=== PATIENT | female | born 1945 | race Caucasian/White ===

== ENCOUNTER 2019-10-03 00:57 | Outpatient (CLI) | payer MEDICARE, OTHER, SELFPAY ==
[2019-10-03 17:34] LABS: SARS-CoV-2 RNA PCR Negative
== END 2019-10-03 00:58 | disposition home or self-care (01) ==
LOC: ANHCOVIDDT 00:59
PROVIDERS: PCP Family Medicine Adolescent Medicine; Visit Provider Internal Medicine Gastroenterology
DX: Z01.812 Encounter for preprocedural laboratory examination (principal); Z11.59 Encounter for screening for other viral diseases
CPT/HCPCS: 87635; C9803; U0003

== ENCOUNTER 2019-10-05 01:48 | Day surgery (SDC) | payer MEDICARE, OTHER, SELFPAY ==
[2019-09-28 13:58] VITALS: BMI 49.1
[2019-10-05 09:00] VITALS: BP 126/58; PULSE 88; RESP 20; TEMP 37.1; O2SAT 98
--- NOTE | 2019-10-05 09:40 | WPDANESEPPF ---
Anes - Initial Pre Proc Eval Procedure: Operation Date: 10/05/19 10:00 Proposed Procedures p Colonoscopy - Ever Lagos MD Date/Time: 10/05/19 09:40 Surgeon: Ever Lagos MD Pre Op Diagnosis: Rectal Bleeding/ Hx Colon Polyps Patient Data Age: 73 Gender: F Height: 1.55 m Weight: 118.6 kg Last Vital Signs Temp 37.1 C 10/05/19 09:00 Pulse 88 10/05/19 09:00 Resp 20 10/05/19 09:00 BP 126/58 L 10/05/19 09:00 Pulse Ox 98 10/05/19 09:00 Allergies Allergy/AdvReac Type Severity Reaction Status Date / Time cefadroxil Allergy Unknown Unknown Verified 10/05/19 09:15 metformin AdvReac Unknown SEVERE Verified 10/05/19 09:15 DIARRHEA Home Medications Medication Instructions Recorded Confirmed Type acetaminophen 650 mg PO Q8H PRN 06/13/19 06/13/19 History diltiazem HCl [Cartia XT] 180 mg PO DAILY 06/13/19 09/28/19 History furosemide [Lasix] 20 mg PO DAILY 06/13/19 09/28/19 History gabapentin [Neurontin] 300 mg PO BID 06/13/19 09/28/19 History hydrochlorothiazide 25 mg PO DAILY 06/13/19 09/28/19 History lorazepam [Ativan] 1 mg PO BID PRN 06/13/19 09/28/19 History losartan [Cozaar] 50 mg PO DAILY 06/13/19 09/28/19 History methylcellulose (laxative) 2 g PO DAILY 06/13/19 09/28/19 History [Citrucel Sugar Free] pantoprazole [Protonix] 40 mg PO BID 06/13/19 09/28/19 History sotalol [Betapace] 120 mg PO BID 06/13/19 09/28/19 History tramadol [Ultram] 50 mg PO Q6H PRN 06/13/19 09/28/19 History warfarin 6 mg PO DAILY 06/13/19 09/28/19 History Patient hx anesthesia problems: none Family hx anesthesia problems: none PMFSH Past Medical History Medical History (Updated 10/04/19 @ 10:57 by Sedrick Koch DO) Atrial fibrillation Diabetes type 2, controlled diet controlled DVT (deep venous thrombosis) Fibromyalgia Hypertension Osteoarthritis Pulmonary embolism Surgical History Surgical History (Updated 10/04/19 @ 10:57 by Sedrick Koch DO) History of hysterectomy Family History Family History (Updated 01/27/17 @ 13:36 by DOCTOR UNKNOWN) Other Cerebrovascular accident Family history of malignant neoplasm Hypertension Social History Social History Smoking status: Current every day smoker Alcohol intake: never Gender identity (if verbalized by the patient): Female Sexual Orientation (if Verbalized by the Patient): Straight or Heterosexual Anes - Eval Final PreProcedure Day of Procedure 10/05/19 09:40 Patient weight: morbidly obese Heart: regular rate and rhythm Lungs: clear to auscultation and normal air movement Airway: Mallampati scale class II Neurological: alert and oriented Last oral intake: >/= 8 hours ASA classification: III Emergent: no Anesthetic plan: proceed Anesthesia type and monitoring: general GIVS and standard monitoring Informed Consent: The patient's anesthetic plan and its attendant risks and benefits were discussed with the patient/family/POA. Questions were solicited and answers provided to the satisfaction of the patient/family/POA.
[2019-10-05] MEDS: LACTATED RINGERS 1,000 ML 150 ML IV CONT (09:42)
[2019-10-05 09:45] LABS: Glucose Point of Care 128 (65-105)
--- NOTE | 2019-10-05 09:48 | WPDGICN ---
Assessment and Plan Assessment and plan (1) LGI bleed: Code(s): K92.2 - Gastrointestinal hemorrhage, unspecified Status: Acute Assessment and Plan: Lower GI bleeding is described as a large amount. Plan is to evaluate more thoroughly with colonoscopy. It is likely that warfarin anticoagulation contributes to her lower GI bleeding. Will need to follow bleeding closely while she is anticoagulated. Anticoagulation will be held briefly while colonoscopy is performed. (2) History of colon polyps: Code(s): Z86.010 - Personal history of colonic polyps Status: Acute Assessment and Plan: Patient's last colonoscopy showed colon polyps in 2016. Follow-up colonoscopy at intervals in the future is advised. Typically 5 year intervals. (3) Obesity (BMI 30.0-34.9): Code(s): E66.9 - Obesity, unspecified Status: Acute (4) Atrial fibrillation: Code(s): I48.91 - Unspecified atrial fibrillation Status: Acute Assessment and Plan: Patient has a history of atrial fibrillation and pulmonary embolism in for the risks reason she requires anticoagulation. This will be held for endoscopy and safety of anticoagulation reassessed after endoscopy. GI Consult Note Consult date/time: 10/05/19 09:48 HPI: Fang Hemphill is a 73 year old female seen in evaluation at the request of Dr. Ludwig. Patient reports bloody stools. Described as a large amount 1 month ago. She has noticed a small amount intermittently subsequently. Patient reports she had 10 see towards constipation and large bleeding occurred after a hard stool. She does have a history of atrial fibrillation for which she is on warfarin anticoagulation chronically. She has a past medical history of pulmonary hypertension and a history of a PE as well. Her family history is noncontributory. In 2016 she had a colonoscopy that showed multiple colon polyps. Family history is noncontributory. Review of Systems Review of Systems: All systems reviewed & are unremarkable except as noted in HPI and below PMFSH Past Medical History Medical History Atrial fibrillation Diabetes type 2, controlled diet controlled DVT (deep venous thrombosis) Fibromyalgia Hypertension Osteoarthritis Pulmonary embolism Surgical History Surgical History History of hysterectomy Family History Family History Other Cerebrovascular accident Family history of malignant neoplasm Hypertension Social History Social History Smoking status: Current every day smoker Alcohol intake: never Gender identity (if verbalized by the patient): Female Sexual Orientation (if Verbalized by the Patient): Straight or Heterosexual Meds Home Medications and Allergies Home Medications Medication Instructions Recorded Confirmed Type acetaminophen 650 mg PO Q8H PRN 06/13/19 10/05/19 History diltiazem HCl [Cartia XT] 180 mg PO DAILY 06/13/19 10/05/19 History furosemide [Lasix] 20 mg PO DAILY 06/13/19 10/05/19 History gabapentin [Neurontin] 300 mg PO BID 06/13/19 10/05/19 History hydrochlorothiazide 25 mg PO DAILY 06/13/19 10/05/19 History lorazepam [Ativan] 1 mg PO BID PRN 06/13/19 10/05/19 History losartan [Cozaar] 50 mg PO DAILY 06/13/19 10/05/19 History methylcellulose (laxative) 2 g PO DAILY 06/13/19 10/05/19 History [Citrucel Sugar Free] pantoprazole [Protonix] 40 mg PO BID 06/13/19 10/05/19 History sotalol [Betapace] 120 mg PO BID 06/13/19 10/05/19 History tramadol [Ultram] 50 mg PO Q6H PRN 06/13/19 10/05/19 History warfarin 6 mg PO DAILY 06/13/19 10/05/19 History Allergies Allergy/AdvReac Type Severity Reaction Status Date / Time cefadroxil Allergy Unknown Unknown Verified 10/05/19 09:15 metformin AdvReac Unknown SEVERE Verified 10/05/19 09:15 DIARRHEA Vital Signs
[2019-10-05 10:00] LABS: INR 1.2
[2019-10-05 11:03] VITALS: BP 110/52; PULSE 76; RESP 18; O2SAT 96
[2019-10-05 11:13] VITALS: BP 114/58; PULSE 82; RESP 18; O2SAT 96
[2019-10-05 11:23] VITALS: BP 112/60; PULSE 80; RESP 18; O2SAT 96
--- NOTE | 2019-10-05 11:32 | SUR.PHASEII ---
REFERRAL APPT MADE TO SEE DR. KIM 10/09/2019 AT 10:30. [address]
== END 2019-10-05 12:03 | disposition home or self-care (01) ==
PROVIDERS: PCP Family Medicine Adolescent Medicine; Visit Provider Internal Medicine Gastroenterology
PROC: 0DJD8ZZ Inspection of Lower Intestinal Tract, Via Natural or Artificial Opening Endoscopic (ICD-10-PCS; CPT 45378; principal; 2019-10-05 10:00)
DX: C18.2 Malignant neoplasm of ascending colon (principal); K92.2 Gastrointestinal hemorrhage, unspecified; E66.9 Obesity, unspecified; I48.91 Unspecified atrial fibrillation; E11.9 Type 2 diabetes mellitus without complications; I10 Essential (primary) hypertension; Z79.01 Long term (current) use of anticoagulants; D12.2 Benign neoplasm of ascending colon; Z86.718 Personal history of other venous thrombosis and embolism
CPT/HCPCS: 45380; 45385; 36415; 85610; 88304; 88305; J2704; J7120

== ENCOUNTER → 2019-10-17 11:21 | Outpatient (CLI) | payer MEDICARE, OTHER, SELFPAY ==
--- NOTE | ~2019-10-17 | CT_ITS ---
EXAMINATION: CT chest abdomen pelvis w con DATE: 10/17/2019 11:56 INDICATION: Malignant neoplasm of ascending colon. TECHNIQUE: Computed tomography (CT) of the chest, abdomen, and pelvis was performed with 100 mL Omnip aque 350 intravenous contrast. Automated exposure control and iterative reconstruction technique were employed. The dose-length product was 1301.85 mGy-cm. COMPARISON: Chest CT 12/30/2012, CT abdomen and pelvis 11/23/2012 FINDINGS: CHEST CT: The lungs demonstrate mild burden of chronic diffuse peripheral reticular opacities. There is mild br onchiectasis in the lower lobes. No honeycombing. No pleural effusion. There is left atrial enlargeme nt of the heart. There are coronary artery calcifications. No pericardial effusion. There is a small sliding hiatal hernia. ABDOMEN/PELVIS CT: Left hepatic lobe is small. There are changes of cholecystectomy. The spleen, pancreas, and adrenal g lands are normal. There is cortical thinning of the kidneys. There is diverticulosis of the colon wit hout evidence of diverticulitis. There are no dilated loops of bowel. There is focal wall thickening of the ascending colon, consistent with primary malignancy. There are no pathologically enlarged lymp h nodes. There are changes of ventral hernia repair. There is no free intraperitoneal fluid. There is moderate lumbar spondylosis. IMPRESSION: 1. Focal wall thickening of ascending colon, consistent with primary malignancy. No evidence of metas tatic disease. Reviewed, dictated and finalized at location A. IMPRESSION: 1. Focal wall thickening of ascending colon, consistent with primary malignancy . No evidence of metastatic disease.
[2019-10-17 11:41] LABS: Estimated Glomerular Filt Rate > 60
== END ==
PROVIDERS: Visit Provider Surgery
DX: C18.2 Malignant neoplasm of ascending colon (principal)
CPT/HCPCS: 36415; 71260; 74177; Q9967

== ENCOUNTER 2019-11-05 11:52 | Outpatient (CLI) | payer MEDICARE, OTHER, SELFPAY ==
[2019-11-05 13:10] LABS: Basophils Absolute Auto 0.1 K/mm3 (0.0-0.1); Basophils Percent Auto 1.1 % (0.2-1.2); Eosinophils Absolute Auto 0.2 K/mm3 (0-0.3); Eosinophils Percent Auto 3.1 % (0-4.4); Hematocrit 26.8 % (37.0-47.0); Hemoglobin 7.2 g/dL (12.0-15.0); Immature Granulocyte Absolute 0.01 K/mm3 (0.00-0.031); Immature Granulocyte Percent A 0.2 % (0-0.5); Lymphocytes Absolute Auto 1.11 K/mm3 (0.9-3.2); Lymphocytes Percent Auto 20.1 % (18.3-44.2); Mean Corpuscular HGB Conc 26.9 g/dl (32-36); Mean Corpuscular Volume 66.8 fl (80-100); Mean Platelet Volume 9.5 fl (7.4-10.4); Monocytes Absolute Auto 0.6 K/mm3 (0.1-0.6); Monocytes Percent Auto 10.7 % (2.6-8.5); Neutrophils Absolute Auto 3.6 K/mm3 (1.3-6.7); Neutrophils Percent Auto 64.8 % (45.5-73.1); Platelet Count Result 304 k/mm3 (150-375); Red Blood Count 4.01 M/mm3 (4.2-5.4); Red Cell Distribution Width 19.8 % (11.5-14.5); White Blood Count 5.5 K/mm3 (4.5-10.0)
[2019-11-05 13:21] LABS: Alanine Aminotransferase 12 U/L (4-35); Albumin Level 3.7 g/dL (3.5-5.1); Alkaline Phosphatase 123 U/L (38-126); Anion Gap 9.5 mmol/L (7-16); Aspartate Amino Transferase 17 U/L (14-36); Bilirubin,Total 0.2 mg/dL (0.2-1.3); Blood Urea Nitrogen 16 mg/dL (7-17); Calcium 8.6 mg/dL (8.4-10.2); Carbon Dioxide 28 mmol/L (22-30); Chloride 102 mmol/L (98-107); Estimated Glomerular Filt Rate > 60; Glucose 111 mg/dL (65-105); Partial Thromboplastin Time 47.3 SECONDS (22.3-36.8); Potassium 3.5 mmol/L (3.4-5.0); Sodium 136 mmol/L (137-145)
[2019-11-05 13:34] LABS: Anisocytosis 1+ (NORMAL); Hypochromasia 2+ (NORMAL); Platelet Estimate Adequate (Adequate); Poikilocytosis 1+ (NORMAL); Stomatocytes 1+ (NORMAL)
[2019-11-05 13:35] LABS: Ovalocytes 1+ (NORMAL)
[2019-11-05 13:53] LABS: Carcinoembryonic Antigen 3.4 ng/mL (0.0-3.0)
== END 2019-11-05 11:53 | disposition home or self-care (01) ==
LOC: ANHSURGERY 11:55
PROVIDERS: Anesthesiology; PCP Family Medicine Adolescent Medicine; Visit Provider Surgery
DX: C18.2 Malignant neoplasm of ascending colon (principal); Z79.02 Long term (current) use of antithrombotics/antiplatelets
CPT/HCPCS: 36415; 80053; 82378; 85025; 85730; 86850; 86900; 86901

== ENCOUNTER 2019-11-10 00:24 | Outpatient (CLI) | payer MEDICARE, OTHER, SELFPAY ==
[2019-11-10 18:30] LABS: SARS-CoV-2 RNA PCR Negative
== END 2019-11-10 00:25 | disposition home or self-care (01) ==
LOC: ANHCOVIDDT 00:24
PROVIDERS: PCP Family Medicine Adolescent Medicine; Visit Provider Surgery
DX: Z01.812 Encounter for preprocedural laboratory examination (principal); Z11.59 Encounter for screening for other viral diseases
CPT/HCPCS: 87635; C9803; U0003

== ENCOUNTER 2019-11-13 14:41 | Inpatient (IN) | payer MEDICARE, OTHER, SELFPAY ==
[2019-11-05 12:49] VITALS: BP 131/51; PULSE 64; RESP 18; TEMP 37; O2SAT 99; BMI 49.1
--- NOTE | 2019-11-12 10:03 | WPDANESEPP ---
Anes - Eval Pre Procedure Procedure: Operation Date: 11/13/19 08:30 Proposed Procedures p Hand Assisted Laparoscopic Right Hemicolectomy, Possible Open - Steven Fraire DO Date/Time: 11/12/19 10:03 Pre Op Diagnosis: ascending colon CA Patient Data Age: 73 Gender: F Height: 1.55 m Weight: 118 kg Last Vital Signs Temp 37.0 C 11/05/19 12:49 Pulse 64 11/05/19 12:49 Resp 18 11/05/19 12:49 BP 131/51 L 11/05/19 12:49 Pulse Ox 99 11/05/19 12:49 Allergies Allergy/AdvReac Type Severity Reaction Status Date / Time cefadroxil Allergy Unknown RASH AND Verified 11/05/19 12:05 ITCHING metformin AdvReac Unknown SEVERE Verified 11/05/19 12:05 DIARRHEA Home Medications Medication Instructions Recorded Confirmed Type acetaminophen 650 mg PO Q8H PRN 06/13/19 11/05/19 History diltiazem HCl [Cartia XT] 180 mg PO DAILY 06/13/19 11/05/19 History furosemide [Lasix] 20 mg PO DAILY 06/13/19 11/05/19 History gabapentin [Neurontin] 300 mg PO BID 06/13/19 11/05/19 History hydrochlorothiazide 25 mg PO DAILY 06/13/19 11/05/19 History lorazepam [Ativan] 1 mg PO BID PRN 06/13/19 11/05/19 History losartan [Cozaar] 50 mg PO DAILY 06/13/19 11/05/19 History methylcellulose (laxative) 2 g PO DAILY 06/13/19 11/05/19 History [Citrucel Sugar Free] pantoprazole [Protonix] 40 mg PO BID 06/13/19 11/05/19 History sotalol [Betapace] 120 mg PO BID 06/13/19 11/05/19 History tramadol [Ultram] 50 mg PO Q6H PRN 06/13/19 11/05/19 History warfarin 6 mg PO DAILY 06/13/19 11/05/19 History enoxaparin 120 mg/0.8 mL 120 mg SUB-Q Q12H #6 ml 10/09/19 11/05/19 Rx subcutaneous syringe neomycin 500 mg tablet See Rx Instructions .ROUTE 10/10/19 11/05/19 Rx .COMPLEX #6 tablet metronidazole 500 mg tablet See Rx Instructions .ROUTE 10/18/19 11/05/19 Rx .COMPLEX #3 tablet Patient hx anesthesia problems: none Family hx anesthesia problems: none PMFSH Past Medical History Medical History Anxiety Arthritis Atrial fibrillation CHF (congestive heart failure) Diabetes type 2, controlled diet controlled DVT (deep venous thrombosis) Fibromyalgia Former smoker High cholesterol History of kidney stones Hypertension Osteoarthritis Pulmonary embolism Sleep apnea Surgical History Surgical History Colonoscopy planned H/O hernia repair x2 History of eyelid surgery History of hysterectomy Hx laparoscopic cholecystectomy Mass of breast removed about 2 years ago Family History Family History Father Heart disease Mother CHF (congestive heart failure) Sibling Diabetes mellitus Sibling Diabetes mellitus Sibling Diabetes mellitus Breast cancer Afib Other Heart disease Grandparent Cerebrovascular accident Other Cancer Other Family history of malignant neoplasm Hypertension Social History Social History Smoking packs per day: 1 Smoking cigarettes per day: 20.0 Years smoked: 12 Smoking pack-years: 12.00 Smoking status: Former smoker Tobacco type: cigarettes Smoking end date: 04/11/81 Alcohol intake: never Substance use: never Gender identity (if verbalized by the patient): Female Spiritual care concerns: No Exam Day of Procedure 11/12/19 10:03
[2019-11-13] VITALS (40 sets, daily range): BP systolic 56–125; BP diastolic 36–78; PULSE 55–87; RESP 14–26; TEMP 36–37.4; O2SAT 92–100
--- NOTE | ~2019-11-13 | XR_ITS ---
EXAMINATION: XR abdomen obstructive series DATE: 11/16/2019 12:34 INDICATION: Ileus TECHNIQUE: Frontal supine and upright views of the abdomen were obtained. COMPARISON: CT abdomen and pelvis dated 11/13/2019 FINDINGS: Gas is seen in the stomach and nondilated loops of small bowel in the left and right abdomen as well as the remaining transverse colon. No dilated gas-filled loops of bowel. No free intraperitoneal gas . Cholecystectomy clips in the right upper quadrant. There are also surgical clips circling the centr al abdomen at the periphery of a prior ventral hernia mesh repair which as seen on prior CT. Airspace opacities at the bilateral lung bases which could represent atelectasis and/or pneumonia. IMPRESSION: 1. No free intraperitoneal gas or dilated gas-filled loops of bowel to suggest obstruction. 2. Bibasilar airspace opacities which could represent atelectasis and/or pneumonia. Reviewed, dictated and finalized at location A. IMPRESSION: 1. No free intraperitoneal gas or dilated gas-filled loops of bowel to suggest obstruction. 2. Bibasilar airspace opacities which could represent atelectasis and/or pneumo orin.
--- NOTE | ~2019-11-13 | CT_ITS ---
EXAMINATION: CT abdomen pelvis w con EXAM DATE: 11/13/2019 19:36 INDICATION: Postoperative, right hemicolectomy. Colon cancer. TECHNIQUE: Spiral CT of the abdomen and pelvis was performed following intravenous injection of 100 m L Omnipaque 350. Axial, coronal and sagittal images were reviewed. The dose-length product (DLP) fo r this examination was 1648.51 mGy-cm. The exposure was tailored according to patient size (auto mA exposure control), and iterative reconstruction (ASIR) was used as additional dose reduction techniqu e. There is no prior study for comparison. FINDINGS: Surgical changes of right hemicolectomy. There is moderate amount of pelvic fluid, with krysta e heterogeneous density within the dependent aspect of the pelvis likely postoperative blood products , seroma. Multiple foci of gas within the subcutaneous tissues. Small amount of free intraperitoneal gas. There is an anterior abdominal wall mesh. There are multiple foci of subcutaneous gas along the anterior aspect of the abdomen. The liver, spleen, adrenal glands and pancreas are unremarkable. Gallbladder is unremarkable. No bi liary obstruction. Portal and splenic veins are patent. Kidneys enhance symmetrically. There is no hydronephrosis. Chronic round well-circumscribed mesenteric density measuring 1.8 cm, unchanged, conrado ign finding. The uterus is not identified and has likely been surgically resected. The bladder is c ollapsed with Galindo catheter balloon anchor inside. There is no retroperitoneal or pelvic lymphadeno colin. There is mild scattered arteriosclerotic disease. Small to moderate-sized sliding gastroesop hageal hiatal hernia. There are trace bilateral pleural effusions. There is bibasilar subsegmental atelectasis. Cardiomegal y. The main, central pulmonary arteries are dilated which can indicate elevated pulmonary arterial p ressure, pulmonary arterial hypertension. There are no osteoblastic or osteolytic lesions identified . IMPRESSION: 1. Interval right hemicolectomy. Moderate amount of abdominal fluid, more dense fluid in the pelvis likely blood products, clot retraction. 2. Postoperative Intra-abdominal, subcutaneous gas. 3. Small to moderate gastroesophageal hiatal hernia. 4. Trace pleural effusions, bibasilar atelectasis. Reviewed, dictated and finalized at location A. IMPRESSION: 1. Interval right hemicolectomy. Moderate amount of abdominal fluid, more dens e fluid in the pelvis likely blood products, clot retraction. 2. Postoperative Intra-abdominal, subcutaneous gas. 3. Small to moderate gastroesophageal hiatal hernia. 4. Trace pleural effusions, bibasilar atelectasis.
--- NOTE | ~2019-11-13 | XR_ITS ---
EXAMINATION: XR chest 1V portable EXAM DATE: 11/13/2019 18:56 INDICATION: Pain with deep inspiration, history of atrial fibrillation, CHF, hypertension, pulmonary embolism. TECHNIQUE: Portable AP frontal chest x-ray was obtained. Comparison is made to prior examination from 07/14/2012. FINDINGS: The lungs are clear. There are no pleural effusions. Cardiac silhouette is prominent but magnified on this AP technique. There is no pneumothorax suspected. The bones and soft tissues are unremarkable. IMPRESSION: No acute cardiopulmonary findings. Reviewed, dictated and finalized at location A.
--- NOTE | ~2019-11-13 | XR_ITS ---
XR chest 1V portable DATE: 11/16/2019 06:29 INDICATION: Volume overload TECHNIQUE: Portable AP chest on 11/16/2019 at 0557 hours COMPARISON: 11/13/2019 portable AP chest FINDINGS: There is left perihilar and prominent left lower lung infiltrate and/atelectasis. There is mild infiltrate or atelectasis in the right lower lung zone. The infiltrates are increased since 2019. Heart size appears within normal limits considering magnification associated with AP projection. There is prevascular and minor fissure prominence suggesting mild congestive changes. Postoperative change of the upper abdomen. IMPRESSION: Bilateral infiltrates and/or atelectasis, primarily on the left and interval congestive c hanges. Reviewed, dictated and finalized at location A. IMPRESSION: Bilateral infiltrates and/or atelectasis, primarily on the left and interval congestive changes.
[2019-11-13] MEDS: LACTATED RINGERS 1,000 ML 30 ML IV CONT ×3 (07:04→12:41)
[2019-11-13] MEDS: ACETAMINOPHEN 500 MG TABLET 1000 MG PO ×2 (07:05→23:01)
[2019-11-13] MEDS: HEPARIN SODIUM 5,000 UNITS/ML VIAL 5000 UNITS SUB-Q (07:06)
[2019-11-13] MEDS: KETOROLAC 15 MG/ML VIAL (*BKC) IV PUSH (07:06)
--- NOTE | 2019-11-13 07:15 | WPDANESEFPP ---
Anes - Eval Final PreProcedure Day of Procedure 11/13/19 07:15 Patient weight: morbidly obese Heart: regular rate and rhythm Lungs: clear to auscultation Airway: Mallampati scale class II Neurological: alert and oriented Last oral intake: >/= 8 hours ASA classification: III Emergent: no Anesthetic plan: proceed Anesthesia type and monitoring: general ETT and standard monitoring Informed Consent: The patient's anesthetic plan and its attendant risks and benefits were discussed with the patient/family/POA. Questions were solicited and answers provided to the satisfaction of the patient/family/POA.
--- NOTE | 2019-11-13 07:24 | WPDHPUPDATE1 ---
History and Physical Update Update Date/Time: 11/13/19 07:24 History and Physical has been reviewed, including an updated exam of the patient. There are NO changes in the patient's condition. Risks, benefits, and alternatives have been discussed and questions answered. Patient agrees to proceed with procedure.
[2019-11-13 07:27] LABS: Glucose Point of Care 225 (65-105)
[2019-11-13 07:42] LABS: INR 1.2; Prothrombin Time 14.4 Seconds (11.1-14.7)
[2019-11-13 07:43] LABS: Partial Thromboplastin Time 37.4 SECONDS (22.3-36.8)
[2019-11-13] MEDS: CLINDAMYCIN 900 MG/NS 50 ML 900 MG/50 ML PIGGYBACK 50 MG IVPB (08:26)
[2019-11-13] MEDS: GENTAMICIN SULFATE INJ 380 MG in DEXTROSE 5% 100 ML 95.4 MG IVPB (08:36)
--- NOTE | 2019-11-13 11:28 | PM.PROC ---
Procedure Note - Detailed Date of procedure: 11/13/19 Pre-op diagnosis: ascending colon CA Post-op diagnosis: same Procedure performed: Hand assisted laparoscopic right hemicolectomy with ileocolic anastomosis Description of procedure: Procedure as well as risks benefits and alternatives were explained to the patient. Written consent was obtained and placed in chart prior to procedure. Patient was brought back to surgical suite. She was placed supine on operating table. Time-out was done to confirm patient procedure. she was then intubated by the anesthesia department. her abdomen was prepped and draped in sterile fashion using chlorhexidine prep. a 5 mm incision was made in the left upper quadrant and a 5 mm Optiview trocar was advanced under direct visualization through the abdominal layers. Once inside the abdominal cavity, carbon dioxide insufflation was used to create a pneumoperitoneum. The camera was inserted in the abdomen was inspected. There were multiple adhesions that appeared to involve the omentum throughout the entire central abdomen. I was able to place another 5 mm port along the left lateral abdomen under direct visualization, and then these adhesions were carefully taken down using sharp dissection with Metzenbaum scissors and blunt dissection with the LigaSure bipolar cautery. Once all the adhesions were taken down, I was able to adequately visualize the abdominal wall for my hand port and remaining port placements. A 7 centimeter vertical incision was made centered on the umbilicus using a 15 blade scalpel. Electrocautery was used for hemostasis and for dissection down through Zena's fascia. The linea alba was identified, and incised using electrocautery. Two Beti clamps were used to lift the fascia anteriorly, and the peritoneum was then entered using electrocautery. I did have to extend this incision cephalad on to about 3 cm of mesh from her prior hernia repair. The abdomen was inspected and no acute abnormalities were noted. The wound protector was placed at this incision, and the GelPort was applied. The patient was placed in Trendelenburg position and rotated slightly to the left. A 5 millimeter incision was made in the lower midline and a 5 millimeter trocar was inserted under direct visualization. Another 5 millimeter incision was made in the left lower quadrant, and a 5 millimeter trocar was inserted under direct visualization. A transversus abdominis plane block with Exparel was performed under laparoscopic visualization bilaterally. After carefully inspecting the abdominal cavity, I began my dissection from a medial to lateral direction along the ileocolic pedicle. The cecum was tented anteriorly and laterally and this allowed me to visualize the ileocolic pedicle. The medial side and inferior side of the peritoneum was scored using hook electrocautery and the retroperitoneal plane was entered. Careful dissection was performed using hook electrocautery in this relatively avascular plane. The duodenum was identified and swept posteriorly. I then continued to dissect proximally along the ileocolic pedicle. I isolated the ileocolic vein and artery individually and performed a high ligation using bipolar cautery. Hemostasis appeared adequate. I then continued the medial to lateral dissection maintaining this avascular plane. I also dissected along the transverse colon to the right side all the way to the level of the hepatic flexure. The terminal ileum and appendix were then retracted medially and the lateral peritoneal attachments were taken down using hook electrocautery. The root of the mesentery was then carefully taken down proximally to allow adequate mobilization of the small bowel for our anastomosis. The lateral peritoneal attachments of the ascending colon were then taken down using hook electrocautery. The hepatic flexure was taken down using ligasure bipolar cautery. Once this was completed I gained zev
--- NOTE | 2019-11-13 12:12 | SUR.PHASEI ---
1210 DR FINNEGAN AWARE OF BP 79/40 HR 59- H&H ORDERED.
[2019-11-13 12:30] LABS: Hemoglobin 5.4 g/dL (12.0-15.0)
[2019-11-13 12:31] LABS: Hematocrit 20.4 % (37.0-47.0)
[2019-11-13] MEDS: SODIUM CHLORIDE 0.9% IV 250 ML 100 ML IV CONT (12:55)
[2019-11-13 13:36] LABS: Glucose Point of Care 116 (65-105)
[2019-11-13] MEDS: ONDANSETRON INJ 4 MG/2 ML VIAL IV PUSH (13:43)
[2019-11-13] MEDS: diphenhydrAMINE HCl INJ 50 MG/ML VIAL 12.5 MG IV PUSH (14:10)
[2019-11-13] MEDS: LACTATED RINGERS 1,000 ML 100 ML IV CONT (14:53)
--- NOTE | 2019-11-13 14:55 | ADMGEN ---
This patient, Fang Hemphill, was admitted to [facility] Surg Room 307-01. Patient/family oriented to hospital policies and general routines including ID bracelet, bed and alarms, visiting hours, pain management, procedures, bathroom and other care routines, personal items, smoking policy, room service/diet, and visiting hours. Valuables list has been completed. Information on how to activate the Rapid Response Team has been discussed. Patient/Family are encouraged to report perceived risks to care and to ask questions if they do not understand what they are told or what they should do.
--- NOTE | 2019-11-13 15:15 | PC.NURSE ---
Addendum entered by Valentin Smiley RN 11/13/19 15:30: Patient appears pale upon transfer to unit. Co of pain to abdomen. Blood pressure 86/40. Leann at bedside to assess patient. Dr. Ramirez notified. Original Note: Leann at bedside to assess patient.
[2019-11-13] MEDS: LACTATED RINGERS 1,000 ML 999 ML IV CONT (15:27)
--- NOTE | 2019-11-13 15:30 | PM.IMCN ---
Assessment and Plan Assessment and plan (1) S/P right hemicolectomy: Code(s): Z90.49 - Acquired absence of other specified parts of digestive tract Status: Acute Assessment and Plan: I have called and updated him once the patient was in ICU. Were awaiting the CT scan and the patient is to get 2 more units of packed red blood cells. Patient got 1 unit packed red cells. I was able to get and a central line and start Levophed. We need to get the blood transfusion carol and the CT scan. (2) Atrial fibrillation: Qualifiers: Atrial fibrillation type: unspecified Qualified Code(s): I48.91 - Unspecified atrial fibrillation Code(s): I48.91 - Unspecified atrial fibrillation Status: Acute Assessment and Plan: The patient was bolused with heparin earlier today. Her blood thinners on hold at this time. Due to her surgery and anemia. Patient's Cardizem is on hold at this time due to her low blood pressure. (3) Colon cancer, ascending: Code(s): C18.2 - Malignant neoplasm of ascending colon Status: Acute Assessment and Plan: Postop right hemicolectomy. (4) DVT (deep venous thrombosis): Code(s): I82.409 - Acute embolism and thrombosis of unspecified deep veins of unspecified lower extremity Status: Acute Assessment and Plan: We do SCDs today. (5) Pulmonary embolism: Code(s): I26.99 - Other pulmonary embolism without acute cor pulmonale Status: Acute Assessment and Plan: Her anticoagulation is on hold at this time. 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 (8) Atrial aneurysm: Code(s): I25.3 - Aneurysm of heart Status: Acute Assessment and Plan: Continue to monitor. (9) Obesity (BMI 30.0-34.9): Code(s): E66.9 - Obesity, unspecified Status: Acute HPI Data of Consult Consult date: 11/13/19 Requesting Physician: Steven Fraire DO Primary Care Provider: Castro Broderick MD Consult Narrative Narrative: Fang Hemphill is a 73 year old female who has asked to consult on postop hand assisted laparoscopic right hemicolectomy with ileal colic anastomosis. the patient had received 1 unit packed red blood cells postoperatively for hemoglobin of 5.4. Her last known hemoglobin was 7.2 in 11/05/19. patient is awake and appears to be very pale. It appears that her blood pressure has been running low all day today. When I was in the room her blood pressure went down to 70/30. We have obtained a stat H&H and have a L IV fluids infusing at this time. The patient is awake and able to answer questions for me. Patient's head was Down with feet elevated. Another unit packed red blood cells been ordered for the patient. She is complaining of some mild abdominal discomfort. Her belly is soft without any dilatation of bowel sounds at this time. The nursing staff has updated the surgeons about patient's condition.I spoke with the sky cap and he suggested that we move the patient either IMU or ICU. he also recommended that we do a CT of the abdomen with contrast. I did call the surgeon who agreed with the transfusion and the transfer to ICU. He agreed with the blood transfusion. he agreed with the CT scan.After review of the chart I see that the patient had a GI bleed back on 10/05/2019 a lower GI bleed which was described as a large amount. She was referred to Dr. reed. The patient had been on Coumadin due to AFib, PEs and DVT. Prior to this the patient had some colon polyp she had a colonoscopy in 2015. The patient had a endoscopy on
[2019-11-13 15:32] LABS: Hematocrit 20.7 % (37.0-47.0); Hemoglobin 5.8 g/dL (12.0-15.0)
--- NOTE | 2019-11-13 16:20 | PC.NURSE ---
This patient, Fang Hemphill, was transferred to ICU on 11/13/19 at 1620. Personal belongings sent with patient. Report given to Loren. Appropriate documentation sent with patient.
[2019-11-13 16:24] LABS: Anion Gap 6.2 mmol/L (7-16); Blood Urea Nitrogen 11 mg/dL (7-17); Calcium 7.1 mg/dL (8.4-10.2); Carbon Dioxide 26 mmol/L (22-30); Chloride 102 mmol/L (98-107); Estimated CRCL calculation 85 ml/min; Estimated Glomerular Filt Rate > 60; Glucose 130 mg/dL (65-105); Potassium 3.2 mmol/L (3.4-5.0); Sodium 131 mmol/L (137-145)
[2019-11-13] MEDS: NOREPINEPHRINE 8 MG/D5W 250 ML 8 MG/250 ML BAG 18.8 MG IV CONT (17:05)
--- NOTE | 2019-11-13 17:56 | WPDPROCEDUR ---
Procedures Central Line Placement Right Femoral: Central Line Date: 11/13/19 Central Line Time: 17:10 Discussed w/ the patient/family/POA,the placement of a central venous catheter, including its clinical necessity/indication & associated potential risks, benifits and alternatives.: Yes The patient/family/POA understand(s) and acknowledge(s) the need to proceed with central venous catheter insertion as an important element of the patient's clinical management.: Yes Performed Emergently - Given emergent patient condition, temporal constraints may have precluded informed consent.: Yes Time Out Performed: Yes Patient Position: supine Patient placed on monitor/pulse ox: Yes Provider Prep: mask, sterile gown, sterile gloves, Max. sterile barrier precautions, cap and hand hygiene with conventional soap/water or alcohol based hand rub Central line prep: 2% Chlorhexidine scrub and sterile full body sheet applied Local anesthesia used: lidocaine 2% Amount of anesthesia used (ml): 5 Sterile US Technique with sterile gel/sterile probe covers: Yes Central line lumen inserted: triple Togolese: 7 Length (cm): 16 Depth of Insertion (cm): 15 Post procedure: sutured in place, good blood return, all ports aspirated, flushed, capped, tegaderm, hemostatic disc, antimicrobial disc and aseptic technique maintained throughout procedure Post procedure x-ray: other ( no x-ray needed as it is right from or) Patient tolerated procedure: well Complications: none Additional comments: maximum sterile barrier use including in the sterile ultrasound lubrication. Sterile cap gown and gloves were used. Sterile covering noted. Maximum sterility precautions taken.
--- NOTE | 2019-11-13 18:02 | ADMGEN ---
This patient, Fang Hemphill, was admitted to Intensive Care Unit-12 on 11-13-2019 at 1625. Patient was transferred from [address] [place] [address]/[facility] due to low BP and critical Hgb levels. Report received from BUFFY Hanson. Patient/family oriented to hospital policies and general routines including ID bracelet, bed and alarms, visiting hours, pain management, procedures, bathroom and other care routines, personal items, smoking policy, room service/diet, and visiting hours. Valuables list has been completed. Information on how to activate the Rapid Response Team has been discussed. Patient/Family are encouraged to report perceived risks to care and to ask questions if they do not understand what they are told or what they should do.
[2019-11-13] MEDS: SODIUM CHLORIDE 0.9% IV 250 ML 30 ML IV CONT (18:10)
--- NOTE | 2019-11-13 20:00 | PM.PNGS ---
Subjective Subjective Date/Time Seen: 11/13/19 20:00 Patient examined this evening due to hypotension and anemia. She was transferred to the ICU for closer monitoring. Central line was placed to start more fluids, blood products, and levophed. She is more stable now and was taken down for CT abd/pelvis with contrast. She has been awake and conversant the whole time. She has some abdominal pain, but does not feel more bloated or distended. I reviewed the CT and do not see any active bleeding, but she may have had minor blood loss due to surgical losses and receiving heparin preop. She was also anemic preop with a hemoglobin 7.2 on 11/05/19. She has received 1 unit PRBC in PACU and is on her 2nd unit here in the ICU. She is also likely dehydrated due to having the bowel prep yesterday and vomiting a few times during the prep. Will continue the blood products that are ordered so she has a total of 3 units pRBC's. Repeat labs will be drawn 1 hour after last transfusion. Will continue to watch carefully in the ICU overnight. Hold Lovenox for now. Objective Data Vital Signs Vital Signs: Vital Signs - 24 hr 11/13/19 07:58 11/13/19 11:32 11/13/19 11:45 Temperature 37.4 C 36.1 C L Pulse Rate 68 60 58 L Respiratory Rate 18 18 16 Blood Pressure 125/66 91/41 L 86/41 L Pulse Oximetry 100 95 99 11/13/19 12:00 11/13/19 12:15 11/13/19 12:30 Temperature Pulse Rate 59 L 59 L 55 L Respiratory Rate 16 16 16 Blood Pressure 84/41 L 79/40 L 90/39 L Pulse Oximetry 99 100 100 11/13/19 12:45 11/13/19 13:00 11/13/19 13:05 Temperature 36.2 C L Pulse Rate 56 L 56 L 58 L Respiratory Rate 16 14 14 Blood Pressure 92/38 L 87/40 L 84/42 L Pulse Oximetry 100 100 100 11/13/19 13:20 11/13/19 13:35 11/13/19 13:50 Temperature 36.1 C L 36.1 C L 36.1 C L Pulse Rate 62 56 L 59 L Respiratory Rate 16 14 14 Blood Pressure 87/41 L 96/38 L 93/39 L Pulse Oximetry 100 100 100 11/13/19 14:00 11/13/19 14:04 11/13/19 14:15 Temperature 36.0 C L Pulse Rate 63 59 L 63 Respiratory Rate 16 17 14 Blood Pressure 102/48 L 102/48 L Pulse Oximetry 100 100 100 11/13/19 14:30 11/13/19 14:40 11/13/19 15:00 Temperature 36.1 C L Pulse Rate 66 61 69 Respiratory Rate 14 14 16 Blood Pressure 92/44 L 92/44 L 86/40 L Pulse Oximetry 98 100 100 11/13/19 15:15 11/13/19 16:02 11/13/19 16:20 Temperature 36.3 C L Pulse Rate 59 L 66 Respiratory Rate 16 16 Blood Pressure 79/37 L 89/37 L 106/78 Pulse Oximetry 100 99 11/13/19 17:05 11/13/19 17:27 11/13/19 18:15 Temperature 36.4 C L Pulse Rate 69 63 78 Respiratory Rate 20 19 Blood Pressure 77/40 L 111/54 L 83/36 L Pulse Oximetry 100 100 11/13/19 18:20 11/13/19 18:33 11/13/19 19:33 Temperature 36.5 C 36.4 C L Pulse Rate 73 80 77 Respiratory Rate 26 H 20 Blood Pressure 83/36 L 102/51 L 88/50 L Pulse Oximetry 100 100 Intake/Output Intake/Output: Intake & Output 11/10/19 11/11/19 11/12/19 11/13/19 23:59 23:59 23:59 23:59 Intake Total 3809.5 Output Total 80 Balance 3729.5 Meds/Results Medications: Active Medications Generic Name Dose Route Start Last Admin Trade Name Freq PRN Reason Stop Dose Admin Acetaminophen 1,000 mg 11/13/19 18:00 11/13/19 18:11 Tylenol Tablet PO Not Given Q6HR NANI Dextrose 12.5 gm 11/13/19 16:15 Dextrose 50% Syringe IV PUSH PRN PRN Hypoglycemia Protocol Enoxaparin Sodium 30 mg 11/13/19 21:00 Lovenox SUB-Q Q12HR NANI Glucagon 1 mg 11/13/19 16:15 Glucagon For Inj IM PRN PRN Hypoglycemia Protocol Glucose 15 gm 11/13/19 16:15 Glutose 15 PO PRN PRN Hypoglycemia Protocol Sodium Chloride 250 mls @ 30 mls/hr 11/13/19 12:33 11/13/19 14:05 Normal Saline Iv IV CONT 11/13/19 20:52 Infused .Q8H20M STA Infusion Sodium Chloride 250 mls @ 30 mls/hr 11/13/19 15:28 11/13/19 18:10 Normal Saline Iv IV CONT 11/13/19 23:47 30 mls/hr .Q
[2019-11-13] MEDS: POTASSIUM CHLORIDE 20 MEQ PACKET (FOR LIQUID) 40 MEQ PO (20:30)
[2019-11-13] MEDS: PANTOPRAZOLE 40 MG TABLET PO (20:30)
[2019-11-13] MEDS: SODIUM CHLORIDE 0.9% IV 1,000 ML 125 ML IV CONT (22:40)
[2019-11-13] MEDS: MORPHINE SULFATE 2 MG/ML INJ IV PUSH (22:52)
[2019-11-13 23:18] LABS: Glucose Point of Care 203 (65-105)
[2019-11-14] VITALS (22 sets, daily range): BP systolic 88–139; BP diastolic 44–84; PULSE 76–136; RESP 20–26; TEMP 36.7–36.9; O2SAT 92–100
--- NOTE | 2019-11-14 | ECHO_ITS ---
Patient Info Name: Fang Hemphill Age: 73 years : 1945 Gender: Female Ht: 61 in Wt: 255 lbs BSA: 2.31 m2 HR: 94 bpm BP: 126 / 62 mmHg Heart Rhythm: Sinus Rhythm Technical Quality: Good Exam Date: 11/14/2019 10:34 AM Exam Location: [facility] Patient Status: Inpatient Admit Date: 11/13/2019 Staff Ordering Physician: Leann Russo NP Tubing Assembler: Murphy Ayers RDCS, RT Attending Provider: Steven Fraire DO Referring Physician: Rafaela HERRMANN; Exam Type: CA echo dop color flow w con Study Info Indications R60.9 - Edema, unspecified Complete two-dimensional, color flow and Doppler transthoracic echocardiogram is performed with contrast to opacify the left ventricle and to improve the deliniation of the left ventricle endocardial borders. Summary 1. Left ventricular systolic function is hyperdynamic, estimated at >70%. 2. The left ventricular diastolic function is grade I diastolic dysfunction. 3. Right ventricular chamber dimension is moderately enlarged. 4. Left atrial chamber dimension is mildly enlarged. 5. Estimated RV systolic pressure of 40 mmHg. Left Ventricle Left ventricular chamber dimension is normal. Left ventricular systolic function is hyperdynamic, estimated at >70%. The left ventricular diastolic function is grade I diastolic dysfunction. Right Ventricle Right ventricular chamber dimension is moderately enlarged. Left Atria Left atrial chamber dimension is mildly enlarged. Right Atria Right atrial chamber dimension is normal. Aortic Valve The aortic valve is trileaflet. There is mild aortic valve sclerosis. Pulmonic Valve The pulmonic valve is not well visualized. Mitral Valve The mitral valve has normal leaflets. The mitral valve annulus is mildly calcified. Tricuspid Valve The tricuspid valve leaflets are normal. Pericardium/Pleural The pericardium appears normal. Aorta The aortic root size at the sinus of Valsalva is normal. Left Ventricular Outflow Tract Name Value Normal LVOT 2D LVOT Diameter 2.12 cm LVOT Doppler LVOT Peak Gradient 6 mmHg LVOT Mean Gradient 3 mmHg LVOT VTI 17.46 cm LVOT VTI/AV VTI Ratio 0.78 LVOT Stroke Volume 61.33 ml LVOT CO 6.18 l/min LVOT CI 2.68 L/min/m2 Pulmonic Valve Name Value Normal PV Doppler PV Peak Gradient 9 mmHg Mitral Valve Name Value Normal MV Doppler MV Peak Gradient
[2019-11-14 00:25] LABS: Hematocrit 25.7 % (37.0-47.0); Hemoglobin 8.1 g/dL (12.0-15.0)
[2019-11-14 00:33] LABS: INR 1.3; Prothrombin Time 16.2 Seconds (11.1-14.7)
[2019-11-14 00:37] LABS: Blood Urea Nitrogen 13 mg/dL (7-17); Calcium 7.3 mg/dL (8.4-10.2); Carbon Dioxide 23 mmol/L (22-30); Chloride 100 mmol/L (98-107); Estimated CRCL calculation 66 ml/min; Estimated Glomerular Filt Rate > 60; Glucose 184 mg/dL (65-105); Sodium 129 mmol/L (137-145)
[2019-11-14] MEDS: NOREPINEPHRINE 8 MG/D5W 250 ML 8 MG/250 ML BAG 24.4 MG IV CONT (03:51)
[2019-11-14] MEDS: ACETAMINOPHEN 500 MG TABLET 1000 MG PO ×4 (04:26→23:14)
[2019-11-14] MEDS: MORPHINE SULFATE 2 MG/ML INJ IV PUSH ×3 (04:26→19:41)
[2019-11-14] MEDS: SODIUM CHLORIDE 0.9% IV 1,000 ML 125 ML IV CONT ×3 (04:27→19:41)
[2019-11-14 04:46] LABS: Basophils Absolute Auto 0.1 K/mm3 (0.0-0.1); Basophils Percent Auto 0.4 % (0.2-1.2); Eosinophils Percent Auto 0.1 % (0-4.4); Hematocrit 23.8 % (37.0-47.0); Hemoglobin 7.5 g/dL (12.0-15.0); Immature Granulocyte Absolute 0.07 K/mm3 (0.00-0.031); Immature Granulocyte Percent A 0.5 % (0-0.5); Lymphocytes Percent Auto 6.6 % (18.3-44.2); Mean Corpuscular HGB Conc 31.5 g/dl (32-36); Mean Corpuscular Hemoglobin 23.4 pg (26-34); Mean Corpuscular Volume 74.1 fl (80-100); Mean Platelet Volume 10.1 fl (7.4-10.4); Monocytes Absolute Auto 1.1 K/mm3 (0.1-0.6); Monocytes Percent Auto 6.9 % (2.6-8.5); Neutrophils Percent Auto 85.5 % (45.5-73.1); Nucleated Red Blood Cells Absolute Auto 0.1 K/mm3 (0.0-0.012); Nucleated Red Blood Cells Perc 0.5 % (0.0-0.2); Platelet Count Result 261 k/mm3 (150-375); Red Blood Count 3.21 M/mm3 (4.2-5.4); Red Cell Distribution Width 21.8 % (11.5-14.5); White Blood Count 15.2 K/mm3 (4.5-10.0)
[2019-11-14 05:02] LABS: Anion Gap 9.8 mmol/L (7-16); Blood Urea Nitrogen 13 mg/dL (7-17); Calcium 6.9 mg/dL (8.4-10.2); Carbon Dioxide 22 mmol/L (22-30); Chloride 103 mmol/L (98-107); Estimated CRCL calculation 53 ml/min; Estimated Glomerular Filt Rate 55; Glucose 172 mg/dL (65-105); Potassium 3.8 mmol/L (3.4-5.0); Sodium 131 mmol/L (137-145)
--- NOTE | 2019-11-14 07:18 | WPDANESPN ---
Anes - Prog Note Post-Op Date/Time: 11/14/19 07:18 Cardiovascular status: normal Respiratory status: normal Airway patency: baseline Mental status: baseline Post-Op hydration status: normal Vital Signs: Last Vital Signs Temp 98.1 F 11/14/19 04:00 Pulse 89 11/14/19 06:31 Resp 20 11/14/19 06:00 BP 119/62 11/14/19 06:47 Pulse Ox 99 11/14/19 06:00 I/O: Intake & Output 11/13/19 11/13/19 11/14/19 15:59 23:59 07:59 Intake Total 1709.5 2800 1690.4 Output Total 80 600 Balance 1629.5 2800 1090.4 Laboratory Tests 11/14/19 04:29 11/14/19 04:29 11/05/19 11/13/19 11/13/19 12:55 06:44 07:23 WBC RBC Hgb Hct MCV MCH MCHC RDW Plt Count MPV Immature Gran % (Auto) Neut % (Auto) Lymph % (Auto) [place] % (Auto) Eos % (Auto) Baso % (Auto) Lymph # (Auto) [place] # (Auto) Eos # (Auto) Baso # (Auto) Abs Immat Gran (auto) Absolute Neuts (auto) Absolute Nucleated RBC Nucleated RBC % PT 14.4 INR 1.2 APTT 37.4 H Sodium Potassium Chloride Carbon Dioxide Anion Gap BUN Creatinine Estim Creat Clear Calc Estimated GFR Glucose POC Capillary Glucose 225 H Calcium Blood Type AB Negative Antibody Screen TNP Crossmatch See Detail 11/13/19 11/13/19 11/13/19 11:37 12:14 15:22 WBC RBC Hgb 5.4 L* 5.8 L* Hct 20.4 L* 20.7 L* MCV MCH MCHC RDW Plt Count MPV Immature Gran % (Auto) Neut % (Auto) Lymph % (Auto) [place] % (Auto) Eos % (Auto) Baso % (Auto) Lymph # (Auto) [place] # (Auto) Eos # (Auto) Baso # (Auto) Abs Immat Gran (auto) Absolute Neuts (auto) Absolute Nucleated RBC Nucleated RBC % PT INR APTT Sodium Potassium Chloride Carbon Dioxide Anion Gap BUN Creatinine Estim Creat Clear Calc Estimated GFR Glucose POC Capillary Glucose 116 H Calcium Blood Type Antibody Screen Crossmatch 11/13/19 11/13/19 11/13/19 16:06 16:06 23:07 WBC RBC Hgb Hct MCV MCH MCHC RDW Plt Count MPV Immature Gran % (Auto) Neut % (Auto) Lymph % (Auto) [place] % (Auto) Eos % (Auto) Baso % (Auto) Lymph # (Auto) [place] # (Auto) Eos # (Auto) Baso # (Auto) Abs Immat Gran (auto) Absolute Neuts (auto) Absolute Nucleated RBC Nucleated RBC % PT INR APTT Sodium 131 L Potassium 3.2 L Chloride 102 Carbon Dioxide 26 Anion Gap 6.2 L BUN 11 D Creatinine 0.60 L Estim Creat Clear Calc 85 Estimated GFR > 60 Glucose 130 H POC Capillary Glucose 203 H Calcium 7.1 L Blood Type AB Negative Antibody Screen Negative Crossmatch See Detail 11/14/19 11/14/19 11/14/19 00:10 00:10 00:10 WBC RBC Hgb 8.1 L Hct 25.7 L MCV MCH MCHC RDW Plt Count MPV Immature Gran % (Auto) Neut % (Auto) Lymph % (Auto) [place] % (Auto) Eos % (Auto) Baso % (Auto) Lymph # (Auto) [place] # (Auto) Eos # (Auto) Baso # (Auto) Abs Immat Gran (auto) Absolute Neuts (auto) Absolute Nucleated RBC Nucleated RBC % PT 16.2 H INR 1.3 APTT Sodium 129 L Potassium 4.0 Chloride 100 Carbon Dioxide 23 Anion Gap 10.0 BUN 13 Creatinine 0.80 Estim Creat Clear Calc 66 Estimated GFR > 60 Glucose 184 H POC Capillary Glucose Calcium 7.3 L Blood Type Antibody Screen Crossmatch 11/14/19 11/14/19 04:29 04:29 WBC 15.2 H RBC 3.21 L Hgb 7.5 L Hct 23.8 L MCV 74.1 L MCH 23.4 L MCHC 31.5 L RDW 21.8 H Plt Count 261 MPV 10.1 Immature Gran % (Auto) 0.5 Neut % (Auto) 85.5 H Lymph % (Auto) 6.6 L [place] % (Auto) 6.9 Eos % (Auto) 0.1 Baso % (Auto) 0.4 Lymph # (Auto) 1.00 [place] # (Auto) 1.1 H Eos # (Aut
--- NOTE | 2019-11-14 07:40 | PCOTNOTE ---
Hold OT/PT today per Marine Equipment Preservation Inspector/RN due to medical status and central/femoral line placement. Will attempt OT evaluation when medically appropriate.
[2019-11-14 07:42] LABS: Glucose Point of Care 186 (65-105)
[2019-11-14] MEDS: PANTOPRAZOLE 40 MG TABLET PO ×2 (07:49→19:44)
[2019-11-14] MEDS: CALCIUM GLUC 2,000 MG/NS 100ML 2,000 MG/100 ML BAG 100 MG IVPB (09:11)
--- NOTE | 2019-11-14 09:43 | WPDCNINT ---
Assessment and Plan Assessment and plan (1) Shock: Code(s): R57.9 - Shock, unspecified Status: Acute Assessment and Plan: shock could be related to postoperative hemorrhagic versus hypovolemic, - IV fluid boluses along with packed RBCs were given, adequately fluid-resuscitated - started on Levophed after placing a central line, will maintain MAP > 65 mmHg - continue to monitor closely (2) Severe anemia: Code(s): D64.9 - Anemia, unspecified Status: Acute Assessment and Plan: severe anemia postoperatively with hemoglobin of 5.4. Patient received 3 units of packed RBCs on IV fluid bolus - hemoglobin 7.5 this morning - will continue monitor H&H (3) S/P right hemicolectomy: Code(s): Z90.49 - Acquired absence of other specified parts of digestive tract Status: Acute Assessment and Plan: status post hand assisted laparoscopic right hemicolectomy for ascending colon adenocarcinoma - CT scan of the abdomen pelvis did not show any evidence of metastatic disease (4) Pulmonary embolism: Code(s): I26.99 - Other pulmonary embolism without acute cor pulmonale Status: Acute Assessment and Plan: history of pulmonary embolism and DVT, patient was on Coumadin which was initially switched to therapeutic Lovenox prior to surgery. Patient did receive some heparin prior to surgery - discussed with to surgeon, will start Lovenox 30 mg SQ q.12 hours - will monitor H&H and if it remains stable will restart therapeutic Lovenox or Coumadin in the next 24-48 hours (5) DVT (deep venous thrombosis): Code(s): I82.409 - Acute embolism and thrombosis of unspecified deep veins of unspecified lower extremity Status: Acute Assessment and Plan: as above (6) Atrial fibrillation: Qualifiers: Atrial fibrillation type: unspecified Qualified Code(s): I48.91 - Unspecified atrial fibrillation Code(s): I48.91 - Unspecified atrial fibrillation Status: Acute Assessment and Plan: patient with history of proximal AFib, currently in sinus rhythm rate controlled. - Continue to monitor patient is on sotalol and Cardizem at home currently on hold due to being on vasopressors, will reintroduce once she is off Levophed (7) DVT prophylaxis: Code(s): Z29.9 - Encounter for prophylactic measures, unspecified Status: Acute Assessment and Plan: Lovenox 30 mg SQ q.12 hours Additional Plan discussed with patient and updated with her condition and plan of care. I answered all of questions code status: Full code critical care time spent: 43 minutes discussed with surgeon in details regarding diet, hemoglobin, anticoagulation Due to a high probability of clinically significant, life threatening deterioration, the patient required my highest level of preparedness to intervene emergently and I personally spent this critical care time directly and personally managing the patient. This critical care time included obtaining a history; examining the patient; pulse oximetry; ordering and review of studies; arranging urgent treatment with development of a management plan; evaluation of patient's response to treatment; frequent reassessment; and discussions with other providers. It was exclusive of separately billable procedures and treating other patients and teaching time. Please see Assessment and Plan section and the rest of the note for further information on patient assessment and treatment Livestock Farmworker Consult Note Consult date: 11/14/19 Time Seen: 07:02 Reason for consult: Septic shock, status post right hemicolectomy for malignant neoplasm of the ascending colon, severe anemia postop HPI: Fang Hemphill is a 73 year old female with significant past medical history of anxiety, arthritis, atrial fibrillation, congestive heart failure, type 2 diabetes, DVT, fibromyalgia, hypercholesterolemia, history of kidney stones, essential hypertens
[2019-11-14] MEDS: PERFLUTREN LIPID MICROSPHERES 1.5 ML VIAL DILUTED TO 10 ML TOTAL VOLUME IV PUSH (10:50)
--- NOTE | 2019-11-14 10:50 | PM.PNGS ---
Progress Note: A&P Assessment and Plan (1) S/P right hemicolectomy: Code(s): Z90.49 - Acquired absence of other specified parts of digestive tract Status: Acute Assessment and Plan: Yesterday evening patient was transferred to ICU with anemia and hypotension. Received 3 untits PRBCs and started on Levophed. Hgb monitored overnight and remains stable this morning at 7.5. Currently weaning vasopressor support today. CT scan abd/pelvis last night showed no evidence of active bleeding. She remains hemodynamically stable today. Will leave patient on clear liquids today. Encourage IS use. (2) Colon cancer, ascending: Code(s): C18.2 - Malignant neoplasm of ascending colon Status: Acute Assessment and Plan: Pathology pending. (3) Severe anemia: Code(s): D64.9 - Anemia, unspecified Status: Acute Assessment and Plan: Patient was anemic prior to surgery with hgb 7.2. She may have had some minor blood loss due to anticoagulation and surgical losses. Hgb stable at 7.5 this morning. Continue to trend labs and monitor. Will restart prophylactic Lovenox today. (4) Shock: Code(s): R57.9 - Shock, unspecified Status: Acute Assessment and Plan: Wean the vasopressor as tolerated. Hopefully remove right groin central line tomorrow if off vasopressors and remaining hemodynamically stable. (5) Antiplatelet or antithrombotic long-term use: Code(s): Z79.02 - exterminator helper (current) use of antithrombotics/antiplatelets Status: Acute Assessment and Plan: Continue to hold for now. (6) Atrial fibrillation: Qualifiers: Atrial fibrillation type: unspecified Qualified Code(s): I48.91 - Unspecified atrial fibrillation Code(s): I48.91 - Unspecified atrial fibrillation Status: Acute (7) Pulmonary embolism: Code(s): I26.99 - Other pulmonary embolism without acute cor pulmonale Status: Acute (8) DVT (deep venous thrombosis): Code(s): I82.409 - Acute embolism and thrombosis of unspecified deep veins of unspecified lower extremity Status: Acute Additional Plan Discussed the plan of care with Dr. Fraire. Subjective Subjective Date/Time Seen: 11/14/19 10:50 Post Op day: 1 (DEBO right hemicolectomy) Patient reports: feels better, no flatus and no bowel movement Interval history: Patient seen in ICU this morning. Patient with hypotension and anemia with a significant drop in hemoglobin yesterday to 5.4, requiring blood transfusion (3 units PRBCs), IV fluids, and initiation of vasopressor support. She was transferred to the ICU. Electrician Technician and Hospitalist consulted. Hgb monitored and at 7.5 this morning. She reports feeling a little better this morning than she did last night. She states that her throat and upper chest still hurts at times to breath, but denies shortness of breath or cough. Denies flatus or BM. Reports feeling slightly bloated after having her clear liquid tray this morning. Did have slight nausea with taking in clears, but quickly resolved. No vomiting. No other complaints at this time. Review of Systems Review of Systems: All systems reviewed & are unremarkable except as noted in HPI and below Constitutional: Constitutional: Reports no additional constitutional complaints, Denies chills and Denies fever(s) Cardiovascular: Cardiovascular: Reports no additional cardiovascular complaints, Denies pedal edema, Denies leg edema and Reports other (Some upper chest and throat pain with deep breathing) Respiratory: Respiratory: Reports no additional respiratory complaints, Denies cough and Denies dyspnea Gastrointestinal: Gastrointestinal: Reports as per HPI and Reports no additional gastrointestinal complaints Genitourinary: Comments: Galindo in place Exam Const: General: comfortable, no acute distress, alert and awake Orientation/consciousness: patient oriented x3 Resp: Effort & Inspection: normal
--- NOTE | 2019-11-14 11:06 | PCPTNOTE ---
Hold PT/OT today per Environmental Emergencies Planner/RN due to medical status and central/femoral line placement. Will attempt PT evaluation when medically appropriate.
[2019-11-14 11:20] LABS: Glucose Point of Care 215 (65-105)
[2019-11-14] MEDS: INSULIN ASPART (*BKC) 100 UNITS/ML SUB-Q ×2 (12:05→17:09)
[2019-11-14] MEDS: ENOXAPARIN 30 MG/0.3 ML SYRINGE SUB-Q ×2 (12:06→19:44)
[2019-11-14] MEDS: CENTRAL LINE FLUSH 10 ML IV PUSH ×3 (12:07→19:44)
--- NOTE | 2019-11-14 16:56 | ECG_ITS ---
Measurements Intervals Reeder Rate: 127 P: AK: 0 QRS: 0 QRSD: 106 T: 162 QT: 302 QTc: 440 Interpretive Statements ATRIAL FIBRILLATION WITH RAPID VENTRICULAR RESPONSE ST-T WAVE ABNORMALITY IN HIGH LATERAL LEADS- CONSIDER ISCHEMIA BASELINE ARTIFACT- I, II, III, AVR, AVL,A VF ABNORMAL ECG Electronically Signed On 11-14-2019 17:57:04 CDT by Heath Lucsa D.O.
[2019-11-14] MEDS: AMIODARONE 360 MG/D5W 200 ML 360 MG/200 ML BAG 33.3 MG IV CONT (17:12)
[2019-11-14] MEDS: AMIODARONE 150 MG/D5W 100 ML 150 MG/100 ML BAG 600 MG IV CONT (17:13)
[2019-11-14 17:31] LABS: Glucose Point of Care 202 (65-105)
[2019-11-14 23:14] LABS: Glucose Point of Care 171 (65-105)
[2019-11-14] MEDS: AMIODARONE 360 MG/D5W 200 ML 360 MG/200 ML BAG 16.7 MG IV CONT (23:14)
[2019-11-15] VITALS (28 sets, daily range): BP systolic 92–160; BP diastolic 48–79; PULSE 53–121; RESP 16–28; TEMP 36.8–37.1; O2SAT 92–100
[2019-11-15] MEDS: SODIUM CHLORIDE 0.9% IV 1,000 ML 125 ML IV CONT (03:39)
[2019-11-15] MEDS: MORPHINE SULFATE 2 MG/ML INJ IV PUSH (03:39)
[2019-11-15] MEDS: ACETAMINOPHEN 500 MG TABLET 1000 MG PO ×4 (05:00→23:53)
[2019-11-15] MEDS: CENTRAL LINE FLUSH 10 ML IV PUSH ×4 (05:00→21:48)
[2019-11-15 05:11] LABS: Basophils Percent Auto 0.3 % (0.2-1.2); Eosinophils Absolute Auto 0.4 K/mm3 (0-0.3); Eosinophils Percent Auto 3.1 % (0-4.4); Immature Granulocyte Absolute 0.09 K/mm3 (0.00-0.031); Immature Granulocyte Percent A 0.8 % (0-0.5); Lymphocytes Absolute Auto 0.93 K/mm3 (0.9-3.2); Mean Corpuscular Hemoglobin 23.4 pg (26-34); Mean Corpuscular Volume 75.6 fl (80-100); Mean Platelet Volume 10.1 fl (7.4-10.4); Monocytes Absolute Auto 1.1 K/mm3 (0.1-0.6); Monocytes Percent Auto 9.5 % (2.6-8.5); Neutrophils Absolute Auto 9.1 K/mm3 (1.3-6.7); Neutrophils Percent Auto 78.3 % (45.5-73.1); Nucleated Red Blood Cells Perc 0.2 % (0.0-0.2); Platelet Count Result 171 k/mm3 (150-375); Red Blood Count 2.05 M/mm3 (4.2-5.4); Red Cell Distribution Width 23.6 % (11.5-14.5); White Blood Count 11.6 K/mm3 (4.5-10.0)
[2019-11-15 05:20] LABS: Hematocrit 15.5 % (37.0-47.0); Hemoglobin 4.8 g/dL (12.0-15.0)
[2019-11-15 05:24] LABS: Alanine Aminotransferase 12 U/L (4-35); Albumin Level 2.1 g/dL (3.5-5.1); Alkaline Phosphatase 56 U/L (38-126); Anion Gap 8.5 mmol/L (7-16); Aspartate Amino Transferase 17 U/L (14-36); Bilirubin,Total 0.3 mg/dL (0.2-1.3); Blood Urea Nitrogen 22 mg/dL (7-17); Calcium 7.1 mg/dL (8.4-10.2); Carbon Dioxide 23 mmol/L (22-30); Chloride 100 mmol/L (98-107); Estimated CRCL calculation 59 ml/min; Estimated Glomerular Filt Rate > 60; Glucose 145 mg/dL (65-105); Magnesium 1.7 mg/dL (1.6-2.3); Phosphorus 3.2 mg/dL (2.5-4.5); Potassium 3.5 mmol/L (3.4-5.0); Sodium 128 mmol/L (137-145)
[2019-11-15] MEDS: PANTOPRAZOLE 40 MG TABLET PO ×2 (09:01→21:47)
[2019-11-15] MEDS: ENOXAPARIN 30 MG/0.3 ML SYRINGE SUB-Q (09:01)
--- NOTE | 2019-11-15 09:14 | PCOTNOTE ---
Hold OT evaluation per RN due to femoral central line placement and medical status. Will attempt OT evaluation when medically appropriate.
--- NOTE | 2019-11-15 09:18 | PCPTNOTE ---
Hold PT evaluation per RN due to femoral central line placement and medical status. Will attempt PT evaluation when medically appropriate.
[2019-11-15] MEDS: AMIODARONE 360 MG/D5W 200 ML 360 MG/200 ML BAG 16.7 MG IV CONT ×2 (10:36→22:51)
--- NOTE | 2019-11-15 11:45 | WPDINTPN ---
Progress Note: A&P Assessment and Plan (1) Shock: Code(s): R57.9 - Shock, unspecified Status: Acute Assessment and Plan: RESOLVED: patient is off Levophed since 11/14/2019. - Presented with hypotension and shock requiring Levophed which was likely related to postoperative hemorrhage versus hypovolemia, - patient developed hypo tension early this morning worsening IV fluid bolus and 3 units of packed RBCs have been ordered for hemoglobin of 4.8. - continue to monitor closely (2) Severe anemia: Code(s): D64.9 - Anemia, unspecified Status: Acute Assessment and Plan: severe anemia postoperatively with hemoglobin of 5.4. Patient received 3 units of packed RBCs on IV fluid bolus - Hemoglobin improved status post 3 units PRBC postoperatively to a hemoglobin of 7.5 - 11/15/2019: Hemoglobin again dropped to 4.8 which could likely be secondary to bleeding post operatively - 3 more units have been ordered will give Lasix in between - will H&H post blood transfusion along with PT INR and PTT - I did discuss with surgery PA, who in turn will be discussing with the surgeon (3) S/P right hemicolectomy: Code(s): Z90.49 - Acquired absence of other specified parts of digestive tract Status: Acute Assessment and Plan: status post hand assisted laparoscopic right hemicolectomy for ascending colon adenocarcinoma - CT scan of the abdomen pelvis did not show any evidence of metastatic disease (4) Pulmonary embolism: Code(s): I26.99 - Other pulmonary embolism without acute cor pulmonale Status: Acute Assessment and Plan: history of pulmonary embolism and DVT, patient was on Coumadin which was initially switched to therapeutic Lovenox prior to surgery. Patient did receive some heparin prior to surgery - discussed with to surgeon, will hold all anticoagulation due to drop in hemoglobin - will monitor H&H and if it remains stable will restart therapeutic Lovenox or Coumadin in the next 24-48 hours (5) DVT (deep venous thrombosis): Code(s): I82.409 - Acute embolism and thrombosis of unspecified deep veins of unspecified lower extremity Status: Acute Assessment and Plan: as above (6) Atrial fibrillation: Qualifiers: Atrial fibrillation type: unspecified Qualified Code(s): I48.91 - Unspecified atrial fibrillation Code(s): I48.91 - Unspecified atrial fibrillation Status: Acute Assessment and Plan: patient with history of proximal AFib, currently in sinus rhythm rate controlled. - last night went into AFib RVR requiring amiodarone bolus and infusion this patient was hypotensive. This could be likely secondary severe anemia - patient is on sotalol and Cardizem at home which is currently on hold due to hypotension (7) DVT prophylaxis: Code(s): Z29.9 - Encounter for prophylactic measures, unspecified Status: Acute Assessment and Plan: hold Lovenox since patient dropped her hemoglobin significantly Additional Plan discussed with patient and updated with her condition and plan of care. I answered all of questions code status: Full code critical care time spent: 37 minutes discussed with surgical team PA. Due to a high probability of clinically significant, life threatening deterioration, the patient required my highest level of preparedness to intervene emergently and I personally spent this critical care time directly and personally managing the patient. This critical care time included obtaining a history; examining the patient; pulse oximetry; ordering and review of studies; arranging urgent treatment with development of a management plan; evaluation of patient's response to treatment; frequent reassessment; and discussions with other providers. It was exclusive of separately billable procedures and treating other patients and teaching time. Please see Assessment and Plan section and the rest of
[2019-11-15 12:08] LABS: Glucose Point of Care 145 (65-105)
[2019-11-15] MEDS: FUROSEMIDE INJ 40 MG/4 ML VIAL 20 MG IV PUSH (12:10)
--- NOTE | 2019-11-15 12:30 | PM.PNGS ---
Progress Note: A&P Assessment and Plan (1) Colon cancer, ascending: Code(s): C18.2 - Malignant neoplasm of ascending colon Status: Acute Assessment and Plan: Will get follow up labs after transfusion today, may need FFP transfusion if INR elevated. Hopefully blood counts will stabilize, but could consider tagged RBC scan or CTA if hemoglobin keeps dropping. Will advance to full liquids today Discussed with nursing about getting better IV access so that femoral triple lumen can be removed Will increase activity once able to get out of bed. (2) Severe anemia: Code(s): D64.9 - Anemia, unspecified Status: Acute (3) Atrial fibrillation: Qualifiers: Atrial fibrillation type: unspecified Qualified Code(s): I48.91 - Unspecified atrial fibrillation Code(s): I48.91 - Unspecified atrial fibrillation Status: Acute Subjective Subjective Date/Time Seen: 11/15/19 12:30 Bowels moving. Some right sided abdominal pain, but no significant bloating. H/H dropped again overnight and she is getting 3 more units PRBC's today. Also went into Afib with RVR overnight and is on amiodarone drip. Exam GI: Inspection: incision (clean/dry/intact), Pannus present and obesity GI Palp: Yes Soft to palpation, Yes Tenderness to palpation present (GI) (RLQ) and No Guarding due to palpation present (GI) Auscultation: normal bowel sounds Objective Data Vital Signs Vital Signs: Vital Signs - 24 hr 11/14/19 14:00 11/14/19 16:00 11/14/19 16:26 Temperature 36.8 C Pulse Rate 97 95 113 H Respiratory Rate 26 H 22 H Blood Pressure 105/50 L 121/44 L Pulse Oximetry 96 96 11/14/19 18:00 11/14/19 20:00 11/14/19 22:00 Temperature 36.8 C Pulse Rate 136 H 122 H 118 H Respiratory Rate 25 H 25 H 20 Blood Pressure 131/50 L 102/55 L 93/53 L Pulse Oximetry 94 92 93 11/14/19 23:14 11/15/19 00:00 11/15/19 02:00 Temperature 36.8 C Pulse Rate 120 H 118 H 110 H Respiratory Rate 22 H 22 H Blood Pressure 99/50 L 107/55 L 92/48 L Pulse Oximetry 94 94 11/15/19 04:00 11/15/19 06:00 11/15/19 06:21 Temperature 36.8 C 36.9 C 37.0 C Pulse Rate 121 H 110 H 110 H Respiratory Rate 22 H 16 22 H Blood Pressure 117/51 L 99/52 L 99/52 L Pulse Oximetry 94 94 95 11/15/19 06:38 11/15/19 07:38 11/15/19 08:00 Temperature 36.9 C 36.8 C 36.8 C Pulse Rate 105 H 108 H 108 H Respiratory Rate 21 H 18 18 Blood Pressure 116/55 L 122/53 L 122/53 L Pulse Oximetry 96 97 97 11/15/19 08:38 11/15/19 09:00 11/15/19 09:05 Temperature 36.8 C 36.8 C Pulse Rate 97 107 H Respiratory Rate 21 H 20 Blood Pressure 123/61 114/63 Pulse Oximetry 98 98 98 11/15/19 10:00 11/15/19 10:15 11/15/19 10:33 Temperature 36.9 C 36.8 C 36.9 C Pulse Rate 53 L 110 H 102 H Respiratory Rate 19 25 H 22 H Blood Pressure 118/67 124/51 L 115/67 Pulse Oximetry 99 92 99 11/15/19 10:36 11/15/19 11:33 Temperature 36.9 C Pulse Rate 109 H 104 H Respiratory Rate 26 H Blood Pressure 118/67 104/52 L Pulse Oximetry 100 Intake/Output Intake/Output: Intake & Output 11/12/19 11/13/19 11/14/19 11/15/19 23:59 23:59 23:59 23:59 Intake Total 4509.5 5493.4 1923 Output Total 80 850 850 Balance 4429.5 4643.4 1073 Meds/Results Medications: Active Medications Generic Name Dose Route Start Last Admin Trade Name Freq PRN Reason Stop Dose Admin Acetaminophen 1,000 mg 11/13/19 18:00 11/15/19 12:10 Tylenol Tablet PO 1,000 mg Q6HR NANI Administration Dextrose 12.5 gm 11/13/19 16:15 Dextrose 50% Syringe IV PUSH PRN PRN Hypoglycemia Protocol Enoxaparin Sodium 30 mg 11/14/19 10:40 11/15/19 09:01 Lovenox SUB-Q 30 mg Q12HR NANI Administration Glucagon 1 mg 08/04/20 16:15 Glucagon For Inj IM PRN PRN Hypoglycemia Protocol Glucose 15 gm 11/13/19 16:15 Glutose 15 PO PRN PRN Hypoglycemia Protocol Dextrose 1,000 mls @ 100 mls/hr 11/13/19 1
[2019-11-15 17:18] LABS: Glucose Point of Care 227 (65-105)
[2019-11-15] MEDS: INSULIN ASPART (*BKC) 100 UNITS/ML SUB-Q (17:21)
[2019-11-15 17:48] LABS: Hematocrit 25.5 % (37.0-47.0); Hemoglobin 8.5 g/dL (12.0-15.0)
[2019-11-15 17:58] LABS: INR 1.2; Prothrombin Time 14.8 Seconds (11.1-14.7)
--- NOTE | 2019-11-15 18:25 | PM.IMPN ---
Progress Note: A&P Assessment and Plan (1) Shock: Code(s): R57.9 - Shock, unspecified Status: Acute Assessment and Plan: Patient with most likely hemorrhagic shock. Central line in place and she was on Levophed at 1 point but this is currently been weaned off. Blood pressure stable currently. Continue monitor closely. (2) Severe anemia: Code(s): D64.9 - Anemia, unspecified Status: Acute Assessment and Plan: hemoglobin low postoperatively requiring transfusion. Hemoglobin 7.5 yesterday but dropped to 4.8 this morning. Repeat hemoglobin post transfusion 3 units is a 8.[address] scan on the evening of 11/13/2019 showing dense fluid in the pelvis likely blood products. She may be continuing to bleed and should consider repeat CT scan if anemia persists. Continue serial H&H. (3) S/P right hemicolectomy: Code(s): Z90.49 - Acquired absence of other specified parts of digestive tract Status: Acute Assessment and Plan: POD#2 from a hand assisted laparoscopic right hemicolectomy with ileocolic anastomosis. As above. Continue current routine post-op care as she toelrates. (4) Atrial fibrillation: Qualifiers: Atrial fibrillation type: unspecified Qualified Code(s): I48.91 - Unspecified atrial fibrillation Code(s): I48.91 - Unspecified atrial fibrillation Status: Chronic Assessment and Plan: Patient developed atrial fibrillation with RVR requiring amiodarone drip. Rate is better controlled. Lovenox on hold. Blood pressure improved. Consider transitioning over to oral diltiazem and resume sotalol in a day or so. Echo showing EF of 70% with grade 1 diastolic dysfunction. (5) Colon cancer, ascending: Code(s): C18.2 - Malignant neoplasm of ascending colon Status: Chronic Assessment and Plan: Pathology from October 05, 2019 showing moderately differentiated adenocarcinoma colon. Biopsies from the ascending colon mass. Now status post right hemicolectomy. Pathology from this surgery showing moderately differentiated colonic adenocarcinoma invading through the muscularis propria and focally involving pericolonic fat. No lymph nodes involved (0/). (6) Pulmonary embolism: Code(s): I26.99 - Other pulmonary embolism without acute cor pulmonale Status: Acute Assessment and Plan: Patient has a history of PE and DVT. She was on Coumadin prior to admission. Her anticoagulation is on hold at this time. Resume when safe to do so. (7) DVT prophylaxis: Code(s): Z29.9 - Encounter for prophylactic measures, unspecified Status: Acute Assessment and Plan: SCDs. Anticoagulation on hold due to severe anemia. Subjective Date/time seen: 11/15/19 18:25 Interval history: 73yo female admitted for planned hand assisted laparoscopic right hemicolectomy with ileal colic anastomosis on 11/13/19 for colonc cancer complicated by anemia and shock. Patient had AFib yesterday with RVR requiring Amiodarone. She developed HoTN and found to have Hgb 4.8 this morning requiring 3U PRBC and also given Lasix because of wheezing. She is having frequent BMs. No CP but having cough and feels SOB. No n/v. Toelrating full liquid diet. Exam Narrative: Exam Narrative: AF 98.2 140/63 107 28 99% 2L Gen - NARD sitting up finishing dinner Chest - decreased breath sounds in the bases. Mildly tachypneic. CV - Irregularly irregular. Tachycardic. Telemetry showing atrial fibrillation. Abd - Soft. Obese. Bruising on the left flank. Abdominal incision is clean, dry and intact Ext - 1+ pedal edema Psych - Nml mood and affect Skin - as above. Objective Data Vital Signs Vital Signs: Vital Signs - 24 hr 11/14/19 20:00 11/14/19 22:00 11/14/19 23:14 Temperature 98.3 F Pulse Rate 122 H 118 H 120 H Respiratory Rate 25 H 20 Blood Pressure 102/55 L 93/53 L 99/50 L Pulse Ox
[2019-11-15 23:35] LABS: Glucose Point of Care 172 (65-105)
[2019-11-15 23:54] LABS: Hematocrit 26.4 % (37.0-47.0); Hemoglobin 8.6 g/dL (12.0-15.0)
[2019-11-16] VITALS (20 sets, daily range): BP systolic 121–162; BP diastolic 49–91; PULSE 100–134; RESP 17–30; TEMP 36.3–37.2; O2SAT 96–99
[2019-11-16 00:02] LABS: INR 1.1; Prothrombin Time 14.2 Seconds (11.1-14.7)
[2019-11-16 00:03] LABS: Partial Thromboplastin Time 34.1 SECONDS (22.3-36.8)
[2019-11-16] MEDS: FUROSEMIDE INJ 40 MG/4 ML VIAL 20 MG IV PUSH ×2 (04:25→08:00)
[2019-11-16] MEDS: CENTRAL LINE FLUSH 10 ML IV PUSH ×3 (06:19→18:09)
[2019-11-16] MEDS: ACETAMINOPHEN 500 MG TABLET 1000 MG PO (06:20)
[2019-11-16 06:45] LABS: Basophils Percent Auto 0.3 % (0.2-1.2); Eosinophils Absolute Auto 0.4 K/mm3 (0-0.3); Eosinophils Percent Auto 3.4 % (0-4.4); Hematocrit 27.3 % (37.0-47.0); Hemoglobin 8.9 g/dL (12.0-15.0); Immature Granulocyte Absolute 0.17 K/mm3 (0.00-0.031); Immature Granulocyte Percent A 1.3 % (0-0.5); Lymphocytes Percent Auto 5.3 % (18.3-44.2); Mean Corpuscular HGB Conc 32.6 g/dl (32-36); Mean Corpuscular Hemoglobin 25.8 pg (26-34); Mean Corpuscular Volume 79.1 fl (80-100); Mean Platelet Volume 9.9 fl (7.4-10.4); Monocytes Absolute Auto 1.1 K/mm3 (0.1-0.6); Monocytes Percent Auto 8.1 % (2.6-8.5); Neutrophils Absolute Auto 10.7 K/mm3 (1.3-6.7); Neutrophils Percent Auto 81.6 % (45.5-73.1); Nucleated Red Blood Cells Absolute Auto 0.1 K/mm3 (0.0-0.012); Nucleated Red Blood Cells Perc 0.6 % (0.0-0.2); Platelet Count Result 159 k/mm3 (150-375); Red Blood Count 3.45 M/mm3 (4.2-5.4); Red Cell Distribution Width 21.2 % (11.5-14.5); White Blood Count 13.1 K/mm3 (4.5-10.0)
[2019-11-16 07:07] LABS: Alanine Aminotransferase 14 U/L (4-35); Albumin Level 2.6 g/dL (3.5-5.1); Alkaline Phosphatase 76 U/L (38-126); Aspartate Amino Transferase 19 U/L (14-36); Bilirubin,Total 0.5 mg/dL (0.2-1.3); Blood Urea Nitrogen 9 mg/dL (7-17); Calcium 7.7 mg/dL (8.4-10.2); Carbon Dioxide 33 mmol/L (22-30); Chloride 100 mmol/L (98-107); Estimated CRCL calculation 101 ml/min; Estimated Glomerular Filt Rate > 60; Glucose 157 mg/dL (65-105); Magnesium 1.8 mg/dL (1.6-2.3); Phosphorus 1.9 mg/dL (2.5-4.5); Sodium 136 mmol/L (137-145)
--- NOTE | 2019-11-16 07:47 | PM.PNGS ---
Progress Note: A&P Assessment and Plan (1) Colon cancer, ascending: Code(s): C18.2 - Malignant neoplasm of ascending colon Status: Acute Assessment and Plan: Advance to soft diet today PT/OT, gradually increase activity as tolerated (2) Severe anemia: Code(s): D64.9 - Anemia, unspecified Status: Acute Assessment and Plan: Acute blood loss on top of chronic anemia secondary to colon mass H/H stable overnight and no signs of continued bleeding Hold Lovenox today, but may restart tomorrow if H/H stable today (3) Atrial fibrillation: Qualifiers: Atrial fibrillation type: unspecified Qualified Code(s): I48.91 - Unspecified atrial fibrillation Code(s): I48.91 - Unspecified atrial fibrillation Status: Acute Assessment and Plan: 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 Pain controlled. Patient only complains of shortness of breath. Exam GI: Inspection: non-distended, incision (C/D/I), Pannus present and obesity GI Palp: Yes Soft to palpation and Yes Tenderness to palpation present (GI) (incisional) Percussion: Yes normal to percussion Auscultation: normal bowel sounds Objective Data Vital Signs Vital Signs: Vital Signs - 24 hr 11/15/19 08:00 11/15/19 08:38 11/15/19 09:00 Temperature 36.8 C 36.8 C Pulse Rate 108 H 97 Respiratory Rate 18 21 H Blood Pressure 122/53 L 123/61 Pulse Oximetry 97 98 98 11/15/19 09:05 11/15/19 10:00 11/15/19 10:15 Temperature 36.8 C 36.9 C 36.8 C Pulse Rate 107 H 53 L 110 H Respiratory Rate 20 19 25 H Blood Pressure 114/63 118/67 124/51 L Pulse Oximetry 98 99 92 11/15/19 10:33 11/15/19 10:36 11/15/19 11:33 Temperature 36.9 C 36.9 C Pulse Rate 102 H 109 H 104 H Respiratory Rate 22 H 26 H Blood Pressure 115/67 118/67 104/52 L Pulse Oximetry 99 100 11/15/19 12:00 11/15/19 12:33 11/15/19 13:55 Temperature 37.1 C 37.1 C 37.1 C Pulse Rate 108 H 108 H 108 H Respiratory Rate 22 H 23 H 23 H Blood Pressure 123/63 123/63 148/78 H Pulse Oximetry 98 98 98 11/15/19 14:00 11/15/19 14:14 11/15/19 15:14 Temperature 36.9 C 36.8 C Pulse Rate 108 H 103 H 110 H Respiratory Rate 26 H 27 H 28 H Blood Pressure 132/64 148/78 H 120/52 L Pulse Oximetry 99 100 97 11/15/19 16:00 11/15/19 16:14 11/15/19 18:00 Temperature 36.9 C 36.8 C Pulse Rate 101 H 111 H 107 H Respiratory Rate 27 H 26 H 28 H Blood Pressure 129/57 L 148/68 H 140/63 Pulse Oximetry 98 98 99 11/15/19 20:00 11/15/19 22:00 11/15/19 22:51 Temperature 37.1 C Pulse Rate 102 H 105 H 118 H Respiratory Rate 24 H 24 H Blood Pressure 160/79 H 155/72 H Pulse Oximetry 99 98 98 11/16/19 00:00 11/16/19 02:00 Temperature 36.9 C Pulse Rate 108 H 113 H Respiratory Rate 26 H 26 H Blood Pressure 159/85 H 157/69 H Pulse Oximetry 98 97 Intake/Output Intake/Output: Intake & Output 11/13/19 11/14/19 11/15/19 11/16/19 23:59 23:59 23:59 23:59 Intake Total 4509.5 5493.4 4061 300 Output Total 80 850 4450 4100 Balance 4429.5 4643.4 -427 -3357 Meds/Results Medications: Active Medications Generic Name Dose Route Start Last Admin Trade Name Freq PRN Reason Stop Dose Admin Acetaminophen 1,000 mg 11/13/19 18:00 11/16/19 06:20 Tylenol Tablet PO 1,000 mg Q6HR [facility] Administration Dextrose 12.5 gm 11/13/19 16:15 Dextrose 50% Syringe IV PUSH PRN PRN Hypoglycemia Protocol Diltiazem HCl 30 mg 11/16/19 12:00 Cardizem Tab PO Q6HR [facility] Enoxaparin Sodium 30 mg 11/14/19 10:40 11/15/19 09:01 Lovenox SUB-Q 30 mg Q12HR NANI Administration Glucagon 1 mg 11/13/19 16:15 Glucagon For Inj IM PRN PRN Hypoglycemia Protocol Glucose 15 gm 11/13/19 16:15 Glutose 15 PO PRN PRN Hypoglycemia Protocol Hydrochlorothiazide 25 mg 11/16/19 09:00 Hydrochlorothiazide PO QAM NANI Dex
[2019-11-16] MEDS: LOSARTAN POTASSIUM 50 MG TABLET PO (08:00)
[2019-11-16] MEDS: hydroCHLOROthiazide 25 MG TABLET PO (08:00)
[2019-11-16] MEDS: PANTOPRAZOLE 40 MG TABLET PO ×2 (08:01→20:12)
[2019-11-16] MEDS: SOTALOL HCL 40 MG, SOTALOL HCL 80 MG 120 MG PO ×2 (08:01→20:12)
[2019-11-16] MEDS: POTASSIUM CHLORIDE 20 MEQ TABLET 40 MEQ PO (09:51)
[2019-11-16] MEDS: ONDANSETRON INJ 4 MG/2 ML VIAL IV PUSH (09:57)
--- NOTE | 2019-11-16 10:32 | PM.IMPN ---
Progress Note: A&P Assessment and Plan (1) Shock: Code(s): R57.9 - Shock, unspecified Status: Acute Assessment and Plan: Patient with most likely hemorrhagic shock. Central line in place and she was on Levophed at 1 point but this is currently been weaned off. Blood pressure stable now and anti-HTN able to be added back. Continue monitor closely. (2) Severe anemia: Code(s): D64.9 - Anemia, unspecified Status: Acute Assessment and Plan: Hemoglobin low postoperatively to 5.[address] scan on the evening of 11/13/2019 showing dense fluid in the pelvis likely blood products. Hemoglobin 7.5 on 11/14/19 but dropped to 4.8 yesterday morning requiring repeat transfusion. Hgb up to 8 range and remaining stable. Has received a total of 6U PRBC. Continue serial H&H. (3) S/P right hemicolectomy: Code(s): Z90.49 - Acquired absence of other specified parts of digestive tract Status: Acute Assessment and Plan: POD#3 from a hand assisted laparoscopic right hemicolectomy with ileocolic anastomosis. As above. Continue current routine post-op care as she tolerates (4) Atrial fibrillation: Qualifiers: Atrial fibrillation type: unspecified Qualified Code(s): I48.91 - Unspecified atrial fibrillation Code(s): I48.91 - Unspecified atrial fibrillation Status: Chronic Assessment and Plan: Patient developed atrial fibrillation with RVR requiring amiodarone drip. Rate is better controlled. Lovenox on hold. Blood pressure improved to the point anti-HTN added back. Echo showing EF of 70% with grade 1 diastolic dysfunction. Sotalol added back. Transitioned to oral Diltiatzem. (5) Colon cancer, ascending: Code(s): C18.2 - Malignant neoplasm of ascending colon Status: Chronic Assessment and Plan: Biopsy results from the ascending colon mass from October 05, 2019 showing moderately differentiated adenocarcinoma colon. Now status post right hemicolectomy. Pathology from this surgery showing moderately differentiated colonic adenocarcinoma invading through the muscularis propria and focally involving pericolonic fat. No lymph nodes involved (0/). (6) Pulmonary embolism: Code(s): I26.99 - Other pulmonary embolism without acute cor pulmonale Status: Acute Assessment and Plan: Patient has a history of PE and DVT. She was on Coumadin prior to admission. Her anticoagulation is on hold at this time. Resume when safe to do so. (7) DVT prophylaxis: Code(s): Z29.9 - Encounter for prophylactic measures, unspecified Status: Acute Assessment and Plan: SCDs. Anticoagulation on hold due to severe anemia. Subjective Date/time seen: 11/16/19 10:32 Interval history: 73yo female admitted for planned hand assisted laparoscopic right hemicolectomy with ileal colic anastomosis on 11/13/19 for colon cancer complicated by anemia and shock. Shortness of breath is unchanged. Complains of nausea. Has not transition to solid food yet but will do so this morning. No chest pain. She has a persistent cough productive yellow sputum. Abdominal pain is well controlled. Exam Narrative: Exam Narrative: AF 121/81 107 25 96% ra Gen - NARD sitting up in bed Chest - expiraotry wheexes noted o/w distatn BS CV - Irregularly irregular and tachy. Telemetry showing AFib, PVCs Abd - soft, obese, minimal tenderness - Galindo secured draining clear yellow urine Ext - 1+ pedal edema Psych - Nml mood and affect Neuro - head tremor noted Skin - brusing noted left flank Objective Data Vital Signs Vital Signs: Vital Signs - 24 hr 11/15/19 10:33 11/15/19 10:36 11/15/19 11:33 Temperature 98.4 F 98.4 F Pulse Rate 102 H 109 H 104 H Respiratory Rate 22 H 26 H Blood Pressure 115/67 118/67 104/52 L Pulse Oximetry 99 100 11/15/19 12:00 11/15/19 12:33 11/15/19 13:55 Temperature 98.
[2019-11-16] MEDS: POTASSIUM PHOS,M-BASIC-D-BASIC 20 MMOL in SODIUM CHLORIDE 0.9% IV 250 ML 62.5 MMOL IVPB (11:20)
[2019-11-16] MEDS: LEVALBUTEROL NEB 1.25 MG/3 ML 0.63 MG INHALATION ×2 (11:26→14:32)
[2019-11-16] MEDS: LEVALBUTEROL NEB 1.25 MG/3 ML (11:28)
[2019-11-16] MEDS: dilTIAZem HCL 30 MG TABLET PO ×2 (11:56→18:09)
[2019-11-16 12:03] LABS: Hematocrit 28.8 % (37.0-47.0); Hemoglobin 9.3 g/dL (12.0-15.0)
[2019-11-16 13:04] LABS: Glucose Point of Care 176 (65-105)
--- NOTE | 2019-11-16 13:05 | WPDINTPN ---
Progress Note: A&P Assessment and Plan (1) Shock: Code(s): R57.9 - Shock, unspecified Status: Acute Assessment and Plan: RESOLVED: patient is off Levophed since 11/14/2019. - Presented with hypotension and shock requiring Levophed which was likely related to postoperative hemorrhage versus hypovolemia, - patient developed hypo tension early this morning worsening IV fluid bolus and 3 units of packed RBCs have been ordered for hemoglobin of 4.8. - continue to monitor closely (2) Severe anemia: Code(s): D64.9 - Anemia, unspecified Status: Acute Assessment and Plan: severe anemia postoperatively with hemoglobin of 5.4. Patient received 3 units of packed RBCs on IV fluid bolus - Hemoglobin improved status post 3 units PRBC postoperatively to a hemoglobin of 7.5 - 11/15/2019: Hemoglobin again dropped to 4.8 which could likely be secondary to bleeding post operatively - 3 more units have been ordered will give Lasix in between - hemoglobin stable and improving - will continue to monitor H&H Q 6 for 1 more day per surgery (3) S/P right hemicolectomy: Code(s): Z90.49 - Acquired absence of other specified parts of digestive tract Status: Acute Assessment and Plan: status post hand assisted laparoscopic right hemicolectomy for ascending colon adenocarcinoma - CT scan of the abdomen pelvis did not show any evidence of metastatic disease (4) Pulmonary embolism: Code(s): I26.99 - Other pulmonary embolism without acute cor pulmonale Status: Acute Assessment and Plan: history of pulmonary embolism and DVT, patient was on Coumadin which was initially switched to therapeutic Lovenox prior to surgery. Patient did receive some heparin prior to surgery - discussed with to surgeon, will hold all anticoagulation due to drop in hemoglobin - will monitor H&H and if it remains stable will restart therapeutic Lovenox or Coumadin in the next 24-48 hours (5) DVT (deep venous thrombosis): Code(s): I82.409 - Acute embolism and thrombosis of unspecified deep veins of unspecified lower extremity Status: Acute Assessment and Plan: as above (6) Atrial fibrillation: Qualifiers: Atrial fibrillation type: unspecified Qualified Code(s): I48.91 - Unspecified atrial fibrillation Code(s): I48.91 - Unspecified atrial fibrillation Status: Acute Assessment and Plan: patient with history of proximal AFib, currently in sinus rhythm rate controlled. - patient on amiodarone infusion, will switch to sotalol, Cardizem, lisinopril and HCTZ that his home meds and will discontinue amiodarone. - Surgery to consult Cardiology (7) DVT prophylaxis: Code(s): Z29.9 - Encounter for prophylactic measures, unspecified Status: Acute Assessment and Plan: holding Lovenox per surgery Additional Plan discussed with patient and updated with her condition and plan of care. I answered all of questions - femoral central line will be discontinued - discussed with surgeon code status: Full code critical care time spent: 32 minutes Due to a high probability of clinically significant, life threatening deterioration, the patient required my highest level of preparedness to intervene emergently and I personally spent this critical care time directly and personally managing the patient. This critical care time included obtaining a history; examining the patient; pulse oximetry; ordering and review of studies; arranging urgent treatment with development of a management plan; evaluation of patient's response to treatment; frequent reassessment; and discussions with other providers. It was exclusive of separately billable procedures and treating other patients and teaching time. Please see Assessment and Plan section and the rest of the note for further information on patient assessment and treatment Subjective Date/time seen:
--- NOTE | 2019-11-16 14:14 | PM.CNCAR ---
Assessment and Plan Additional Plan 73-year-old woman with a longstanding history of paroxysmal atrial fibrillation which has been attributed to obesity hypoventilation sleep apnea problems for which she has been noncompliant with treatment therefore the arrhythmia of course has been suboptimally controlled. She for the most part is in sinus rhythm when she takes her medication of sotalol and diltiazem. Not surprisingly as the medicines have been discontinued while she was NPO as well as the stress of severe postoperative anemia she has gone back into atrial fibrillation. Now that she is no longer NPO her medications have been resumed which is fully appropriate and hopefully her rhythm will improve and I would expect that to be the case. Currently she course cannot be anticoagulated. Prior to surgery she was anticoagulated with warfarin. We will follow her course with you in the ICU and during this hospitalization for the moment there are no additional cardiac recommendations to make in my opinion Avila Ochoa MD [facility] History of Present Illness History of Present Illness Consult date/time: 11/16/19 14:14 Consult reason: atrial fibrillation Reason For Visit: ascending colon CA Narrative: This is a 73-year-old patient I am seeing at the request of the hospitalist and credit specialist staff to assist with the management of atrial fibrillation. Patient is unknown to me prior to this encounter but is well known to my partner Dr. Adler. She has been followed by him in the office for about 4 years for management of atrial fibrillation. She has a history of paroxysmal atrial fibrillation that is felt to be due to sleep apnea, morbid obesity with which she has been noncompliant with treatment with CPAP. As such her atrial fibrillation has been suboptimally controlled. She is currently at home taking a dosage of sotalol at 120 mg q.12 hours as well as 180 mg daily of long-acting diltiazem. With this regimen she has been in sinus rhythm but with occasional to sometimes frequent episodes of recurrent atrial fibrillation. According to the patient she was found recently to have colon cancer and during a recent screening colonoscopy. She was admitted to the hospital here on November 12 for right colectomy. She underwent a hand assisted laparoscopic colectomy and in the last couple of days has been in the ICU recovering and has had some relatively severe postoperative anemia. Her hemoglobin has been as low as 4.8 g and she has received a total of 6 units of packed red blood cells. Because of surgery and NPO status her antiarrhythmic regimen was interrupted and she has recurrent occurred into atrial fibrillation. Obviously she cannot be anticoagulated. She is now no longer NPO and her sotalol and diltiazem have been resumed so far has she has received 1 dose of her oral sotalol. She is seems to be asymptomatic of her atrial fibrillation and is not aware of her heart rhythm even though as I am seeing her she is in AFib with a heart rate of 110-120 beats per minute. An echocardiogram was done during this hospitalization which demonstrated hyperdynamic left ventricular systolic function. Review of Systems Constitutional: Constitutional: Reports no additional constitutional complaints Eyes: Eyes: Reports no additional eye complaints ENT: Reports system reviewed and no additional complaints, except as documented Cardiovascular: Cardiovascular: Reports no additional cardiovascular complaints Respiratory: Respiratory: Reports dyspnea Gastrointestinal: Gastrointestinal: Reports abdominal pain Genitourinary: Genitourinary: Reports no additional female genitourinary complaints Musculoskeletal: Musculoskeletal: Reports no additional musculoskeletal complaints Integumentary/Breasts: Skin/Breast: Reports system reviewed and no additional complaints, except as docu Neurologic: Reports system reviewed and no additional complaints, except as documented Psychiatri
[2019-11-16 17:04] LABS: Glucose Point of Care 146 (65-105)
[2019-11-16 18:41] LABS: Hematocrit 27.8 % (37.0-47.0)
[2019-11-16 20:23] LABS: Glucose Point of Care 153 (65-105)
--- NOTE | 2019-11-16 22:25 | PC.NURSE ---
2210 report given to Corwin BAER on 3rd med surg. Pt to transfer to 315.
--- NOTE | 2019-11-16 22:26 | ADMIMU ---
This patient, Fang Hemphill, was transferred to room 315 per aisha BAER and Yarely MONTOYA at 2224. Valuables list has been checked and belongings, meds, and chart sent with patient.
--- NOTE | 2019-11-16 22:29 | PC.NURSE ---
Daughter Debby called and made aware of transfer to [facility].
[2019-11-17] VITALS (19 sets, daily range): BP systolic 102–144; BP diastolic 46–71; PULSE 80–113; RESP 18–20; TEMP 36.2–36.8; O2SAT 92–100; BMI 10.0
[2019-11-17] MEDS: dilTIAZem HCL 30 MG TABLET PO ×5 (00:11→23:40)
[2019-11-17] MEDS: LEVALBUTEROL NEB 1.25 MG/3 ML 0.63 MG INHALATION ×5 (02:34→20:42)
[2019-11-17 06:33] LABS: Basophils Absolute Auto 0.1 K/mm3 (0.0-0.1); Basophils Percent Auto 0.5 % (0.2-1.2); Eosinophils Absolute Auto 0.6 K/mm3 (0-0.3); Eosinophils Percent Auto 6.4 % (0-4.4); Hematocrit 27.1 % (37.0-47.0); Hemoglobin 8.5 g/dL (12.0-15.0); Immature Granulocyte Percent A 1.1 % (0-0.5); Lymphocytes Absolute Auto 1.06 K/mm3 (0.9-3.2); Lymphocytes Percent Auto 11.5 % (18.3-44.2); Mean Corpuscular HGB Conc 31.4 g/dl (32-36); Mean Corpuscular Hemoglobin 25.5 pg (26-34); Mean Corpuscular Volume 81.4 fl (80-100); Mean Platelet Volume 10.6 fl (7.4-10.4); Monocytes Percent Auto 10.7 % (2.6-8.5); Neutrophils Absolute Auto 6.5 K/mm3 (1.3-6.7); Neutrophils Percent Auto 69.8 % (45.5-73.1); Nucleated Red Blood Cells Perc 0.4 % (0.0-0.2); Platelet Count Result 155 k/mm3 (150-375); Red Blood Count 3.33 M/mm3 (4.2-5.4); Red Cell Distribution Width 22.8 % (11.5-14.5); White Blood Count 9.3 K/mm3 (4.5-10.0)
[2019-11-17 06:49] LABS: Anion Gap 3 mmol/L (8-16); Blood Urea Nitrogen 13 mg/dL (7-17); Calcium 7.7 mg/dL (8.4-10.2); Carbon Dioxide 37 mmol/L (22-30); Chloride 95 mmol/L (98-107); Estimated CRCL calculation 86 ml/min; Estimated Glomerular Filt Rate > 60; Glucose 128 mg/dL (65-105); Magnesium 2.1 mg/dL (1.6-2.3); Phosphorus 2.4 mg/dL (2.5-4.5); Sodium 135 mmol/L (137-145)
[2019-11-17] MEDS: POTASSIUM CHLORIDE 20 MEQ TABLET 40 MEQ PO (08:50)
[2019-11-17] MEDS: SOTALOL HCL 40 MG, SOTALOL HCL 80 MG 120 MG PO ×2 (08:51→20:37)
[2019-11-17] MEDS: LOSARTAN POTASSIUM 50 MG TABLET PO (08:53)
[2019-11-17] MEDS: hydroCHLOROthiazide 25 MG TABLET PO (08:53)
[2019-11-17] MEDS: PANTOPRAZOLE 40 MG TABLET PO ×2 (08:53→20:37)
[2019-11-17 09:01] LABS: Glucose Point of Care 136 (65-105)
--- NOTE | 2019-11-17 09:51 | PM.PNGS ---
Progress Note: A&P Assessment and Plan (1) Colon cancer, ascending: Code(s): C18.2 - Malignant neoplasm of ascending colon Status: Chronic Assessment and Plan: doing well after hand access laparoscopic right colectomy. Pathology shows the tumor to be stage IIA. She is on a soft diet and tolerating this well. She would like to shower but has not been out of bed. Will get her a walker and start ambulating, get up in a chair. Remove Galindo catheter in a.m.. She is doing well. (2) Severe anemia: Code(s): D64.9 - Anemia, unspecified Status: Acute Assessment and Plan: Hemoglobin 8.5 today. No signs of active bleeding. Continue to monitor. (3) Atrial fibrillation: Qualifiers: Atrial fibrillation type: unspecified Qualified Code(s): I48.91 - Unspecified atrial fibrillation Code(s): I48.91 - Unspecified atrial fibrillation Status: Chronic Assessment and Plan: Heart rate in the 90s now (4) Morbid obesity with BMI of 45.0-49.9, adult: Code(s): E66.01 - Morbid (severe) obesity due to excess calories; Z68.42 - Body mass index (BMI) 45.0-49.9, adult Status: Acute Assessment and Plan: also has obstructive sleep apnea but does not use CPAP. 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 On prophylactic dose of Lovenox Subjective Subjective Date/Time Seen: 11/17/19 09:51 Post Op day: 4 Patient reports: no new complaints, feels better, tolerating a regular diet ( Tolerating soft diet well), bowel movement, afebrile and other ( wants to shower. Has not been out of bed yet.) Review of Systems Review of Systems: All systems reviewed & are unremarkable except as noted in HPI and below Constitutional: Constitutional: Denies headache(s) Cardiovascular: Cardiovascular: Denies chest pain and Denies dyspnea Respiratory: Respiratory: Denies cough and Denies dyspnea Gastrointestinal: Gastrointestinal: Reports as per HPI Neurologic: Denies confusion and Denies headache(s) Exam Const: General: comfortable and no acute distress; No confusion Orientation/consciousness: patient oriented x3 and No confusion GI: Inspection: non-distended, incision ( Incisions healing well) and obesity GI Palp: Yes Soft to palpation, Yes Tenderness to palpation present (GI) ( minimal tenderness), No Guarding due to palpation present (GI) and No Rebound tenderness present Auscultation: normal bowel sounds Neuro: General: patient oriented x3, no focal motor deficits and No confusion Extrem: General: no calf tenderness and no edema Psych: Affect: normal affect Insight: Good insight present (Psych) Judgement: Good judgement present (Psych) Objective Data Vital Signs Vital Signs: Vital Signs - 24 hr 11/16/19 10:00 11/16/19 11:20 11/16/19 11:28 Temperature 36.9 C Pulse Rate 114 H 119 H 116 H Respiratory Rate 25 H 23 H 23 H Blood Pressure 134/59 L Pulse Oximetry 96 11/16/19 12:00 11/16/19 14:00 11/16/19 14:32 Temperature 36.9 C Pulse Rate 124 H 114 H 108 H Respiratory Rate 23 H 17 21 H Blood Pressure 147/88 H Pulse Oximetry 99 98 11/16/19 14:45 11/16/19 16:00 11/16/19 18:00 Temperature 37.2 C Pulse Rate 100 107 H 111 H Respiratory Rate 21 H 22 H 30 H Blood Pressure 123/56 L Pulse Oximetry 98 99 11/16/19 20:00 11/16/19 20:12 11/16/19 20:49 Temperature 36.8 C Pulse Rate 102 H 104 H 111 H Respiratory Rate 21 H 17 Blood Pressure 143/83 H Pulse Oximetry 98 11/16/19 20:59 11/16/19 22:00 11/17/19 00:00 Temperature 36.3 C L Pulse Rate 119 H 102 H 88 Respiratory Rate 21 H 22 H Blood Pressure 124/49 L Pulse Oximetry 98 11/17/19 02:35 11/17/19 02:45 11/17/19 04:00 Temperature Pulse Rate 111 H 111 H 97 Respiratory Rate 20 20 Blood Pressure Pulse Oximetry 08
[2019-11-17 12:19] LABS: Glucose Point of Care 176 (65-105)
[2019-11-17] MEDS: POTASSIUM/PHOSPHORUS/SODIUM 1.5 GM PACKET 1 PACKET PO (12:51)
--- NOTE | 2019-11-17 14:57 | PM.PNCARD ---
Progress Note: A&P Assessment and Plan (1) Atrial fibrillation: Qualifiers: Atrial fibrillation type: unspecified Qualified Code(s): I48.91 - Unspecified atrial fibrillation Code(s): I48.91 - Unspecified atrial fibrillation Status: Chronic Assessment and Plan: History of paroxysmal atrial fibrillation, with recurrence when the patient was NPO. Sotalol and diltiazem have been resumed Adequate heart rate control for now. (2) Acute diastolic CHF (congestive heart failure): Code(s): I50.31 - Acute diastolic (congestive) heart failure Status: Acute Assessment and Plan: Acute diastolic heart failure secondary to volume overload, with IV fluids and 6 units of PRBCs. Impressive diuresis and now feeling much better. Resultant hypokalemia treated. Recheck BMP in a.m. (3) Chronic anticoagulation: Code(s): Z79.01 - terminal press operator (current) use of anticoagulants Status: Acute Assessment and Plan: Warfarin has been on hold for her surgery. Resume when okay with Dr. Fraire. (4) S/P right hemicolectomy: Code(s): Z90.49 - Acquired absence of other specified parts of digestive tract Status: Acute Assessment and Plan: Colon cancer status post right hemicolectomy on 11/13/2019. (5) LGI bleed: Code(s): K92.2 - Gastrointestinal hemorrhage, unspecified Status: Acute Assessment and Plan: Severe anemia secondary to colon cancer and surgery. H and H now stable. Subjective Date/time seen: 11/17/19 14:57 follow-up for paroxysmal atrial fibrillation Followed by Dr. Adler,and CHF in the face of severe anemia and right hemicolectomy for colon cancer. Postoperatively the patient required pressors for her hypotension. Hemoglobin was down to 4.7 and she has received 6 units of packed red cells. The patient had been NPO and her usual sotalol was held, now resumed. Echo showed hyperdynamic ventricle, EF greater than 70% with diastolic dysfunction and moderate right ventricular enlargement, RVSP 40 mmHg. Date of service: 11/17/2019 Patient's pressors have been weaned off and she was transferred to the floor. Her breathing is a lot better. She is tolerating a soft diet. She has been out of bed and walking in the room with her walker. Blood pressure stable with a systolic pressure 120 is- 140s and heart rate is 90-105 beats per minute. She has been diuresed With furosemide 20 mg IV push x2, with I's and O's yesterday of 2000 cc in and 8,700 out. Hypokalemia noted this morning has been corrected. Chest x-ray yesterday showed bilateral infiltrates and congestive heart failure. Review of Systems Constitutional: Constitutional: Reports no additional constitutional complaints ENT: Denies nasal congestion Cardiovascular: Cardiovascular: Denies chest pain, Denies pedal edema, Denies lightheadedness and Denies palpitations Respiratory: Respiratory: Denies cough, Denies dyspnea and Denies dyspnea on exertion Gastrointestinal: Gastrointestinal: Reports abdominal pain ( Very mild soreness, ecchymosis of the lateral abdominal chow noted) Musculoskeletal: Musculoskeletal: Denies back pain Integumentary/Breasts: Skin/Breast: Reports unusual bruising ( ecchymosis of the lateral abdominal chow) Neurologic: Reports system reviewed and no additional complaints, except as documented and Denies confusion Psychiatric: Psychiatric: Denies confusion Exam Narrative: Exam Narrative: very pleasant smiling older lady in no distress, daughter at the bedside. Const: General: comfortable and no acute distress HENMT: General nose exam: no epistaxis Eyes: Sclera: scleral abnorm
--- NOTE | 2019-11-17 15:28 | PM.IMPN ---
Progress Note: A&P Assessment and Plan (1) Shock: Code(s): R57.9 - Shock, unspecified Status: Acute Assessment and Plan: Patient with most likely hemorrhagic shock. Central line placed and she was on Levophed at 1 point that was weaned off. Blood pressure stable now and anti-HTN able to be added back. Continue monitor closely. (2) Severe anemia: Code(s): D64.9 - Anemia, unspecified Status: Acute Assessment and Plan: Hemoglobin low postoperatively to 5.[address] scan on the evening of 11/13/2019 showing dense fluid in the pelvis likely blood products. Hemoglobin 7.5 on 11/14/19 but dropped to 4.8 the next morning requiring repeat transfusion. Hgb up to 8 range and remaining stable. Has received a total of 6U PRBC. Continue serial H&H. (3) S/P right hemicolectomy: Code(s): Z90.49 - Acquired absence of other specified parts of digestive tract Status: Acute Assessment and Plan: POD#4 from a hand assisted laparoscopic right hemicolectomy with ileocolic anastomosis. As above. Continue current routine post-op care as she tolerates (4) Atrial fibrillation: Qualifiers: Atrial fibrillation type: unspecified Qualified Code(s): I48.91 - Unspecified atrial fibrillation Code(s): I48.91 - Unspecified atrial fibrillation Status: Chronic Assessment and Plan: Patient developed atrial fibrillation with RVR requiring amiodarone drip. Rate is better controlled. Blood pressure improved to the point anti-HTN added back. Echo showing EF of 70% with grade 1 diastolic dysfunction. Sotalol added back. Transitioned to oral Diltiatzem. Continue tele (5) Colon cancer, ascending: Code(s): C18.2 - Malignant neoplasm of ascending colon Status: Chronic Assessment and Plan: Biopsy results from the ascending colon mass from October 05, 2019 showing moderately differentiated adenocarcinoma colon. Now status post right hemicolectomy. Pathology from this surgery showing moderately differentiated colonic adenocarcinoma invading through the muscularis propria and focally involving pericolonic fat. No lymph nodes involved (0/25). Will need to follow up with oncology. (6) Pulmonary embolism: Code(s): I26.99 - Other pulmonary embolism without acute cor pulmonale Status: Acute Assessment and Plan: Patient has a history of PE and DVT. She was on Coumadin prior to admission. Her anticoagulation is on hold at this time. Resume when safe to do so. Monitor HH closely when Coumadin resumed. (7) DVT prophylaxis: Code(s): Z29.9 - Encounter for prophylactic measures, unspecified Status: Acute Assessment and Plan: Lovenox remains on hold. Continue SCDs Subjective Date/time seen: 11/17/19 15:28 Interval history: 73yo female admitted for planned hand assisted laparoscopic right hemicolectomy with ileal colic anastomosis on 11/13/19 for colon cancer complicated by anemia and shock. Patient feels better today. She is having more of a productive cough. Cough is productive whitish sputum. No chest pain. No nausea or vomiting. Tolerating oral intake. Her diet has been advanced. She was up to the chair today. Still having diarrhea but has had only 2 stools today. She had small amount of blood on the toilet paper but no miko melena or hematochezia. Exam Narrative: Exam Narrative: AF 144/71 104 20 92% Gen - NARD sitting up in bed Chest - Diffuse breath sounds in the flanks. Clear anteriorly. normal respiratory rate CV - Irregularly irregular. Telemetry showing AFib with mostly controlled rate Abd - soft, obese, minimal tenderness, incision clean and dry - Galindo secured draining clear yellow urine Ext - decreased pitting pedal edema Psych - Nml mood and affect Skin - bruising noted left flank. Objective Data Vital Signs Vital Signs: Vital Signs - 24 hr
[2019-11-17 19:01] LABS: Glucose Point of Care 149 (65-105)
[2019-11-17 20:23] LABS: Glucose Point of Care 212 (65-105)
[2019-11-18] VITALS (18 sets, daily range): BP systolic 109–122; BP diastolic 43–50; PULSE 80–124; RESP 18–20; TEMP 36.3–36.9; O2SAT 93–95
[2019-11-18] MEDS: LEVALBUTEROL NEB 1.25 MG/3 ML 0.63 MG INHALATION ×4 (02:22→20:36)
[2019-11-18] MEDS: dilTIAZem HCL 30 MG TABLET PO ×2 (05:40→12:25)
[2019-11-18 06:31] LABS: Hematocrit 28.5 % (37.0-47.0); Hemoglobin 8.8 g/dL (12.0-15.0); Mean Corpuscular HGB Conc 30.9 g/dl (32-36); Mean Corpuscular Hemoglobin 25.5 pg (26-34); Mean Corpuscular Volume 82.6 fl (80-100); Mean Platelet Volume 10.1 fl (7.4-10.4); Platelet Count Result 143 k/mm3 (150-375); Red Blood Count 3.45 M/mm3 (4.2-5.4); Red Cell Distribution Width 24.1 % (11.5-14.5); White Blood Count 7.5 K/mm3 (4.5-10.0)
[2019-11-18 06:52] LABS: Anion Gap 3 mmol/L (8-16); Blood Urea Nitrogen 20 mg/dL (7-17); Calcium 7.6 mg/dL (8.4-10.2); Carbon Dioxide 36 mmol/L (22-30); Chloride 94 mmol/L (98-107); Estimated CRCL calculation 87 ml/min; Estimated Glomerular Filt Rate > 60; Glucose 123 mg/dL (65-105); Magnesium 2.2 mg/dL (1.6-2.3); Phosphorus 2.9 mg/dL (2.5-4.5); Potassium 3.1 mmol/L (3.4-5.0); Sodium 133 mmol/L (137-145)
[2019-11-18] MEDS: POTASSIUM CHLORIDE 20 MEQ TABLET 40 MEQ PO (08:25)
[2019-11-18] MEDS: hydroCHLOROthiazide 25 MG TABLET PO (08:26)
[2019-11-18] MEDS: LOSARTAN POTASSIUM 50 MG TABLET PO (08:26)
[2019-11-18] MEDS: PANTOPRAZOLE 40 MG TABLET PO ×2 (08:26→21:13)
[2019-11-18] MEDS: SOTALOL HCL 40 MG, SOTALOL HCL 80 MG 120 MG PO ×2 (08:27→21:13)
[2019-11-18 08:45] LABS: Glucose Point of Care 136 (65-105)
--- NOTE | 2019-11-18 10:55 | PM.PNGS ---
Progress Note: A&P Assessment and Plan (1) Colon cancer, ascending: Code(s): C18.2 - Malignant neoplasm of ascending colon Status: Chronic Assessment and Plan: doing well after hand access laparoscopic right colectomy. Pathology shows the tumor to be stage IIA. she is eating a heart healthy diet and is getting up with the help of physical therapy. Galindo catheter to be removed today. Showing good improvement. (2) Severe anemia: Code(s): D64.9 - Anemia, unspecified Status: Acute Assessment and Plan: Hemoglobin 8.8 today. H&H has been stable since transfusions given during the day of November 14. No signs of active bleeding. Continue to monitor. (3) Chronic anticoagulation: Code(s): Z79.01 - termite technician (current) use of anticoagulants Status: Acute Assessment and Plan: On hold due to anemia. On prophylactic dose of Lovenox (4) Atrial fibrillation: Qualifiers: Atrial fibrillation type: unspecified Qualified Code(s): I48.91 - Unspecified atrial fibrillation Code(s): I48.91 - Unspecified atrial fibrillation Status: Chronic Assessment and Plan: A little more tachycardic this morning with heart rate 100-113. (5) Morbid obesity with BMI of 45.0-49.9, adult: Code(s): E66.01 - Morbid (severe) obesity due to excess calories; Z68.42 - Body mass index (BMI) 45.0-49.9, adult Status: Acute Assessment and Plan: also has obstructive sleep apnea but does not use CPAP. Mobility is a problem. Patient requires a lot of help and a walker to ambulate. Subjective Subjective Date/Time Seen: 11/18/19 10:55 Post Op day: 5 Patient reports: no new complaints, pain is less, tolerating a regular diet, bowel movement and afebrile Review of Systems Review of Systems: All systems reviewed & are unremarkable except as noted in HPI and below Constitutional: Constitutional: Denies headache(s) Cardiovascular: Cardiovascular: Denies chest pain and Denies dyspnea Respiratory: Respiratory: Denies cough and Denies dyspnea Gastrointestinal: Gastrointestinal: Reports as per HPI Neurologic: Denies confusion and Denies headache(s) Exam Const: General: comfortable and no acute distress; No confusion Orientation/consciousness: patient oriented x3 and No confusion Cardio: Rate: tachycardic Rhythm: abnormal rhythm GI: Inspection: non-distended, incision ( healing well) and obesity GI Palp: Yes Soft to palpation, Yes Tenderness to palpation present (GI) ( minimal appropriate tenderness), No Guarding due to palpation present (GI) and No Rebound tenderness present Auscultation: normal bowel sounds Neuro: General: patient oriented x3, no focal motor deficits and No confusion Extrem: General: no calf tenderness and no edema Psych: Affect: normal affect Insight: Good insight present (Psych) Judgement: Good judgement present (Psych) Objective Data Vital Signs Vital Signs: Vital Signs - 24 hr 11/17/19 12:00 11/17/19 14:00 11/17/19 14:29 Temperature 36.8 C Pulse Rate 110 H 80 100 Respiratory Rate 18 20 Blood Pressure 130/64 Pulse Oximetry 100 11/17/19 14:37 11/17/19 16:00 11/17/19 20:00 Temperature Pulse Rate 104 H 97 113 H Respiratory Rate 20 Blood Pressure Pulse Oximetry 11/17/19 20:43 11/17/19 20:59 11/17/19 22:00 Temperature 36.2 C L Pulse Rate 88 95 92 Respiratory Rate 20 20 20 Blood Pressure 102/46 L Pulse Oximetry 93 11/18/19 00:00 11/18/19 02:22 11/18/19 02:29 Temperature Pulse Rate 93 82 80 Respiratory Rate 18 20 Blood Pressure Pulse Oximetry 11/18/19 04:00 11/18/19 06:00 11/18/19 08:03 Temperature 36.3 C L Pulse Rate 95 103 H 111 H Respiratory Rate 20 20 Blood Pressure 109/50 L Pulse Oximetry 95 11/18/19 08:10 11/18/19 08:27 Temperature Pulse Rate 113 H 100 Respiratory Rate 20 Blood Pressure Pulse Oximetry Intake/Output I
[2019-11-18 12:16] LABS: Glucose Point of Care 159 (65-105)
--- NOTE | 2019-11-18 12:37 | PM.PNCARD ---
Progress Note: A&P Assessment and Plan (1) Atrial fibrillation: Qualifiers: Atrial fibrillation type: unspecified Qualified Code(s): I48.91 - Unspecified atrial fibrillation Code(s): I48.91 - Unspecified atrial fibrillation Status: Chronic Assessment and Plan: History of paroxysmal atrial fibrillation, with recurrence when the patient was NPO. Sotalol and diltiazem have been resumed; will change diltiazem back to once-daily formulation. Adequate heart rate control for now. (2) Acute diastolic CHF (congestive heart failure): Code(s): I50.31 - Acute diastolic (congestive) heart failure Status: Acute Assessment and Plan: Acute diastolic heart failure secondary to volume overload, with IV fluids and 6 units of PRBCs. Impressive diuresis and now feeling much better. Resultant hypokalemia treated. (3) Chronic anticoagulation: Code(s): Z79.01 - nursing home (current) use of anticoagulants Status: Acute Assessment and Plan: Warfarin has been on hold for her surgery. Reviewed with teresa Rivera to restart. Will resume at home dose, 5 mg daily per pt. Daily INRs. (4) S/P right hemicolectomy: Code(s): Z90.49 - Acquired absence of other specified parts of digestive tract Status: Acute Assessment and Plan: Colon cancer status post right hemicolectomy on 11/13/2019. (5) LGI bleed: Code(s): K92.2 - Gastrointestinal hemorrhage, unspecified Status: Acute Assessment and Plan: Severe anemia secondary to colon cancer and surgery. H and H now stable. Subjective Date/time seen: 11/18/19 12:37 Follow-up for paroxysmal atrial fibrillation Followed by Dr. Adler,and CHF in the face of severe anemia and right hemicolectomy for colon cancer. Postoperatively the patient required pressors for her hypotension. Hemoglobin was down to 4.7 and she has received 6 units of packed red cells. The patient had been NPO and her usual sotalol was held, now resumed. Echo showed hyperdynamic ventricle, EF greater than 70% with diastolic dysfunction and moderate right ventricular enlargement, RVSP 40 mmHg. Date of service: 11/17/2019 Patient's pressors have been weaned off and she was transferred to the floor. Her breathing is a lot better. She is tolerating a soft diet. She has been out of bed and walking in the room with her walker. Blood pressure stable with a systolic pressure 120 is- 140s and heart rate is 90-105 beats per minute. She has been diuresed with furosemide 20 mg IV push x2, with I's and O's yesterday of 2000 cc in and 8,700 out. Hypokalemia noted this morning has been corrected. Chest x-ray yesterday showed bilateral infiltrates and congestive heart failure. Date of service: 11/18/2019 Feeling pretty good, eating solid food, no Abdominal pain. Had a bowel movement. No shortness of breath or palpitations, no dizziness. Heart rate 90-110 ppm. Low potassium today , repleted. Review of Systems Constitutional: Constitutional: Denies fever(s) and Denies weakness ENT: Denies nasal congestion Cardiovascular: Cardiovascular: Denies chest pain, Reports pedal edema, Denies lightheadedness and Denies dyspnea Respiratory: Respiratory: Denies chest congestion and Denies dyspnea Gastrointestinal: Gastrointestinal: Denies abdominal pain and Denies hematochezia Musculoskeletal: Musculoskeletal: Reports no additional musculoskeletal complaints Integumentary/Breasts: Skin/Breast: Reports system reviewed and no additional complaints, except as docu Neurologic: Reports system reviewed and no additional complaints, except as documented, Denies behavioral change
[2019-11-18 13:06] LABS: SARS-CoV-2 RNA PCR Negative
[2019-11-18] MEDS: dilTIAZem HCL CD 180 MG CAP.ER.24H PO (13:37)
[2019-11-18 13:57] LABS: INR 1.1
--- NOTE | 2019-11-18 13:58 | PM.IMPN ---
Progress Note: A&P Assessment and Plan (1) Shock: Code(s): R57.9 - Shock, unspecified Status: Acute Assessment and Plan: Patient with most likely hemorrhagic shock. Central line placed and she was on Levophed at 1 point that was weaned off. Blood pressure stable now and anti-HTN able to be added back. Continue monitor closely. (2) Severe anemia: Code(s): D64.9 - Anemia, unspecified Status: Acute Assessment and Plan: Hemoglobin low postoperatively to 5.[address] scan on the evening of 11/13/2019 showing dense fluid in the pelvis likely blood products. Hemoglobin 7.5 on 11/14/19 but dropped to 4.8 the next morning requiring repeat transfusion. Hgb up to 8 range and remaining stable. Has received a total of 6U PRBC. Continue daily H&H. (3) S/P right hemicolectomy: Code(s): Z90.49 - Acquired absence of other specified parts of digestive tract Status: Acute Assessment and Plan: POD#5 from a hand assisted laparoscopic right hemicolectomy with ileocolic anastomosis. As above. Continue current routine post-op care as she tolerates (4) Atrial fibrillation: Qualifiers: Atrial fibrillation type: unspecified Qualified Code(s): I48.91 - Unspecified atrial fibrillation Code(s): I48.91 - Unspecified atrial fibrillation Status: Chronic Assessment and Plan: Patient developed atrial fibrillation with RVR requiring amiodarone drip. Rate is better controlled. Lovenox on hold. Blood pressure improved to the point anti-HTN added back. Echo showing EF of 70% with grade 1 diastolic dysfunction. Back on Sotalol and oral Diltiatzem. Rate mildly elevated and tele showing persistent AFib (5) Colon cancer, ascending: Code(s): C18.2 - Malignant neoplasm of ascending colon Status: Chronic Assessment and Plan: Biopsy results from the ascending colon mass from October 05, 2019 showing moderately differentiated adenocarcinoma colon. Now status post right hemicolectomy. Pathology from this surgery showing moderately differentiated colonic adenocarcinoma invading through the muscularis propria and focally involving pericolonic fat. No lymph nodes involved (0/25). Follow up with oncology after discharge. (6) Pulmonary embolism: Code(s): I26.99 - Other pulmonary embolism without acute cor pulmonale Status: Acute Assessment and Plan: Patient has a history of PE and DVT. She was on Coumadin prior to admission. Her anticoagulation was resumed today. Monitor HH closely when Coumadin resumed. (7) DVT prophylaxis: Code(s): Z29.9 - Encounter for prophylactic measures, unspecified Status: Acute Assessment and Plan: Lovenox on hold still. Coumadin resumed. Continue SCDs. Subjective Date/time seen: 11/18/19 13:58 Interval history: 73yo female admitted for planned hand assisted laparoscopic right hemicolectomy with ileal colic anastomosis on 11/13/19 for colon cancer complicated by anemia and shock. No problems overnight. No n/v. No CP or SOB. Complains of blurry vision last night lasting about 20 minutes. No recurence. No associated symptoms. Has chronic LE edema Exam Narrative: Exam Narrative: AF 109/50 109 20 95% ra Gen - NARD sitting up in bed Chest - R>L bibasilar rhonchi, nml RR CV - Irregularly irregular. Telemetry showing rate controlled AFib with HR<105. Abd - soft, obese, minimal tenderness, incision clean, dry and intact - [place] secured draining clear yellow urine Ext - trace pitting pedal edema; SCDs in place Psych - Nml mood and affect Skin - warm and dry Objective Data Vital Signs Vital Signs: Vital Signs - 24 hr 11/17/19 14:00 11/17/19 14:29 11/17/19 14:37 Temperature 98.3 F Pulse Rate 80 100 104 H Respiratory Rate 18 20 20 Blood Pressure 130/64 Pulse Oximetry 100 11/17/19 16:00 11/17/19 20:00 11/17/19 20:43 Temper
[2019-11-18] MEDS: WARFARIN (*PBKC) 5 MG TABLET PO (17:35)
[2019-11-18 17:44] LABS: Glucose Point of Care 149 (65-105)
[2019-11-18 22:20] LABS: Glucose Point of Care 179 (65-105)
[2019-11-19] VITALS (19 sets, daily range): BP systolic 107–130; BP diastolic 43–63; PULSE 66–112; RESP 16–22; TEMP 36.3–36.4; O2SAT 91–98
[2019-11-19] MEDS: LEVALBUTEROL NEB 1.25 MG/3 ML 0.63 MG INHALATION ×4 (01:27→21:07)
[2019-11-19 06:17] LABS: Hematocrit 29.1 % (37.0-47.0); Hemoglobin 8.9 g/dL (12.0-15.0); Mean Corpuscular HGB Conc 30.6 g/dl (32-36); Mean Corpuscular Hemoglobin 25.4 pg (26-34); Mean Corpuscular Volume 83.1 fl (80-100); Mean Platelet Volume 10.3 fl (7.4-10.4); Platelet Count Result 164 k/mm3 (150-375); Red Cell Distribution Width 24.8 % (11.5-14.5); White Blood Count 7.8 K/mm3 (4.5-10.0)
[2019-11-19 06:26] LABS: INR 1.1
[2019-11-19 06:29] LABS: Anion Gap 3 mmol/L (8-16); Blood Urea Nitrogen 18 mg/dL (7-17); Calcium 7.8 mg/dL (8.4-10.2); Carbon Dioxide 34 mmol/L (22-30); Chloride 96 mmol/L (98-107); Estimated CRCL calculation 103 ml/min; Estimated Glomerular Filt Rate > 60; Glucose 139 mg/dL (65-105); Potassium 3.2 mmol/L (3.4-5.0); Sodium 133 mmol/L (137-145)
[2019-11-19] MEDS: PANTOPRAZOLE 40 MG TABLET PO ×2 (09:10→21:45)
[2019-11-19] MEDS: dilTIAZem HCL CD 180 MG CAP.ER.24H PO (09:10)
[2019-11-19] MEDS: SOTALOL HCL 40 MG, SOTALOL HCL 80 MG 120 MG PO ×2 (09:10→21:35)
[2019-11-19] MEDS: hydroCHLOROthiazide 25 MG TABLET PO (09:10)
[2019-11-19] MEDS: LOSARTAN POTASSIUM 50 MG TABLET PO (09:10)
[2019-11-19 09:16] LABS: Glucose Point of Care 155 (65-105)
--- NOTE | 2019-11-19 09:24 | PM.PNGS ---
Progress Note: A&P Assessment and Plan (1) Colon cancer, ascending: Code(s): C18.2 - Malignant neoplasm of ascending colon Status: Chronic Assessment and Plan: Doing well surgically Will plan to discharge once medically stable Warfarin restarted yesterday, H/H stable (2) Morbid obesity with BMI of 45.0-49.9, adult: Code(s): E66.01 - Morbid (severe) obesity due to excess calories; Z68.42 - Body mass index (BMI) 45.0-49.9, adult Status: Acute (3) Severe anemia: Code(s): D64.9 - Anemia, unspecified Status: Acute (4) Atrial fibrillation: Qualifiers: Atrial fibrillation type: unspecified Qualified Code(s): I48.91 - Unspecified atrial fibrillation Code(s): I48.91 - Unspecified atrial fibrillation Status: Chronic Subjective Subjective Date/Time Seen: 11/19/19 09:24 Bowels moving, tolerating diet, pain controlled. Exam GI: Inspection: non-distended and incision (C/D/I) GI Palp: Yes Tenderness to palpation present (GI) (incisional) and No Guarding due to palpation present (GI) Auscultation: normal bowel sounds Objective Data Vital Signs Vital Signs: Vital Signs - 24 hr 11/18/19 12:00 11/18/19 13:59 11/18/19 14:00 Temperature 36.9 C Pulse Rate 107 H 109 H 85 Respiratory Rate 20 18 Blood Pressure 114/46 L Pulse Oximetry 94 11/18/19 16:00 11/18/19 20:00 11/18/19 20:36 Temperature Pulse Rate 124 H 100 102 H Respiratory Rate Blood Pressure Pulse Oximetry 11/18/19 20:46 11/18/19 21:13 11/18/19 21:48 Temperature 36.6 C Pulse Rate 109 H 104 H 87 Respiratory Rate 20 20 Blood Pressure 122/43 L Pulse Oximetry 93 11/19/19 00:00 11/19/19 01:27 11/19/19 01:40 Temperature Pulse Rate 98 112 H 105 H Respiratory Rate 22 H 20 Blood Pressure Pulse Oximetry 11/19/19 04:00 11/19/19 06:00 11/19/19 08:00 Temperature 36.3 C L Pulse Rate 93 88 108 H Respiratory Rate 20 20 Blood Pressure 107/50 L Pulse Oximetry 94 11/19/19 08:02 11/19/19 08:06 11/19/19 09:10 Temperature Pulse Rate 110 H 92 Respiratory Rate 20 Blood Pressure Pulse Oximetry 91 Intake/Output Intake/Output: Intake & Output 11/16/19 11/17/19 11/18/19 11/19/19 23:59 23:59 23:59 23:59 Intake Total 2019 1410 1500 600 Output Total 870 650 Balance -6680 -640 850 600 Meds/Results Medications: Active Medications Generic Name Dose Route Start Last Admin Trade Name Freq PRN Reason Stop Dose Admin Acetaminophen 1,000 mg 11/16/19 08:01 Tylenol Tablet PO Q6HR PRN Pain Rated 1-3 Hydrocodone Bitart/Acetaminophen 1 tab 11/16/19 08:00 [place] 5-325 Mg PO Q4H PRN Pain Rated 4-6 Dextrose 12.5 gm 11/13/19 16:15 Dextrose 50% Syringe IV PUSH PRN PRN Hypoglycemia Protocol Diltiazem HCl 180 mg 11/18/19 13:15 11/19/19 09:10 Cardizem Cd PO 180 mg QAM NANI Administration Enoxaparin Sodium 30 mg 11/14/19 10:40 11/15/19 09:01 Lovenox SUB-Q 30 mg Q12HR NANI Administration Glucagon 1 mg 11/13/19 16:15 Glucagon For Inj IM PRN PRN Hypoglycemia Protocol Glucose 15 gm 11/13/19 16:15 Glutose 15 PO PRN PRN Hypoglycemia Protocol Hydrochlorothiazide 25 mg 11/16/19 09:00 11/19/19 09:10 Hydrochlorothiazide PO 25 mg QAM NANI Administration Dextrose 1,000 mls @ 100 mls/hr 11/13/19 16:15 Dextrose 5% 1,000 Ml IVPB PRN PRN Hypoglycemia Protocol Insulin Aspart 2 - 5 units 11/13/19 17:00 11/19/19 09:08 Novolog SUB-Q Not Given TIDWM NANI Protocol Levalbuterol HCl 0.63 mg 11/16/19 11:20 11/19/19 07:59 Xopenex 1.25 Mg/3 Ml INHALATION 0.63 mg Q6HRT NANI Administration Losartan Potassium 50 mg 11/16/19 09:00 11/19/19 09:10 Cozaar PO 50 mg DAILY NANI Administration Ondansetron HCl 4 mg 11/13/19 14:41 11/16/19 09:57 Zofran Inj IV PUSH 4 mg
--- NOTE | 2019-11-19 10:27 | PM.PNCARD ---
Progress Note: A&P Assessment and Plan (1) Atrial fibrillation: Qualifiers: Atrial fibrillation type: unspecified Qualified Code(s): I48.91 - Unspecified atrial fibrillation Code(s): I48.91 - Unspecified atrial fibrillation Status: Chronic Assessment and Plan: History of paroxysmal atrial fibrillation, with recurrence when the patient was NPO. Sotalol and diltiazem have been resumed; Adequate heart rate control for now. (2) Acute diastolic CHF (congestive heart failure): Code(s): I50.31 - Acute diastolic (congestive) heart failure Status: Acute Assessment and Plan: Acute diastolic heart failure secondary to volume overload, with IV fluids and 6 units of PRBCs. Impressive diuresis and now feeling much better. Resultant hypokalemia treated. Furosemide 40 mg p.o. daily. potassium 40 mEq p.o. x1. (3) Chronic anticoagulation: Code(s): Z79.01 - [employer] (current) use of anticoagulants Status: Acute Assessment and Plan: Warfarin Has been restarted Daily INRs. (4) S/P right hemicolectomy: Code(s): Z90.49 - Acquired absence of other specified parts of digestive tract Status: Acute Assessment and Plan: Colon cancer status post right hemicolectomy on 11/13/2019. (5) LGI bleed: Code(s): K92.2 - Gastrointestinal hemorrhage, unspecified Status: Acute Assessment and Plan: Severe anemia secondary to colon cancer and surgery. H and H now stable. Subjective Date/time seen: 11/19/19 10:27 Interval history: 73yo female admitted for planned hand assisted laparoscopic right hemicolectomy with ileal colic anastomosis on 11/13/19 for colon cancer complicated by anemia and shock. Date of service 11/19/2019: She slowly feeling better. Hemoglobin has been stable. Warfarin has been resumed. No chest pain or shortness of breath. Review of Systems Constitutional: Constitutional: Reports no additional constitutional complaints, Denies fever(s) and Denies weakness Eyes: Eyes: Reports no additional eye complaints ENT: Reports system reviewed and no additional complaints, except as documented and Denies nasal congestion Cardiovascular: Cardiovascular: Reports no additional cardiovascular complaints, Denies chest pain, Reports pedal edema, Denies lightheadedness, Denies palpitations, Denies dyspnea and Denies dyspnea on exertion Respiratory: Respiratory: Denies chest congestion, Denies cough, Denies dyspnea and Denies dyspnea on exertion Gastrointestinal: Gastrointestinal: Denies abdominal pain and Denies hematochezia Genitourinary: Genitourinary: Reports no additional female genitourinary complaints Musculoskeletal: Musculoskeletal: Reports no additional musculoskeletal complaints and Denies back pain Integumentary/Breasts: Skin/Breast: Reports system reviewed and no additional complaints, except as docu and Reports unusual bruising ( ecchymosis of the lateral abdominal chow) Neurologic: Reports system reviewed and no additional complaints, except as documented, Denies behavioral changes, Denies confusion and Denies weakness Psychiatric: Psychiatric: Reports no additional psychiatric complaints, Denies behavioral changes and Denies confusion Endocrine: Endocrine: Reports no additional endocrine complaints and Denies palpitations Hematologic/Lymphatic: Hematologic/Lymphatic: Reports no additional hematologic/lymphatic complaints Allergic/Immunologic: Allergic/Immunologic: Reports no additional allergic/immunologic complaints Exam Narrative: Exam Narrative: very pleasant smiling older lady in no distress Const: General: cooperative, healthy appearing, comfortable and no acute distress; No confusion Orientation/consciousness: oriented to person, patient
[2019-11-19] MEDS: POTASSIUM CHLORIDE 20 MEQ TABLET 40 MEQ PO (11:40)
--- NOTE | 2019-11-19 12:00 | PM.IMPN ---
Progress Note: A&P Assessment and Plan (1) Shock: Code(s): R57.9 - Shock, unspecified Status: Acute Assessment and Plan: Patient with most likely hemorrhagic shock. Central line placed and she was on Levophed at 1 point that was weaned off. Blood pressure stable now and anti-HTN able to be added back. Continue monitor closely. Patient recovering well. Will sign off. Please re-consult if other issues arise. Thank you. (2) Severe anemia: Code(s): D64.9 - Anemia, unspecified Status: Acute Assessment and Plan: Hemoglobin low postoperatively to 5.[address] scan on the evening of 11/13/2019 showing dense fluid in the pelvis likely blood products. Hemoglobin 7.5 on 11/14/19 but dropped to 4.8 the next morning requiring repeat transfusion. Hgb up to 8 range and remaining stable. Has received a total of 6U PRBC. Hgb 8.9 today. Continue daily H&H. (3) S/P right hemicolectomy: Code(s): Z90.49 - Acquired absence of other specified parts of digestive tract Status: Acute Assessment and Plan: POD#6 from a hand assisted laparoscopic right hemicolectomy with ileocolic anastomosis. As above. Continue current routine post-op care as she tolerates (4) Atrial fibrillation: Qualifiers: Atrial fibrillation type: unspecified Qualified Code(s): I48.91 - Unspecified atrial fibrillation Code(s): I48.91 - Unspecified atrial fibrillation Status: Chronic Assessment and Plan: Patient developed atrial fibrillation with RVR requiring amiodarone drip. Rate is better controlled. Lovenox on hold due to anemia and recent surgery. Blood pressure improved to the point anti-HTN added back. Echo showing EF of 70% with grade 1 diastolic dysfunction. Back on Sotalol and oral Diltiatzem. Rate mildly elevated but stable. (5) Colon cancer, ascending: Code(s): C18.2 - Malignant neoplasm of ascending colon Status: Chronic Assessment and Plan: Biopsy results from the ascending colon mass from October 05, 2019 showing moderately differentiated adenocarcinoma colon. Now status post right hemicolectomy. Pathology from this surgery showing moderately differentiated colonic adenocarcinoma invading through the muscularis propria and focally involving pericolonic fat. No lymph nodes involved (0). Follow up with oncology after discharge. (6) Pulmonary embolism: Code(s): I26.99 - Other pulmonary embolism without acute cor pulmonale Status: Acute Assessment and Plan: Patient has a history of PE and DVT. She was on Coumadin prior to admission. Her anticoagulation was resumed today. Monitor HH closely when Coumadin resumed. (7) DVT prophylaxis: Code(s): Z29.9 - Encounter for prophylactic measures, unspecified Status: Acute Assessment and Plan: Lovenox on hold still. Coumadin resumed. Continue SCDs. Subjective Date/time seen: 11/19/19 12:00 Interval history: 73yo female admitted for planned hand assisted laparoscopic right hemicolectomy with ileal colic anastomosis on 11/13/19 for colon cancer complicated by anemia and shock. Voiding more. No CP or SOB. Slept okay last night. FERRARA but overall improved. Working with therapy. No n/v. Abd pain minimal. No diarrhea but stools soft. Exam Narrative: Exam Narrative: AF 107/50 110 20 91%ra Gen - NARD sitting up in bed Chest - bibasilar crackles CV - Irregularly irregular. Telemetry showing AFib with rate around 105. Abd - soft, obese, +BS, incision clean/dry/intact Ext - trace pitting pedal edema Psych - Nml mood and affect Skin - warm and dry Objective Data Vital Signs Vital Signs: Vital Signs - 24 hr 11/18/19 13:59 11/18/19 14:00 11/18/19 16:00 Temperature 98.4 F Pulse Rate 109 H 85 124 H Respiratory Rate 20 18 Blood Pressure 114/46 L Pulse Oximetry 94 11/18/19 20:00 11/18/19 20:36 11/18/19 20:
[2019-11-19 12:18] LABS: Glucose Point of Care 144 (65-105)
[2019-11-19 17:12] LABS: Glucose Point of Care 160 (65-105)
[2019-11-19] MEDS: WARFARIN (*PBKC) 5 MG TABLET PO (17:19)
[2019-11-19] MEDS: SALINE 0.65% NAS SOLN 44 ML BTL 1 SPRAY NASAL (22:06)
[2019-11-19 22:37] LABS: Glucose Point of Care 180 (65-105)
[2019-11-20] VITALS (12 sets, daily range): BP systolic 103–133; BP diastolic 47–71; PULSE 76–129; RESP 18–20; TEMP 36.4–36.7; O2SAT 98–100
[2019-11-20] MEDS: LEVALBUTEROL NEB 1.25 MG/3 ML 0.63 MG INHALATION ×3 (02:12→14:16)
[2019-11-20 06:25] LABS: INR 1.2; Prothrombin Time 14.9 Seconds (11.1-14.7)
[2019-11-20 08:23] LABS: Glucose Point of Care 147 (65-105)
[2019-11-20] MEDS: SOTALOL HCL 40 MG, SOTALOL HCL 80 MG 120 MG PO (09:05)
[2019-11-20] MEDS: dilTIAZem HCL CD 180 MG CAP.ER.24H PO (09:05)
[2019-11-20] MEDS: LOSARTAN POTASSIUM 50 MG TABLET PO (09:07)
[2019-11-20] MEDS: hydroCHLOROthiazide 25 MG TABLET PO (09:07)
[2019-11-20] MEDS: PANTOPRAZOLE 40 MG TABLET PO (09:07)
[2019-11-20 09:26] LABS: Hematocrit 30.7 % (37.0-47.0); Hemoglobin 9.2 g/dL (12.0-15.0); Mean Corpuscular Hemoglobin 25.4 pg (26-34); Mean Corpuscular Volume 84.8 fl (80-100); Mean Platelet Volume 11.2 fl (7.4-10.4); Platelet Count Result 197 k/mm3 (150-375); Red Blood Count 3.62 M/mm3 (4.2-5.4); Red Cell Distribution Width 25.8 % (11.5-14.5); White Blood Count 9.9 K/mm3 (4.5-10.0)
--- NOTE | 2019-11-20 09:42 | PCDIET ---
Weekly nutritional screen. Patient is tolerating heart healthy diet with improving intakes and Ensure Surgery BID. No weight loss reported prior to admission. BMI 48.8. No nutritional needs at this time.
[2019-11-20 09:44] LABS: Anion Gap 2 mmol/L (8-16); Blood Urea Nitrogen 20 mg/dL (7-17); Calcium 7.9 mg/dL (8.4-10.2); Carbon Dioxide 33 mmol/L (22-30); Chloride 99 mmol/L (98-107); Estimated CRCL calculation 101 ml/min; Estimated Glomerular Filt Rate > 60; Glucose 140 mg/dL (65-105); Potassium 3.9 mmol/L (3.4-5.0); Sodium 134 mmol/L (137-145)
[2019-11-20] MEDS: ENOXAPARIN 30 MG/0.3 ML SYRINGE SUB-Q (10:05)
[2019-11-20] MEDS: FUROSEMIDE 40 MG TABLET PO (10:05)
--- NOTE | 2019-11-20 11:11 | PM.PNCARD ---
Progress Note: A&P Assessment and Plan (1) Atrial fibrillation: Qualifiers: Atrial fibrillation type: unspecified Qualified Code(s): I48.91 - Unspecified atrial fibrillation Code(s): I48.91 - Unspecified atrial fibrillation Status: Chronic Assessment and Plan: History of paroxysmal atrial fibrillation, with recurrence when the patient was NPO. Sotalol and diltiazem have been resumed; Adequate heart rate control for now. (2) Acute diastolic CHF (congestive heart failure): Code(s): I50.31 - Acute diastolic (congestive) heart failure Status: Acute Assessment and Plan: Acute diastolic heart failure secondary to volume overload, with IV fluids and 6 units of PRBCs. Impressive diuresis and now feeling much better. Will give a dose of IV furosemide 40 mg IV x1 (3) Chronic anticoagulation: Code(s): Z79.01 - intermediate card tender (current) use of anticoagulants Status: Acute Assessment and Plan: Warfarin Has been restarted Daily INRs. (4) S/P right hemicolectomy: Code(s): Z90.49 - Acquired absence of other specified parts of digestive tract Status: Acute Assessment and Plan: Colon cancer status post right hemicolectomy on 11/13/2019. (5) LGI bleed: Code(s): K92.2 - Gastrointestinal hemorrhage, unspecified Status: Acute Assessment and Plan: Severe anemia secondary to colon cancer and surgery. H and H now stable. Subjective Date/time seen: 11/20/19 11:11 Interval history: 73yo female admitted for planned hand assisted laparoscopic right hemicolectomy with ileal colic anastomosis on 11/13/19 for colon cancer complicated by anemia and shock. Date of service 11/20/2019: She slowly feeling better. she is Short of breath. No chest pain. Review of Systems Constitutional: Constitutional: Reports no additional constitutional complaints, Denies fever(s) and Denies weakness Eyes: Eyes: Reports no additional eye complaints ENT: Reports system reviewed and no additional complaints, except as documented and Denies nasal congestion Cardiovascular: Cardiovascular: Reports no additional cardiovascular complaints, Denies chest pain, Reports pedal edema, Denies lightheadedness, Denies palpitations, Denies dyspnea and Denies dyspnea on exertion Respiratory: Respiratory: Denies chest congestion, Denies cough, Denies dyspnea and Denies dyspnea on exertion Gastrointestinal: Gastrointestinal: Denies abdominal pain and Denies hematochezia Genitourinary: Genitourinary: Reports no additional female genitourinary complaints Musculoskeletal: Musculoskeletal: Reports no additional musculoskeletal complaints and Denies back pain Integumentary/Breasts: Skin/Breast: Reports system reviewed and no additional complaints, except as docu and Reports unusual bruising ( ecchymosis of the lateral abdominal chow) Neurologic: Reports system reviewed and no additional complaints, except as documented, Denies behavioral changes, Denies confusion and Denies weakness Psychiatric: Psychiatric: Reports no additional psychiatric complaints, Denies behavioral changes and Denies confusion Endocrine: Endocrine: Reports no additional endocrine complaints and Denies palpitations Hematologic/Lymphatic: Hematologic/Lymphatic: Reports no additional hematologic/lymphatic complaints Allergic/Immunologic: Allergic/Immunologic: Reports no additional allergic/immunologic complaints Exam Narrative: Exam Narrative: very pleasant smiling older lady in no distress Const: General: cooperative, healthy appearing, comfortable and no acute distress; No confusion Orientation/consciousness: oriented to person, patient oriented x3 and No confusion Other: Morbidly obese white female ICU 12. Supine in bed timur
--- NOTE | 2019-11-20 11:43 | PM.DS ---
DS: Admitting Diagnosis Admitting Diagnosis Admitting Diagnosis: Malignant neoplasm of ascending colon DS: Discharge Diagnosis Discharge Diagnosis (1) Colon cancer, ascending: Code(s): C18.2 - Malignant neoplasm of ascending colon Status: Chronic (2) Atrial fibrillation: Qualifiers: Atrial fibrillation type: unspecified Qualified Code(s): I48.91 - Unspecified atrial fibrillation Code(s): I48.91 - Unspecified atrial fibrillation Status: Chronic (3) Pulmonary HTN: Code(s): I27.20 - Pulmonary hypertension, unspecified Status: Acute (4) Severe anemia: Code(s): D64.9 - Anemia, unspecified Status: Acute (5) Morbid obesity with BMI of 45.0-49.9, adult: Code(s): E66.01 - Morbid (severe) obesity due to excess calories; Z68.42 - Body mass index (BMI) 45.0-49.9, adult Status: Acute (6) Acute diastolic CHF (congestive heart failure): Code(s): I50.31 - Acute diastolic (congestive) heart failure Status: Acute DS: Summary Hospital Course Reason for hospitalization: Surgery for ascending colon cancer. Hospital Course: This is a 73-year-old woman who presented with a recent finding of ascending colon cancer. She had a recent onset of lower GI bleed and underwent colonoscopy by Dr. Lagos on 10/05/2019. A malignant-appearing mass was identified in the ascending colon and this was biopsied. Biopsies showed moderately differentiated adenocarcinoma. CT chest abdomen and pelvis were negative for metastases. Her preoperative CEA level was 3.4. Preoperative hemoglobin was 7.2 on 11/05/2019. She has a significant history of DVT and PE as well as chronic AFib. She was on warfarin long-term decision was made to bridge her with Lovenox for 3 days leading up to the surgery well she stopped her warfarin. She underwent hand assisted laparoscopic right hemicolectomy with ileocolic anastomosis on 11/13/2019. Surgery was uncomplicated, and there was relatively little blood loss noted during surgery. In PACU, she appeared somewhat hypotensive and a repeat hemoglobin was drawn showed slightly lower hemoglobin at 5.4. She was given 1 unit of packed red blood cells and was transferred to the surgical floor once she was stable in PACU. She then appeared to be come more hypotensive on the surgical floor and was therefore transferred to the intensive care unit for closer monitoring. She required 2 more units of packed red blood cells on 11/12 and was also started on a low dose of Levophed to help maintain an adequate blood pressure. On 11/13 she appeared much more stable and was able to be weaned off of any vasopressors. She was already having bowel movements. On 11/14 her hemoglobin dropped down again to 4.8, but she was remaining with normal blood pressure. She did become tachycardic that morning as well and was found to be in AFib with RVR. She was given 3 more units of packed red blood cells on 11/14. Her blood pressure remained stable and she was then able to be started on some of her home meds. She was also started on amiodarone while in the ICU but this was able to be discontinued once oral medications were started. She was moving her bowels and was not showing any signs of abdominal distension or ongoing GI bleed, therefore she was advanced to a full liquid diet. Anticoagulation was withheld due to further risk of ongoing bleeding. On 11/15 she remains stable and hemoglobin was stabilizing as well. She was transferred out of the intensive care unit on 11/15 and she was also advanced to a soft diet. PT and OT worked with the patient over the next several days to help increase her mobility and activity. She was moving her bowels and was able to tolerate a soft diet without any problems. Cardiology was consulted to help with management of her AFib and CHF. She diuresed very well after all of the blood products and IV fluids that she received in the 1st few days. her warfarin was
[2019-11-20] MEDS: FUROSEMIDE INJ 40 MG/4 ML VIAL IV PUSH (12:09)
[2019-11-20 12:23] LABS: Glucose Point of Care 123 (65-105)
== END 2019-11-20 15:55 | DRG 329 ==
LOC: ANH3MEDSUR 14:44 → ANHICU 16:28 → ANH3MEDSUR 11-16 22:33
PROVIDERS: Anesthesiology; Internal Medicine; Internal Medicine Cardiovascular Disease; Nurse Practitioner; Nurse Practitioner Family; Admitting Provider Surgery; PCP Family Medicine Adolescent Medicine; Visit Provider Surgery
PROC: 0DTF4ZZ Resection of Right Large Intestine, Percutaneous Endoscopic Approach (ICD-10-PCS; CPT 44204; principal; 2019-11-13 08:30)
DX: C18.2 Malignant neoplasm of ascending colon (principal); I50.31 Acute diastolic (congestive) heart failure; T81.19XA Other postprocedural shock, initial encounter; I48.20 Chronic atrial fibrillation, unspecified; Z68.42 Body mass index [BMI] 45.0-49.9, adult; I25.3 Aneurysm of heart; D62 Acute posthemorrhagic anemia; I11.0 Hypertensive heart disease with heart failure; Z11.59 Encounter for screening for other viral diseases; I27.20 Pulmonary hypertension, unspecified; E66.01 Morbid (severe) obesity due to excess calories; G47.30 Sleep apnea, unspecified; E11.9 Type 2 diabetes mellitus without complications; D63.0 Anemia in neoplastic disease; E86.0 Dehydration; I95.9 Hypotension, unspecified; M79.7 Fibromyalgia; F41.9 Anxiety disorder, unspecified; M19.90 Unspecified osteoarthritis, unspecified site; Z79.01 Long term (current) use of anticoagulants; Z86.711 Personal history of pulmonary embolism; Z86.718 Personal history of other venous thrombosis and embolism; Z87.891 Personal history of nicotine dependence; Z90.49 Acquired absence of other specified parts of digestive tract; Z90.710 Acquired absence of both cervix and uterus
CPT/HCPCS: 36415; 36430; 71045; 74019; 74177; 80048; 80053; 83735; 84100; 85014; 85018; 85025; 85027; 85610; 85730; 86644; 86850; 86900; 86901; 86920; 86923; 87635; 88309; 93005; 94640; 97110; 97116; 97162; 97166; 97530; 97535; A9270; C1751; C8929; C9290; C9803; J0131; J0282; J0330; J0610; J1200; J1580; J1644; J1650; J1815; J1885; J1940; J2250; J2270; J2405; J2704; J3010; J7030; J7050; J7120; P9016; Q9957; Q9967; U0003

== ENCOUNTER 2019-11-20 15:52 | IRF | payer MEDICARE, OTHER, SELFPAY ==
--- NOTE | ~2019-11-20 | US_ITS ---
EXAMINATION: US venous doppler [facility] DATE: 11/23/2019 09:22 INDICATION: Lower limb pain. TECHNIQUE: Grayscale ultrasound images without and with compression and Doppler ultrasound images of the bilateral lower extremity veins were obtained. COMPARISON: None. FINDINGS: The visualized portions of right femoral vein, peroneal veins, and posterior tibial veins are patent. There is thrombus in right common femoral vein, profunda femoral vein, and popliteal vein. There is thrombus in right greater saphenous vein. The visualized portions of left common femoral vein, profunda femoral vein, femoral vein, popliteal v ein, peroneal veins, posterior tibial veins, and greater saphenous vein outflow are patent. IMPRESSION: 1. Deep vein thrombosis involving right common femoral vein, profunda femoral vein, and popliteal ve in. I called this result to Dr. Sheffield. 2. Superficial vein thrombosis involving right greater saphenous vein. Reviewed, dictated and finalized at location B. IMPRESSION: 1. Deep vein thrombosis involving right common femoral vein, profunda femoral vein, and popliteal vein. I called this result to Dr. Sheffield. 2. Superficial vein thrombosis involving right greater saphenous vein.
--- NOTE | ~2019-11-20 | US_ITS ---
EXAMINATION: US venous doppler [facility] DATE: 11/23/2019 09:22 INDICATION: Upper limb pain. TECHNIQUE: Grayscale ultrasound images without and with compression and Doppler ultrasound images of the bilateral upper extremity veins were obtained. COMPARISON: None. FINDINGS: The visualized portions of the right internal jugular vein, subclavian vein, axillary vein, brachial veins, basilic vein, cephalic vein, radial vein, and ulnar vein are patent. The visualized portions of the right internal jugular vein, subclavian vein, axillary vein, brachial veins, basilic vein, radial vein, and ulnar vein are patent. There is thrombus in left cephalic vein. IMPRESSION: 1. No deep venous thrombosis. 2. Thrombus in left cephalic vein, which is a superficial vein. Reviewed, dictated and finalized at location B.
--- NOTE | 2019-11-20 16:07 | PC.NURSE ---
This patient, Fang Hemphill, was admitted to [facility] Room 222-01. Patient/family oriented to hospital policies and general routines including ID bracelet, bed and alarms, visiting hours, pain management, procedures, bathroom and other care routines, personal items, smoking policy, room service/diet, and visiting hours. Valuables list has been completed. Information on how to activate the Rapid Response Team has been discussed. Patient/Family are encouraged to report perceived risks to care and to ask questions if they do not understand what they are told or what they should do.
[2019-11-20 16:16] VITALS: BP 140/53; PULSE 76; RESP 20; TEMP 36.3; O2SAT 100
[2019-11-20 16:17] VITALS: BMI 48.3
[2019-11-20 17:51] VITALS: BMI 48.3
[2019-11-20] MEDS: WARFARIN (*PBKC) 3 MG TABLET 6 MG PO (19:22)
[2019-11-20] MEDS: GABAPENTIN 300 MG CAPSULE PO (19:22)
[2019-11-20] MEDS: PANTOPRAZOLE 40 MG TABLET PO (20:01)
[2019-11-20] MEDS: SOTALOL HCL 40 MG, SOTALOL HCL 80 MG 120 MG PO (20:02)
[2019-11-20 20:20] VITALS: PULSE 76; RESP 20; O2SAT 100
[2019-11-20 22:00] VITALS: BP 112/65; PULSE 70; RESP 18; TEMP 36.9; O2SAT 97
[2019-11-21 05:13] LABS: Basophils Absolute Auto 0.1 K/mm3 (0.0-0.1); Basophils Percent Auto 0.6 % (0.2-1.2); Eosinophils Absolute Auto 0.5 K/mm3 (0-0.3); Eosinophils Percent Auto 5.4 % (0-4.4); Hematocrit 30.2 % (37.0-47.0); Hemoglobin 9.1 g/dL (12.0-15.0); Immature Granulocyte Absolute 0.21 K/mm3 (0.00-0.031); Immature Granulocyte Percent A 2.3 % (0-0.5); Lymphocytes Absolute Auto 1.02 K/mm3 (0.9-3.2); Mean Corpuscular HGB Conc 30.1 g/dl (32-36); Mean Corpuscular Hemoglobin 25.3 pg (26-34); Mean Corpuscular Volume 84.1 fl (80-100); Monocytes Absolute Auto 0.7 K/mm3 (0.1-0.6); Neutrophils Absolute Auto 6.8 K/mm3 (1.3-6.7); Neutrophils Percent Auto 72.7 % (45.5-73.1); Nucleated Red Blood Cells Perc 0.4 % (0.0-0.2); Platelet Count Result 217 k/mm3 (150-375); Red Blood Count 3.59 M/mm3 (4.2-5.4); Red Cell Distribution Width 26.2 % (11.5-14.5); White Blood Count 9.3 K/mm3 (4.5-10.0)
[2019-11-21 05:22] LABS: INR 1.3; Prothrombin Time 15.9 Seconds (11.1-14.7)
[2019-11-21 05:30] LABS: Anion Gap 4 mmol/L (8-16); Blood Urea Nitrogen 23 mg/dL (7-17); Calcium 7.4 mg/dL (8.4-10.2); Carbon Dioxide 34 mmol/L (22-30); Chloride 95 mmol/L (98-107); Estimated CRCL calculation 74 ml/min; Estimated Glomerular Filt Rate > 60; Glucose 130 mg/dL (65-105); Potassium 2.6 mmol/L (3.4-5.0); Sodium 133 mmol/L (137-145)
[2019-11-21 06:00] VITALS: BP 108/49; PULSE 79; RESP 19; TEMP 36.5; O2SAT 93
[2019-11-21] MEDS: POTASSIUM CHLORIDE 20 MEQ TABLET 40 MEQ PO ×2 (06:11→10:17)
[2019-11-21 06:35] LABS: Glucose Point of Care 139 (65-105)
[2019-11-21 08:00] VITALS: PULSE 79; RESP 19; O2SAT 93
[2019-11-21] MEDS: GABAPENTIN 300 MG CAPSULE PO ×2 (09:16→17:07)
[2019-11-21] MEDS: dilTIAZem HCL CD 180 MG CAP.ER.24H PO (09:16)
[2019-11-21] MEDS: LOSARTAN POTASSIUM 50 MG TABLET PO (09:16)
[2019-11-21] MEDS: PANTOPRAZOLE 40 MG TABLET PO ×2 (09:16→19:46)
[2019-11-21] MEDS: FUROSEMIDE 20 MG TABLET PO (09:16)
[2019-11-21 09:17] VITALS: PULSE 79
[2019-11-21] MEDS: SOTALOL HCL 40 MG, SOTALOL HCL 80 MG 120 MG PO ×2 (09:17→19:58)
[2019-11-21] MEDS: PSYLLIUM SUGAR FREE POWDER PACKET 1 PACKET PO (09:17)
[2019-11-21] MEDS: hydroCHLOROthiazide 25 MG TABLET PO (10:17)
--- NOTE | 2019-11-21 12:00 | WPDREHABHP ---
H&P: HPI History of Present Illness Date/Time: 11/21/19 12:49 Chief complaint: Debility Narrative: Fang Hemphill is a 73 year old female HISTORY OF PRESENT ILLNESS: The patient's primary rehab impairment category isTwenty-miscellaneous The etiologic diagnosis is hemorrhagic shock due to postoperative bleeding following right hemicolectomy for cancer :colon I saw this patient [id number] on November 21, 2019 at 12 noon The patient is a 73-year-old right-handed woman who initially presented to [facility] on November 12, 2019 for a hand assisted laparoscopic right hemicolectomy with ileal colic anastomosis that was completed by on November 13, 2019 due to ascending colon cancer. The patient was noted to have an endoscopy on October 05, 2019 which showed a malignant appearing clonic mass at the ascending colon and surgical resection was recommended. The patient has a history of being on Coumadin due to atrial fibrillation, pulmonary embolism and DVT. After surgery the patient developed hypotension with blood pressures down to fifty over forty and was very pale. A stat H&H revealed hemoglobin of 5.4 and hematocrit point four. The hematocrit was twenty point four. The patient received packed RBCs postoperatively and a repeat stat was ordered, IV bolus infused, and a central line placed with Levophed started. The patient required additional two units of packed RBCs and was transferred to ICU. And abdomen/pelvis CT was ordered and revealed a moderate amount of abdominal fluid, more dense fluid in the pelvis (likely blood products ), clot retraction, trace pleural effusion, bibasilar atelectasis and no signs of metastatic cancer following colectomy. An echo was ordered and revealed left ventricle systolic function to be hyper dynamics and estimated at is more than seventy %, left ventricular diastolic function to be grade oneDiastolic dysfunction. , right ventricle to be moderately enlarged, and left atrium to be mildly enlarged. Labs from ICU admission revealed hemoglobin of 5.8 hematocrit of 20.7 a PTT of 37.4 sodium 131 potassium 3.2 creatinine of 0.6 glucose of 130 and calcium of 7.1. On November 14, 2019 the patient complained of abdominal pain especially with deep breathing. The critical care physician ordered start Lovenox 30 milligram q.12 hours and monitor serial H&H. It was ordered for the patient's routine medication for atrial fibrillation to be introduced once the patient was weaned off lobe affect. An EKG revealed atrial fibrillation with rapid ventricular response. And amiodarone bolus and infusion were given and the patient's heart rate was controlled while is still in atrial fibrillation. On the morning of November 15, 2019 the patient had hypotension with blood pressure down to 90/40 and decreased hemoglobin of 4.8/hematocrit of 15.5. The blasting miner ordered IV fluid bolus, 3 units of packed RBCs and Lasix to be given in between units of packed RBCs. The patient's H and H was 8.5/25.5 following RBCs. The blasting miner was reviewed with general surgeon and order PT INR and to hold all anticoagulation until blood counts remained stable. The general surgeon started the patient may require rather the general surgeon is stated the patient may require and FFP transfusion of her INR found to be elevated. On November 16, 2019 the surgeon saw the patient in order diet to be advanced to a soft diet from liquid diet and PT and OT. The hospitalists stated the patient's home antihypertensives and anti arrhythmias could be resume since the patient's blood pressure had been remaining stable, heart rate had remained controlled and she was weaned off Levophed and amiodarone. The cardiology is consulted and agreed with the orders that were in place and had Lasix 20 milligram. Chest x-ray revealed bilateral infiltrates and or atelectasis primarily on the left and interval congestive changes. An abdominal x-ray showed bibasilar airspace opacities which could represent
[2019-11-21 13:24] LABS: Anion Gap 6 mmol/L (8-16); Blood Urea Nitrogen 22 mg/dL (7-17); Calcium 7.8 mg/dL (8.4-10.2); Carbon Dioxide 32 mmol/L (22-30); Chloride 94 mmol/L (98-107); Estimated CRCL calculation 85 ml/min; Estimated Glomerular Filt Rate > 60; Glucose 119 mg/dL (65-105); Potassium 3.4 mmol/L (3.4-5.0); Sodium 132 mmol/L (137-145)
[2019-11-21 14:00] VITALS: BP 120/50; PULSE 52; RESP 18; TEMP 36.9; O2SAT 96
--- NOTE | 2019-11-21 15:27 | RPD ---
INDIVIDUALIZED PLAN OF CARE FOR Fang Hemphill Brief Synthesis of Pre-Admission Screen, Post-Admission Evaluation and Therapy Evaluations: The patient presents to rehab with hemorrhagic shock due to post-operative bleeding following right hemicolectomy. Comorbidities include acute diastolic CHF, chronic anticoagulation, morbid obesity (BMI 45.0-49.9), DVT prophylaxis, severe anemia, shock, S/P right hemicolectomy, pulmonary HTN, pulmonary emobolism, DVT, colon cancer (ascending), atrial fibrillation, atrial aneurysm, LGI bleed, fibromyalgia, arthritis, hypercholesteremia, hyponatremia, hypokalemia, hypochloremia, hypercarbia, TONY, hyperglycemia, hypocalcemia, leukocytosis, and hypoalbuminemia. The complexity of the patient's medical management, nursing, and therapy needs require an inpatient rehab hospital stay with a physician-led interdisciplinary team approach. The patient?s needs will be best met in an intensive program vs. at a lower level of care. The patient requires physician services for daily lab monitoring, medical oversight, management of post-op complications in setting of present comorbidities, and pain management. The patient requires nursing services for daily lab monitoring, anticoagulation therapy, diabetes training, DVT prophylactics, IV administration, infection protection, medication management and education, pressure relief, and wound care. Deficits include:ADLs, Balance, Endurance, Family Training/Education, Mobility, Pain Management, ROM, Safety, Strength, and Transfers Supervisor Scrap Preparation/Case Management for: Discharge Planning and Patient/Family Counseling Physical Therapy: 5 days per week for 90 minutes. Treatments may include: Therapeutic Exercise, Gait Training, Neuromuscular Re-education, Transfer Training, Community Reintegration, Bed Mobility, Patient/Family Education, Wheelchair Mobility Group Therapy/Concurrent Therapy Rationales: -Improve attention span during functional activities in a distracted environment. -Enhance problem solving and/or adequate judgment skills during functional activities in a distracted environment. -Promote increased safety awareness in a distracted environment to reduce fall risk with functional tasks, transfers, and ambulation to allow a more safe, self-sufficient return to the home environment. -Improve dynamic balance skills to promote safety and independence with functional activities in a distracted environment for maximum gain. Occupational Therapy: 5 days per week for 90 minutes. Treatments may include: Therapeutic Exercise, Therapeutic Activity, Cognitive Training, Self-Care Transfer Training, Community Reintegration, Home Management, Patient/Family Education, Wheelchair Mobility Training, Energy Conservation Training Group Therapy/Concurrent Therapy Rationales: -Allow therapist to observe and teach generalization and carry-over of skills learned in individual therapy. -Enhance problem solving and sequencing skills during therapeutic activities in a distracted environment. -Promote increased safety awareness in a realistic setting to reduce fall risk with functional tasks due to visual and verbal distractions. -Increase functional level with ADLs, ADL transfers and use of adaptive equipment through therapeutic activities with others while promoting safety to allow a more safe, self-sufficient return home. Medical Prognosis: Good Anticipated Length of Stay: 10 days Rehab Goals: Eating Goal: 06-Independent Oral Hygiene Goal: 06-Independent Toileting Hygiene Goal: 06-Independent Shower/Bathe Self Goal: 06-Independent Upper Body Dressing Goal: 06-Independent Lower Body Dressing Goal: 06-Independent Putting On/Taking Off Footwear Goal: 06-Independent Rolling Left and Right Goal: 06-Independent Sit to Lying Goal: 06-Independent Lying to Sitting on Side of Bed Goal: 06-Independent Sit to Stand Goal: 06-Independent Chair/Cra-iu-Yqsvp Transfer Goal: 06-Independent Toilet Transfer Goal: 06-Independent
[2019-11-21 16:46] LABS: Glucose Point of Care 127 (65-105)
[2019-11-21] MEDS: WARFARIN (*PBKC) 3 MG TABLET 6 MG PO (17:08)
[2019-11-21 19:58] VITALS: PULSE 82
[2019-11-21 22:00] VITALS: BP 114/43; PULSE 76; RESP 18; TEMP 36.6; O2SAT 95
[2019-11-22] MEDS: POTASSIUM CHLORIDE 20 MEQ TABLET PO (00:42)
[2019-11-22 05:23] LABS: Potassium 3.3 mmol/L (3.4-5.0)
[2019-11-22 05:30] LABS: INR 1.5; Prothrombin Time 17.6 Seconds (11.1-14.7)
[2019-11-22 06:00] VITALS: BP 120/49; PULSE 72; RESP 18; TEMP 36.2; O2SAT 95
[2019-11-22 06:40] LABS: Glucose Point of Care 131 (65-105)
[2019-11-22] MEDS: LOSARTAN POTASSIUM 50 MG TABLET PO (08:50)
[2019-11-22] MEDS: PANTOPRAZOLE 40 MG TABLET PO ×2 (08:50→21:37)
[2019-11-22] MEDS: PSYLLIUM SUGAR FREE POWDER PACKET 1 PACKET PO (08:50)
[2019-11-22] MEDS: FUROSEMIDE 20 MG TABLET PO (08:50)
[2019-11-22] MEDS: dilTIAZem HCL CD 180 MG CAP.ER.24H PO (08:50)
[2019-11-22] MEDS: GABAPENTIN 300 MG CAPSULE PO ×2 (08:50→17:32)
[2019-11-22] MEDS: hydroCHLOROthiazide 25 MG TABLET PO (08:50)
[2019-11-22 08:51] VITALS: PULSE 72
[2019-11-22] MEDS: SOTALOL HCL 40 MG, SOTALOL HCL 80 MG 120 MG PO ×2 (08:51→21:38)
[2019-11-22] MEDS: POTASSIUM CHLORIDE 20 MEQ TABLET.ER PO (08:58)
[2019-11-22 10:33] VITALS: PULSE 74; O2SAT 99
--- NOTE | 2019-11-22 11:16 | WPDNEURORHBP ---
Subjective Date/time seen: 11/22/19 11:16 Interval history: this 73-year-old woman is here because of generalized weakness debility and a very complicated course post hemicolectomy for the colon cancer she also has hypokalemia which is being addressed is relatively better however it has to be replenished. She is stable at this point denies any headache nausea vomiting chest pain shortness of breath fever chills sore throat Review of Systems Review of Systems: All systems reviewed & are unremarkable except as noted in HPI and below Functional Status Ambulation Ability Ability to Ambulate 10 Feet: Standby Assistance Ability to Ambulate 50 Feet With 2 Turns: Standby Assistance Ambulation Assistive Devices: Walker, Wheeled Transfers Ability Ability to Transfer In/Out of Chair: Contact Guard Exam Const: General: comfortable and no acute distress HENMT: General nose exam: Normal nares present Mouth: Yes moist mucous membranes Eyes: General: appearance normal, both eyes and all related structures Neck: Neck: supple and no JVD Resp: Effort & Inspection: normal respiratory effort Auscultation: clear to auscultation bilaterally Cardio: Rate: regular rate Rhythm: regular rhythm GI: GI Palp: Yes Soft to palpation Auscultation: normal bowel sounds Skin: General skin exam: normal color and no rashes or lesions noted Neuro: Other: patient is awake alert will oriented has generally weakness of both upper lower extremities needing assistance all the activities of daily living otherwise no lateralizing focal motor deficit Extrem: Other: bilateral lower extremity edema which is better without any calf tenderness and negative Ivette sign Psych: Mental Status: mental status grossly normal Objective Data Vital Signs Vital Signs: Vital Signs - 24 hr 11/21/19 14:00 11/21/19 19:58 11/21/19 22:00 Temperature 36.9 C 36.6 C Pulse Rate 52 L 82 76 Respiratory Rate 18 18 Blood Pressure 120/50 L 114/43 L Pulse Oximetry 96 95 11/22/19 06:00 11/22/19 08:51 Temperature 36.2 C L Pulse Rate 72 72 Respiratory Rate 18 Blood Pressure 120/49 L Pulse Oximetry 95 Intake/Output Intake/Output: Intake & Output 11/19/19 11/20/19 11/21/19 11/22/19 23:59 23:59 23:59 23:59 Intake Total 240 640 240 Balance 240 640 240 Meds/Results Medications: Active Medications Generic Name Dose Route Start Last Admin Trade Name Freq PRN Reason Stop Dose Admin Acetaminophen 650 mg 11/20/19 18:24 Tylenol Tablet PO Q8H PRN Mild Pain (1-3) Diltiazem HCl 180 mg 11/21/19 09:00 11/22/19 08:50 Cardizem Cd PO 180 mg DAILY NANI Administration Furosemide 20 mg 11/21/19 09:00 11/22/19 08:50 Lasix Tablet PO 20 mg DAILY NANI Administration Gabapentin 300 mg 11/20/19 17:00 11/22/19 08:50 Neurontin PO 300 mg BID NANI Administration Hydrochlorothiazide 25 mg 11/21/19 09:00 11/22/19 08:50 Hydrochlorothiazide PO 25 mg DAILY NANI Administration Lorazepam 1 mg 11/20/19 18:24 Ativan Tablet PO BID PRN Anxiety Losartan Potassium 50 mg 11/21/19 09:00 11/22/19 08:50 Cozaar PO 50 mg DAILY NANI Administration Pantoprazole Sodium 40 mg 11/20/19 21:00 11/22/19 08:50 Protonix PO 40 mg Q12HR NANI Administration Potassium Chloride 20 meq 11/22/19 08:00 11/22/19 08:58 Kcl Tablet PO 20 meq DAILY@0800 [facility] Administration Psyllium Hydrophilic Mucilloid 1 packet 11/21/19 09:00 11/22/19 08:50 Metamucil Sugar Free PO 1 packet QAM NANI Administration Sodium Chloride 1 spray 11/21/19 09:23 Malcolm Nasal [place] NASAL Q6HR PRN Congestion Sotalol HCl 40 mg/ Sotalol HCl 120 mg 11/20/19 21:00 11/22/19 08:51 80 mg PO 120 mg Q12HR NANI Administration Tramadol HCl 50 mg 11/20/19 18:24 Ultram PO Q6H PRN MODERATE PAIN Warfarin Sodium 6 mg 11/20/19 17:00 11/21/19 17:08 Coumadin PO 6 mg DAILY@1700 [facility]
[2019-11-22 14:00] VITALS: BP 128/56; PULSE 68; RESP 20; TEMP 36.6; O2SAT 98
[2019-11-22 14:07] LABS: Potassium 3.3 mmol/L (3.4-5.0)
[2019-11-22] MEDS: ACETAMINOPHEN 325 MG TABLET 650 MG PO (14:56)
--- NOTE | 2019-11-22 16:30 | PCRCNOTE ---
Patient states that she has a CPAP at home but does not wear it and does not plan to wear one here. She does not like the masks.
[2019-11-22 17:10] LABS: Glucose Point of Care 168 (65-105)
[2019-11-22] MEDS: WARFARIN (*PBKC) 3 MG TABLET 6 MG PO (17:32)
[2019-11-22 21:38] VITALS: PULSE 72
[2019-11-22 22:00] VITALS: BP 113/45; PULSE 71; RESP 16; TEMP 36.6; O2SAT 94
[2019-11-23] MEDS: traMADol HCL 50 MG TABLET PO (02:07)
[2019-11-23 05:26] LABS: INR 1.7; Prothrombin Time 19.7 Seconds (11.1-14.7)
[2019-11-23 06:00] VITALS: BP 124/54; PULSE 75; RESP 17; TEMP 36; O2SAT 95
[2019-11-23] MEDS: POTASSIUM CHLORIDE 20 MEQ TABLET.ER PO (09:56)
[2019-11-23] MEDS: dilTIAZem HCL CD 180 MG CAP.ER.24H PO (09:56)
[2019-11-23] MEDS: FUROSEMIDE 20 MG TABLET PO (09:57)
[2019-11-23] MEDS: LOSARTAN POTASSIUM 50 MG TABLET PO (09:57)
[2019-11-23] MEDS: GABAPENTIN 300 MG CAPSULE PO ×2 (09:57→17:37)
[2019-11-23] MEDS: hydroCHLOROthiazide 25 MG TABLET PO (09:57)
[2019-11-23 09:58] VITALS: PULSE 68
[2019-11-23] MEDS: PANTOPRAZOLE 40 MG TABLET PO ×2 (09:58→20:10)
[2019-11-23] MEDS: SOTALOL HCL 40 MG, SOTALOL HCL 80 MG 120 MG PO ×2 (09:58→20:09)
[2019-11-23] MEDS: PSYLLIUM SUGAR FREE POWDER PACKET 1 PACKET PO (12:34)
[2019-11-23] MEDS: ACETAMINOPHEN 325 MG TABLET 650 MG PO (12:38)
--- NOTE | 2019-11-23 12:56 | PCNFU ---
Nutrition Follow-Up Complete: Increased nutrition needs R/T healing as evidence by daily protein needs of 116-139g/day Goal: Pt PO intake of meals at 50% or greater Patient is meeting goal at 100% meal consumption. Pt current nutrition is Heart Healthy. Nutrition recommendation: Agree with current recommendations Last recorded weight is 116 kg. Recommend obtaining new weight. Bowel Motility: last reported bowel movement on 11/22/19 Labs Reviewed: Hgb (9.1) Hct (30.2) K (3.3) Glu (119) Meds Noted: lasix, neurontin, hydrochlorothiazide, cozaar, lasix, protonix, KCl, ultram, coumadin Additional Notes: Patient reports appetite has improved and is good now. No other diet related concerns/questions reported PO intake, skin, labs, weight every 7 days
--- NOTE | 2019-11-23 13:20 | PCNSR ---
On 11/23/19, the student, Migue Burciaga, provided care and completed [facility] documentation on this patient. I have reviewed the student's documentation and agree with the findings.
[2019-11-23 14:00] VITALS: BP 97/44; PULSE 68; RESP 18; TEMP 36.9; O2SAT 97
[2019-11-23] MEDS: WARFARIN (*PBKC) 7.5 MG TABLET PO (17:37)
[2019-11-23 18:26] LABS: Glucose Point of Care 134 (65-105)
[2019-11-23 20:09] VITALS: PULSE 72
[2019-11-23 20:18] VITALS: BP 108/43; PULSE 74; RESP 18; TEMP 35.9; O2SAT 98
[2019-11-24] VITALS (7 sets, daily range): BP systolic 107–140; BP diastolic 42–50; PULSE 68–79; RESP 16–18; TEMP 36–36.6; O2SAT 95–98
[2019-11-24 05:34] LABS: Potassium 3.2 mmol/L (3.4-5.0)
[2019-11-24 05:37] LABS: INR 1.9
[2019-11-24 06:50] LABS: Glucose Point of Care 136 (65-105)
[2019-11-24] MEDS: LOSARTAN POTASSIUM 50 MG TABLET PO (08:18)
[2019-11-24] MEDS: POTASSIUM CHLORIDE 20 MEQ TABLET.ER PO (08:18)
[2019-11-24] MEDS: PANTOPRAZOLE 40 MG TABLET PO ×2 (08:18→20:09)
[2019-11-24] MEDS: hydroCHLOROthiazide 25 MG TABLET PO (08:19)
[2019-11-24] MEDS: dilTIAZem HCL CD 180 MG CAP.ER.24H PO (08:19)
[2019-11-24] MEDS: FUROSEMIDE 20 MG TABLET PO (08:19)
[2019-11-24] MEDS: GABAPENTIN 300 MG CAPSULE PO ×2 (08:19→17:15)
[2019-11-24] MEDS: SOTALOL HCL 40 MG, SOTALOL HCL 80 MG 120 MG PO ×2 (08:19→20:08)
[2019-11-24] MEDS: PSYLLIUM SUGAR FREE POWDER PACKET 1 PACKET PO (08:19)
--- NOTE | 2019-11-24 13:37 | WPDNEURORHBP ---
Subjective Date/time seen: 11/24/19 73 years old admitted to the rehab floor for the complaints of generalized weakness and debility with history of hemicolectomy for the colon cancer complicated by the hypokalemia doll it is improving review of system is completely unremarkable 13:37 Review of Systems Review of Systems: All systems reviewed & are unremarkable except as noted in HPI and below Functional Status Ambulation Ability Ability to Ambulate 10 Feet: Standby Assistance Ability to Ambulate 50 Feet With 2 Turns: Standby Assistance Ability to Ambulate 150 Feet: Standby Assistance Ambulation Assistive Devices: Walker, Wheeled Transfers Ability Ability to Transfer In/Out of Chair: Standby Assistance Exam Narrative: Exam Narrative: examination revealed her to be awake alert cooperative in no obvious acute distress head normocephalic with no cannula bruit ear nose throat examination are normal neck supple with no cervical bruits or thyromegaly no lymphadenopathy heart regular with no murmur lungs clear to auscultation abdomen is soft with normal bowel sounds neurological issues awake alert oriented x3 complains of weakness in both upper and lower extremities for which she needs the assistance in activities of daily living otherwise the day's no lateralizing focal motor signs extremities otherwise abnormal psychologically she has a grossly normal Objective Data Vital Signs Vital Signs: Vital Signs - 24 hr 11/23/19 14:00 11/23/19 20:09 11/23/19 20:18 Temperature 36.9 C 35.9 C L Pulse Rate 68 72 74 Respiratory Rate 18 18 Blood Pressure 97/44 L 108/43 L Pulse Oximetry 97 98 11/24/19 05:20 11/24/19 08:00 11/24/19 08:19 Temperature 36.0 C L Pulse Rate 71 71 71 Respiratory Rate 18 18 Blood Pressure 107/44 L Pulse Oximetry 95 95 Intake/Output Intake/Output: Intake & Output 11/21/19 11/22/19 11/23/19 11/24/19 23:59 23:59 23:59 23:59 Intake Total 118 169 9715 480 Balance 370 893 9704 480 Meds/Results Medications: Active Medications Generic Name Dose Route Start Last Admin Trade Name Freq PRN Reason Stop Dose Admin Acetaminophen 650 mg 11/20/19 18:24 11/23/19 12:38 Tylenol Tablet PO 650 mg Q8H PRN Administration Mild Pain (1-3) Diltiazem HCl 180 mg 11/21/19 09:00 11/24/19 08:19 Cardizem Cd PO 180 mg DAILY NANI Administration Furosemide 20 mg 11/21/19 09:00 11/24/19 08:19 Lasix Tablet PO 20 mg DAILY NANI Administration Gabapentin 300 mg 11/20/19 17:00 11/24/19 08:19 Neurontin PO 300 mg BID NANI Administration Hydrochlorothiazide 25 mg 11/21/19 09:00 11/24/19 08:19 Hydrochlorothiazide PO 25 mg DAILY NANI Administration Lorazepam 1 mg 11/20/19 18:24 Ativan Tablet PO BID PRN Anxiety Losartan Potassium 50 mg 11/21/19 09:00 11/24/19 08:18 Cozaar PO 50 mg DAILY NANI Administration Pantoprazole Sodium 40 mg 11/20/19 21:00 11/24/19 08:18 Protonix PO 40 mg Q12HR NANI Administration Potassium Chloride 20 meq 11/22/19 08:00 11/24/19 08:18 Kcl Tablet PO 20 meq DAILY@0800 NANI Administration Psyllium Hydrophilic Mucilloid 1 packet 11/21/19 09:00 11/24/19 08:19 Metamucil Sugar Free PO 1 packet QAM NANI Administration Sodium Chloride 1 spray 11/21/19 09:23 [place] Nasal [place] NASAL Q6HR PRN Congestion Sotalol HCl 40 mg/ Sotalol HCl 120 mg 11/20/19 21:00 11/24/19 08:19 80 mg PO 120 mg Q12HR NANI Administration Tramadol HCl 50 mg 11/20/19 18:24 11/23/19 02:07 Ultram PO 50 mg Q6H PRN Administration MODERATE PAIN Warfarin Sodium 7.5 mg 11/23/19 17:00 11/23/19 17:37 Coumadin PO 7.5 mg DAILY@1700 NANI Administration Radiology Results: ITS Impressions Venous Doppler Study 11/23/19 09:29 IMPRESSION: 1. Deep vein thrombosis involving right common femoral vein, profunda femoral vein, and popliteal vein. I called this result to Dr. Sheffield
[2019-11-24 17:01] LABS: Glucose Point of Care 119 (65-105)
[2019-11-24] MEDS: WARFARIN (*PBKC) 7.5 MG TABLET PO (17:15)
[2019-11-24] MEDS: ACETAMINOPHEN 325 MG TABLET 650 MG PO (18:45)
[2019-11-25] VITALS (8 sets, daily range): BP systolic 109–120; BP diastolic 45–48; PULSE 65–75; RESP 16–18; TEMP 35.9–36.9; O2SAT 95–99
[2019-11-25 05:13] LABS: INR 2.1; Prothrombin Time 23.3 Seconds (11.1-14.7)
[2019-11-25 06:46] LABS: Glucose Point of Care 133 (65-105)
[2019-11-25] MEDS: GABAPENTIN 300 MG CAPSULE PO ×2 (08:31→17:10)
[2019-11-25] MEDS: POTASSIUM CHLORIDE 20 MEQ TABLET.ER PO (08:31)
[2019-11-25] MEDS: hydroCHLOROthiazide 25 MG TABLET PO (08:31)
[2019-11-25] MEDS: FUROSEMIDE 20 MG TABLET PO (08:31)
[2019-11-25] MEDS: LOSARTAN POTASSIUM 50 MG TABLET PO (08:31)
[2019-11-25] MEDS: dilTIAZem HCL CD 180 MG CAP.ER.24H PO (08:32)
[2019-11-25] MEDS: SOTALOL HCL 40 MG, SOTALOL HCL 80 MG 120 MG PO ×2 (08:33→21:18)
[2019-11-25] MEDS: PSYLLIUM SUGAR FREE POWDER PACKET 1 PACKET PO (08:34)
[2019-11-25] MEDS: PANTOPRAZOLE 40 MG TABLET PO ×2 (08:34→21:17)
[2019-11-25] MEDS: ACETAMINOPHEN 325 MG TABLET 650 MG PO ×2 (08:34→17:11)
[2019-11-25 16:51] LABS: Glucose Point of Care 127 (65-105)
[2019-11-25] MEDS: WARFARIN (*PBKC) 7.5 MG TABLET PO (17:10)
[2019-11-26 05:21] LABS: INR 2.5; Prothrombin Time 26.9 Seconds (11.1-14.7)
[2019-11-26 05:30] LABS: Potassium 2.8 mmol/L (3.4-5.0)
[2019-11-26 06:00] VITALS: BP 134/60; PULSE 67; RESP 20; TEMP 36.6; O2SAT 96
[2019-11-26] MEDS: POTASSIUM CHLORIDE 20 MEQ TABLET.ER PO (09:04)
[2019-11-26] MEDS: FUROSEMIDE 20 MG TABLET PO (09:05)
[2019-11-26] MEDS: LOSARTAN POTASSIUM 50 MG TABLET PO (09:05)
[2019-11-26] MEDS: dilTIAZem HCL CD 180 MG CAP.ER.24H PO (09:05)
[2019-11-26] MEDS: GABAPENTIN 300 MG CAPSULE PO ×2 (09:05→17:33)
[2019-11-26] MEDS: hydroCHLOROthiazide 25 MG TABLET PO (09:05)
[2019-11-26] MEDS: PANTOPRAZOLE 40 MG TABLET PO ×2 (09:06→20:24)
[2019-11-26 09:07] VITALS: PULSE 68
[2019-11-26] MEDS: SOTALOL HCL 40 MG, SOTALOL HCL 80 MG 120 MG PO ×2 (09:07→20:25)
[2019-11-26] MEDS: ACETAMINOPHEN 325 MG TABLET 650 MG PO ×2 (09:11→20:26)
[2019-11-26] MEDS: POTASSIUM CHLORIDE 10 MEQ TABLET 20 MEQ PO (11:02)
--- NOTE | 2019-11-26 12:52 | PM.PNGS ---
Progress Note: A&P Assessment and Plan (1) Status post colectomy: Code(s): Z90.49 - Acquired absence of other specified parts of digestive tract Status: Acute Assessment and Plan: Doing well surgically. Continue rehab. Patient now back on her home dose of Warfarin and INR therapeutic. No signs of ongoing bleeding. I don't think she will need to have an IVC filter placed unless she is going to need to go off of her Warfarin for an extended period of time. (2) Colon cancer, ascending: Code(s): C18.2 - Malignant neoplasm of ascending colon Status: Chronic Subjective Subjective Date/Time Seen: 11/26/19 12:52 Patient doing well. Pain has been well controlled. Tolerating regular diet. Bowels moving. Exam GI: Inspection: incision (clean/dry/intact) and other (ecchymosis across lower abdomen) Objective Data Vital Signs Vital Signs: Vital Signs - 24 hr 11/25/19 14:00 11/25/19 17:11 11/25/19 20:45 Temperature 36.8 C 36.8 C Pulse Rate 65 75 Respiratory Rate 16 16 Blood Pressure 116/45 L Pulse Oximetry 99 95 11/25/19 22:00 11/26/19 06:00 11/26/19 09:07 Temperature 36.9 C 36.6 C Pulse Rate 75 67 68 Respiratory Rate 16 20 Blood Pressure 120/48 L 134/60 Pulse Oximetry 95 96 Intake/Output Intake/Output: Intake & Output 11/23/19 11/24/19 11/25/19 11/26/19 23:59 23:59 23:59 23:59 Intake Total 1200 720 360 480 Balance 1200 720 360 480 Meds/Results Medications: Active Medications Generic Name Dose Route Start Last Admin Trade Name Freq PRN Reason Stop Dose Admin Acetaminophen 650 mg 11/20/19 18:24 11/26/19 09:11 Tylenol Tablet PO 650 mg Q8H PRN Administration Mild Pain (1-3) Diltiazem HCl 180 mg 11/21/19 09:00 11/26/19 09:05 Cardizem Cd PO 180 mg DAILY NANI Administration Furosemide 20 mg 11/21/19 09:00 11/26/19 09:05 Lasix Tablet PO 20 mg DAILY NANI Administration Gabapentin 300 mg 11/20/19 17:00 11/26/19 09:05 Neurontin PO 300 mg BID NANI Administration Hydrochlorothiazide 25 mg 11/21/19 09:00 11/26/19 09:05 Hydrochlorothiazide PO 25 mg DAILY NANI Administration Lorazepam 1 mg 11/20/19 18:24 Ativan Tablet PO BID PRN Anxiety Losartan Potassium 50 mg 11/21/19 09:00 11/26/19 09:05 Cozaar PO 50 mg DAILY NANI Administration Pantoprazole Sodium 40 mg 11/20/19 21:00 11/26/19 09:06 Protonix PO 40 mg Q12HR NANI Administration Potassium Chloride 30 meq 11/27/19 08:00 Kcl Tablet PO DAILY@0800 [facility] Psyllium Hydrophilic Mucilloid 1 packet 11/21/19 09:00 11/26/19 09:06 Metamucil Sugar Free PO Not Given QAM [facility] Sodium Chloride 1 spray 11/21/19 09:23 [place] Nasal [place] NASAL Q6HR PRN Congestion Sotalol HCl 40 mg/ Sotalol HCl 120 mg 11/20/19 21:00 11/26/19 09:07 80 mg PO 120 mg Q12HR [facility] Administration Tramadol HCl 50 mg 11/20/19 18:24 11/23/19 02:07 Ultram PO 50 mg Q6H PRN Administration MODERATE PAIN Warfarin Sodium 7.5 mg 11/23/19 17:00 11/25/19 17:10 Coumadin PO 7.5 mg DAILY@1700 [facility] Administration Radiology Results: ITS Impressions Venous Doppler Study 11/23/19 09:29 IMPRESSION: 1. Deep vein thrombosis involving right common femoral vein, profunda femoral vein, and popliteal vein. I called this result to Dr. Sheffield. 2. Superficial vein thrombosis involving right greater saphenous vein. Labs Labs: Laboratory Results - last 24 hr 11/25/19 11/26/19 11/26/19 16:44 04:42 04:42 PT 26.9 H INR 2.5 Potassium 2.8 L* POC Capillary Glucose 127 H
--- NOTE | 2019-11-26 13:01 | WPDNEURORHBP ---
Subjective Date/time seen: 11/26/19 13:01 Interval history: this 73-year-old woman is here because of debility generalized weakness status post colectomy and also has DVT for right lower extremity has been seen by the initial treating surgeon who feels as I due to the patient's Coumadin needs to be continued rather than going for an IVC filter. The patient denies any chest pain shortness of breath fever chills or sore throat and she continues to work with therapy her potassium is relatively low she will receive some extra dose and will can increase the potassium level Review of Systems Review of Systems: All systems reviewed & are unremarkable except as noted in HPI and below Functional Status Ambulation Ability Ability to Ambulate 10 Feet: Independent Ability to Ambulate 50 Feet With 2 Turns: Independent Ability to Ambulate 150 Feet: Independent Ambulation Assistive Devices: Walker, Wheeled Transfers Ability Ability to Transfer In/Out of Chair: Independent Exam Const: General: comfortable and no acute distress HENMT: General nose exam: Normal nares present Mouth: Yes moist mucous membranes Eyes: General: appearance normal, both eyes and all related structures Neck: Neck: supple and no JVD Resp: Effort & Inspection: normal respiratory effort Auscultation: clear to auscultation bilaterally Cardio: Rate: regular rate Rhythm: regular rhythm GI: GI Palp: Yes Soft to palpation Auscultation: normal bowel sounds Skin: General skin exam: normal color and no rashes or lesions noted Neuro: Other: patient is awake and alert well oriented to time place and person is speech and language functions are normal cranial examination is normal her is strength is improving quite a bit and states she is really doing very well in over rehab Extrem: General: normal to inspection Psych: Mental Status: mental status grossly normal Objective Data Vital Signs Vital Signs: Vital Signs - 24 hr 11/25/19 14:00 11/25/19 17:11 11/25/19 20:45 Temperature 36.8 C 36.8 C Pulse Rate 65 75 Respiratory Rate 16 16 Blood Pressure 116/45 L Pulse Oximetry 99 95 11/25/19 22:00 11/26/19 06:00 11/26/19 09:07 Temperature 36.9 C 36.6 C Pulse Rate 75 67 68 Respiratory Rate 16 20 Blood Pressure 120/48 L 134/60 Pulse Oximetry 95 96 Intake/Output Intake/Output: Intake & Output 11/23/19 11/24/19 11/25/19 11/26/19 23:59 23:59 23:59 23:59 Intake Total 1200 720 360 480 Balance 1200 720 360 480 Meds/Results Medications: Active Medications Generic Name Dose Route Start Last Admin Trade Name Freq PRN Reason Stop Dose Admin Acetaminophen 650 mg 11/20/19 18:24 11/26/19 09:11 Tylenol Tablet PO 650 mg Q8H PRN Administration Mild Pain (1-3) Diltiazem HCl 180 mg 11/21/19 09:00 11/26/19 09:05 Cardizem Cd PO 180 mg DAILY NANI Administration Furosemide 20 mg 11/21/19 09:00 11/26/19 09:05 Lasix Tablet PO 20 mg DAILY NANI Administration Gabapentin 300 mg 11/20/19 17:00 11/26/19 09:05 Neurontin PO 300 mg BID NANI Administration Hydrochlorothiazide 25 mg 11/21/19 09:00 11/26/19 09:05 Hydrochlorothiazide PO 25 mg DAILY NANI Administration Lorazepam 1 mg 11/20/19 18:24 Ativan Tablet PO BID PRN Anxiety Losartan Potassium 50 mg 11/21/19 09:00 11/26/19 09:05 Cozaar PO 50 mg DAILY NANI Administration Pantoprazole Sodium 40 mg 11/20/19 21:00 11/26/19 09:06 Protonix PO 40 mg Q12HR NANI Administration Potassium Chloride 30 meq 11/27/19 08:00 Kcl Tablet PO DAILY@0800 NANI Psyllium Hydrophilic Mucilloid 1 packet 11/21/19 09:00 11/26/19 09:06 Metamucil Sugar Free PO Not Given QAM NANI Sodium Chloride 1 spray 11/21/19 09:23 [place] Nasal [place] NASAL Q6HR PRN Congestion Sotalol HCl 40 mg/ Sotalol HCl 120 mg 11/20/19 21:00 11/26/19 09:07 80 mg PO 120 mg Q12HR NANI Administration Tramadol HCl 50
--- NOTE | 2019-11-26 13:13 | PCPTNOTE ---
Fang Hemphill was evaluated for a wheeled walker on 11/26/2019 by this physical therapist assistant womens volleyball coach. The wheeled walker will resolve patient's mobility limitations and will be used for ADL's within the home. The patient can safely use the wheeled walker. ?The wheeled walker will resolve the patient?s mobility deficits, including decreased strength and endurance.
[2019-11-26 14:00] VITALS: BP 108/60; PULSE 68; RESP 18; TEMP 36.1; O2SAT 99
[2019-11-26] MEDS: WARFARIN (*PBKC) 3 MG TABLET PO (17:32)
[2019-11-26] MEDS: WARFARIN (*PBKC) 4 MG TABLET PO (17:33)
[2019-11-26 20:37] VITALS: BP 107/49; PULSE 70; RESP 20; TEMP 36.1; O2SAT 98
[2019-11-27 05:29] LABS: INR 3.2; Prothrombin Time 32.4 Seconds (11.1-14.7)
[2019-11-27 05:59] VITALS: BP 121/46; PULSE 63; RESP 18; TEMP 35.8; O2SAT 98
[2019-11-27] MEDS: ACETAMINOPHEN 325 MG TABLET 650 MG PO ×2 (07:35→16:58)
[2019-11-27] MEDS: POTASSIUM CHLORIDE 10 MEQ TABLET.ER 30 MEQ PO (07:36)
[2019-11-27] MEDS: FUROSEMIDE 20 MG TABLET PO (07:36)
[2019-11-27] MEDS: dilTIAZem HCL CD 180 MG CAP.ER.24H PO (07:36)
[2019-11-27] MEDS: GABAPENTIN 300 MG CAPSULE PO ×2 (07:36→16:59)
[2019-11-27] MEDS: hydroCHLOROthiazide 25 MG TABLET PO (07:37)
[2019-11-27] MEDS: LOSARTAN POTASSIUM 50 MG TABLET PO (07:37)
[2019-11-27] MEDS: PANTOPRAZOLE 40 MG TABLET PO ×2 (07:38→20:07)
[2019-11-27 10:11] VITALS: PULSE 68
[2019-11-27] MEDS: SOTALOL HCL 40 MG, SOTALOL HCL 80 MG 120 MG PO ×2 (10:11→20:08)
[2019-11-27 11:50] LABS: Basophils Absolute Auto 0.1 K/mm3 (0.0-0.1); Basophils Percent Auto 1.6 % (0.2-1.2); Eosinophils Absolute Auto 0.9 K/mm3 (0-0.3); Eosinophils Percent Auto 10.5 % (0-4.4); Hematocrit 36.3 % (37.0-47.0); Hemoglobin 11.2 g/dL (12.0-15.0); Immature Granulocyte Absolute 0.05 K/mm3 (0.00-0.031); Immature Granulocyte Percent A 0.6 % (0-0.5); Lymphocytes Absolute Auto 1.01 K/mm3 (0.9-3.2); Lymphocytes Percent Auto 12.1 % (18.3-44.2); Mean Corpuscular HGB Conc 30.9 g/dl (32-36); Mean Corpuscular Volume 84.4 fl (80-100); Mean Platelet Volume 9.5 fl (7.4-10.4); Monocytes Absolute Auto 0.6 K/mm3 (0.1-0.6); Monocytes Percent Auto 6.7 % (2.6-8.5); Neutrophils Absolute Auto 5.7 K/mm3 (1.3-6.7); Neutrophils Percent Auto 68.5 % (45.5-73.1); Platelet Count Result 436 k/mm3 (150-375); White Blood Count 8.4 K/mm3 (4.5-10.0)
[2019-11-27 12:03] LABS: Alanine Aminotransferase 16 U/L (4-35); Albumin Level 3.5 g/dL (3.5-5.1); Alkaline Phosphatase 95 U/L (38-126); Anion Gap 5 mmol/L (8-16); Aspartate Amino Transferase 27 U/L (14-36); Bilirubin,Total 0.8 mg/dL (0.2-1.3); Blood Urea Nitrogen 16 mg/dL (7-17); Calcium 8.5 mg/dL (8.4-10.2); Carbon Dioxide 35 mmol/L (22-30); Chloride 93 mmol/L (98-107); Estimated CRCL calculation 85 ml/min; Estimated Glomerular Filt Rate > 60; Glucose 112 mg/dL (65-105); Potassium 3.3 mmol/L (3.4-5.0); Sodium 133 mmol/L (137-145)
--- NOTE | 2019-11-27 12:56 | WPDNEURORHBP ---
Subjective Date/time seen: 11/27/19 12:56 Interval history: this is a 73-year-old woman is here because of significant debility and weakness in the background of having had colonic resection for cancer: And the also has a history of a DVT and pulmonary embolism for which she is on Coumadin for quite some time her INR is therapeutic and we are adjusting her Coumadin and possibly might be able to send her home on her home dose 5 milligram of Coumadin she also has hypokalemia which has been a constant issue and we have increased her potassium supplementation on for now on will check the BMP and CBC with diff again Review of Systems Review of Systems: All systems reviewed & are unremarkable except as noted in HPI and below Functional Status Ambulation Ability Ability to Ambulate 10 Feet: Independent Ability to Ambulate 50 Feet With 2 Turns: Independent Ability to Ambulate 150 Feet: Independent Ambulation Assistive Devices: Walker, Rollator and Walker, Wheeled Transfers Ability Ability to Transfer In/Out of Chair: Standby Assistance Exam Const: General: comfortable and no acute distress HENMT: General nose exam: Normal nares present Mouth: Yes moist mucous membranes Eyes: General: appearance normal, both eyes and all related structures Neck: Neck: supple and no JVD Resp: Effort & Inspection: normal respiratory effort Auscultation: clear to auscultation bilaterally Cardio: Rate: regular rate Rhythm: regular rhythm GI: GI Palp: Yes Soft to palpation Auscultation: normal bowel sounds Skin: General skin exam: normal color and no rashes or lesions noted Neuro: Other: patient is awake and alert well oriented time place and person is speech and language functions are normal cranial exam shows normal strength in both upper lower extremity is improving Extrem: General: normal to inspection Psych: Mental Status: mental status grossly normal Objective Data Vital Signs Vital Signs: Vital Signs - 24 hr 11/26/19 14:00 11/26/19 20:37 11/27/19 05:59 Temperature 36.1 C L 36.1 C L 35.8 C L Pulse Rate 68 70 63 Respiratory Rate 18 Blood Pressure 108/60 107/49 L 121/46 L Pulse Oximetry 99 98 98 11/27/19 10:11 Temperature Pulse Rate 68 Respiratory Rate Blood Pressure Pulse Oximetry Intake/Output Intake/Output: Intake & Output 11/24/19 11/25/19 11/26/19 11/27/19 23:59 23:59 23:59 23:59 Intake Total 647 932 8630 240 Balance 367 168 0261 240 Meds/Results Medications: Active Medications Generic Name Dose Route Start Last Admin Trade Name Nicholasq PRN Reason Stop Dose Admin Acetaminophen 650 mg 11/20/19 18:24 11/27/19 07:35 Tylenol Tablet PO 650 mg Q8H PRN Administration Mild Pain (1-3) Diltiazem HCl 180 mg 11/21/19 09:00 11/27/19 07:36 Cardizem Cd PO 180 mg DAILY NANI Administration Furosemide 20 mg 11/21/19 09:00 11/27/19 07:36 Lasix Tablet PO 20 mg DAILY NANI Administration Gabapentin 300 mg 11/20/19 17:00 11/27/19 07:36 Neurontin PO 300 mg BID NANI Administration Hydrochlorothiazide 25 mg 11/21/19 09:00 11/27/19 07:37 Hydrochlorothiazide PO 25 mg DAILY NANI Administration Lorazepam 1 mg 11/20/19 18:24 Ativan Tablet PO BID PRN Anxiety Losartan Potassium 50 mg 11/21/19 09:00 11/27/19 07:37 Cozaar PO 50 mg DAILY NANI Administration Pantoprazole Sodium 40 mg 11/20/19 21:00 11/27/19 07:38 Protonix PO 40 mg Q12HR NANI Administration Potassium Chloride 30 meq 11/27/19 08:00 11/27/19 07:36 Kcl Tablet PO 30 meq DAILY@0800 NANI Administration Psyllium Hydrophilic Mucilloid 1 packet 11/21/19 09:00 11/27/19 07:42 Metamucil Sugar Free PO Not Given QAM NANI Sodium Chloride 1 spray 11/21/19 09:23 [place] Nasal [place] NASAL Q6HR PRN Congestion Sotalol HCl 40 mg/ Sotalol HCl 120 mg 11/20/19 21:00 11/27/19 10:11 80 mg PO 120 mg Q12HR NANI Administration Tramadol
[2019-11-27 14:00] VITALS: BP 105/40; PULSE 62; RESP 16; TEMP 36.4; O2SAT 100
--- NOTE | 2019-11-27 16:18 | PC.NURSE ---
1420, stat labs called to Dr. Sheffield. no new orders, continue to monitor. rec'd 30 Meq dose of K+ this am
[2019-11-27] MEDS: WARFARIN (*PBKC) 1.5 MG TABLET PO (17:01)
[2019-11-27 20:08] VITALS: PULSE 64
[2019-11-27 20:10] VITALS: BP 105/43; PULSE 64; RESP 18; TEMP 36.1; O2SAT 98
[2019-11-28 05:02] LABS: INR 3.6; Prothrombin Time 35.6 Seconds (11.1-14.7)
[2019-11-28 05:17] VITALS: BP 117/48; PULSE 61; RESP 18; TEMP 36; O2SAT 96
[2019-11-28] MEDS: POTASSIUM CHLORIDE 10 MEQ TABLET.ER 30 MEQ PO (08:23)
[2019-11-28 08:24] VITALS: PULSE 61
[2019-11-28] MEDS: SOTALOL HCL 40 MG, SOTALOL HCL 80 MG 120 MG PO ×2 (08:24→20:07)
[2019-11-28] MEDS: LOSARTAN POTASSIUM 50 MG TABLET PO (08:24)
[2019-11-28] MEDS: hydroCHLOROthiazide 25 MG TABLET PO (08:24)
[2019-11-28] MEDS: PANTOPRAZOLE 40 MG TABLET PO ×2 (08:25→20:07)
[2019-11-28] MEDS: GABAPENTIN 300 MG CAPSULE PO ×2 (08:25→17:02)
[2019-11-28] MEDS: ACETAMINOPHEN 325 MG TABLET 650 MG PO (08:25)
[2019-11-28] MEDS: dilTIAZem HCL CD 180 MG CAP.ER.24H PO (08:25)
[2019-11-28] MEDS: FUROSEMIDE 20 MG TABLET PO (08:25)
--- NOTE | 2019-11-28 11:43 | WPDNEURORHBP ---
Subjective Date/time seen: 11/28/19 11:43 Interval history: this 73-year-old woman is here after having had resection for the colonic carcinoma and she had a rather complicated course postoperatively she is here because of debility and weakness she has improved overall denies any headache nausea vomiting chest pain shortness of breath fever chills sore throat her INR is relatively high at 3.6 home Coumadin dose is 5 milligram will initiate with 5 milligram now to see whether she keeps on going up or we have to cut back on it that we have to hold on which she is going to have another INR tomorrow prior to her discharge I will check a BMP to make sure potassium is appropriate while she is taking 30 milligrams daily Review of Systems Review of Systems: All systems reviewed & are unremarkable except as noted in HPI and below Functional Status Ambulation Ability Ability to Ambulate 10 Feet: Independent Ability to Ambulate 50 Feet With 2 Turns: Independent Ability to Ambulate 150 Feet: Independent Ambulation Assistive Devices: Walker, Wheeled Transfers Ability Ability to Transfer In/Out of Chair: Independent Exam Const: General: comfortable and no acute distress HENMT: General nose exam: Normal nares present Mouth: Yes moist mucous membranes Eyes: General: appearance normal, both eyes and all related structures Neck: Neck: supple and no JVD Resp: Effort & Inspection: normal respiratory effort Auscultation: clear to auscultation bilaterally Cardio: Rate: regular rate Rhythm: regular rhythm GI: GI Palp: Yes Soft to palpation Auscultation: normal bowel sounds Skin: General skin exam: normal color and no rashes or lesions noted Neuro: Other: patient is awake and alert well oriented does not seem to be in any distress making significant progress no evidence of bleeding and bruising no lateralizing focal weakness Extrem: General: normal to inspection Psych: Mental Status: mental status grossly normal Objective Data Vital Signs Vital Signs: Vital Signs - 24 hr 11/27/19 14:00 11/27/19 20:08 11/27/19 20:10 Temperature 36.4 C 36.1 C L Pulse Rate 62 64 64 Respiratory Rate 16 18 Blood Pressure 105/40 L 105/43 L Pulse Oximetry 100 98 11/28/19 05:17 11/28/19 08:24 Temperature 36.0 C L Pulse Rate 61 61 Respiratory Rate 18 Blood Pressure 117/48 L Pulse Oximetry 96 Intake/Output Intake/Output: Intake & Output 11/25/19 11/26/19 11/27/19 11/28/19 23:59 23:59 23:59 23:59 Intake Total 360 1200 840 240 Balance 360 1200 840 240 Meds/Results Medications: Active Medications Generic Name Dose Route Start Last Admin Trade Name Freq PRN Reason Stop Dose Admin Acetaminophen 650 mg 11/20/19 18:24 11/28/19 08:25 Tylenol Tablet PO 650 mg Q8H PRN Administration Mild Pain (1-3) Diltiazem HCl 180 mg 11/21/19 09:00 11/28/19 08:25 Cardizem Cd PO 180 mg DAILY NANI Administration Furosemide 20 mg 11/21/19 09:00 11/28/19 08:25 Lasix Tablet PO 20 mg DAILY NANI Administration Gabapentin 300 mg 11/20/19 17:00 11/28/19 08:25 Neurontin PO 300 mg BID NANI Administration Hydrochlorothiazide 25 mg 11/21/19 09:00 11/28/19 08:24 Hydrochlorothiazide PO 25 mg DAILY NANI Administration Lorazepam 1 mg 11/20/19 18:24 Ativan Tablet PO BID PRN Anxiety Losartan Potassium 50 mg 11/21/19 09:00 11/28/19 08:24 Cozaar PO 50 mg DAILY NANI Administration Pantoprazole Sodium 40 mg 11/20/19 21:00 11/28/19 08:25 Protonix PO 40 mg Q12HR NANI Administration Potassium Chloride 30 meq 11/27/19 08:00 11/28/19 08:23 Kcl Tablet PO 30 meq DAILY@0800 NANI Administration Psyllium Hydrophilic Mucilloid 1 packet 11/21/19 09:00 11/28/19 08:28 Metamucil Sugar Free PO Not Given QAM NANI Sodium Chloride 1 spray 11/21/19 09:23 [place] Nasal [place] NASAL Q6HR PRN Congestion Sotalol HCl 40 mg/ Sotalol HCl 120 mg 11/19
--- NOTE | 2019-11-28 12:46 | WPDNEURORHBP ---
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 aphasia dysphagia which is needing the PEG tube feeding and right-sided hemiplegia she is relatively more alert however not only the right hemiplegia is not improving as desired but the aphasia is the main culprit when the patient is gets frustrated and at times very resentful for the therapies she is on Coumadin and INR is 1 the INR is 2.2 no sign of bleeding is noted which will continue the present medical management PT OT and gait training Functional Status Ambulation Ability Ability to Ambulate 10 Feet: Independent Ability to Ambulate 50 Feet With 2 Turns: Independent Ability to Ambulate 150 Feet: Independent Ambulation Assistive Devices: Walker, Wheeled Transfers Ability Ability to Transfer In/Out of Chair: Independent Objective Data Vital Signs Vital Signs: Vital Signs - 24 hr 11/27/19 14:00 11/27/19 20:08 11/27/19 20:10 Temperature 36.4 C 36.1 C L Pulse Rate 62 64 64 Respiratory Rate 16 18 Blood Pressure 105/40 L 105/43 L Pulse Oximetry 100 98 11/28/19 05:17 11/28/19 08:24 Temperature 36.0 C L Pulse Rate 61 61 Respiratory Rate 18 Blood Pressure 117/48 L Pulse Oximetry 96 Intake/Output Intake/Output: Intake & Output 11/25/19 11/26/19 11/27/19 11/28/19 23:59 23:59 23:59 23:59 Intake Total 360 1200 840 480 Balance 360 1200 840 480 Meds/Results Medications: Active Medications Generic Name Dose Route Start Last Admin Trade Name Freq PRN Reason Stop Dose Admin Acetaminophen 650 mg 11/20/19 18:24 11/28/19 08:25 Tylenol Tablet PO 650 mg Q8H PRN Administration Mild Pain (1-3) Diltiazem HCl 180 mg 11/21/19 09:00 11/28/19 08:25 Cardizem Cd PO 180 mg DAILY NANI Administration Furosemide 20 mg 11/21/19 09:00 11/28/19 08:25 Lasix Tablet PO 20 mg DAILY NANI Administration Gabapentin 300 mg 11/20/19 17:00 11/28/19 08:25 Neurontin PO 300 mg BID NANI Administration Hydrochlorothiazide 25 mg 11/21/19 09:00 11/28/19 08:24 Hydrochlorothiazide PO 25 mg DAILY NANI Administration Lorazepam 1 mg 11/20/19 18:24 Ativan Tablet PO BID PRN Anxiety Losartan Potassium 50 mg 11/21/19 09:00 11/28/19 08:24 Cozaar PO 50 mg DAILY NANI Administration Pantoprazole Sodium 40 mg 11/20/19 21:00 11/28/19 08:25 Protonix PO 40 mg Q12HR NANI Administration Potassium Chloride 30 meq 11/27/19 08:00 11/28/19 08:23 Kcl Tablet PO 30 meq DAILY@0800 NANI Administration Psyllium Hydrophilic Mucilloid 1 packet 11/21/19 09:00 11/28/19 08:28 Metamucil Sugar Free PO Not Given QAM [facility] Sodium Chloride 1 spray 11/21/19 09:23 [place] Nasal [place] NASAL Q6HR PRN Congestion Sotalol HCl 40 mg/ Sotalol HCl 120 mg 11/20/19 21:00 11/28/19 08:24 80 mg PO 120 mg Q12HR NANI Administration Tramadol HCl 50 mg 11/20/19 18:24 11/23/19 02:07 Ultram PO 50 mg Q6H PRN Administration MODERATE PAIN Warfarin Sodium 1 mg 11/28/19 17:00 Coumadin PO 11/28/19 17:01 ONCE ONE Radiology Results: ITS Impressions Venous Doppler Study 11/23/19 09:29 IMPRESSION: 1. Deep vein thrombosis involving right common femoral vein, profunda femoral vein, and popliteal vein. I called this result to Dr. Sheffield. 2. Superficial vein thrombosis involving right greater saphenous vein. Labs Labs: Laboratory Results - last 24 hr 11/28/19 04:28 PT 35.6 H INR 3.6
[2019-11-28 14:00] VITALS: BP 106/46; PULSE 60; RESP 20; TEMP 36.3; O2SAT 98
[2019-11-28] MEDS: WARFARIN (*PBKC) 1 MG TABLET PO (17:02)
[2019-11-28 20:07] VITALS: PULSE 60
[2019-11-28 22:00] VITALS: BP 135/50; PULSE 75; RESP 16; TEMP 36.1; O2SAT 97
[2019-11-29 05:15] VITALS: BP 117/59; PULSE 72; RESP 18; TEMP 36.5; O2SAT 94
[2019-11-29 05:55] LABS: Anion Gap 4 mmol/L (8-16); Blood Urea Nitrogen 17 mg/dL (7-17); Carbon Dioxide 33 mmol/L (22-30); Chloride 97 mmol/L (98-107); Estimated CRCL calculation 85 ml/min; Estimated Glomerular Filt Rate > 60; Glucose 134 mg/dL (65-105); Potassium 2.8 mmol/L (3.4-5.0); Sodium 134 mmol/L (137-145)
--- NOTE | 2019-11-29 06:53 | PC.NURSE ---
Critical potassium this am, multiple attempts and message left for Dr with not return call yet.
--- NOTE | 2019-11-29 09:00 | PC.NURSE ---
pt refused metamucil this morning. patient is suppose to discharge home. md updated with nno at this time.
[2019-11-29] MEDS: POTASSIUM CHLORIDE 10 MEQ TABLET.ER 40 MEQ PO (09:01)
[2019-11-29 09:02] VITALS: PULSE 72
[2019-11-29] MEDS: dilTIAZem HCL CD 180 MG CAP.ER.24H PO (09:02)
[2019-11-29] MEDS: LOSARTAN POTASSIUM 50 MG TABLET PO (09:02)
[2019-11-29] MEDS: GABAPENTIN 300 MG CAPSULE PO (09:02)
[2019-11-29] MEDS: PANTOPRAZOLE 40 MG TABLET PO (09:02)
[2019-11-29] MEDS: SOTALOL HCL 40 MG, SOTALOL HCL 80 MG 120 MG PO (09:02)
[2019-11-29] MEDS: FUROSEMIDE 20 MG TABLET PO (09:02)
[2019-11-29] MEDS: hydroCHLOROthiazide 25 MG TABLET PO (09:02)
[2019-11-29 11:29] LABS: Potassium 3.2 mmol/L (3.4-5.0)
--- NOTE | 2019-11-29 23:24 | DS_ITS ---
DATE OF DISCHARGE: 11/29/2019 DISCHARGE ACUTE REHAB DIAGNOSIS: Primary rehab impairment category of 20, there is miscellaneous, and etiological diagnosis of hemorrhagic shock due to postoperative bleeding following right hemicolectomy for cancer of the colon. REASON FOR ADMISSION: A 73-year-old right-handed female, initially presented to [facility] on 11/12/2019 for a hand-assisted laparoscopic right hemicolectomy with ileocolic anastomosis that was completed bythe surgeon on 11/13/2019 for the ascending colon cancer. She was noted to have that finding on endoscopic exam on 10/05/2019 with malignant-appearing colonic mass at the ascending colon, surgical resection was recommended. The patient did have a history of being on Coumadin due to atrial fibrillation, pulmonary embolism, and DVT. After surgery, she developed hypotension, low blood pressure, and has became extremely pale. At that time, her hematocrit and hemoglobin were only 5.4. The patient received packed RBCs postoperatively, a repeat stat was ordered. IV bolus infused and central line placed with Levophed started. She required additional 2 units of packed RBCs and was transferred to ICU. Abdominal CT scan was ordered, which revealed a moderate amount of abdominal fluid, more dense fluid in the pelvic area, likely blood products, trace pleural effusion, bibasilar atelectasis, and no signs of metastaticdisease following colectomy. Echocardiogram revealed left ventricle systolic function to be hyperdynamic and estimated more than 70%. Left ventricular diastolic function to be grade 1 diastolic dysfunction. Subsequently, the patient complained of abdominal pain with a deep breathing and Lovenox was started for the atrial fibrillation, further medication to be introduced and she will be weaned off lovonex_, but at that time EKG revealed atrial fibrillation with rapid ventricular response and amiodarone bolus infusion was given, the patient's heart was controlled. On 11/15/2019, the patient had hypotension with blood pressure going down to 90/40 and decreased hemoglobin of 4.8, and she was treated accordingly. Subsequently, her antihypertensive and antiarrhythmic medication were restarted. On 11/19/2019, Lasix was increased and she was discharged to [facility] to allow the patient monitoring of the labs. She was discharged to the rehab on Coumadin 5 mg daily, Lovenox 30 mg q.12 hours for DVT prophylaxis. LEVEL OF FUNCTION AT THE TIME OF ADMISSION: The patient was independent in eating, required supervision for oral hygiene, partial assistance for toileting, bathing, upper body dressing, lower body dressing. She was dependent for footwear, independent for rolling in bed, partial assistance for [id number], [id number], required supervision for [id number], chair transfer, partial assistance for toilet transfer, car transfer, but she required supervision for walking 10 feet, 50 feet with 2 turns, 150 feet, 10 feet on uneven surfaces, curb or step, 4 steps, 12 steps, picking up object and wheelchair 50 feet and 150 feet. Anticipated rehab goals were to make her independent in all the modalities except that she will require supervision for 4 steps and 12 steps on uneven surfaces. LEVEL OF FUNCTION AT THE TIME OF DISCHARGE: The patient became independent in all the modalities except that she was unable to take 4 steps and 12 step, on curb or uneven floor. HOSPITALIZATION COURSE: During the hospitalization, she was actively involved in the physical therapy and occupational therapy. She was followed by the can dragger as well as the general surgeon, Dr. Steven Fraire, and she was discharged. At the time of discharge, she was independent and ambulating 10 feet, 50 feet with 2 turns with a wheeled walker. Her general physical examination was normal and so as t
== END 2019-11-29 14:00 | disposition home health service (06) | DRG 949 ==
PROVIDERS: Admitting Provider Psychiatry & Neurology Neurology; PCP Family Medicine Adolescent Medicine; Visit Provider Psychiatry & Neurology Neurology
DX: Z48.815 Encounter for surgical aftercare following surgery on the digestive system (principal); I50.31 Acute diastolic (congestive) heart failure; Z68.42 Body mass index [BMI] 45.0-49.9, adult; C18.2 Malignant neoplasm of ascending colon; E87.1 Hypo-osmolality and hyponatremia; I82.612 Acute embolism and thrombosis of superficial veins of left upper extremity; I82.811 Embolism and thrombosis of superficial veins of right lower extremity; T81.19XD Other postprocedural shock, subsequent encounter; D63.0 Anemia in neoplastic disease; E11.9 Type 2 diabetes mellitus without complications; E87.6 Hypokalemia; E83.51 Hypocalcemia; E78.00 Pure hypercholesterolemia, unspecified; E66.01 Morbid (severe) obesity due to excess calories; I48.91 Unspecified atrial fibrillation; I11.0 Hypertensive heart disease with heart failure; I27.20 Pulmonary hypertension, unspecified; Z87.891 Personal history of nicotine dependence; Z86.718 Personal history of other venous thrombosis and embolism; Z86.711 Personal history of pulmonary embolism; Z79.01 Long term (current) use of anticoagulants; Z90.49 Acquired absence of other specified parts of digestive tract; Z79.4 Long term (current) use of insulin
CPT/HCPCS: 36415; 80048; 80053; 84132; 85025; 85610; 93970; 97110; 97116; 97161; 97166; 97530; 97535; 97542; A9270

== ENCOUNTER 2022-12-21 16:03 | Emergency (ER) | payer MEDICARE, OTHER, SELFPAY ==
[2022-12-21 16:17] VITALS: BP 107/84; PULSE 152; RESP 16; TEMP 37.8; O2SAT 98
--- NOTE | 2022-12-21 17:53 | ED.ABDPAIN ---
HPI - Abdominal Pain General Chief Complaint: Abdominal Pain Stated Complaint: Abdominal Pain Source: patient and family Mode of arrival: ambulatory Limitations: no limitations History of Present Illness HPI narrative: Patient presents for evaluation of abdominal pain. Symptom onset 2 days ago. Pain has been constant, originating in the epigastric region and shooting down towards her suprapubic region. She has had similar symptoms in the past but has never discussed this with a medical provider, per her reports. She states pain is always transient and clears within this same day. She rates her current pain as 5/10 severity, without descriptive quality. She has experienced nausea and vomiting. She states that she currently has chills. She denies any fever, blood or mucus in the stool, or urinary symptoms. Last bowel movement was yesterday. She is anticoagulated with Coumadin for atrial fibrillation. She also has a history of colon cancer status post resection. Additional surgical history positive for hysterectomy and cholecystectomy. She indicates she has not had a colonoscopy since that time but recommendation was for every three years scopes. She reports a bloating sensation and has not experienced any flatulence. The day of symptom onset, she experienced sensation that her heart was beating hard without SOB or chest pain per se. Related Data Home Medications Medication Instructions Recorded Confirmed acetaminophen 650 mg 650 mg PO Q8H PRN Pain 06/13/19 10/11/22 tablet,extended release lorazepam 1 mg tablet 1 mg PO TID PRN 08/13/21 10/11/22 metoprolol tartrate 25 mg tablet 25 mg PO BID 08/13/21 10/11/22 tramadol 50 mg tablet 50 mg PO Q6H PRN pain 08/13/21 10/11/22 Allergies Allergy/AdvReac Type Severity Reaction Status Date / Time cefadroxil Allergy Severe RASH AND Verified 12/21/22 17:10 ITCHING benazepril AdvReac Intermediate Cough Verified 12/21/22 17:10 metformin AdvReac Unknown SEVERE Verified 12/21/22 17:10 DIARRHEA Review of Systems Review of Systems: CONSTITUTIONAL:Reports chills. Denies fever or sweats. EYES: Denies visual changes, redness, or discharge. ENT: Denies rhinorrhea, congestion, sore throat, or otalgia. CARDIOVASCULAR: Denies chest pain, palpitations, or edema. RESPIRATORY: Denies cough or dyspnea. GASTROINTESTINAL: Reports abdominal pain, constipation, nausea and vomiting. GENITOURINARY: Denies dysuria or hematuria. SKIN: Denies rash or itching. MUSCULOSKELETAL: Denies back pain, joint pain, or myalgia. NEUROLOGIC: Denies headache, numbness, dizziness, or weakness. PSYCHIATRIC: Denies anxiety or depression. [facility] Past Medical History Medical History Anxiety Arthritis CHF (congestive heart failure) Colon cancer Diabetes type 2, controlled diet controlled DVT (deep venous thrombosis) Fibromyalgia Former smoker High cholesterol History of colon cancer History of colon polyps History of kidney stones Hypertension Osteoarthritis Pulmonary embolism Sleep apnea Surgical History Surgical History H/O colonoscopy with polypectomy H/O hernia repair INguinal, 1993 & 1998 History of eyelid surgery History of hysterectomy Hx laparoscopic cholecystectomy 1996 Mass of breast 2017, Lumpectomy, benign S/P right hemicolectomy DEBO rt hemicolectomy 11/13/19 Family History Family History Father Heart disease Mother CHF (congestive heart failure) Sibling Diabetes mellitus Sibling Diabetes mellitus Sibling Diabetes mellitus Breast cancer Afib Other Heart disease Grandparent Cerebrovascular accident Other Cancer Other Family history of malignant neoplasm Hypertension Social History Social History Social Hist
== END 2022-12-21 17:52 | disposition short-term general hospital (02) ==
PROVIDERS: Emergency Provider Nurse Practitioner; PCP Family Medicine Adolescent Medicine
DX: R10.13 Epigastric pain (principal); R10.11 Right upper quadrant pain; R10.32 Left lower quadrant pain; Z87.891 Personal history of nicotine dependence; M19.90 Unspecified osteoarthritis, unspecified site; I11.0 Hypertensive heart disease with heart failure; I50.9 Heart failure, unspecified; E11.9 Type 2 diabetes mellitus without complications; M79.7 Fibromyalgia; E78.00 Pure hypercholesterolemia, unspecified; F41.9 Anxiety disorder, unspecified; Z86.718 Personal history of other venous thrombosis and embolism; Z86.711 Personal history of pulmonary embolism
CPT/HCPCS: 99212; G0463

== ENCOUNTER 2022-12-21 18:16 | Inpatient (IN) | payer MEDICARE, OTHER, SELFPAY ==
--- NOTE | ~2022-12-21 | XR_ITS ---
Supine and upright views of the abdomen Clinical history: NG tube placement Findings: NG tube is in satisfactory position. Mildly distended small bowel loops are noted. No free air seen. No abnormal mass lesion or calcification is seen. Osseous structures are intact. Impression: NG tube in satisfactory position. Mildly distended small bowel loops in the upper abdomen. Correlate for small bowel obstruction. Reviewed, dictated and finalized at location . Impression: NG tube in satisfactory position. Mildly distended small bowel loops in the upper abdomen. Correlate for small александр wel obstruction.
--- NOTE | ~2022-12-21 | CT_ITS ---
CT of the Abdomen and Pelvis: Indication: Abdominal pain Technique: 2.5 mm axial scans were obtained through the abdomen and pelvis following intravenous adm inistration of 100 cc of Omnipaque 350. Dose reduction technique was used on this scan by utilizing a utomated exposure control and iterative reconstruction technique. The dose-length product (DLP) was 1 502.92 mGy-cm. COMPARISON: 11/13/2019 Findings: Scans through the lung bases are unremarkable. Mild intrahepatic biliary dilatation is similar to prior exam, presumably related to prior cholecyste ctomy. The spleen, pancreas, adrenals and kidneys are within normal limits. There are atherosclerotic calcifications of the aorta. No lymphadenopathy. There is evidence of prior partial right colectomy. There is a ventral hernia in the anterior midline , probably inferior to the umbilicus, containing a focal small bowel loop. There is dilatation of sma ll bowel proximal to the level of the hernia, with collapsed small bowel distal to the hernia. There are areas of fat necrosis noted in the mesentery. Evidence of prior herniorrhaphy superior to the her orin which is present currently. Images through the pelvis were performed. Urinary bladder unremarkable. No adnexal mass seen. No asci francesco. Impression: Small bowel obstruction, with transition point related to a ventral hernia containing a focal small b owel loop. Correlate clinically for incarceration. Areas of probable fat necrosis in the mesentery. Postoperative changes, as above. Reviewed, dictated and finalized at [facility]. Impression: Small bowel obstruction, with transition point related to a ventral hernia cont aining a focal small bowel loop. Correlate clinically for incarceration. Areas of probable fat necrosis in the mesentery. Postoperative changes, as above.
--- NOTE | ~2022-12-21 | XR_ITS ---
EXAMINATION: XR chest 1V portable INDICATION: History of congestive heart failure TECHNIQUE: Portable AP chest at 1939 hours COMPARISON: 11/16/2019 FINDINGS: Cardiomegaly is noted. There is mild atelectasis of the lung bases. No pleural effusion or pneumothorax. The nasogastric tube is followed as far as the stomach. Its tip is beyond the inferior margin of the radiograph. IMPRESSION: 1. Cardiomegaly. 2. Mild atelectasis of the lung bases. Reviewed, dictated and finalized at location F.
--- NOTE | ~2022-12-21 | US_ITS ---
US abdomen limited INDICATION: Elevated bilirubin PROCEDURE: Realtime right upper abdominal ultrasound. COMPARISON: No prior studies for comparison. FINDINGS: The pancreas is normal without focal mass or pancreatic ductal dilation. Liver echotexture is mildly increased, consistent with fatty infiltration. There is normal directional flow in the po rtal vein. Gallbladder is surgically absent. Common bile duct measures 6.7 mm. No sonographic Ayers's sign. IMPRESSION: 1: Hepatic steatosis. Reviewed, dictated and finalized at location B. IMPRESSION: 1: Hepatic steatosis.
--- NOTE | ~2022-12-21 | CT_ITS ---
EXAMINATION: CT abdomen pelvis wo con DATE: 12/22/2022 17:34 INDICATION: Abdominal distention, elevated bilirubin TECHNIQUE: Computed tomography (CT) of the abdomen and pelvis was performed without intravenous contr ast. The dose-length product (DLP) was 1498.60 mGy-cm. Automated exposure control and iterative recon struction technique were employed. COMPARISON: 0011 hours, 12/22/2022 FINDINGS: Minimal dependent atelectasis is present in the lung bases. The heart size is normal. The l iver, spleen, pancreas, and adrenal glands are normal. Contrast from earlier CT partially opacifies t he urinary tract. The kidneys are unremarkable. There is calcified atherosclerosis of the aorta and m any of the other arteries. No pathologically enlarged abdominal or pelvic lymph nodes are identified. Again noted are changes of right hemicolectomy. There is a midline ventral hernia of the lower abdom inal wall containing a short segment of small bowel with upstream small bowel obstruction. This appea rs to be just caudal to a probable mesh ventral hernia repair mesh. There is no free intraperitoneal gas. There is lower lumbar spondylosis. IMPRESSION: 1. Persistent small bowel obstruction with transition point at the site of a midline ventral hernia o f the lower abdominal wall. Reviewed, dictated and finalized at location F. IMPRESSION: 1. Persistent small bowel obstruction with transition point at the site of a mi dline ventral hernia of the lower abdominal wall.
--- NOTE | ~2022-12-21 | XR_ITS ---
XR_KUBGTUBINS_CR INDICATION: Evaluate NG tube position. TECHNIQUE: Limited KUB perform for evaluating NG tube . COMPARISON: CT dated 12/22/2022 FINDINGS: NG tube tip in the stomach. Visualized bowel gas pattern is unremarkable.There is a calcif ication left upper abdomen from area of previous fat necrosis. There are dilated small bowel loops in the right upper abdomen, suspicious for obstruction. IMPRESSION: 1: NG tube tip in the stomach. Reviewed, dictated and finalized at location L.
[2022-12-21 18:24] VITALS: BP 132/73; PULSE 77; RESP 18; TEMP 36.1; O2SAT 97
[2022-12-21 19:50] VITALS: BP 101/62; PULSE 60; RESP 17; TEMP 36.8; O2SAT 96
[2022-12-21 22:16] LABS: Appearance Urine Clear (Clear); Bacteria Urine Rare /hpf; Bilirubin Urine 2+ (Negative); Blood Urine Negative (Negative); Color Urine Dark Yellow (Yellow); Glucose Urine UA Negative (Negative); Ketones Urine Trace mg/dL (Negative); Leukocyte Esterase Ur Negative LEU/UL (Negative); Nitrate Urine Negative (Negative); Non Pathogenic Casts 0-2; Protein Urine Trace mg/dL (Negative); RBC Urine 0-2 /hpf (0-2); Specific Grav Ur 1.029 (1.001-1.035); Squamous Epithelial Cell Urine Occasional /hpf (Few); WBC Urine 0-5 /hpf; pH Urine 6.5 (5.0-9.0)
[2022-12-21 22:21] LABS: Add Urine Microscopic? YES
[2022-12-21 22:42] LABS: Basophils Percent Auto 0.2 % (0.2-1.2); Eosinophils Absolute Auto 0.1 K/mm3 (0-0.3); Eosinophils Percent Auto 0.7 % (0-4.4); Hematocrit 46.4 % (37.0-47.0); Hemoglobin 15.2 g/dL (12.0-15.0); Immature Granulocyte Absolute 0.07 K/mm3 (0.00-0.031); Immature Granulocyte Percent A 0.6 % (0-0.5); Lymphocytes Absolute Auto 1.15 K/mm3 (0.9-3.2); Lymphocytes Percent Auto 9.9 % (18.3-44.2); Mean Corpuscular HGB Conc 32.8 g/dl (32-36); Mean Corpuscular Hemoglobin 29.5 pg (26-34); Mean Corpuscular Volume 89.9 fl (80-100); Mean Platelet Volume 9.7 fl (7.4-10.4); Monocytes Absolute Auto 1.2 K/mm3 (0.1-0.6); Monocytes Percent Auto 10.4 % (2.6-8.5); Neutrophils Absolute Auto 9.1 K/mm3 (1.3-6.7); Neutrophils Percent Auto 78.2 % (45.5-73.1); Platelet Count Result 277 k/mm3 (150-375); Red Blood Count 5.16 M/mm3 (4.2-5.4); Red Cell Distribution Width 14.7 % (11.5-14.5); White Blood Count 11.7 K/mm3 (4.5-10.0)
[2022-12-21] MEDS: BELLADONNA ALK/PHENOB ELIX 10 ML, MAG HYDROX/ALUMINUM HYD/SIMETH 30 ML, LIDOCAINE HCL 2... PO (23:34)
[2022-12-21 23:40] LABS: Alanine Aminotransferase 19 U/L (6-35); Alkaline Phosphatase 84 U/L (38-126); Anion Gap 11 mmol/L (8-16); Aspartate Amino Transferase 31 U/L (14-36); Bilirubin,Total 2.2 mg/dL (0.2-1.3); Blood Urea Nitrogen 39 mg/dL (7-17); Calcium 8.7 mg/dL (8.4-10.2); Carbon Dioxide 24 mmol/L (22-30); Chloride 99 mmol/L (98-107); Estimated CRCL calculation 60 ml/min; Estimated Glomerular Filt Rate > 60; Glucose 156 mg/dL (65-110); Lipase 127 U/L (23-300); Potassium 4.1 mmol/L (3.4-5.0); Sodium 134 mmol/L (137-145)
[2022-12-21] MEDS: SODIUM CHLORIDE 0.9% IV 500 ML 999 ML IV CONT (23:42)
[2022-12-21] MEDS: ONDANSETRON INJ 4 MG/2 ML VIAL IV PUSH (23:43)
[2022-12-21] MEDS: MORPHINE SULFATE (*CRX) 4 MG/ML INJ IV PUSH (23:43)
[2022-12-22] VITALS (26 sets, daily range): BP systolic 104–143; BP diastolic 68–93; PULSE 75–156; RESP 14–20; TEMP 36.3–36.6; O2SAT 93–100; BMI 47.3
--- NOTE | 2022-12-22 | ECG_ITS ---
Measurements Intervals [place] Rate: 132 P: WI: 0 QRS: -16 QRSD: 123 T: 97 QT: 290 QTc: 430 Interpretive Statements ATRIAL FIBRILLATION WITH RAPID VENTRICULAR RESPONSE INCOMPLETE LEFT BUNDLE BRANCH BLOCK NONSPECIFIC ST & T-WAVE ABNORMALITY- HIGH LATERAL LEADS BASELINE ARTIFACT- I, II, III, AVR, AVL, AVF ABNORMAL ECG COMPARED TO ECG 11/14/2019 17:08:12 INCOMPLETE LEFT BUNDLE BRANCH BLOCK NOW PRESENT Electronically Signed On 12-22-2022 6:27:33 CDT by Heath Lucas D.O.
[2022-12-22 00:01] LABS: Troponin I < 0.012 ng/mL (0.000-0.034)
--- NOTE | 2022-12-22 00:55 | ED.ABDPAIN ---
HPI - Abdominal Pain General Chief Complaint: Abdominal Pain Stated Complaint: abd pain Time Seen by Provider: 12/21/22 21:47 Source: patient Mode of arrival: ambulatory Limitations: no limitations History of Present Illness HPI narrative: Patient is a 77-year-old female who presents to the ED with report of abdominal pain and nausea/vomiting. Patient reports over the last several months she has had intermittent episodes of pain in her epigastric region and suprapubic abdomen. She states the pain would often begin in the morning, persist throughout the day, then she would have an episode of vomiting at night and the pain would resolve. She states most recently the pain occurred last week. Over the last 3 days however the pain has been constant. No significant aggravating or alleviating factors. She has had persistent nausea and vomiting over the last 3 days and has been unable to keep down food or drink. She has not been able to take anything for pain. Patient denies any issues with diarrhea or constipation, fevers, chest pain, difficulty breathing. Related Data Home Medications Medication Instructions Recorded Confirmed acetaminophen 650 mg 650 mg PO Q8H PRN Pain 06/13/19 10/11/22 tablet,extended release lorazepam 1 mg tablet 1 mg PO TID PRN 08/13/21 10/11/22 metoprolol tartrate 25 mg tablet 25 mg PO BID 08/13/21 10/11/22 tramadol 50 mg tablet 50 mg PO Q6H PRN pain 08/13/21 10/11/22 Allergies Allergy/AdvReac Type Severity Reaction Status Date / Time cefadroxil Allergy Severe RASH AND Verified 12/21/22 17:10 ITCHING benazepril AdvReac Intermediate Cough Verified 12/21/22 17:10 metformin AdvReac Unknown SEVERE Verified 12/21/22 17:10 DIARRHEA Review of Systems Review of Systems: CONSTITUTIONAL: Denies fever, chills, or sweats. CARDIOVASCULAR: Denies chest pain. RESPIRATORY: Denies dyspnea. GASTROINTESTINAL: See HPI. GENITOURINARY: Denies dysuria or hematuria. NEUROLOGIC: Denies headache, numbness, or weakness. All systems reviewed & are unremarkable except as noted in HPI and below PMFSH Past Medical History Medical History Anxiety Arthritis CHF (congestive heart failure) Colon cancer Diabetes type 2, controlled diet controlled DVT (deep venous thrombosis) Fibromyalgia Former smoker High cholesterol History of colon cancer History of colon polyps History of kidney stones Hypertension Osteoarthritis Pulmonary embolism Sleep apnea Surgical History Surgical History H/O colonoscopy with polypectomy H/O hernia repair INguinal, 1993 & 1998 History of eyelid surgery History of hysterectomy Hx laparoscopic cholecystectomy 1996 Mass of breast 2017, Lumpectomy, benign S/P right hemicolectomy DEBO rt hemicolectomy 11/13/19 Family History Family History Father Heart disease Mother CHF (congestive heart failure) Sibling Diabetes mellitus Sibling Diabetes mellitus Sibling Diabetes mellitus Breast cancer Afib Other Heart disease Grandparent Cerebrovascular accident Other Cancer Other Family history of malignant neoplasm Hypertension Social History Social History Social History: the patient has 2 daughters. In the 1 daughter is her durable power production packager for healthcare. The patient is a full code. Patient stated she quit smoking 30 years ago. She lives home alone. She is . She worked for [email or web address]. she is retired now. She worked in accounts payable. Smoking packs per day: 1.5 Smoking cigarettes per day: 30.0 Years smoked: 10 Smoking pack-years: 15.00 Smoking status: Former smoker Tobacco type: cigarettes Second hand tobacco smoke exposure: Yes Smoking end date: 12/15/90 Alcohol intake: never
[2022-12-22] MEDS: METOPROLOL TARTRATE INJ 5 MG/5 ML VIAL IV PUSH ×2 (01:02→22:39)
[2022-12-22] MEDS: dilTIAZem HCl INJ 25 MG/5 ML VIAL 10 MG IV PUSH (01:33)
[2022-12-22] MEDS: dilTIAZem 100 MG/100 ML 100 MG/100 ML BAG IV CONT (02:16)
[2022-12-22 03:37] LABS: INR 1.6; Prothrombin Time 19.8 Seconds (11.1-14.7)
[2022-12-22 03:38] LABS: Partial Thromboplastin Time 33.3 SECONDS (22.3-36.8)
[2022-12-22] MEDS: SODIUM CHLORIDE 0.9% IV 500 ML 999 ML IV CONT (03:59)
[2022-12-22] MEDS: HEPARIN SOD/D5W 100 UNITS/ML 25,000 UNITS/250 ML BAG 13 UNITS IV CONT (04:20)
[2022-12-22] MEDS: HEPARIN SODIUM 5,000 UNITS/ML VIAL 6000 UNITS IV PUSH (04:21)
[2022-12-22] MEDS: dilTIAZem HCl INJ 25 MG/5 ML VIAL 20 MG IV PUSH (04:23)
--- NOTE | 2022-12-22 05:13 | ADMGEN ---
This patient, Fang Hemphill, was admitted to IMU Room 206-01. Patient/family oriented to hospital policies and general routines including ID bracelet, bed and alarms, visiting hours, pain management, procedures, bathroom and other care routines, personal items, smoking policy, room service/diet, and visiting hours. Information on how to activate the Rapid Response Team has been discussed. Patient/Family are encouraged to report perceived risks to care and to ask questions if they do not understand what they are told or what they should do.
[2022-12-22] MEDS: dilTIAZem 100 MG/100 ML 100 MG/100 ML BAG 15 MG IV CONT (06:10)
[2022-12-22 06:25] LABS: Reflex Lactic Acid Yes or No Add Lactic
[2022-12-22 06:54] LABS: Lactic Acid 1.2 mmol/L (0.7-2.0)
[2022-12-22 07:45] LABS: Alanine Aminotransferase 24 U/L (6-35); Albumin Level 3.3 g/dL (3.5-5.1); Alkaline Phosphatase 86 U/L (38-126); Anion Gap 8 mmol/L (8-16); Aspartate Amino Transferase 48 U/L (14-36); Bilirubin,Total 2.5 mg/dL (0.2-1.3); Blood Urea Nitrogen 37 mg/dL (7-17); Carbon Dioxide 26 mmol/L (22-30); Chloride 101 mmol/L (98-107); Estimated CRCL calculation 69 ml/min; Estimated Glomerular Filt Rate > 60; Glucose 154 mg/dL (65-110); Potassium 3.5 mmol/L (3.4-5.0); Sodium 135 mmol/L (137-145)
[2022-12-22 07:59] LABS: Basophils Percent Auto 0.2 % (0.2-1.2); Eosinophils Absolute Auto 0.1 K/mm3 (0-0.3); Eosinophils Percent Auto 0.5 % (0-4.4); Hematocrit 41.7 % (37.0-47.0); Hemoglobin 13.7 g/dL (12.0-15.0); Immature Granulocyte Absolute 0.08 K/mm3 (0.00-0.031); Immature Granulocyte Percent A 0.7 % (0-0.5); Lymphocytes Absolute Auto 1.08 K/mm3 (0.9-3.2); Lymphocytes Percent Auto 9.5 % (18.3-44.2); Mean Corpuscular HGB Conc 32.9 g/dl (32-36); Mean Corpuscular Hemoglobin 29.6 pg (26-34); Mean Corpuscular Volume 90.1 fl (80-100); Mean Platelet Volume 10.3 fl (7.4-10.4); Monocytes Absolute Auto 1.2 K/mm3 (0.1-0.6); Monocytes Percent Auto 10.3 % (2.6-8.5); Neutrophils Percent Auto 78.8 % (45.5-73.1); Platelet Count Result 254 k/mm3 (150-375); Red Blood Count 4.63 M/mm3 (4.2-5.4); Red Cell Distribution Width 14.7 % (11.5-14.5); White Blood Count 11.4 K/mm3 (4.5-10.0)
[2022-12-22] MEDS: AMIODARONE 150 MG/D5W 100 ML 150 MG/100 ML BAG 600 MG IV CONT (09:30)
[2022-12-22] MEDS: AMIODARONE 360 MG/D5W 200 ML 360 MG/200 ML BAG 33.33 MG IV CONT (09:56)
--- NOTE | 2022-12-22 10:09 | PM.CNCAR ---
Assessment and Plan Assessment and plan (1) Atrial fibrillation with rapid ventricular response: Code(s): I48.91 - Unspecified atrial fibrillation Status: Acute Assessment and Plan: Patient with longstanding persistent atrial fibrillation now presents with rapid ventricular response due to physiologic stress. Heart rate is not controlled with diltiazem 15 milligrams/hour. No angina and no evidence of CHF. --stop diltiazem drip --start amiodarone drip --metoprolol 5 mg IV push p.r.n. for tachycardia (2) Partial small bowel obstruction: Code(s): K56.600 - Partial intestinal obstruction, unspecified as to cause Status: Deleted Assessment and Plan: Three days of nausea and vomiting with partial small-bowel obstruction due to incarcerated hernia. Presents with lactic acidosis, lactic acid level 3.0 on admission, now normalized. Patient has improved with NG tube and hydration. --surgical consultation is pending --patient will be a reasonable surgical candidate once her AFib rate is controlled (3) Chronic anticoagulation: Code(s): Z79.01 - care home (current) use of anticoagulants Status: Acute Assessment and Plan: Patient is chronically anticoagulated with warfarin. INR was 1.6 on admission. She has been placed on heparin for now, pending surgical consultation. --continue heparin drip (4) Lactic acidosis: Code(s): E87.20 - Acidosis, unspecified Status: Acute Assessment and Plan: Lactic acid level 3.0 on admission, now normalized History of Present Illness History of Present Illness Consult date/time: 12/22/22 10:09 Reason For Visit: Incarcerated Ventral Hernia, Partial SBO, AFIB w R Narrative: Fang Hemphill is a 77-year-old female who was admitted with an incarcerated hernia and partial small-bowel obstruction. We have been asked to see her at the request of Dr. Reilly for advice and opinion regarding her AFib RVR, in consultation. She is followed by Dr. Adler for her longstanding persistent atrial fibrillation and is chronically anticoagulated with warfarin. She also has obesity, sleep apnea (unable to tolerate CPAP) and pulmonary hypertension. Echo 09/2022: EF 55%, mod LVH, nml diastolic fxn, severe LAE, moderate MR/TR, RVSP 42 mmHg The patient was admitted after several days of nausea and vomiting, and found to have an incarcerated hernia with partial small bowel obstruction. She was in AFib RVR and was started on IV diltiazem, up to 15 milligrams/hour, but her heart rate remained elevated running in the 120s to 140s. She denies any chest pain or shortness of breath. She had palpitations earlier. Her abdominal pain , N&V have improved. She is getting IV fluids and heparin, and surgery has been consulted. , Review of Systems Constitutional: Constitutional: Denies fever(s) Eyes: Eyes: Reports no additional eye complaints ENT: Reports dysphagia (Sore throat from the NG tube) Cardiovascular: Cardiovascular: Denies chest pain, Denies pedal edema, Denies lightheadedness, Reports palpitations and Denies dyspnea Respiratory: Respiratory: Denies chest congestion and Denies dyspnea Gastrointestinal: Gastrointestinal: Reports abdominal pain, Denies hematochezia, Reports nausea and Reports vomiting Genitourinary: Genitourinary: Reports no additional female genitourinary complaints Musculoskeletal: Musculoskeletal: Reports no additional musculoskeletal complaints Comments: Issues chronic lower extremity edema Integumentary/Breasts: Skin/Breast: Reports system reviewed and no additional complaints, except as docu Neurologic: Reports system reviewed and no additional complaints, except as documented and Denies behavioral changes Psychiatric: Psychiatric: Denies behavioral changes [facility] Past Medical History Medical History Anxiety Arthritis CHF (congestive heart failure) Colon cancer
--- NOTE | 2022-12-22 10:09 | PM.CNGS ---
Assessment and Plan Assessment and plan (1) Incarcerated incisional hernia: Code(s): K43.0 - Incisional hernia with obstruction, without gangrene Status: Acute Assessment and Plan: CT evidence of a small bowel obstruction secondary to an incarcerated incisional hernia. She has noticed the hernia for at least a few months to a year prior to having this acute episode of pain and vomiting. The hernia appears to be at the hand-port site from her previous right hemicolectomy. The hernia is now reducible and she is no longer having any abdominal pain. She has multiple co-morbidities that increase her risks for surgical repair and recurrence, such as her morbid obesity, atrial fibrillation with anticoagulation, history of VTE following surgeries. Discussed with the patient that with the hernia now being reducible, there is a possibility that the hernia will not need to be repaired as urgently. If she is able to slowly advance her diet without any issues, then she could potentially be medically optimized prior to proceeding with surgery. Will remove her NG tube and start clear liquids. Will continue to follow along to see how she progresses. (2) Small bowel obstruction: Code(s): K56.609 - Unspecified intestinal obstruction, unspecified as to partial versus complete obstruction Status: Acute Assessment and Plan: Secondary to the incarcerated incisional hernia that is now reducible. Will remove NG tube and start clear liquids. See plan above. (3) Atrial fibrillation with rapid ventricular response: Code(s): I48.91 - Unspecified atrial fibrillation Status: Acute Assessment and Plan: Heart rate still in the 130's during my evaluation. Currently on amiodarone infusion in the IMU. (4) Chronic anticoagulation: Code(s): Z79.01 - ocean transportation intermediary (current) use of anticoagulants Status: Acute Assessment and Plan: Continue to warfarin for now. (5) CHF (congestive heart failure): Code(s): I50.9 - Heart failure, unspecified Status: Acute (6) Morbid obesity with BMI of 45.0-49.9, adult: Code(s): E66.01 - Morbid (severe) obesity due to excess calories; Z68.42 - Body mass index [BMI] 45.0-49.9, adult Status: Acute Assessment and Plan: Increases surgical risks (7) Obstructive sleep apnea (adult) (pediatric): Code(s): G47.33 - Obstructive sleep apnea (adult) (pediatric) Status: Acute Plan I have discussed the patient's case and plan of care with Dr. Fraire. Thank you for allowing us to see the patient in consultation and we will continue to follow along with you. History of Present Illness Consult details Consult date: 12/22/22 Reason for consult: other (Small-bowel obstruction secondary to incarcerated ventral hernia) Requesting physician: Chandni Moran PA-C Narrative: This is a 77-year-old woman with a history of atrial fibrillation on warfarin therapy, history PE/DVT, congestive heart failure, pulmonary hypertension, and colon cancer status post hand-assisted laparoscopic right hemicolectomy in 2019. She has noticed a lump near her umbilicus for a while now, but did not know what it was. At times it would cause her pain, but this typically improved after a few episodes of vomiting at home. Three days ago, she woke up with epigastric abdominal pain. She reports her pain radiated down to periumbilical pain throughout the day. She had associated nausea and vomiting. This pain did not improve after vomiting and was persistent for the next few days. Her pain became more localized to the periumbilical area. She eventually came into the ER last night for evaluation. [place] [id number], INR 1.6, troponin negative, lactic acid 3 and down to 1.[address] scan of the abdomen and pelvis showed a small bowel obstruction with transition point related to a ventral hernia containing a focal small bowel loop. She addition
[2022-12-22 11:55] LABS: Partial Thromboplastin Time > 200.0 SECONDS (22.3-36.8)
--- NOTE | 2022-12-22 11:59 | PM.IMHP ---
H&P: HPI History of Present Illness Date/Time: 12/22/22 11:59 Chief Complaint: abdominal pain, nausea, vomiting Narrative: This is a 77-year-old female with a past medical history of AFib on diltiazem metoprolol and warfarin, pulmonary hypertension, hypertension, fibromyalgia, diet-controlled diabetes, colon cancer with resection in 2019 the presented to the ED on 12/21/2022 present to the ED on 12/21/2022 due to abdominal pain, nausea and vomiting. She stated that 2 days prior to ED arrival her abdominal pain started and later that night she developed nausea and vomiting. She did not have any diarrhea. Patient did not take anything at home for her pain although she does take a daily Tylenol. Patient had went to the urgent care prior to going to the ED and they advised she be seen in the ED. While in the ED she was found to have AFib RVR as well as a possibly incarcerated hernia. General surgery was consulted and hernia was able to be reduced and patient's pain resolved. Patient was inserted on a diltiazem drip and Cardiology was consulted. Patient was found to have a lactic acid of 3 on presentation and repeat was found to be 1.2. Mildly elevated white blood cell count of 11.7. patient denied any chest pain, shortness a breath and diarrhea. She did state she felt her palpitations but did not notice until after arrival to the ED. Patient lives at home with her sister and ambulates with a walker. She is a formal smoker and smoked for approximately 24 years and quitting in 1981. Patient admitted to IMU due to AFib RVR and possible incarcerated hernia. Review of Systems Review of Systems: All systems reviewed & are unremarkable except as noted in HPI and below PMFSH Past Medical History Medical History Anxiety Arthritis CHF (congestive heart failure) Colon cancer Diabetes type 2, controlled diet controlled DVT (deep venous thrombosis) Fibromyalgia Former smoker High cholesterol History of colon cancer Status post right hemicolectomy in 2019 History of colon polyps History of kidney stones Hypertension Longstanding persistent atrial fibrillation Osteoarthritis Paroxysmal atrial fibrillation Longstanding history of atrial fibrillation, history of JUAN JOSE cardioversion Pulmonary embolism Sleep apnea Surgical History Surgical History H/O colonoscopy with polypectomy H/O hernia repair x 2 History of eyelid surgery History of hysterectomy Hx laparoscopic cholecystectomy 1996 Mass of breast 2017, Lumpectomy, benign S/P right hemicolectomy DEBO rt hemicolectomy 11/13/19 Family History Family History Father Heart disease Mother CHF (congestive heart failure) Sibling Diabetes mellitus Sibling Diabetes mellitus Sibling Diabetes mellitus Breast cancer Afib Other Heart disease Grandparent Cerebrovascular accident Other Cancer Other Family history of malignant neoplasm Hypertension Social History Social History Social History: the patient has 2 daughters. In the 1 daughter is her durable power store merchandiser for healthcare. The patient is a full code. Patient stated she quit smoking 30 years ago. She lives home alone. She is . She worked for [employer] she is retired now. 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 Smoking packs per day: 1.5 Smoking cigarettes per day: 30.0 Years smoked: 10 Smoking pack-years: 15.00 Smoking status: Former smoker Tobacco type: cigarettes Second hand tobacco smoke exposure: Yes Alcohol intake: never Substance use: never Lack of Transportation: No Lack of Food: Never True Current Housing: I Have Housing Concerned About Future Housing: No Difficulty Paying Gas/Electric Bills: No Difficulty Paying for Meds: No C
[2022-12-22] MEDS: AMIODARONE 360 MG/D5W 200 ML 360 MG/200 ML BAG 16.67 MG IV CONT (16:00)
[2022-12-22] MEDS: ONDANSETRON INJ 4 MG/2 ML VIAL IV PUSH (16:42)
[2022-12-22] MEDS: GABAPENTIN 300 MG CAPSULE PO (17:52)
[2022-12-22] MEDS: PANTOPRAZOLE 40 MG TABLET PO (17:52)
[2022-12-22 18:54] LABS: Alanine Aminotransferase 22 U/L (6-35); Albumin Level 3.7 g/dL (3.5-5.1); Alkaline Phosphatase 95 U/L (38-126); Anion Gap 7 mmol/L (8-16); Aspartate Amino Transferase 30 U/L (14-36); Blood Urea Nitrogen 28 mg/dL (7-17); Calcium 8.2 mg/dL (8.4-10.2); Carbon Dioxide 25 mmol/L (22-30); Chloride 101 mmol/L (98-107); Estimated CRCL calculation 93 ml/min; Estimated Glomerular Filt Rate > 60; Glucose 138 mg/dL (65-110); Potassium 3.3 mmol/L (3.4-5.0); Sodium 133 mmol/L (137-145)
[2022-12-22 19:00] LABS: Partial Thromboplastin Time 82.6 SECONDS (22.3-36.8)
[2022-12-22 20:20] LABS: Glucose Point of Care 153 mg/dl (65-105)
[2022-12-22 20:46] LABS: Glucose Point of Care 151 mg/dl (65-105)
[2022-12-22] MEDS: METOPROLOL TARTRATE 25 MG TABLET PO (21:10)
[2022-12-23] VITALS (21 sets, daily range): BP systolic 108–133; BP diastolic 76–94; PULSE 60–134; RESP 18–20; TEMP 36.1–36.7; O2SAT 92–98
[2022-12-23 02:13] LABS: Basophils Percent Auto 0.3 % (0.2-1.2); Eosinophils Absolute Auto 0.1 K/mm3 (0-0.3); Eosinophils Percent Auto 0.5 % (0-4.4); Hematocrit 43.1 % (37.0-47.0); Immature Granulocyte Absolute 0.05 K/mm3 (0.00-0.031); Immature Granulocyte Percent A 0.5 % (0-0.5); Lymphocytes Absolute Auto 0.86 K/mm3 (0.9-3.2); Mean Corpuscular HGB Conc 32.5 g/dl (32-36); Mean Corpuscular Hemoglobin 29.5 pg (26-34); Mean Corpuscular Volume 90.7 fl (80-100); Mean Platelet Volume 9.8 fl (7.4-10.4); Monocytes Absolute Auto 1.1 K/mm3 (0.1-0.6); Monocytes Percent Auto 9.7 % (2.6-8.5); Neutrophils Absolute Auto 8.7 K/mm3 (1.3-6.7); Platelet Count Result 220 k/mm3 (150-375); Red Blood Count 4.75 M/mm3 (4.2-5.4); Red Cell Distribution Width 14.7 % (11.5-14.5); White Blood Count 10.8 K/mm3 (4.5-10.0)
[2022-12-23 02:23] LABS: Alanine Aminotransferase 21 U/L (6-35); Albumin Level 3.4 g/dL (3.5-5.1); Alkaline Phosphatase 89 U/L (38-126); Anion Gap 6 mmol/L (8-16); Aspartate Amino Transferase 24 U/L (14-36); Bilirubin,Total 1.4 mg/dL (0.2-1.3); Blood Urea Nitrogen 25 mg/dL (7-17); Carbon Dioxide 26 mmol/L (22-30); Chloride 100 mmol/L (98-107); Estimated CRCL calculation 79 ml/min; Estimated Glomerular Filt Rate > 60; Glucose 153 mg/dL (65-110); Potassium 3.2 mmol/L (3.4-5.0); Sodium 132 mmol/L (137-145)
[2022-12-23 02:25] LABS: Partial Thromboplastin Time 86.8 SECONDS (22.3-36.8)
[2022-12-23 02:33] LABS: Hemoglobin A1C 6.8 % (<5.7)
[2022-12-23] MEDS: METOPROLOL TARTRATE INJ 5 MG/5 ML VIAL IV PUSH ×4 (03:02→21:20)
[2022-12-23] MEDS: AMIODARONE 360 MG/D5W 200 ML 360 MG/200 ML BAG 33.33 MG IV CONT ×4 (03:02→20:45)
[2022-12-23] MEDS: HEPARIN SOD/D5W 100 UNITS/ML 25,000 UNITS/250 ML BAG 11 UNITS IV CONT (03:02)
[2022-12-23] MEDS: ONDANSETRON INJ 4 MG/2 ML VIAL IV PUSH ×2 (03:09→08:30)
[2022-12-23] MEDS: GABAPENTIN 300 MG CAPSULE PO (09:08)
[2022-12-23] MEDS: POTASSIUM CHLORIDE 20 MEQ ER TABLET 40 MEQ PO (09:08)
[2022-12-23] MEDS: ACETAMINOPHEN 325 MG TABLET 650 MG PO (09:08)
[2022-12-23] MEDS: LOSARTAN POTASSIUM 50 MG TABLET PO (09:08)
[2022-12-23] MEDS: FUROSEMIDE 20 MG TABLET PO (09:09)
[2022-12-23] MEDS: PANTOPRAZOLE 40 MG TABLET PO (09:10)
[2022-12-23] MEDS: METOPROLOL TARTRATE 25 MG TABLET PO (09:10)
[2022-12-23 09:31] LABS: Glucose Point of Care 169 mg/dl (65-105)
--- NOTE | 2022-12-23 10:35 | PM.PNCARD ---
Progress Note: A&P Assessment and Plan (1) Atrial fibrillation with rapid ventricular response: Code(s): I48.91 - Unspecified atrial fibrillation Status: Acute Assessment and Plan: Patient with longstanding persistent atrial fibrillation now presents with rapid ventricular response due to physiologic stress. Heart rate is not controlled with diltiazem 15 milligrams/hour, better with IV amiodarone but still uncontrolled. No angina and no evidence of CHF. --continue amiodarone drip --give another bolus of 150 mg of amiodarone --likely patient not absorbing her p.o. metoprolol --will change to IV metoprolol 5 mg IV push q.4 hours --metoprolol 5 mg IV push p.r.n. for tachycardia (2) Partial small bowel obstruction: Code(s): K56.600 - Partial intestinal obstruction, unspecified as to cause Status: Deleted Assessment and Plan: Admitted with partial small-bowel obstruction and lactic acidosis due to incarcerated hernia. Patient has improved with NG tube and hydration. However, since the NG tube is been discontinued, she is not tolerating p.o. as having more pain. --surgical consultation reviewed --patient will be a reasonable surgical candidate once her AFib rate is controlled (3) Chronic anticoagulation: Code(s): Z79.01 - assisted (current) use of anticoagulants Status: Acute Assessment and Plan: Patient is chronically anticoagulated with warfarin. INR was 1.6 on admission. She has been placed on heparin for the interim, in case she needs surgical intervention. --continue heparin drip Subjective Date/time seen: 12/23/22 10:35 Interval history: Follow-up for Patient with longstanding persistent atrial fibrillation now presents with rapid ventricular response due to physiologic stress of incarcerated hernia. She is followed by Dr. Adler for her longstanding persistent atrial fibrillation and is chronically anticoagulated with warfarin.? She also has obesity, sleep apnea (unable to tolerate CPAP) and pulmonary hypertension. Echo 09/2022:? EF 55%, mod LVH, nml diastolic fxn, severe LAE, moderate MR/TR, RVSP 42 mmHg 12/22/2022: Change IV Cardizem to amiodarone due to AFib RVR. Hernia was not reducible and no plans for urgent surgery. P.o. metoprolol was resumed. Date of service 12/23/2022: NG tube is out, but the patient is having a lot of ?gas pains? and abdominal discomfort as well as nausea. Not able to eat or drink. Heart rate is better but still RVR, 120-130's. She has been given a couple doses IV Lopressor through the night. Review of Systems Review of Systems: Nauseated, abdominal discomfort, not out of bed, unable to eat or drink, no chest pain or shortness of breath. Exam Const: General: cooperative, healthy appearing (Obese) and uncomfortable; No confusion Orientation/consciousness: oriented to person, patient oriented x3 and No confusion HENMT: Mouth: Yes moist mucous membranes Eyes: EOM: EOMs intact bilaterally Neck: Neck: supple Resp: Effort & Inspection: normal respiratory effort Auscultation: clear to auscultation bilaterally Cardio: Rate: regular rate and tachycardic Rhythm: regular rhythm and abnormal rhythm irregularly irregular Heart sounds: no murmurs GI: Inspection: normal to inspection GI Palp: Yes abdominal tenderness Other: Decreased bowel sounds, ventral hernia Skin: General skin exam: normal color and no rashes or lesions noted Neuro: General: oriented to person, patient oriented x3 and No confusion Extrem: Right lower extremity: edema Left lower extremity: edema Other: Trace to mild lower extremity edema Psych: Appearance: grossly normal Mental Status: mental status grossly normal Objective Data Vital Signs Vital Signs: Vital Signs - 24 hr 12/22/22 12:00 12/22/22 12:00 12/22/22 12:00 Temperature 97.4 F L Pulse Rate 89 111 H Respiratory Rate 16 Blood Pressure 143/83 H Pulse Oxi
--- NOTE | 2022-12-23 11:14 | PM.PNGS ---
Progress Note: A&P Assessment and Plan (1) Incarcerated incisional hernia: Code(s): K43.0 - Incisional hernia with obstruction, without gangrene Status: Acute Assessment and Plan: Patient having nausea and periumbilical pain after pulling the NG yesterday. She is not having any signs of bowel function yet. I was unable to fully reduce her incisional hernia today. May need to consider replacing her NG tube if she begins vomiting. Discussed findings with Dr. Fraire. May need to consider surgical repair more acutely if this is incarcerated and she continues to show signs of obstruction. We would still prefer to plan surgery when she is medically optimized given her increased risks for surgery, but this will depend on how she progresses. (2) Small bowel obstruction: Code(s): K56.609 - Unspecified intestinal obstruction, unspecified as to partial versus complete obstruction Status: Acute Assessment and Plan: Secondary to incarcerated incisional hernia, see plan above. (3) Atrial fibrillation with rapid ventricular response: Code(s): I48.91 - Unspecified atrial fibrillation Status: Acute Assessment and Plan: Still not rate-controlled, on amiodarone infusion. Cardiology consulted. (4) Chronic anticoagulation: Code(s): Z79.01 - jail (current) use of anticoagulants Status: Acute Assessment and Plan: Hold warfarin, currently on Heparin infusion. Plan I have discussed the patient's case and plan of care with Dr. Fraire. Subjective Subjective Date/Time Seen: 12/23/22 11:14 Patient reports: no flatus, no bowel movement, nausea and afebrile Interval history: Patient seen this morning and complaining of nausea. She reports her periumbilical abdominal pain has returned. She has felt nauseous through the night, but no vomiting. There is a bowel movement documented from yesterday, but patient denies moving her bowels. Denies any flatus this morning. No other complaints at this time. She is still on an amiodarone infusion and heparin infusion. Per nursing, due to her persistent high heart rate, she is getting another amiodarone bolus. Her heart rate is currently in the 130s on telemetry in the IMU. Review of Systems Review of Systems: All systems reviewed & are unremarkable except as noted in HPI and below Exam Const: General: uncomfortable Nutritional Appearance: obese Orientation/consciousness: patient oriented x3 GI: Inspection: obesity (Minimally distended) GI Palp: Yes Soft to palpation, Yes Tenderness to palpation present (GI) (minimal periumbilical tenderness at incisional hernia), No Guarding due to palpation present (GI) and Yes Hernia present (periumbilical bulge noted, unable to fully reduce incisional hernia ) Auscultation: Hypoactive bowel sounds present Psych: Mental Status: mental status grossly normal Insight: Good insight present (Psych) Objective Data Vital Signs Vital Signs: Vital Signs - 24 hr 12/22/22 12:00 12/22/22 12:00 12/22/22 12:00 Temperature 97.4 F L Pulse Rate 89 111 H Respiratory Rate 16 Blood Pressure 143/83 H Pulse Oximetry 96 Oxygen Delivery Room Air 12/22/22 16:00 12/22/22 14:00 12/22/22 16:00 Temperature 97.8 F Pulse Rate 127 H 130 H 130 H Respiratory Rate 14 Blood Pressure 126/88 Pulse Oximetry 96 Oxygen Delivery 12/22/22 16:00 12/22/22 18:00 12/22/22 20:00 Temperature Pulse Rate 130 H 133 H Respiratory Rate 14 Blood Pressure Pulse Oximetry 96 Oxygen Delivery Room Air Room Air 12/22/22 20:00 12/22/22 21:10 12/22/22 22:39 Temperature 97.6 F Pulse Rate 149 H 156 H 143 H Respiratory Rate 20 Blood Pressure 113/76 Pulse Oximetry 98 Oxygen Delivery 12/22/22 20:00 12/22/22 23:14 12/22/22 22:00 Temperature 97.7 F Pulse Rate 140 H 137 H 133 H Respiratory Rate 20 Blood Pressure 135/89 Pulse Oximetry 98 Oxygen Delivery
[2022-12-23] MEDS: AMIODARONE 150 MG/D5W 100 ML 150 MG/100 ML BAG 600 MG IV CONT (11:24)
[2022-12-23 11:45] LABS: Glucose Point of Care 213 mg/dl (65-105)
[2022-12-23] MEDS: INSULIN ASPART (*BKC) 100 UNITS/ML SUB-Q (12:23)
--- NOTE | 2022-12-23 14:22 | PM.IMPN ---
Progress Note: A&P Assessment and Plan (1) Incarcerated incisional hernia: Code(s): K43.0 - Incisional hernia with obstruction, without gangrene Status: Acute Assessment and Plan: CT abdomen pelvis revealing small bowel obstruction with a ventral hernia containing a focal small bowel loop concern for incarcerated hernia. Areas of probable fat necrosis in the mesentery. General surgery consulted. General surgery able to reduce ventral hernia12/22. Antiemetics and analgesics p.r.n.. 12/23 hernia was irreducible (2) Atrial fibrillation with rapid ventricular response: Code(s): I48.91 - Unspecified atrial fibrillation Status: Acute Assessment and Plan: Patient on diltiazem, metoprolol and warfarin due to history of AFib. Patient presents to the ED with AFib RVR. Cardiology consulted. Patient was started on diltiazem drip that was in transition to amiodarone drip due to heart rate not being controlled 12/23 amiodarone 150 mg bolus given Metoprolol 5 mg IV push p.r.n. for tachycardia (3) Small bowel obstruction: Code(s): K56.609 - Unspecified intestinal obstruction, unspecified as to partial versus complete obstruction Status: Acute Assessment and Plan: Small-bowel obstruction seen on CT scan. NG tube placed. General surgery consulted. NPO status. (4) Type 2 diabetes mellitus without complications: Onset Date: ~08/2017 Code(s): E11.9 - Type 2 diabetes mellitus without complications Status: Acute Assessment and Plan: Insulin Lispro sliding scale, Accu-checks qAc and HS and Hold oral hypoglycemics Initiate hypoglycemic precautions Obtain a HgbA1c (5) Essential (primary) hypertension: Code(s): I10 - Essential (primary) hypertension Status: Acute Assessment and Plan: continue antihypertensives (6) Chronic anticoagulation: Code(s): Z79.01 - senior living (current) use of anticoagulants Status: Acute Assessment and Plan: warfarin on hold and patient started on heparin due to possible surgery. Subjective Date/time seen: 12/23/22 14:22 Interval history: Patient had NG tube removed yesterday. After NG tube removal patient developed abdominal pain and nausea vomiting. Repeat CT abdomen pelvis showed persistent small bowel obstruction. When seen patient today she continues to have abdominal pain and nausea but did not vomit today. I discussed this with General surgery nurse practitioner and had decided to reinsert patient's NG tube. General surgery would like to take her to surgery once heart rate is rate controlled. Exam Narrative: GENERAL: Comfortable, no acute distress HENMT: moist mucous membranes EYES: EOM intact b/l NECK: no lymphadenopathy RESPIRATORY: clear to auscultation CARDIO: Irregular rate, irregular rhythm GI: distended, left lower quadrant tenderness, bowel sounds present SKIN: no rashes EXTREMITIES: no edema, redness or tenderness Objective Data Vital Signs Vital Signs: Vital Signs - 24 hr 12/22/22 16:00 12/22/22 16:00 12/22/22 16:00 Temperature 97.8 F Pulse Rate 127 H 130 H 130 H Respiratory Rate 14 14 Blood Pressure 126/88 Pulse Oximetry 96 96 Oxygen Delivery Room Air 12/22/22 18:00 12/22/22 20:00 12/22/22 20:00 Temperature 97.6 F Pulse Rate 133 H 149 H Respiratory Rate 20 Blood Pressure 113/76 Pulse Oximetry 98 Oxygen Delivery Room Air 12/22/22 21:10 12/22/22 22:39 12/22/22 20:00 Temperature Pulse Rate 156 H 143 H 140 H Respiratory Rate Blood Pressure Pulse Oximetry Oxygen Delivery 12/22/22 23:14 12/22/22 22:00 12/23/22 00:00 Temperature 97.7 F Pulse Rate 137 H 133 H 114 H Respiratory Rate 20 Blood Pressure 135/89 Pulse Oximetry 98 Oxygen Delivery 12/23/22 02:00 12/23/22 03:02 12/23/22 04:00 Temperature 97.4 F L Pulse Rate 127 H 1
[2022-12-23] MEDS: PHYTONADIONE ADULT INJ 10 MG in DEXTROSE 5% IN WATER 50 ML 100 MG IVPB (15:41)
[2022-12-23 16:21] LABS: Glucose Point of Care 171 mg/dl (65-105)
[2022-12-23 17:00] LABS: Glucose Point of Care 167 mg/dl (65-105)
--- NOTE | 2022-12-23 17:19 | PC.NURSE ---
On 12/23/22, the student, Carmita [facility], provided care and completed Data Symmetry documentation on this patient. I have reviewed the student's documentation and agree with the findings.
[2022-12-23 21:07] LABS: Glucose Point of Care 145 mg/dl (65-105)
[2022-12-24] VITALS (32 sets, daily range): BP systolic 104–150; BP diastolic 45–101; PULSE 75–130; RESP 14–22; TEMP 36.3–36.9; O2SAT 92–100
[2022-12-24] MEDS: HEPARIN SOD/D5W 100 UNITS/ML 25,000 UNITS/250 ML BAG 11 UNITS IV CONT (01:46)
[2022-12-24] MEDS: AMIODARONE 360 MG/D5W 200 ML 360 MG/200 ML BAG 33.33 MG IV CONT ×4 (01:50→21:05)
[2022-12-24] MEDS: METOPROLOL TARTRATE INJ 5 MG/5 ML VIAL IV PUSH ×6 (01:55→21:05)
[2022-12-24 04:58] LABS: Hematocrit 44.2 % (37.0-47.0); Hemoglobin 14.4 g/dL (12.0-15.0); Mean Corpuscular HGB Conc 32.6 g/dl (32-36); Mean Corpuscular Hemoglobin 29.3 pg (26-34); Mean Platelet Volume 9.9 fl (7.4-10.4); Platelet Count Result 217 k/mm3 (150-375); Red Blood Count 4.91 M/mm3 (4.2-5.4); Red Cell Distribution Width 14.5 % (11.5-14.5); White Blood Count 10.4 K/mm3 (4.5-10.0)
[2022-12-24 05:07] LABS: INR 1.2
[2022-12-24 05:08] LABS: Partial Thromboplastin Time 73.1 SECONDS (22.3-36.8)
[2022-12-24 05:14] LABS: Anion Gap 5 mmol/L (8-16); Blood Urea Nitrogen 28 mg/dL (7-17); Calcium 8.1 mg/dL (8.4-10.2); Carbon Dioxide 31 mmol/L (22-30); Chloride 96 mmol/L (98-107); Estimated CRCL calculation 69 ml/min; Estimated Glomerular Filt Rate > 60; Glucose 143 mg/dL (65-110); Magnesium 2.5 mg/dL (1.6-2.3); Potassium 3.1 mmol/L (3.4-5.0); Sodium 132 mmol/L (137-145)
[2022-12-24 08:00] LABS: Glucose Point of Care 148 mg/dl (65-105)
--- NOTE | 2022-12-24 08:41 | PM.PNCARD ---
Progress Note: A&P Assessment and Plan (1) Paroxysmal atrial fibrillation: Code(s): I48.0 - Paroxysmal atrial fibrillation Status: Chronic Plan 77-year-old lady with chronic atrial fibrillation being managed with rate control and anticoagulation. Obviously at this time she is NPO because of NG suction and need for surgical treatment for recurrent abdominal wall hernia. She it for the time being is receiving intravenous amiodarone for rate control. Heart rate control seems to be reasonable if not ideal at this time with variable heart rates between 90s and 115. Hemodynamics otherwise stable. She should be stable enough to undergo her hernia repair this morning. When she is no longer NPO postoperatively we will transition back to her regimen of diltiazem and metoprolol orally for rate control. Anticoagulation is obviously interrupted for surgery Avila Ochoa MD [facility] Subjective Date/time seen: Date of service: 12/24/22 08:41 Interval history: Follow-up for Patient with longstanding persistent atrial fibrillation now presents with rapid ventricular response due to physiologic stress of incarcerated hernia. She is followed by Dr. Adler for her longstanding persistent atrial fibrillation and is chronically anticoagulated with warfarin.? She also has obesity, sleep apnea (unable to tolerate CPAP) and pulmonary hypertension. Echo 09/2022:? EF 55%, mod LVH, nml diastolic fxn, severe LAE, moderate MR/TR, RVSP 42 mmHg 12/22/2022: Change IV Cardizem to amiodarone due to AFib RVR. Hernia was not reducible and no plans for urgent surgery. P.o. metoprolol was resumed. Date of service 12/23/2022: NG tube is out, but the patient is having a lot of ?gas pains? and abdominal discomfort as well as nausea. Not able to eat or drink. Heart rate is better but still RVR, 120-130's. She has been given a couple doses IV Lopressor through the night. Date of service 12/24/2022: Patient is supine in bed in the IMU offers no immediate complaints. Heart rate is between 90-115 on intravenous amiodarone. She is asymptomatic of her arrhythmia. Anticipating surgery for abdominal hernia this morning Exam Const: General: cooperative, healthy appearing (Obese) and uncomfortable; No confusion Orientation/consciousness: oriented to person, patient oriented x3 and No confusion HENMT: Mouth: Yes moist mucous membranes Other: NG tube Eyes: General: appearance normal, both eyes and all related structures EOM: EOMs intact bilaterally Neck: Neck: supple and no JVD Thyroid: thyroid normal Carotids: no bruits Resp: Effort & Inspection: normal respiratory effort Auscultation: clear to auscultation bilaterally Cardio: Rate: regular rate and tachycardic Rhythm: regular rhythm and abnormal rhythm irregularly irregular Heart sounds: no murmurs GI: Inspection: normal to inspection Other: Decreased bowel sounds, ventral hernia Skin: General skin exam: normal color and no rashes or lesions noted Neuro: General: oriented to person, patient oriented x3 and No confusion Extrem: Right lower extremity: edema Left lower extremity: edema Other: Trace to mild lower extremity edema Psych: Appearance: grossly normal Mental Status: mental status grossly normal Objective Data Vital Signs Vital Signs: Vital Signs - 24 hr 12/23/22 09:10 12/23/22 10:00 12/23/22 11:24 Temperature Pulse Rate 60 128 H 134 H Respiratory Rate Blood Pressure 127/90 Pulse Oximetry Oxygen Delivery 12/23/22 11:57 12/23/22 12:25 12/23/22 16:00 Temperature 36.4 C L 36.6 C Pulse Rate 130 H 111 H 60 Respiratory Rate 18 18 Blood Pressure 127/90 133/85 Pulse Oximetry 92 95 Oxygen Delivery 12/23/22 12:00 12/23/22 12:00 12/23/22 16:00 Temperature Pulse Rate 111 H Respiratory Rate Blood Pressure Pulse Oximetry Oxygen Delivery Room Air Room Air 12/23/22 14:00 12/23/22 16:00 12/23/22 17:43
[2022-12-24] MEDS: POTASSIUM CHLORIDE INJ 40 MEQ in SODIUM CHLORIDE 0.9% IV 500 ML 130 MEQ IVPB (09:07)
--- NOTE | 2022-12-24 10:06 | WPDANESEPPF ---
Anes - Initial Pre Proc Eval Procedure: Operation Date: 12/24/22 10:30 Proposed Procedures p Open Repair Incarcerated Incisional Hernia, Possible Mesh - Steven Fraire DO Date/Time: 12/24/22 10:06 Surgeon: Jasvir Ivory MD Pre Op Diagnosis: Incarcerated Ventral Hernia, Partial SBO, AFIB w R Patient Data Age: 77 Gender: F Height: 1.55 m Weight: 114.7 kg Last Vital Signs Temp 36.3 C L 12/24/22 07:43 Pulse 115 H 12/24/22 08:23 Resp 16 12/24/22 07:43 BP 131/68 12/24/22 07:43 Pulse Ox 96 12/24/22 07:43 O2 Del Method Room Air 12/24/22 08:00 Allergies Allergy/AdvReac Type Severity Reaction Status Date / Time cefadroxil Allergy Severe RASH AND Verified 12/21/22 17:10 ITCHING benazepril AdvReac Intermediate Cough Verified 12/21/22 17:10 metformin AdvReac Unknown SEVERE Verified 12/21/22 17:10 DIARRHEA Home Medications Medication Instructions Recorded Confirmed Type acetaminophen 650 mg 650 mg PO Q8H PRN Pain 06/13/19 12/22/22 History tablet,extended release diltiazem HCl 180 mg 180 mg PO DAILY #30 caps 11/29/19 12/22/22 Rx capsule,extended release 24 hr (Cartia XT) lorazepam 1 mg tablet 1 mg PO BID PRN Twitch 08/13/21 12/22/22 History metoprolol tartrate 25 mg tablet 25 mg PO BID 08/13/21 12/22/22 History tramadol 50 mg tablet 50 mg PO Q6H PRN pain 08/13/21 12/22/22 History potassium chloride 10 mEq 10 meq PO DAILY #90 tabs 08/02/22 12/22/22 Rx tablet,extended release gabapentin 300 mg capsule 300 mg PO BID #180 caps 08/17/22 12/22/22 Rx hydrochlorothiazide 25 mg tablet 25 mg PO DAILY #90 tabs 09/27/22 12/22/22 Rx losartan 50 mg tablet (Cozaar) 50 mg PO DAILY #90 tabs 09/27/22 12/22/22 Rx pantoprazole 40 mg tablet,delayed 40 mg PO BID #180 tabs 09/27/22 12/22/22 Rx release (Protonix) furosemide 20 mg tablet (Lasix) 20 mg PO DAILY #90 tabs 11/01/22 12/22/22 Rx warfarin 5 mg tablet 5 mg PO .COMPLEX #48 tabs 11/16/22 12/22/22 Rx Laboratory Tests 12/23/22 12/23/22 12/23/22 11:36 16:18 16:54 WBC RBC Hgb Hct MCV MCH MCHC RDW Plt Count MPV PT INR APTT Sodium Potassium Chloride Carbon Dioxide Anion Gap BUN Creatinine Estim Creat Clear Calc Estimated GFR Glucose POC Capillary Glucose 213 H mg/dl 171 H mg/dl 167 H mg/dl (65-105) (65-105) (65-105) Calcium Magnesium Blood Type Antibody Screen 12/23/22 12/24/22 12/24/22 20:44 04:50 07:39 WBC 10.4 H K/mm3 (4.5-10.0) RBC 4.91 M/mm3 (4.2-5.4) Hgb 14.4 g/dL (12.0-15.0) Hct 44.2 % (37.0-47.0) MCV 90.0 fl (80-100) MCH 29.3 pg (26-34) MCHC 32.6 g/dl (32-36) RDW 14.5 % (11.5-14.5) Plt Count 217 k/mm3 (150-375) MPV 9.9 fl (7.4-10.4) PT 16.0 H Seconds (11.1-14.7) INR 1.2 APTT 73.1 H SECONDS (22.3-36.8) Sodium 132 L mmol/L (137-145) Potassium 3.1 L mmol/L (3.4-5.0) Chloride 96 L mmol/L (98-107) Carbon Dioxide 31 H mmol/L (22-30) Anion Gap 5 L mmol/L (8-16) BUN 28 H mg/dL (7-17) Creatinine 0.70 mg/dL (0.7-1.0) Estim Creat Clear Calc 69 ml/min Estimated GFR > 60 (59 - ) Glucose 143 H mg/dL (65-110) POC Capillary Glucose 145 H mg/dl 148 H mg/dl (65-105) (65-105) Calcium 8.1 L mg/dL (8.4-10.2) Magnesium 2.5 H mg/dL (1.6-2.3) Blood Type AB Negative Antibody Screen Negative Patient hx anesthesia problems: none Family hx anesthesia problem
--- NOTE | 2022-12-24 10:19 | WPDHPUPDATE1 ---
History and Physical Update Update Date/Time: 12/24/22 10:19 History and Physical has been reviewed, including an updated exam of the patient. There are NO changes in the patient's condition. Risks, benefits, and alternatives have been discussed and questions answered. Patient agrees to proceed with procedure.
[2022-12-24] MEDS: LACTATED RINGERS 1,000 ML 30 ML IV CONT ×2 (10:30→11:57)
[2022-12-24] MEDS: ceFAZolin 2 GM/D5W 50 ML 2 GM/50 ML BAG IVPB (11:31)
--- NOTE | 2022-12-24 11:40 | W.PM.PROC2 ---
Procedure Note - Detailed Date of Procedure 12/24/22 Pre-op Diagnosis Incarcerated Ventral Hernia, Partial SBO, AFIB w R Post-op Diagnosis Same Procedure Performed Open 5cm incarcerated incisional hernia repair with mesh Surgeon Steven Fraire, DO Anesthesia General and Local (0.5% bupivicaine with epi) Indications This is a 77-year-old woman who presented to the emergency department with abdominal pain, nausea, and vomiting. A CT of her abdomen and pelvis showed evidence of a partial small bowel obstruction secondary to a ventral hernia containing a loop of bowel. NG tube was placed and she was admitted to the hospital for further treatment. The hernia was somewhat difficult to reduce, but initially it was able to be reduced and patient did feel some relief of her pain, nausea, and vomiting. Her NG tube was removed and she was started on a clear liquid diet, but she had recurrent symptoms and repeat CT showed persistent evidence of the incarcerated hernia containing bowel. Discussions were made with the patient about treatment options and decision was made to proceed with open incarcerated incisional hernia repair, possible bowel resection, possible mesh. Findings Open incarcerated incisional hernia repair was performed. The patient was found to have a 5 cm incisional hernia incarcerated with a loop of small bowel. There was some clear ascites within the hernia sac but the bowel appeared healthy and viable. The bowel was reduced and the hernia sac was excised and sent to the lab for pathology. The hernia defect was measuring about 5 cm. An [address] hernia patch was placed within the abdominal cavity and secured at the 4 corners with 0 Ethibond U-stitch trans fascial sutures. Due to the subcutaneous space that was residual after excising the hernia sac, I chose to place a 15 round Everardo drain within the subcutaneous space to prevent seroma or hematoma formation. Description of Procedure Procedure as well as risks, benefits, and alternatives were discussed with the patient. Written consent was obtained and placed in chart prior to procedure. Patient was brought back to surgical suite. She was placed supine on operating table. Time-out was done to confirm patient and procedure. She was then intubated by the anesthesia department. Her abdomen was prepped and draped in sterile fashion using chlorhexidine prep. He had an 8 cm vertical elliptical incision was made around the umbilicus skin using a 10 blade scalpel. The umbilical skin was excised using electrocautery. The subcutaneous space was then carefully dissected using electrocautery. I identified the hernia sac and dissected the subcutaneous attachments around the hernia sac all the way down to the level of the fascia using electrocautery. The hernia sac was then carefully entered using Metzenbaum scissors. There was some ascites within the hernia sac and a loop of small bowel. The small bowel appeared slightly erythematous but appeared healthy and viable. I was able to reduce the small bowel and carefully inspected for any other abnormalities. There were a few omental adhesions on the underside of the abdominal wall that were carefully swept free using blunt dissection with my finger. The hernia defect measured about 5 cm. Decision was made to repair the hernia defect with mesh. An [address] hernia patch was placed within the abdominal cavity and centered on the hernia defect. The mesh was then secured to the fascia using 0 Ethibond U-stitch trans fascial sutures at the 4 corners. The fascia was then closed over the mesh using 0 Ethibond [id number] sutures. The repair was inspected and appeared secure. 0.5% bupivacaine with epinephrine was infiltrated locally around the fascia and subcutaneous space. I then chose to place a 15 round Everardo drain through a counter incision within the subcutaneous space. The drain was cut to appropriate length and secured using a 3-0 nyl
[2022-12-24 12:45] LABS: Glucose Point of Care 137 mg/dl (65-105)
--- NOTE | 2022-12-24 13:30 | PM.IMPN ---
Progress Note: A&P Assessment and Plan (1) Incarcerated incisional hernia: Code(s): K43.0 - Incisional hernia with obstruction, without gangrene Status: Acute Assessment and Plan: CT abdomen pelvis revealing small bowel obstruction with a ventral hernia containing a focal small bowel loop concern for incarcerated hernia. Areas of probable fat necrosis in the mesentery. General surgery consulted. General surgery able to reduce ventral hernia12/22. Antiemetics and analgesics p.r.n. 12/23 hernia was irreducible 12/24 surgical repair of hernia (2) Atrial fibrillation with rapid ventricular response: Code(s): I48.91 - Unspecified atrial fibrillation Status: Acute Assessment and Plan: Patient on diltiazem, metoprolol and warfarin due to history of AFib. Patient presents to the ED with AFib RVR. Cardiology consulted. Patient was started on diltiazem drip that was in transition to amiodarone drip due to heart rate not being controlled 12/23 amiodarone 150 mg bolus given Metoprolol 5 mg IV push p.r.n. for tachycardia (3) Small bowel obstruction: Code(s): K56.609 - Unspecified intestinal obstruction, unspecified as to partial versus complete obstruction Status: Acute Assessment and Plan: Small-bowel obstruction seen on CT scan. NG tube placed. General surgery consulted. NPO status. (4) Type 2 diabetes mellitus without complications: Onset Date: ~08/2017 Code(s): E11.9 - Type 2 diabetes mellitus without complications Status: Acute Assessment and Plan: Insulin Lispro sliding scale, Accu-checks qAc and HS and Hold oral hypoglycemics Initiate hypoglycemic precautions HgbA1c 6.8 (5) Essential (primary) hypertension: Code(s): I10 - Essential (primary) hypertension Status: Acute Assessment and Plan: continue antihypertensives (6) Chronic anticoagulation: Code(s): Z79.01 - halfway (current) use of anticoagulants Status: Acute Assessment and Plan: warfarin on hold and patient started on heparin due to possible surgery. Subjective Date/time seen: 12/24/22 13:30 Interval history: NG tube was inserted yesterday after patient continued to have nausea and some vomiting. Patient's abdominal pain has much improved since NG tube was placed. Her abdomen is more soft. General surgery planning on doing hernia repair with mesh today. She remains asymptomatic AFib on amnio drip. Exam Narrative: GENERAL: Comfortable, no acute distress HENMT: moist mucous membranes EYES: EOM intact b/l NECK: no lymphadenopathy RESPIRATORY: clear to auscultation CARDIO: Irregular rate, irregular rhythm GI: Soft, nontender, bowel sounds present SKIN: no rashes EXTREMITIES: no edema, redness or tenderness Objective Data Vital Signs Vital Signs: Vital Signs - 24 hr 12/23/22 16:00 12/23/22 16:00 12/23/22 14:00 Temperature 98 F Pulse Rate 60 118 H Respiratory Rate 18 Blood Pressure 133/85 Pulse Oximetry 95 Oxygen Delivery Room Air Oxygen Flow Rate 12/23/22 16:00 12/23/22 17:43 12/23/22 14:44 Temperature Pulse Rate 111 H 111 H 114 H Respiratory Rate Blood Pressure Pulse Oximetry Oxygen Delivery Oxygen Flow Rate 12/23/22 18:00 12/23/22 20:00 12/23/22 21:20 Temperature 97 F L Pulse Rate 93 116 H 105 H Respiratory Rate 20 Blood Pressure 115/76 Pulse Oximetry 97 Oxygen Delivery Oxygen Flow Rate 12/23/22 20:00 12/24/22 00:05 12/24/22 00:00 Temperature 97.8 F Pulse Rate 112 H Respiratory Rate 16 Blood Pressure 104/73 Pulse Oximetry 97 Oxygen Delivery Room Air Room Air Oxygen Flow Rate 12/24/22 01:55 12/23/22 20:00 12/23/22 22:00 Temperature Pulse Rate 116 H 111 H 113 H Respiratory Rate Blood Pressure Pulse Oximetry Oxygen Delivery Oxygen Flow Rate 12/24
[2022-12-24] MEDS: MORPHINE SULFATE (*CRX) 2 MG/ML INJ IV PUSH (14:23)
[2022-12-24] MEDS: MORPHINE SULFATE (*CRX) 4 MG/ML INJ IV PUSH (17:10)
[2022-12-24 17:56] LABS: Glucose Point of Care 161 mg/dl (65-105)
[2022-12-24 19:52] LABS: Glucose Point of Care 150 mg/dl (65-105)
[2022-12-25] VITALS (25 sets, daily range): BP systolic 104–130; BP diastolic 47–85; PULSE 51–118; RESP 16–20; TEMP 36.4–36.9; O2SAT 95–97
[2022-12-25 00:57] LABS: Partial Thromboplastin Time 64.3 SECONDS (22.3-36.8)
[2022-12-25] MEDS: METOPROLOL TARTRATE INJ 5 MG/5 ML VIAL IV PUSH ×6 (01:08→21:21)
[2022-12-25] MEDS: HEPARIN SODIUM 5,000 UNITS/ML VIAL 3000 UNITS IV PUSH ×2 (01:09→16:45)
[2022-12-25] MEDS: MORPHINE SULFATE (*CRX) 4 MG/ML INJ IV PUSH (01:12)
[2022-12-25] MEDS: AMIODARONE 360 MG/D5W 200 ML 360 MG/200 ML BAG 33.33 MG IV CONT ×4 (02:36→21:22)
[2022-12-25 07:57] LABS: Hematocrit 41.5 % (37.0-47.0); Hemoglobin 13.4 g/dL (12.0-15.0); Mean Corpuscular HGB Conc 32.3 g/dl (32-36); Mean Corpuscular Hemoglobin 29.8 pg (26-34); Mean Corpuscular Volume 92.2 fl (80-100); Mean Platelet Volume 10.3 fl (7.4-10.4); Platelet Count Result 165 k/mm3 (150-375); Red Cell Distribution Width 14.6 % (11.5-14.5)
[2022-12-25 08:08] LABS: Anion Gap 3 mmol/L (8-16); Blood Urea Nitrogen 24 mg/dL (7-17); Calcium 7.5 mg/dL (8.4-10.2); Carbon Dioxide 29 mmol/L (22-30); Chloride 98 mmol/L (98-107); Estimated CRCL calculation 95 ml/min; Estimated Glomerular Filt Rate > 60; Glucose 146 mg/dL (65-110); Potassium 3.3 mmol/L (3.4-5.0); Sodium 130 mmol/L (137-145)
[2022-12-25 08:26] LABS: Glucose Point of Care 154 mg/dl (65-105)
[2022-12-25] MEDS: FUROSEMIDE 20 MG TABLET PO (08:45)
[2022-12-25] MEDS: PANTOPRAZOLE 40 MG TABLET PO ×2 (08:45→16:44)
[2022-12-25] MEDS: GABAPENTIN 300 MG CAPSULE PO ×2 (08:45→16:45)
[2022-12-25] MEDS: LOSARTAN POTASSIUM 50 MG TABLET PO (08:45)
[2022-12-25] MEDS: traMADol HCL (*CRX) 50 MG TABLET PO ×2 (10:06→21:43)
--- NOTE | 2022-12-25 10:34 | PM.PNCARD ---
Progress Note: A&P Assessment and Plan (1) Paroxysmal atrial fibrillation: Code(s): I48.0 - Paroxysmal atrial fibrillation Status: Chronic Assessment and Plan: Continue amiodarone for now. Will resume metoprolol and diltiazem when able to take p.o.. Resume warfarin also unable to take p.o.. Heart rate is reasonably controlled present. Subjective Date/time seen: 12/25/22 10:34 Interval history: Follow-up for Patient with longstanding persistent atrial fibrillation now presents with rapid ventricular response due to physiologic stress of incarcerated hernia. She is followed by Dr. Adler for her longstanding persistent atrial fibrillation and is chronically anticoagulated with warfarin.? She also has obesity, sleep apnea (unable to tolerate CPAP) and pulmonary hypertension. Echo 09/2022:? EF 55%, mod LVH, nml diastolic fxn, severe LAE, moderate MR/TR, RVSP 42 mmHg 12/22/2022: Change IV Cardizem to amiodarone due to AFib RVR. Hernia was not reducible and no plans for urgent surgery. P.o. metoprolol was resumed. Date of service 12/23/2022: NG tube is out, but the patient is having a lot of ?gas pains? and abdominal discomfort as well as nausea. Not able to eat or drink. Heart rate is better but still RVR, 120-130's. She has been given a couple doses IV Lopressor through the night. Date of service 12/24/2022: Patient is supine in bed in the IMU offers no immediate complaints. Heart rate is between 90-115 on intravenous amiodarone. She is asymptomatic of her arrhythmia. Anticipating surgery for abdominal hernia this morning Date of service 12/25/2022: She feels better today. Less pain. Heart rate is reasonably controlled on diltiazem drip. No chest pain or shortness of breath Review of Systems Review of Systems: Nauseated, abdominal discomfort, not out of bed, unable to eat or drink, no chest pain or shortness of breath. Constitutional: Constitutional: Denies fever(s) Eyes: Eyes: Reports no additional eye complaints ENT: Reports dysphagia (Sore throat from the NG tube) Cardiovascular: Cardiovascular: Denies chest pain, Denies pedal edema, Denies lightheadedness, Reports palpitations and Denies dyspnea Respiratory: Respiratory: Denies chest congestion and Denies dyspnea Gastrointestinal: Gastrointestinal: Reports abdominal pain, Denies hematochezia, Reports dysphagia (Sore throat from the NG tube), Reports nausea and Reports vomiting Genitourinary: Genitourinary: Reports no additional female genitourinary complaints Musculoskeletal: Musculoskeletal: Reports no additional musculoskeletal complaints Integumentary/Breasts: Skin/Breast: Reports system reviewed and no additional complaints, except as docu Neurologic: Reports system reviewed and no additional complaints, except as documented, Denies behavioral changes and Denies confusion Psychiatric: Psychiatric: Denies behavioral changes and Denies confusion Endocrine: Endocrine: Reports palpitations Exam Const: General: cooperative, healthy appearing (Obese) and uncomfortable; No confusion Orientation/consciousness: oriented to person, patient oriented x3 and No confusion HENMT: Mouth: Yes moist mucous membranes Other: NG tube Eyes: General: appearance normal, both eyes and all related structures EOM: EOMs intact bilaterally Neck: Neck: supple and no JVD Thyroid: thyroid normal Carotids: no bruits Resp: Effort & Inspection: normal respiratory effort Auscultation: clear to auscultation bilaterally Cardio: Rate: tachycardic Rhythm: abnormal rhythm irregularly irregular Heart sounds: no murmurs GI: Inspection: normal to inspection Other: Decreased bowel sounds, ventral hernia Skin: General skin exam: normal color and no rashes or lesions noted Neuro: General: oriented to person, patient oriented x3 and No confusion Extrem: Right lower extremity: edema Left lower extremity: edema Other: Trace to mild lowe
--- NOTE | 2022-12-25 11:45 | PM.PNGS ---
Progress Note: A&P Assessment and Plan (1) Encounter for follow-up: Code(s): Z09 - Encounter for follow-up examination after completed treatment for conditions other than malignant neoplasm Status: Acute Assessment and Plan: Doing well on POD#1. Remove NG and start clear liquids Gradually advance activity Monitor drain output (2) H/O abdominal surgery: Code(s): Z98.890 - Other specified postprocedural states Status: Acute (3) Small bowel obstruction: Code(s): K56.609 - Unspecified intestinal obstruction, unspecified as to partial versus complete obstruction Status: Acute Assessment and Plan: Resolved (4) Atrial fibrillation with rapid ventricular response: Code(s): I48.91 - Unspecified atrial fibrillation Status: Acute Assessment and Plan: Continue as per Cardiology. OK to transition to oral meds now that NG will be removed. (5) Chronic anticoagulation: Code(s): Z79.01 - retirement (current) use of anticoagulants Status: Acute Assessment and Plan: Transition to oral anticoagulation as diet is advanced. Subjective Subjective Date/Time Seen: 12/25/22 11:45 Interval history: Doing well on POD#1. Small BM. No nausea/vomiting. Pain controlled. Exam GI: Inspection: non-distended, incision (intact with glue), obesity and other (RADHA serosanguinous) GI Palp: Yes Soft to palpation, Yes Tenderness to palpation present (GI) (incisional) and No Guarding due to palpation present (GI) Auscultation: normal bowel sounds Objective Data Vital Signs Vital Signs: Vital Signs - 24 hr 12/24/22 11:57 12/24/22 12:10 12/24/22 12:25 Temperature 36.3 C L Pulse Rate 115 H 108 H 117 H Respiratory Rate 16 21 H Blood Pressure 150/88 H 141/84 H 136/87 Pulse Oximetry 97 97 96 Oxygen Delivery Simple Face Mask Simple Face Mask Simple Face Mask Oxygen Flow Rate 6 6 6 12/24/22 12:40 12/24/22 12:55 12/24/22 13:47 Temperature 36.6 C Pulse Rate 112 H 114 H 106 H Respiratory Rate 18 16 14 Blood Pressure 141/68 H 127/87 138/71 Pulse Oximetry 95 96 92 Oxygen Delivery Room Air Room Air Oxygen Flow Rate 12/24/22 13:45 12/24/22 14:00 12/24/22 14:23 Temperature Pulse Rate 100 127 H Respiratory Rate Blood Pressure Pulse Oximetry Oxygen Delivery Room Air Oxygen Flow Rate 12/24/22 14:36 12/24/22 14:48 12/24/22 17:15 Temperature 36.4 C Pulse Rate 113 H 122 H 126 H Respiratory Rate 22 H Blood Pressure 115/89 Pulse Oximetry 98 Oxygen Delivery Oxygen Flow Rate 12/24/22 16:00 12/24/22 16:00 12/24/22 18:16 Temperature Pulse Rate 99 100 Respiratory Rate Blood Pressure Pulse Oximetry Oxygen Delivery Room Air Oxygen Flow Rate 12/24/22 19:34 12/24/22 21:05 12/24/22 20:37 Temperature 36.4 C Pulse Rate 106 H 129 H 129 H Respiratory Rate 20 Blood Pressure 105/45 L Pulse Oximetry 98 Oxygen Delivery Oxygen Flow Rate 12/24/22 22:53 12/24/22 20:00 12/24/22 20:00 Temperature 36.6 C Pulse Rate 94 104 H Respiratory Rate 20 Blood Pressure 118/59 L Pulse Oximetry 95 98 Oxygen Delivery Room Air Oxygen Flow Rate 12/25/22 01:08 12/24/22 22:00 12/25/22 00:00 Temperature Pulse Rate 112 H 112 H 117 H Respiratory Rate Blood Pressure Pulse Oximetry Oxygen Delivery Oxygen Flow Rate 12/25/22 00:00 12/25/22 02:36 12/25/22 02:36 Temperature Pulse Rate 104 H 104 H Respiratory Rate Blood Pressure Pulse Oximetry 95 Oxygen Delivery Room Air Oxygen Flow Rate 12/25/22 03:48 12/25/22 02:00 12/25/22 04:00 Temperature 36.4 C Pulse Rate 105 H 118 H 109 H Respiratory Rate 20 Blood Pressure 130/85 Pulse Oximetry 97 Oxygen Delivery Oxygen Flow Rate 12/25/22 05:40 12/25/22 04:00 12/25/22 06:00 Temperature Pulse Rate 105 H 114 H Respiratory Rate Blood Pressure Pulse Oxi
[2022-12-25 13:16] LABS: Glucose Point of Care 164 mg/dl (65-105)
--- NOTE | 2022-12-25 14:16 | PM.IMPN ---
Progress Note: A&P Assessment and Plan (1) Incarcerated incisional hernia: Code(s): K43.0 - Incisional hernia with obstruction, without gangrene Status: Acute Assessment and Plan: CT abdomen pelvis revealing small bowel obstruction with a ventral hernia containing a focal small bowel loop concern for incarcerated hernia. Areas of probable fat necrosis in the mesentery. General surgery consulted. General surgery able to reduce ventral hernia12/22. Antiemetics and analgesics p.r.n. 12/23 hernia was irreducible 12/24 surgical repair of hernia (2) Atrial fibrillation with rapid ventricular response: Code(s): I48.91 - Unspecified atrial fibrillation Status: Acute Assessment and Plan: Patient on diltiazem, metoprolol and warfarin due to history of AFib. Patient presents to the ED with AFib RVR. Cardiology consulted. Patient was started on diltiazem drip that was in transition to amiodarone drip due to heart rate not being controlled 12/23 amiodarone 150 mg bolus given Metoprolol 5 mg IV push p.r.n. for tachycardia (3) Small bowel obstruction: Code(s): K56.609 - Unspecified intestinal obstruction, unspecified as to partial versus complete obstruction Status: Acute Assessment and Plan: Small-bowel obstruction seen on CT scan. General surgery consulted. NG tube removed 12/25 patient started on clear liquid diet. (4) Type 2 diabetes mellitus without complications: Onset Date: ~08/2017 Code(s): E11.9 - Type 2 diabetes mellitus without complications Status: Acute Assessment and Plan: Insulin Lispro sliding scale, Accu-checks qAc and HS and Hold oral hypoglycemics Initiate hypoglycemic precautions HgbA1c 6.8 (5) Essential (primary) hypertension: Code(s): I10 - Essential (primary) hypertension Status: Acute Assessment and Plan: continue antihypertensives (6) Chronic anticoagulation: Code(s): Z79.01 - equipment operator intermodal yard (current) use of anticoagulants Status: Acute Assessment and Plan: warfarin on hold and patient started on heparin due to possible surgery. Subjective Date/time seen: 12/25/22 14:16 Interval history: Patient doing well today. She has some mild postoperative pain in her abdomen but otherwise doing well. She is still on amiodarone drip. NG tube removed today and patient was started on clear liquid diet. Will order PT and OT on the patient due to her not moving about the bed very well. She is having some gas. Exam Narrative: GENERAL: Comfortable, no acute distress HENMT: moist mucous membranes EYES: EOM intact b/l NECK: no lymphadenopathy RESPIRATORY: clear to auscultation CARDIO: Irregular rate, irregular rhythm GI: Soft, nontender, bowel sounds present SKIN: no rashes EXTREMITIES: no edema, redness or tenderness Objective Data Vital Signs Vital Signs: Vital Signs - 24 hr 12/24/22 14:23 12/24/22 14:36 12/24/22 14:48 Temperature 97.6 F Pulse Rate 127 H 113 H 122 H Respiratory Rate 22 H Blood Pressure 115/89 Pulse Oximetry 98 Oxygen Delivery 12/24/22 17:15 12/24/22 16:00 12/24/22 16:00 Temperature Pulse Rate 126 H 99 Respiratory Rate Blood Pressure Pulse Oximetry Oxygen Delivery Room Air 12/24/22 18:16 12/24/22 19:34 12/24/22 21:05 Temperature 97.6 F Pulse Rate 100 106 H 129 H Respiratory Rate 20 Blood Pressure 105/45 L Pulse Oximetry 98 Oxygen Delivery 12/24/22 20:37 12/24/22 22:53 12/24/22 20:00 Temperature 97.8 F Pulse Rate 129 H 94 104 H Respiratory Rate 20 Blood Pressure 118/59 L Pulse Oximetry 95 Oxygen Delivery 12/24/22 20:00 12/25/22 01:08 12/24/22 22:00 Temperature Pulse Rate 112 H 112 H Respiratory Rate Blood Pressure Pulse Oximetry 98 Oxygen Delivery Room Air 12/25/22 00:00 12/25/22 00:00 12/25/22 02:36 Tem
[2022-12-25] MEDS: HEPARIN SOD/D5W 100 UNITS/ML 25,000 UNITS/250 ML BAG 10 UNITS IV CONT (15:33)
[2022-12-25 16:18] LABS: Glucose Point of Care 221 mg/dl (65-105)
[2022-12-25 16:26] LABS: Partial Thromboplastin Time 64.1 SECONDS (22.3-36.8)
[2022-12-25] MEDS: INSULIN ASPART (*BKC) 100 UNITS/ML SUB-Q (16:44)
[2022-12-25 20:33] LABS: Glucose Point of Care 144 mg/dl (65-105)
[2022-12-26] VITALS (24 sets, daily range): BP systolic 98–133; BP diastolic 44–88; PULSE 82–124; RESP 16–22; TEMP 36.1–37.1; O2SAT 93–98
[2022-12-26 00:10] LABS: Partial Thromboplastin Time 82.7 SECONDS (22.3-36.8)
[2022-12-26] MEDS: AMIODARONE 360 MG/D5W 200 ML 360 MG/200 ML BAG 33.33 MG IV CONT ×3 (03:34→21:16)
[2022-12-26 04:45] LABS: Hematocrit 38.3 % (37.0-47.0); Hemoglobin 12.3 g/dL (12.0-15.0); Mean Corpuscular HGB Conc 32.1 g/dl (32-36); Mean Corpuscular Hemoglobin 29.1 pg (26-34); Mean Corpuscular Volume 90.5 fl (80-100); Mean Platelet Volume 10.4 fl (7.4-10.4); Platelet Count Result 161 k/mm3 (150-375); Red Blood Count 4.23 M/mm3 (4.2-5.4); Red Cell Distribution Width 14.6 % (11.5-14.5); White Blood Count 9.6 K/mm3 (4.5-10.0)
[2022-12-26 05:01] LABS: Anion Gap 4 mmol/L (8-16); Blood Urea Nitrogen 14 mg/dL (7-17); Calcium 7.5 mg/dL (8.4-10.2); Carbon Dioxide 32 mmol/L (22-30); Chloride 96 mmol/L (98-107); Estimated CRCL calculation 81 ml/min; Estimated Glomerular Filt Rate > 60; Glucose 139 mg/dL (65-110); Potassium 2.6 mmol/L (3.4-5.0); Sodium 132 mmol/L (137-145)
[2022-12-26] MEDS: METOPROLOL TARTRATE INJ 5 MG/5 ML VIAL IV PUSH ×3 (05:05→15:23)
[2022-12-26] MEDS: POTASSIUM CHLORIDE INJ 40 MEQ in SODIUM CHLORIDE 0.9% IV 500 ML 130 MEQ IVPB (06:27)
[2022-12-26 07:47] LABS: Partial Thromboplastin Time 75.9 SECONDS (22.3-36.8)
[2022-12-26 07:49] LABS: Glucose Point of Care 161 mg/dl (65-105)
--- NOTE | 2022-12-26 09:22 | PM.PNCARD ---
Progress Note: A&P Assessment and Plan (1) Paroxysmal atrial fibrillation: Code(s): I48.0 - Paroxysmal atrial fibrillation Status: Chronic Assessment and Plan: Continue amiodarone for now. She is now taking p.o.. Will resume p.o. metoprolol 1st-25 mg p.o. b.i.d. resume diltiazem likely tomorrow. Would DC amiodarone at that point. Resume warfarin also unable to take p.o.. Heart rate is reasonably controlled present. (2) Chronic anticoagulation: Code(s): Z79.01 - termite control servicer (current) use of anticoagulants Status: Acute Assessment and Plan: On heparin drip. Transition to warfarin when okay with surgery Subjective Date/time seen: 12/26/22 09:22 Interval history: Follow-up for Patient with longstanding persistent atrial fibrillation now presents with rapid ventricular response due to physiologic stress of incarcerated hernia. She is followed by Dr. Adler for her longstanding persistent atrial fibrillation and is chronically anticoagulated with warfarin.? She also has obesity, sleep apnea (unable to tolerate CPAP) and pulmonary hypertension. Echo 09/2022:? EF 55%, mod LVH, nml diastolic fxn, severe LAE, moderate MR/TR, RVSP 42 mmHg 12/22/2022: Change IV Cardizem to amiodarone due to AFib RVR. Hernia was not reducible and no plans for urgent surgery. P.o. metoprolol was resumed. Date of service 12/23/2022: NG tube is out, but the patient is having a lot of ?gas pains? and abdominal discomfort as well as nausea. Not able to eat or drink. Heart rate is better but still RVR, 120-130's. She has been given a couple doses IV Lopressor through the night. Date of service 12/24/2022: Patient is supine in bed in the IMU offers no immediate complaints. Heart rate is between 90-115 on intravenous amiodarone. She is asymptomatic of her arrhythmia. Anticipating surgery for abdominal hernia this morning Date of service 12/25/2022: She feels better today. Less pain. Heart rate is reasonably controlled on diltiazem drip. No chest pain or shortness of breath Date of service 12/26/2022: Still continues to improve. Heart rate is for reasonably controlled on amiodarone drip. She is tolerating p.o. no chest pain or shortness of breath Review of Systems Review of Systems: Nauseated, abdominal discomfort, not out of bed, unable to eat or drink, no chest pain or shortness of breath. Constitutional: Constitutional: Denies fever(s) Eyes: Eyes: Reports no additional eye complaints ENT: Reports dysphagia (Sore throat from the NG tube) Cardiovascular: Cardiovascular: Denies chest pain, Denies pedal edema, Denies lightheadedness, Reports palpitations and Denies dyspnea Respiratory: Respiratory: Denies chest congestion and Denies dyspnea Gastrointestinal: Gastrointestinal: Reports abdominal pain, Denies hematochezia, Reports dysphagia (Sore throat from the NG tube), Reports nausea and Reports vomiting Genitourinary: Genitourinary: Reports no additional female genitourinary complaints Musculoskeletal: Musculoskeletal: Reports no additional musculoskeletal complaints Integumentary/Breasts: Skin/Breast: Reports system reviewed and no additional complaints, except as docu Neurologic: Reports system reviewed and no additional complaints, except as documented, Denies behavioral changes and Denies confusion Psychiatric: Psychiatric: Denies behavioral changes and Denies confusion Endocrine: Endocrine: Reports palpitations Exam Const: General: cooperative, healthy appearing (Obese) and uncomfortable; No confusion Orientation/consciousness: oriented to person, patient oriented x3 and No confusion HENMT: Mouth: Yes moist mucous membranes Eyes: General: appearance normal, both eyes and all related structures Neck: Neck: supple and no JVD Thyroid: thyroid normal Carotids: no bruits Resp: Effort & Inspection: normal respiratory effort Auscultation: clear to auscultation bilaterally Cardio: Rate:
[2022-12-26] MEDS: GABAPENTIN 300 MG CAPSULE PO ×2 (10:46→16:45)
[2022-12-26] MEDS: traMADol HCL (*CRX) 50 MG TABLET PO ×3 (10:47→21:12)
[2022-12-26] MEDS: LOSARTAN POTASSIUM 50 MG TABLET PO (10:48)
[2022-12-26] MEDS: PANTOPRAZOLE 40 MG TABLET PO ×2 (10:49→18:36)
[2022-12-26] MEDS: FUROSEMIDE 20 MG TABLET PO (10:49)
[2022-12-26 11:48] LABS: Glucose Point of Care 157 mg/dl (65-105)
--- NOTE | 2022-12-26 12:08 | PM.PNGS ---
Progress Note: A&P Assessment and Plan (1) Encounter for follow-up: Code(s): Z09 - Encounter for follow-up examination after completed treatment for conditions other than malignant neoplasm Status: Acute Assessment and Plan: Doing well on POD#2. Advancing diet, tolerating. Gradually advance activity Monitor drain output OK to resume Warfarin (2) H/O abdominal surgery: Code(s): Z98.890 - Other specified postprocedural states Status: Acute (3) Small bowel obstruction: Code(s): K56.609 - Unspecified intestinal obstruction, unspecified as to partial versus complete obstruction Status: Acute Assessment and Plan: Resolved (4) Atrial fibrillation with rapid ventricular response: Code(s): I48.91 - Unspecified atrial fibrillation Status: Acute Assessment and Plan: Continue as per Cardiology. OK to transition to oral meds now that NG will be removed. (5) Chronic anticoagulation: Code(s): Z79.01 - skilled nursing (current) use of anticoagulants Status: Acute Assessment and Plan: Transition to oral anticoagulation as diet is advanced. Subjective Subjective Date/Time Seen: 12/26/22 12:08 Interval history: Tolerating diet. Pain controlled. Bowels moving. No nausea or vomiting. Exam GI: Inspection: non-distended, incision (intact with glue), obesity and other (RADHA serosanguinous) GI Palp: Yes Soft to palpation, Yes Tenderness to palpation present (GI) (incisional) and No Guarding due to palpation present (GI) Auscultation: normal bowel sounds Objective Data Vital Signs Vital Signs: Vital Signs - 24 hr 12/25/22 13:03 12/25/22 14:00 12/25/22 16:00 Temperature 36.5 C Pulse Rate 104 H 95 65 Respiratory Rate 16 Blood Pressure 113/59 L Pulse Oximetry 95 Oxygen Delivery 12/25/22 16:44 12/25/22 16:00 12/25/22 16:00 Temperature Pulse Rate 111 H 112 H Respiratory Rate Blood Pressure Pulse Oximetry Oxygen Delivery Room Air 12/25/22 18:00 12/25/22 19:43 12/25/22 21:21 Temperature 36.6 C Pulse Rate 95 82 98 Respiratory Rate 20 Blood Pressure 104/47 L Pulse Oximetry 97 Oxygen Delivery 12/25/22 21:22 12/25/22 21:22 12/25/22 20:00 Temperature Pulse Rate 98 98 95 Respiratory Rate Blood Pressure 104/47 L 104/47 L Pulse Oximetry Oxygen Delivery 12/25/22 20:00 12/25/22 22:00 12/26/22 00:11 Temperature 36.6 C Pulse Rate 97 106 H Respiratory Rate 22 H Blood Pressure 99/44 L Pulse Oximetry 97 98 Oxygen Delivery Room Air 12/26/22 00:00 12/26/22 00:00 12/26/22 00:51 Temperature Pulse Rate 98 96 Respiratory Rate Blood Pressure Pulse Oximetry 98 Oxygen Delivery Room Air 12/26/22 02:00 12/26/22 03:23 12/26/22 03:34 Temperature Pulse Rate 104 H 90 90 Respiratory Rate Blood Pressure Pulse Oximetry Oxygen Delivery 12/26/22 04:37 12/26/22 05:05 12/26/22 04:00 Temperature 36.3 C L Pulse Rate 108 H 108 H 106 H Respiratory Rate 18 Blood Pressure 107/73 Pulse Oximetry 96 Oxygen Delivery 12/26/22 04:00 12/26/22 06:00 12/26/22 08:00 Temperature 36.8 C Pulse Rate 86 112 H Respiratory Rate 16 Blood Pressure 127/88 Pulse Oximetry 96 93 Oxygen Delivery Room Air 12/26/22 10:42 Temperature Pulse Rate Respiratory Rate Blood Pressure Pulse Oximetry Oxygen Delivery Room Air Intake/Output Intake/Output: Intake & Output 12/23/22 12/24/22 12/25/22 12/26/22 23:59 23:59 23:59 23:59 Intake Total 1201 1910 1630 440 Output Total 1100 2250 640 415 Balance 101 -340 990 25 Meds/Results Medications: Active Medications Generic Name Dose Route Start Last Admin Trade Name Freq PRN Reason Stop Dose Admin Dextrose 12.5 gm 12/22/22 12:08 Dextrose 50% 25 Gm/50 Ml Syringe IV PUSH PRN PRN Hypoglycemia Protocol Furosemide 20 mg 12/23/22 09:00 12/26/22 1
--- NOTE | 2022-12-26 13:08 | P.PNIM_ITS ---
Progress Note: A&P Assessment and Plan (1) Incarcerated incisional hernia: Code(s): K43.0 - Incisional hernia with obstruction, without gangrene Status: Acute Assessment and Plan: CT abdomen pelvis revealing small bowel obstruction with a ventral hernia containing a focal small bowel loop concern for incarcerated hernia. Areas of probable fat necrosis in the mesentery. * General surgery consulted. * General surgery able to reduce ventral hernia12/22. * Antiemetics and analgesics p.r.n. * 12/23 hernia was irreducible * 12/24 surgical repair of hernia (2) Atrial fibrillation with rapid ventricular response: Code(s): I48.91 - Unspecified atrial fibrillation Status: Acute Assessment and Plan: Patient on diltiazem, metoprolol and warfarin due to history of AFib. * Patient presents to the ED with AFib RVR. * Cardiology consulted. * Patient was started on diltiazem drip that was in transition to amiodarone drip due to heart rate not being controlled * 12/23 amiodarone 150 mg bolus given * Metoprolol 5 mg IV push p.r.n. for tachycardia * 12/26 plan on DC amiodarone drip tomorrow per Cardiology (3) Small bowel obstruction: Code(s): K56.609 - Unspecified intestinal obstruction, unspecified as to partial versus complete obstruction Status: Acute Assessment and Plan: * Small-bowel obstruction seen on CT scan. * General surgery consulted. * NG tube removed 12/25 * advance diet as tolerated (4) Type 2 diabetes mellitus without complications: Onset Date: ~08/2017 Code(s): E11.9 - Type 2 diabetes mellitus without complications Status: Acute Assessment and Plan: * Insulin Lispro sliding scale, Accu-checks qAc and HS and Hold oral hypoglycemics * Initiate hypoglycemic precautions * HgbA1c 6.8 (5) Essential (primary) hypertension: Code(s): I10 - Essential (primary) hypertension Status: Acute Assessment and Plan: continue antihypertensives (6) Chronic anticoagulation: Code(s): Z79.01 - supervisor intermediates (current) use of anticoagulants Status: Acute Assessment and Plan: warfarin on hold and patient started on heparin due to possible surgery. Subjective Date/time seen: 12/26/22 13:08 Interval history: patient continues to have gas and did have a bowel movement yesterday. She is tolerating her diet well. Plan on discontinuing amiodarone drip tomorrow. Patient should be able to discharge soon if she can tolerated diet and heart rate can stay controlled. Exam Narrative: GENERAL: Comfortable, no acute distress HENMT: moist mucous membranes EYES: EOM intact b/l NECK: no lymphadenopathy RESPIRATORY: clear to auscultation CARDIO: Irregular rate, irregular rhythm GI: Soft, nontender, bowel sounds present SKIN: no rashes EXTREMITIES: no edema, redness or tenderness Objective Data Vital Signs Vital Signs: Vital Signs - 24 hr 12/25/22 14:00 12/25/22 16:00 12/25/22 16:44 Temperature 97.7 F Pulse Rate 95 65 111 H Respiratory Rate 16 Blood Pressure 113/59 L Pulse Oximetry 95 Oxygen Delivery 12/25/22 16:00 12/25/22 16:00 12/25/22 18:00 Temperature Pulse Rate 112 H 95 Respiratory Rate Blood Pressure Pulse O
--- NOTE | 2022-12-26 13:08 | PM.IMPN ---
Progress Note: A&P Assessment and Plan (1) Incarcerated incisional hernia: Code(s): K43.0 - Incisional hernia with obstruction, without gangrene Status: Acute Assessment and Plan: CT abdomen pelvis revealing small bowel obstruction with a ventral hernia containing a focal small bowel loop concern for incarcerated hernia. Areas of probable fat necrosis in the mesentery. General surgery consulted. General surgery able to reduce ventral hernia12/22. Antiemetics and analgesics p.r.n. 12/23 hernia was irreducible 12/24 surgical repair of hernia (2) Atrial fibrillation with rapid ventricular response: Code(s): I48.91 - Unspecified atrial fibrillation Status: Acute Assessment and Plan: Patient on diltiazem, metoprolol and warfarin due to history of AFib. Patient presents to the ED with AFib RVR. Cardiology consulted. Patient was started on diltiazem drip that was in transition to amiodarone drip due to heart rate not being controlled 12/23 amiodarone 150 mg bolus given Metoprolol 5 mg IV push p.r.n. for tachycardia 12/26 plan on DC amiodarone drip tomorrow per Cardiology (3) Small bowel obstruction: Code(s): K56.609 - Unspecified intestinal obstruction, unspecified as to partial versus complete obstruction Status: Acute Assessment and Plan: Small-bowel obstruction seen on CT scan. General surgery consulted. NG tube removed 12/25 advance diet as tolerated (4) Type 2 diabetes mellitus without complications: Onset Date: ~08/2017 Code(s): E11.9 - Type 2 diabetes mellitus without complications Status: Acute Assessment and Plan: Insulin Lispro sliding scale, Accu-checks qAc and HS and Hold oral hypoglycemics Initiate hypoglycemic precautions HgbA1c 6.8 (5) Essential (primary) hypertension: Code(s): I10 - Essential (primary) hypertension Status: Acute Assessment and Plan: continue antihypertensives (6) Chronic anticoagulation: Code(s): Z79.01 - penitentiary (current) use of anticoagulants Status: Acute Assessment and Plan: warfarin on hold and patient started on heparin due to possible surgery. Subjective Date/time seen: 12/26/22 13:08 Interval history: patient continues to have gas and did have a bowel movement yesterday. She is tolerating her diet well. Plan on discontinuing amiodarone drip tomorrow. Patient should be able to discharge soon if she can tolerated diet and heart rate can stay controlled. Exam Narrative: GENERAL: Comfortable, no acute distress HENMT: moist mucous membranes EYES: EOM intact b/l NECK: no lymphadenopathy RESPIRATORY: clear to auscultation CARDIO: Irregular rate, irregular rhythm GI: Soft, nontender, bowel sounds present SKIN: no rashes EXTREMITIES: no edema, redness or tenderness Objective Data Vital Signs Vital Signs: Vital Signs - 24 hr 12/25/22 14:00 12/25/22 16:00 12/25/22 16:44 Temperature 97.7 F Pulse Rate 95 65 111 H Respiratory Rate 16 Blood Pressure 113/59 L Pulse Oximetry 95 Oxygen Delivery 12/25/22 16:00 12/25/22 16:00 12/25/22 18:00 Temperature Pulse Rate 112 H 95 Respiratory Rate Blood Pressure Pulse Oximetry Oxygen Delivery Room Air 12/25/22 19:43 12/25/22 21:21 12/25/22 21:22 Temperature 97.8 F Pulse Rate 82 98 98 Respiratory Rate 20 Blood Pressure 104/47 L 104/47 L Pulse Oximetry 97 Oxygen Delivery 12/25/22 21:22 12/25/22 20:00 12/25/22 20:00 Temperature Pulse Rate 98 95 Respiratory Rate Blood Pressure 104/47 L Pulse Oximetry 97 Oxygen Delivery Room Air 12/25/22 22:00 12/26/22 00:11 12/26/22 00:00 Temperature 97.9 F Pulse Rate 97 106 H 98 Respiratory Rate 22 H Blood Pressure 99/44 L Pulse Oximetry 98 Oxygen Delivery 12/26/22 00:00 12/26/22 00:51 12/26/22 02:00 Temperature Pulse
[2022-12-26 14:03] LABS: Potassium 3.1 mmol/L (3.4-5.0)
[2022-12-26] MEDS: HEPARIN SOD/D5W 100 UNITS/ML 25,000 UNITS/250 ML BAG 11 UNITS IV CONT (15:19)
[2022-12-26] MEDS: KCL 40 MEQ/D5/0.9% SOD CHL 1,000 ML 100 ML IV CONT (15:23)
[2022-12-26 16:09] LABS: Glucose Point of Care 170 mg/dl (65-105)
[2022-12-26 19:59] LABS: Glucose Point of Care 240 mg/dl (65-105)
[2022-12-26] MEDS: METOPROLOL TARTRATE 25 MG TABLET PO (20:59)
[2022-12-26] MEDS: INSULIN ASPART (*BKC) 100 UNITS/ML SUB-Q (21:01)
[2022-12-27] VITALS (15 sets, daily range): BP systolic 108–149; BP diastolic 63–87; PULSE 79–119; RESP 18–20; TEMP 36.1–36.6; O2SAT 96–100
[2022-12-27] MEDS: AMIODARONE 360 MG/D5W 200 ML 360 MG/200 ML BAG 33.33 MG IV CONT (03:08)
[2022-12-27] MEDS: KCL 40 MEQ/D5/0.9% SOD CHL 1,000 ML 100 ML IV CONT (03:49)
[2022-12-27 05:34] LABS: Hematocrit 39.6 % (37.0-47.0); Mean Corpuscular HGB Conc 30.3 g/dl (32-36); Mean Corpuscular Hemoglobin 29.1 pg (26-34); Mean Corpuscular Volume 96.1 fl (80-100); Mean Platelet Volume 11.9 fl (7.4-10.4); Platelet Count Result 117 k/mm3 (150-375); Red Blood Count 4.12 M/mm3 (4.2-5.4); Red Cell Distribution Width 14.8 % (11.5-14.5); White Blood Count 7.4 K/mm3 (4.5-10.0)
[2022-12-27 05:42] LABS: Alanine Aminotransferase 13 U/L (6-35); Albumin Level 2.8 g/dL (3.5-5.1); Alkaline Phosphatase 77 U/L (38-126); Anion Gap 3 mmol/L (8-16); Aspartate Amino Transferase 16 U/L (14-36); Bilirubin,Total 0.5 mg/dL (0.2-1.3); Blood Urea Nitrogen 10 mg/dL (7-17); Calcium 7.5 mg/dL (8.4-10.2); Carbon Dioxide 29 mmol/L (22-30); Chloride 101 mmol/L (98-107); Estimated CRCL calculation 95 ml/min; Estimated Glomerular Filt Rate > 60; Glucose 158 mg/dL (65-110); Potassium 3.5 mmol/L (3.4-5.0); Sodium 133 mmol/L (137-145)
[2022-12-27 06:23] LABS: Partial Thromboplastin Time 91.4 SECONDS (22.3-36.8)
--- NOTE | 2022-12-27 09:03 | PM.PNCARD ---
Progress Note: A&P Assessment and Plan (1) Paroxysmal atrial fibrillation: Code(s): I48.0 - Paroxysmal atrial fibrillation Status: Chronic Assessment and Plan: Will discontinue amiodarone. She is tolerating p.o. medications. Continue her home dose metoprolol. Will restart diltiazem 180 mg p.o. daily today. Resume warfarin also at standard home dose (2) Chronic anticoagulation: Code(s): Z79.01 - emt intermediate (current) use of anticoagulants Status: Acute Assessment and Plan: On heparin drip. Transition to warfarin when okay with surgery Plan Will also DC IV fluids as to not cause iatrogenic volume overload. Subjective Date/time seen: 12/27/22 09:03 Interval history: Follow-up for Patient with longstanding persistent atrial fibrillation now presents with rapid ventricular response due to physiologic stress of incarcerated hernia. She is followed by Dr. Adler for her longstanding persistent atrial fibrillation and is chronically anticoagulated with warfarin.? She also has obesity, sleep apnea (unable to tolerate CPAP) and pulmonary hypertension. Echo 09/2022:? EF 55%, mod LVH, nml diastolic fxn, severe LAE, moderate MR/TR, RVSP 42 mmHg 12/22/2022: Change IV Cardizem to amiodarone due to AFib RVR. Hernia was not reducible and no plans for urgent surgery. P.o. metoprolol was resumed. Date of service 12/23/2022: NG tube is out, but the patient is having a lot of ?gas pains? and abdominal discomfort as well as nausea. Not able to eat or drink. Heart rate is better but still RVR, 120-130's. She has been given a couple doses IV Lopressor through the night. Date of service 12/24/2022: Patient is supine in bed in the IMU offers no immediate complaints. Heart rate is between 90-115 on intravenous amiodarone. She is asymptomatic of her arrhythmia. Anticipating surgery for abdominal hernia this morning Date of service 12/25/2022: She feels better today. Less pain. Heart rate is reasonably controlled on diltiazem drip. No chest pain or shortness of breath Date of service 12/26/2022: Still continues to improve. Heart rate is for reasonably controlled on amiodarone drip. She is tolerating p.o. no chest pain or shortness of breath Date of service 12/27/2022: Irritated about phlebotomy today but otherwise no chest pain, shortness of breath. Tolerating p.o. Review of Systems Review of Systems: Nauseated, abdominal discomfort, not out of bed, unable to eat or drink, no chest pain or shortness of breath. Constitutional: Constitutional: Denies fever(s) Eyes: Eyes: Reports no additional eye complaints ENT: Denies dysphagia (Sore throat from the NG tube) Cardiovascular: Cardiovascular: Denies chest pain, Denies pedal edema, Denies lightheadedness, Denies palpitations and Denies dyspnea Respiratory: Respiratory: Denies chest congestion and Denies dyspnea Gastrointestinal: Gastrointestinal: Denies abdominal pain, Denies hematochezia, Denies dysphagia (Sore throat from the NG tube), Denies nausea and Denies vomiting Genitourinary: Genitourinary: Reports no additional female genitourinary complaints Musculoskeletal: Musculoskeletal: Reports no additional musculoskeletal complaints Integumentary/Breasts: Skin/Breast: Reports system reviewed and no additional complaints, except as docu Neurologic: Reports system reviewed and no additional complaints, except as documented, Denies behavioral changes and Denies confusion Psychiatric: Psychiatric: Denies behavioral changes and Denies confusion Endocrine: Endocrine: Reports palpitations Exam Const: General: cooperative, healthy appearing (Obese) and uncomfortable; No confusion Orientation/consciousness: oriented to person, patient oriented x3 and No confusion HENMT: Mouth: Yes moist mucous membranes Eyes: General: appearance normal, both eyes and all related structures EOM: EOMs intact bilaterally Neck: Neck: supple and no JVD Thyr
[2022-12-27 09:09] LABS: Glucose Point of Care 166 mg/dl (65-105)
[2022-12-27] MEDS: dilTIAZem HCL CD 180 MG CAP.24HR PO (09:57)
[2022-12-27] MEDS: METOPROLOL TARTRATE 25 MG TABLET PO ×2 (09:57→23:01)
[2022-12-27] MEDS: FUROSEMIDE 20 MG TABLET PO (09:57)
[2022-12-27] MEDS: PANTOPRAZOLE 40 MG TABLET PO ×2 (09:57→17:26)
[2022-12-27] MEDS: LOSARTAN POTASSIUM 50 MG TABLET PO (09:57)
[2022-12-27] MEDS: GABAPENTIN 300 MG CAPSULE PO ×2 (09:57→17:26)
[2022-12-27] MEDS: traMADol HCL (*CRX) 50 MG TABLET PO ×2 (10:00→15:23)
[2022-12-27 11:49] LABS: Glucose Point of Care 199 mg/dl (65-105)
--- NOTE | 2022-12-27 14:01 | PM.PNGS ---
Progress Note: A&P Assessment and Plan (1) Encounter for follow-up: Code(s): Z09 - Encounter for follow-up examination after completed treatment for conditions other than malignant neoplasm Status: Acute Assessment and Plan: Continues to improve postop day 3. Tolerating a low-fiber diet. Will add Colace and MiraLax Continue advancing activity as tolerated Monitor RADHA drain output (2) H/O abdominal surgery: Code(s): Z98.890 - Other specified postprocedural states Status: Acute (3) Small bowel obstruction: Code(s): K56.609 - Unspecified intestinal obstruction, unspecified as to partial versus complete obstruction Status: Acute Assessment and Plan: Secondary to incisional hernia. Resolved following surgery (4) Atrial fibrillation with rapid ventricular response: Code(s): I48.91 - Unspecified atrial fibrillation Status: Acute Assessment and Plan: Continue as per Cardiology. (5) Chronic anticoagulation: Code(s): Z79.01 - adjunct faculty for medical terminology (current) use of anticoagulants Status: Acute Assessment and Plan: Transitioning off heparin infusion to warfarin today. Plan I have discussed the patient's case and plan of care with Dr. Fraire. Subjective Subjective Date/Time Seen: 12/27/22 10:01 Post Op day: 3 (Open incarcerated incisional hernia repair) Patient reports: no new complaints, feels better, flatus, bowel movement (2 days ago) and afebrile Interval history: Chart reviewed since last seen. Patient feeling well today. She is tolerating a low-fiber diet. She is passing flatus. She had a bowel movement postop day 1, but no BM yesterday or today. Denies abdominal pain, just some soreness at her incision. She reportedly is ambulating to the bathroom and in the halls with a walker well. RADHA drain with 20 cc out overnight. Review of Systems Review of Systems: All systems reviewed & are unremarkable except as noted in HPI and below Exam Const: General: comfortable and no acute distress Nutritional Appearance: obese Orientation/consciousness: patient oriented x3 GI: Inspection: non-distended, incision (intact with glue), obesity and other (RADHA serosanguinous) GI Palp: Yes Soft to palpation, No Tenderness to palpation present (GI) and No Guarding due to palpation present (GI) Auscultation: normal bowel sounds Extrem: General: no edema Psych: Mental Status: mental status grossly normal Insight: Good insight present (Psych) Objective Data Vital Signs Vital Signs: Vital Signs - 24 hr 12/26/22 14:30 12/26/22 15:23 12/26/22 16:00 Temperature 98.8 F Pulse Rate 95 110 H Respiratory Rate 16 Blood Pressure 98/59 L Pulse Oximetry 97 Oxygen Delivery Room Air 12/26/22 16:00 12/26/22 16:00 12/26/22 18:00 Temperature Pulse Rate 112 H 112 H 89 Respiratory Rate 16 Blood Pressure Pulse Oximetry 97 Oxygen Delivery Room Air 12/26/22 19:30 12/26/22 20:59 12/26/22 19:29 Temperature 97.4 F L Pulse Rate 86 100 98 Respiratory Rate 16 Blood Pressure 115/53 L Pulse Oximetry 97 Oxygen Delivery 12/26/22 23:27 12/26/22 20:00 12/26/22 20:00 Temperature 96.9 F L Pulse Rate 89 95 Respiratory Rate 16 Blood Pressure 108/73 Pulse Oximetry 98 97 Oxygen Delivery Room Air 12/26/22 22:00 12/27/22 00:00 12/27/22 00:00 Temperature Pulse Rate 95 89 89 Respiratory Rate Blood Pressure Pulse Oximetry Oxygen Delivery 12/27/22 00:00 12/27/22 02:00 12/27/22 03:08 Temperature Pulse Rate 79 89 Respiratory Rate Blood Pressure Pulse Oximetry 98 Oxygen Delivery Room Air 12/27/22 04:00 12/27/22 04:00 12/27/22 04:57 Temperature 96.9 F L Pulse Rate 103 H 110 H Respiratory Rate 18 Blood Pressure 123/73 Pulse Oximetry 98 96 Oxygen Delivery Room Air 12/27/22 06:00 12/27/22 08:00 12/27/22 09:57 Temperature 97.9 F Pulse Rate 92 94 114 H
--- NOTE | 2022-12-27 14:12 | P.PNIM_ITS ---
Progress Note: A&P Assessment and Plan (1) Incarcerated incisional hernia: Code(s): K43.0 - Incisional hernia with obstruction, without gangrene Status: Acute Assessment and Plan: CT abdomen pelvis revealing small bowel obstruction with a ventral hernia containing a focal small bowel loop concern for incarcerated hernia. Areas of probable fat necrosis in the mesentery. * General surgery consulted. * General surgery able to reduce ventral hernia12/22. * Antiemetics and analgesics p.r.n. * 12/23 hernia was irreducible * 12/24 surgical repair of hernia * Advancing diet as tolerated. (2) Atrial fibrillation with rapid ventricular response: Code(s): I48.91 - Unspecified atrial fibrillation Status: Acute Assessment and Plan: Patient on diltiazem, metoprolol and warfarin due to history of AFib. * Patient presents to the ED with AFib RVR. * Cardiology consulted. * Patient was started on diltiazem drip that was in transition to amiodarone drip due to heart rate not being controlled * 12/23 amiodarone 150 mg bolus given * Metoprolol 5 mg IV push p.r.n. for tachycardia * 12/27 DC amiodarone drip per Cardiology and restart p.o. Cardizem (3) Small bowel obstruction: Code(s): K56.609 - Unspecified intestinal obstruction, unspecified as to partial versus complete obstruction Status: Acute Assessment and Plan: * Small-bowel obstruction seen on CT scan. * General surgery consulted. * NG tube removed 12/25 * Advance diet as tolerated (4) Type 2 diabetes mellitus without complications: Onset Date: ~08/2017 Code(s): E11.9 - Type 2 diabetes mellitus without complications Status: Acute Assessment and Plan: * Insulin Lispro sliding scale, Accu-checks qAc and HS and Hold oral hypoglycemics * Initiate hypoglycemic precautions * HgbA1c 6.8 (5) Essential (primary) hypertension: Code(s): I10 - Essential (primary) hypertension Status: Acute Assessment and Plan: continue antihypertensives (6) Chronic anticoagulation: Code(s): Z79.01 - terminal superintendent (current) use of anticoagulants Status: Acute Assessment and Plan: restart warfarin Subjective Date/time seen: 12/27/22 14:12 Interval history: Patient doing well today. Patient denies any abdominal pain, nausea vomiting. Patient has not had a bowel movement since starting solid food. MiraLax added to patient's p.r.n. medications. Patient off amiodarone drip today. Patient restarted her home medications and home anticoagulation. She denies any chest pain, shortness a breath, heart palpitations. Exam Narrative: GENERAL: Comfortable, no acute distress HENMT: moist mucous membranes EYES: EOM intact b/l NECK: no lymphadenopathy RESPIRATORY: clear to auscultation CARDIO: Irregular rate, irregular rhythm GI: Soft, nontender, bowel sounds present SKIN: no rashes EXTREMITIES: no edema, redness or tenderness Objective Data Vital Signs Vital Signs: Vital Signs - 24 hr 12/26/22 14:30 12/26/22 15:23 12/26/22 16:00 Temperature 98.8 F Pulse Rate 95 110 H Respiratory Rate 16 Blood Pressure 98/59 L Pulse Oximetry 97 Oxygen Delivery Room Air 12/26/22 16:00 12/26/22 16:00 12/26/22 18:00 Temperature P
--- NOTE | 2022-12-27 14:12 | PM.IMPN ---
Progress Note: A&P Assessment and Plan (1) Incarcerated incisional hernia: Code(s): K43.0 - Incisional hernia with obstruction, without gangrene Status: Acute Assessment and Plan: CT abdomen pelvis revealing small bowel obstruction with a ventral hernia containing a focal small bowel loop concern for incarcerated hernia. Areas of probable fat necrosis in the mesentery. General surgery consulted. General surgery able to reduce ventral hernia12/22. Antiemetics and analgesics p.r.n. 12/23 hernia was irreducible 12/24 surgical repair of hernia Advancing diet as tolerated. (2) Atrial fibrillation with rapid ventricular response: Code(s): I48.91 - Unspecified atrial fibrillation Status: Acute Assessment and Plan: Patient on diltiazem, metoprolol and warfarin due to history of AFib. Patient presents to the ED with AFib RVR. Cardiology consulted. Patient was started on diltiazem drip that was in transition to amiodarone drip due to heart rate not being controlled 12/23 amiodarone 150 mg bolus given Metoprolol 5 mg IV push p.r.n. for tachycardia 12/27 DC amiodarone drip per Cardiology and restart p.o. Cardizem (3) Small bowel obstruction: Code(s): K56.609 - Unspecified intestinal obstruction, unspecified as to partial versus complete obstruction Status: Acute Assessment and Plan: Small-bowel obstruction seen on CT scan. General surgery consulted. NG tube removed 12/25 Advance diet as tolerated (4) Type 2 diabetes mellitus without complications: Onset Date: ~08/2017 Code(s): E11.9 - Type 2 diabetes mellitus without complications Status: Acute Assessment and Plan: Insulin Lispro sliding scale, Accu-checks qAc and HS and Hold oral hypoglycemics Initiate hypoglycemic precautions HgbA1c 6.8 (5) Essential (primary) hypertension: Code(s): I10 - Essential (primary) hypertension Status: Acute Assessment and Plan: continue antihypertensives (6) Chronic anticoagulation: Code(s): Z79.01 - joint terminal attack controller (current) use of anticoagulants Status: Acute Assessment and Plan: restart warfarin Subjective Date/time seen: 12/27/22 14:12 Interval history: Patient doing well today. Patient denies any abdominal pain, nausea vomiting. Patient has not had a bowel movement since starting solid food. MiraLax added to patient's p.r.n. medications. Patient off amiodarone drip today. Patient restarted her home medications and home anticoagulation. She denies any chest pain, shortness a breath, heart palpitations. Exam Narrative: GENERAL: Comfortable, no acute distress HENMT: moist mucous membranes EYES: EOM intact b/l NECK: no lymphadenopathy RESPIRATORY: clear to auscultation CARDIO: Irregular rate, irregular rhythm GI: Soft, nontender, bowel sounds present SKIN: no rashes EXTREMITIES: no edema, redness or tenderness Objective Data Vital Signs Vital Signs: Vital Signs - 24 hr 12/26/22 14:30 12/26/22 15:23 12/26/22 16:00 Temperature 98.8 F Pulse Rate 95 110 H Respiratory Rate 16 Blood Pressure 98/59 L Pulse Oximetry 97 Oxygen Delivery Room Air 12/26/22 16:00 12/26/22 16:00 12/26/22 18:00 Temperature Pulse Rate 112 H 112 H 89 Respiratory Rate 16 Blood Pressure Pulse Oximetry 97 Oxygen Delivery Room Air 12/26/22 19:30 12/26/22 20:59 12/26/22 19:29 Temperature 97.4 F L Pulse Rate 86 100 98 Respiratory Rate 16 Blood Pressure 115/53 L Pulse Oximetry 97 Oxygen Delivery 12/26/22 23:27 12/26/22 20:00 12/26/22 20:00 Temperature 96.9 F L Pulse Rate 89 95 Respiratory Rate 16 Blood Pressure 108/73 Pulse Oximetry 98 97 Oxygen Delivery Room Air 12/26/22 22:00 12/27/22 00:00 12/27/22 00:00 Temperature Pulse Rate 95 89 89 Respiratory Rate Blood Pressure Pulse Oximetry Oxygen Del
[2022-12-27] MEDS: DOCUSATE SODIUM 100 MG CAPSULE PO ×2 (15:23→23:05)
[2022-12-27 16:41] LABS: Glucose Point of Care 173 mg/dl (65-105)
[2022-12-27] MEDS: WARFARIN (*PBKC) 5 MG TABLET PO (17:30)
[2022-12-27 22:26] LABS: Glucose Point of Care 193 mg/dl (65-105)
[2022-12-28] VITALS: PULSE 112
[2022-12-28 04:00] VITALS: PULSE 80
[2022-12-28 06:09] VITALS: BP 121/65; PULSE 78; RESP 20; TEMP 36.9; O2SAT 98
[2022-12-28 06:29] LABS: Hematocrit 37.7 % (37.0-47.0); Hemoglobin 12.1 g/dL (12.0-15.0); Mean Corpuscular HGB Conc 32.1 g/dl (32-36); Mean Corpuscular Hemoglobin 29.4 pg (26-34); Mean Corpuscular Volume 91.5 fl (80-100); Mean Platelet Volume 10.3 fl (7.4-10.4); Platelet Count Result 183 k/mm3 (150-375); Red Blood Count 4.12 M/mm3 (4.2-5.4); Red Cell Distribution Width 14.8 % (11.5-14.5); White Blood Count 9.5 K/mm3 (4.5-10.0)
[2022-12-28 06:44] LABS: Alanine Aminotransferase 15 U/L (6-35); Albumin Level 2.9 g/dL (3.5-5.1); Alkaline Phosphatase 67 U/L (38-126); Anion Gap 5 mmol/L (8-16); Aspartate Amino Transferase 27 U/L (14-36); Bilirubin,Total 0.7 mg/dL (0.2-1.3); Blood Urea Nitrogen 12 mg/dL (7-17); Calcium 8.1 mg/dL (8.4-10.2); Carbon Dioxide 28 mmol/L (22-30); Chloride 103 mmol/L (98-107); Estimated CRCL calculation 96 ml/min; Estimated Glomerular Filt Rate > 60; Glucose 131 mg/dL (65-110); Partial Thromboplastin Time 27.2 SECONDS (22.3-36.8); Potassium 3.9 mmol/L (3.4-5.0); Prothrombin Time 13.8 Seconds (11.1-14.7); Sodium 136 mmol/L (137-145)
[2022-12-28 08:09] LABS: Glucose Point of Care 140 mg/dl (65-105)
[2022-12-28] MEDS: GABAPENTIN 300 MG CAPSULE PO (09:25)
[2022-12-28] MEDS: FUROSEMIDE 20 MG TABLET PO (09:25)
[2022-12-28] MEDS: WARFARIN (*PBKC) 5 MG TABLET PO (09:25)
[2022-12-28] MEDS: dilTIAZem HCL CD 180 MG CAP.24HR PO (09:25)
[2022-12-28] MEDS: POTASSIUM CHLORIDE 10 MEQ ER TABLET PO (09:25)
[2022-12-28 09:26] VITALS: PULSE 80
[2022-12-28] MEDS: METOPROLOL TARTRATE 25 MG TABLET PO (09:26)
[2022-12-28] MEDS: PANTOPRAZOLE 40 MG TABLET PO (09:26)
[2022-12-28] MEDS: LOSARTAN POTASSIUM 50 MG TABLET PO (09:26)
[2022-12-28] MEDS: traMADol HCL (*CRX) 50 MG TABLET PO (09:28)
[2022-12-28] MEDS: DOCUSATE SODIUM 100 MG CAPSULE PO (09:29)
--- NOTE | 2022-12-28 09:42 | PM.PNCARD ---
Progress Note: A&P Assessment and Plan (1) Paroxysmal atrial fibrillation: Code(s): I48.0 - Paroxysmal atrial fibrillation Status: Chronic Assessment and Plan: Continue current doses of metoprolol and diltiazem as they are providing adequate rate control. metroprolol tartrate can be shifted to Toprol XL 50mg at discharge. Anticoagulation with warfarin. (2) Chronic anticoagulation: Code(s): Z79.01 - half-way (current) use of anticoagulants Status: Acute Assessment and Plan: Warfarin resumed Subjective Date/time seen: 12/28/22 09:42 Interval history: She feels well this morning. No complaints. Denies palpitations, shortness of breath, chest pain. Review of Systems Constitutional: Constitutional: Denies fever(s) Eyes: Eyes: Reports no additional eye complaints ENT: Denies dysphagia (Sore throat from the NG tube) Cardiovascular: Cardiovascular: Denies chest pain, Denies pedal edema, Denies lightheadedness, Reports palpitations and Denies dyspnea Respiratory: Respiratory: Denies chest congestion and Denies dyspnea Gastrointestinal: Gastrointestinal: Denies abdominal pain, Denies hematochezia, Denies dysphagia (Sore throat from the NG tube), Denies nausea and Denies vomiting Genitourinary: Genitourinary: Reports no additional female genitourinary complaints Musculoskeletal: Musculoskeletal: Reports no additional musculoskeletal complaints Integumentary/Breasts: Skin/Breast: Reports system reviewed and no additional complaints, except as docu Neurologic: Reports system reviewed and no additional complaints, except as documented, Denies behavioral changes and Denies confusion Psychiatric: Psychiatric: Denies behavioral changes and Denies confusion Endocrine: Endocrine: Reports palpitations Exam Const: General: cooperative, healthy appearing (Obese) and uncomfortable; No confusion Orientation/consciousness: oriented to person, patient oriented x3 and No confusion HENMT: Mouth: Yes moist mucous membranes Other: NG tube Eyes: General: appearance normal, both eyes and all related structures EOM: EOMs intact bilaterally Neck: Neck: supple and no JVD Thyroid: thyroid normal Carotids: no bruits Resp: Effort & Inspection: normal respiratory effort Auscultation: clear to auscultation bilaterally Cardio: Rate: regular rate and tachycardic Rhythm: regular rhythm and abnormal rhythm irregularly irregular Heart sounds: no murmurs GI: Inspection: normal to inspection Other: Decreased bowel sounds, ventral hernia Skin: General skin exam: normal color and no rashes or lesions noted Neuro: General: oriented to person, patient oriented x3 and No confusion Extrem: Right lower extremity: edema Left lower extremity: edema Other: Trace to mild lower extremity edema Psych: Appearance: grossly normal Mental Status: mental status grossly normal Objective Data Vital Signs Vital Signs: Vital Signs - 24 hr 12/27/22 09:57 12/27/22 10:00 12/27/22 11:14 Temperature 36.4 C L Pulse Rate 114 H 99 91 Respiratory Rate 20 Blood Pressure 132/87 Pulse Oximetry 100 12/27/22 12:00 12/27/22 14:00 12/27/22 23:01 Temperature Pulse Rate 101 H 88 111 H Respiratory Rate Blood Pressure Pulse Oximetry 12/27/22 23:51 12/27/22 20:00 12/28/22 00:00 Temperature 36.2 C L Pulse Rate 119 H 102 H 112 H Respiratory Rate 18 Blood Pressure 108/63 Pulse Oximetry 97 12/28/22 04:00 12/28/22 06:09 12/28/22 09:26 Temperature 36.9 C Pulse Rate 80 78 80 Respiratory Rate 20 Blood Pressure 121/65 Pulse Oximetry 98 Intake/Output Intake/Output: Intake & Output 12/25/22 12/26/22 12/27/22 12/28/22 23:59 23:59 23:59 23:59 Intake Total 1630 1650 3730 Output Total 336 782 4044 15 Balance 990 1035 1775 -15 Meds/Results Medications: Active Medications Generic Name Dose Route Start Last Admin Trade Name Freq
[2022-12-28 10:55] VITALS: BP 138/78; PULSE 68; RESP 15; TEMP 36.4; O2SAT 97
--- NOTE | 2022-12-28 11:25 | PM.DS ---
DS: Admitting Diagnosis Discharge Date 12/28/22 Admitting Diagnosis small-bowel obstruction, ventral hernia, AFib RVR DS: Discharge Diagnosis Discharge Diagnosis (1) Incarcerated incisional hernia: Code(s): K43.0 - Incisional hernia with obstruction, without gangrene Status: Acute Assessment and Plan: CT abdomen pelvis revealing small bowel obstruction with a ventral hernia containing a focal small bowel loop concern for incarcerated hernia. Areas of probable fat necrosis in the mesentery. General surgery consulted. General surgery able to reduce ventral hernia12/22. Antiemetics and analgesics p.r.n. 12/23 hernia was irreducible 12/24 surgical repair of hernia Advancing diet as tolerated. (2) Atrial fibrillation with rapid ventricular response: Code(s): I48.91 - Unspecified atrial fibrillation Status: Acute Assessment and Plan: Patient on diltiazem, metoprolol and warfarin due to history of AFib. Patient presents to the ED with AFib RVR. Cardiology consulted. Patient was started on diltiazem drip that was in transition to amiodarone drip due to heart rate not being controlled 12/23 amiodarone 150 mg bolus given Metoprolol 5 mg IV push p.r.n. for tachycardia 12/27 DC amiodarone drip per Cardiology and restart p.o. Cardizem (3) Small bowel obstruction: Code(s): K56.609 - Unspecified intestinal obstruction, unspecified as to partial versus complete obstruction Status: Acute Assessment and Plan: Small-bowel obstruction seen on CT scan. General surgery consulted. NG tube removed 12/25 Advance diet as tolerated (4) Type 2 diabetes mellitus without complications: Onset Date: ~08/2017 Code(s): E11.9 - Type 2 diabetes mellitus without complications Status: Acute Assessment and Plan: Insulin Lispro sliding scale, Accu-checks qAc and HS and Hold oral hypoglycemics Initiate hypoglycemic precautions HgbA1c 6.8 (5) Essential (primary) hypertension: Code(s): I10 - Essential (primary) hypertension Status: Acute Assessment and Plan: continue antihypertensives (6) Chronic anticoagulation: Code(s): Z79.01 - extermination supervisor (current) use of anticoagulants Status: Acute Assessment and Plan: restart warfarin DS: Summary Hospital Course Hospital Course: This is a? 77-year-old female with a past medical history of AFib on diltiazem metoprolol and warfarin, pulmonary hypertension, hypertension, fibromyalgia, diet-controlled diabetes, colon cancer with resection in 2019 the presented to the ED on 12/21/2022 present to the ED on 12/21/2022 due to abdominal pain, nausea and vomiting.? She stated that 2 days prior to ED arrival her abdominal pain started and later that night she developed nausea and vomiting.? She did not have any diarrhea.?Patient had went to the urgent care prior to going to the ED and they advised she be seen in the ED.? While in the ED she was found to have AFib RVR as well as a possibly incarcerated hernia.?Patient was taken off her warfarin that she takes for her AFib and started on heparin. General surgery was consulted.NG tube was placed.? At first patient's hernia was reducible but the next day it was unable to be reduced. General surgery went ahead with hernia repair on 12/24/2022. Patient did well postoperatively. NG tube was removed and patient's diet was restarted slowly. Patient did have bowel movement postoperatively and continued to pass gas. Patient had drains placed and they will remain in place at discharge. Patient to follow-up with General surgery as an outpatient. Patient was inserted on a? diltiazem drip upon admission due to AFib RVR and Cardiology was consulted.? diltiazem drip was unable to control patient's heart rate and she was then transition to amiodarone drip. patient remained on amiodarone drip until 12/27/2022 where she was taken off amio
[2022-12-28 11:52] LABS: Glucose Point of Care 116 mg/dl (65-105)
--- NOTE | 2022-12-28 13:26 | PM.PNGS ---
Progress Note: A&P Assessment and Plan (1) Encounter for follow-up: Code(s): Z09 - Encounter for follow-up examination after completed treatment for conditions other than malignant neoplasm Status: Acute Assessment and Plan: Doing well postop day 4. Okay to discharge from a surgical standpoint Will keep RADHA drain in place on discharge and have her f/u with Dr. Fraire in the office later this week for possible drain removal. (2) H/O abdominal surgery: Code(s): Z98.890 - Other specified postprocedural states Status: Acute (3) Small bowel obstruction: Code(s): K56.609 - Unspecified intestinal obstruction, unspecified as to partial versus complete obstruction Status: Acute Assessment and Plan: Secondary to incisional hernia. Resolved following surgery (4) Atrial fibrillation with rapid ventricular response: Code(s): I48.91 - Unspecified atrial fibrillation Status: Acute Assessment and Plan: Continue as per Cardiology. (5) Chronic anticoagulation: Code(s): Z79.01 - supervisor intermediates (current) use of anticoagulants Status: Acute Assessment and Plan: Warfarin restarted Plan I have discussed the patient's case and plan of care with Dr. Fraire. Subjective Subjective Date/Time Seen: 12/28/22 13:26 Post Op day: 4 (Open incarcerated incisional hernia repair) Patient reports: no new complaints and flatus Interval history: Patient doing well. Tolerating a solid diet. No BM today, but still passing flatus. No new complaints. Review of Systems Review of Systems: ROS unchanged Exam Const: General: comfortable and no acute distress Nutritional Appearance: obese Orientation/consciousness: patient oriented x3 GI: Inspection: non-distended, incision (intact with glue) and other (RADHA serosanguinous) GI Palp: Yes Soft to palpation and No Tenderness to palpation present (GI) Auscultation: normal bowel sounds Extrem: General: no edema Psych: Mental Status: mental status grossly normal Insight: Good insight present (Psych) Objective Data Vital Signs Vital Signs: Vital Signs - 24 hr 12/27/22 14:00 12/27/22 23:01 12/27/22 23:51 Temperature 97.2 F L Pulse Rate 88 111 H 119 H Respiratory Rate 18 Blood Pressure 108/63 Pulse Oximetry 97 12/27/22 20:00 12/28/22 00:00 12/28/22 04:00 Temperature Pulse Rate 102 H 112 H 80 Respiratory Rate Blood Pressure Pulse Oximetry 12/28/22 06:09 12/28/22 09:26 Temperature 98.4 F Pulse Rate 78 80 Respiratory Rate 20 Blood Pressure 121/65 Pulse Oximetry 98 Intake/Output Intake/Output: Intake & Output 12/25/22 12/26/22 12/27/22 12/28/22 23:59 23:59 23:59 23:59 Intake Total 1630 1650 3730 120 Output Total 484 360 8748 15 Balance 990 1035 1775 105 Meds/Results Medications: Active Medications Generic Name Dose Route Start Last Admin Trade Name Freq PRN Reason Stop Dose Admin Dextrose 12.5 gm 12/22/22 12:08 Dextrose 50% 25 Gm/50 Ml Syringe IV PUSH PRN PRN Hypoglycemia Protocol Diltiazem HCl 180 mg 12/27/22 09:00 12/28/22 09:25 Diltiazem Hcl Cd 180 Mg Cap.24hr PO 180 mg QAM NANI Administration Docusate Sodium 100 mg 12/27/22 11:50 12/28/22 09:29 Docusate Sodium 100 Mg Capsule PO 100 mg Q12HR NANI Administration Furosemide 20 mg 12/23/22 09:00 12/28/22 09:25 Furosemide 20 Mg Tablet PO 20 mg DAILY NANI Administration Gabapentin 300 mg 12/22/22 17:00 12/28/22 09:25 Gabapentin 300 Mg Capsule PO 300 mg BID NNAI Administration Glucagon 1 mg 12/22/22 12:08 Glucagon For Inj 1 Mg Vial IM PRN PRN Hypoglycemia Protocol Glucose 15 gm 12/22/22 12:08 Glucose Oral Gel 15 Gm Of Glucse In 37.5 Gm Tube PO PRN PRN Hypoglycemia Protocol Dextrose 1,000 mls @ 100 mls/hr 12/22/22 12:08 Dextrose 5% 1,000 Ml IVPB PRN PRN Hypoglycemia Prot
--- NOTE | 2022-12-28 14:05 | PCOTNOTE ---
Attempted to see Patient this afternoon. Patient currently getting ready to be discharged from the hospital and declined to perform a treatment at this time.
== END 2022-12-28 14:45 | disposition home health service (06) | DRG 354 ==
LOC: ANHED 22:18 → ANHIMU 12-22 03:20 → ANH3MEDSUR 12-27 15:34
PROVIDERS: Surgery; Admitting Provider Internal Medicine; Emergency Provider Physician Assistant; PCP Family Medicine Adolescent Medicine; Visit Provider Internal Medicine Critical Care Medicine
PROC: 0WQF0ZZ Repair Abdominal Wall, Open Approach (ICD-10-PCS; principal; 2022-12-24 10:30)
DX: K43.0 Incisional hernia with obstruction, without gangrene (principal); E87.21 Acute metabolic acidosis; Z68.42 Body mass index [BMI] 45.0-49.9, adult; I48.11 Longstanding persistent atrial fibrillation; I10 Essential (primary) hypertension; E11.9 Type 2 diabetes mellitus without complications; M79.7 Fibromyalgia; M19.90 Unspecified osteoarthritis, unspecified site; F41.9 Anxiety disorder, unspecified; G47.33 Obstructive sleep apnea (adult) (pediatric); I11.0 Hypertensive heart disease with heart failure; I50.9 Heart failure, unspecified; E66.01 Morbid (severe) obesity due to excess calories; Z86.711 Personal history of pulmonary embolism; Z79.01 Long term (current) use of anticoagulants; Z85.038 Personal history of other malignant neoplasm of large intestine; Z87.442 Personal history of urinary calculi; Z87.891 Personal history of nicotine dependence; Z86.718 Personal history of other venous thrombosis and embolism; Z90.49 Acquired absence of other specified parts of digestive tract; Z90.710 Acquired absence of both cervix and uterus
CPT/HCPCS: 36415; 71045; 74176; 74177; 74178; 76705; 80048; 80053; 81001; 82948; 83036; 83605; 83690; 83735; 84132; 84484; 85025; 85027; 85610; 85730; 86850; 86900; 86901; 88302; 93005; 96365; 96366; 96375; 96376; 97110; 97161; 97165; 97530; 97535; 99212; 99285; A9270; C1781; G0378; G0463; J0282; J0330; J0690; J1644; J1815; J2270; J2371; J2405; J3010; J3430; J3480; J7040; J7120; Q9967

== ENCOUNTER 2025-02-06 00:13 | Day surgery (SDC) | payer MEDICARE, OTHER, SELFPAY ==
--- OUTSIDE RECORDS SUMMARY | 2007-05-09 08:07 | XMS_ITS | Continuity of Care Document ---
Author Organization [facility] Address [address] [place] [address] utive [facility] [address] [place] [address] Phone Care Team Providers Care Survey Associate Name Role Phone Dagobertoebenezermckenzieyasmeen Victor M Unavailable Unavailable Procedures Procedure Date Eye Exam, New Patient Advance Directives Directive Yes / No Effective Date File Name No Information Encounters Encounter Description Practice Location Reason(s) For Visit Diagnoses Date Provider Providers Copied on Encounter [facility], [address] [place] [address] [address], [place], [place], [id number], [place] tel:[phone] [facility] [place] No Information [phone] Yaneth Victor M. [address] [facility] [address], [place], [address], [place]. tel:[phone] Family History Family Member Type Diagnosis Age At Onset No Information Payers Payer name Insurance type Covered constitution party ID Authoriza tion(s) No Information Social History Type Description Quantity Date Captured Comments Sex Female Smoking Status No Information Chief Complaint And Reason For Visit No Information Reason For Referral Reason For Referral No Information History Of Present Illness Encounter Date Complaint History Of Prese nt Illness No Information Functional Status Date Functional Assessmen t No Information Instructions Date Instruction Additional Infor mation No Information Assessments Type Assessment Date No Information Patient Care Teams Name Effective Dates (start - stop) Status Members No Information
[2025-01-28 10:05] VITALS: BMI 47.2
--- NOTE | 2025-01-28 10:26 | SUR.PREOP ---
Spoke with patient in regards to her Warfarin. Last dose is to be taken on 02/01/[address] Mckeon to inform her when to resume after procedure is done.
--- OUTSIDE RECORDS SUMMARY | 2025-02-06 00:17 | XMS_ITS | Clinical Summary ---
Author Organization [facility] [address] Address [address] [place] [address] Care Team Providers Care Message Broker Developer Name Role Phone Castro Broderick MD Primary Care Prov ider Allergies Active Allergy Reactions Criticality Noted Date Comments Bromfenac Rash Medium 01/11/2018 Cefadroxil Rash Medium Metformin Diarrhea Low 08/24/2019 Medications LORazepam (ATIVAN) 1 mg tablet take 1 tablet by oral route 3 times every day as needed 0 0 3 Active hydroCHLOROthiazi de (HYDRODIURIL) 25 mg tablet take 1 tablet by oral route every day 0 0 4 Active traMADol (ULTRAM) 50 mg tablet take 1 tablet by oral route every 6 hours as needed 0 0 5 Active gabapentin (NEURONTIN) 300 mg capsule take 1 capsule by oral route 2 times every day 0 0 6 Active acetaminophen ER (TYLENOL) 650 mg 8 hr tablet Take 1 tablet (650 mg total) by mouth every [address] (PROTONIX) 40 mg EC tablet Take 1 tablet (40 mg total) by mouth 2 (two) times a day 0 Active furosemide (LASIX) 20 mg tablet TAKE ONE TABLET DAILY 90 tablet 2 0 Active potassium chloride ER 10 mEq CR tablet 2 Active losartan (COZAAR) 50 mg tablet Take 1 tablet (50 mg total) by mouth 3 Active oxyBUTYnin XL (DITROPAN XL) 15 mg 24 hr tablet Take 1 tablet (15 mg total) by mouth daily 4 Active estradioL (ESTRACE) 0.01 % (0.1 mg/gram) vaginal cream INSERT 1 GRAM INTO VAGINA 2 NIGHTS PER WEEK 4 Active dilTIAZem XR (dilTIAZem CD) 240 mg 24 hr capsuleIndication s:Longstanding persistent atrial fibrillation (HCC) Take 1 capsule (240 mg total) by mouth daily 90 capsule 3 5 Active metoprolol tartrate (LOPRESSOR) 25 mg immediate release tabletIndications :Paroxysmal atrial fibrillation (HCC) TAKE 1 TABLET TWICE A DAY 180 tablet 3 5 Active warfarin (COUMADIN) 5 mg tablet Take one tab (5 mg) 2 days per week and one-half tab (2.5 mg) five days a week. 300 tablet 5 Active Active Problems Problem Noted Date Diagnosed Date Polyuria 12/07/2019 Encounter for monitoring sotalol therapy 020 Chronic anticoagulation 10/04/2016 History of pulmonary embolus (PE) 10/04/2016 Body mass index 40+ - severely obese 03/29/2016 Overview (07/16/2016): Morbid obesity with BMI of 50.0-59.9, adult Obstructive sleep apnea syndrome 01/29/2015 Overview (07/16/2016): MARQUEZ (obstructive sleep apnea) Morbid obesity with BMI of 45.0-49.9, adult 01/10 Overview (07/16/2016): Morbid obesity with body mass index of 50 or higher Pulmonary hypertension 01/29/2015 Overview (07/16/2016): Pulmonary hypertension Atrial fibrillation 01/16/2014 Overview (07/16/2016): Atrial fibrillation Edema 01/16/2014 Overview (07/16/2016): Edema Resolved Problems Problem Noted Date Diagnosed Date Resolved Date Morbid obesity with BMI of 5 0.0-59.9, adult ([facility]) 10/04/2016 01/03/2024 Encounters Date Type Department Care Team Description 01/22/2025 Anticoagulation Visit [facility] [address] [facility] [place] [address] Jen Becerra, RN 01/03/2025 Anticoagulation Visit [facility] [address] [facility] [place] [phone] Jen Becerra, RN 01/02/2025 Telephone [facility] [address] [place] [address] [address] [place] [phone] Alejandro Adler MD INR order 12/25/2024 Anticoagulation Visit [facility] [address] [place] [address] [address] [place] [phone] Jen Becerra RN 11/30/2024 Telephone [facility] [address] [place] [phone] Daria Torres MA 11/30/2024 Telephone [facility] [address] [place] [address] [address] [place] [phone] Alejandro Adler MD 11/20/2024 Anticoagulation Visit [facility] [address] [facility] [address], [place] [address] Kristen Leigh, BUFFY from Last 3 Months Immunizations Immunization Administration Dates Next Due Pfizer SARS-CoV-2 Monovalent Vaccination (12+ Yrs) PURPLE 07/01/2020,06/10/2020 Surgical History Surgery Date Site/Laterality Comments HERNIA REPAIR Hernia repair TUBAL LIGATION Bilateral tubal ligation HYSTERECTOMY Hysterectomy COLON SURGERY 11/10/2019 - 2019 CHOLECYSTECTOMY 04/11/1997 - 04/10/1998 LASIK 04/11/2005 - 04/10/2006 Medical History Medical History Date Comments Hx Other Medical 2012 Nephrolithiasis - lithotripsy Hx Other Medical PAF, PE/DVT, ob esity, pulm HTN, chronic AC Hx Other Medical Marquez Arthritis 1998 Cancer (HCC) 11/28 Hypertension 2006 Sleep apnea 12/30 Family History Medical History Relation Name Comments Heart failure Father Cam Hemphill Congestive Hea rt Failure; Hypertension Father Cam Hemphill Hypertension; Heart attack Mother Carisa Hemphill Heart failure Mother Carisa Hemphill Congestive Hea rt Failure; Hypertension Mother Carisa Hemphill Hypertension; Diabetes type II Sister 4 Nadya Miller Diabetes Type II; Memory loss Sister 4 Nadya Miller Hypertension Sister 5 Gris Brewer Hypertension; Stroke Sister 5 Gris Brewer Hypothyroidism Sister 6 Hypothyroidis m; Relation Name Status Comments Father Cam Hemphill Alive Mother Carisa Hemphill Alive Sister 1 Alive Sister 2 Alive Sister 3 Alive Sister 4 Nadya Miller Sister 5 Gris Brewer Sister 6 Social History Tobacco Use Types Packs/Day Years Used Date Smoking Tobacco: Former Cigarettes Q uit: 03/25/1982 Smokeless Tobacco: Never Tobacco Cessation:Counseling Given: Not Answered Alcohol Use Standard Drinks/Week Comments No 0 (1 standard drink = 0.6 oz pur e alcohol) Comments Unknown Sex and Gender Information Value Date Recorded Sex Assigned at Not on file Legal Sex Female 11:10 AM REGULATORY ASSISTANT Gender Identity Female 04/21/2021 7:26 PM REGULATORY ASSISTANT Sexual Orientation Straight 04/21/2021 7: 26 PM REGULATORY ASSISTANT Obstetrics History Last Filed Vital Signs Vital Sign Reading Time Taken Comments Blood Pressure 118/64 09/18/2024 8:25 AM CDT Pulse 110 09/18/2024 8:40 AM CDT Temperature 36.5 C (97.7 F) 06/23/2021 1:12 PM CDT Respiratory Rate 18 02/07/2023 11:15 AM CDT Oxygen Saturation 98% 09/18/2024 8:25 AM CDT Inhaled Oxygen Concentration - - Weight 117 kg (258 lb) 09/18/2024 8:25 AM CDT Height 154.9 cm (5' 1) 09/18/2024 8:25 AM CDT Body Mass Index 48.75 09/18/2024 8:25 AM CDT Plan of Treatment Health Maintenance Due Date Last Done Comments Depression Screening 1946 Fall Risk Assessment 1945 Hepatitis C Screening 1945 Osteoporosis Screening-Bone Density Scan 1945 DTaP/Tdap/Td Vaccine (1 - Tdap) 1957 Hepatitis B Screening 1964 Pneumococcal vaccine 65+ (1 of 1 - PCV) 1996 Zoster Vaccine (1 of 2) 1996 Well Visit 65+ 12/11/2011 Covid-19 Vaccine (3 - 2024-2 6 season) 2024 07/01/2020, 06/10/2020 Influenza Vaccine (#1) 2024 9, 01/13/2018, 01/24/2017, Additional history exists Procedures Procedure Name Priority Date/Time Associated Diagnosis Comments PROTIME-INR Routine 01/22/2025 9:40 AM CDT Atrial fibrillation, unspecified type (HCC) PROTIME-INR Routine 01/02/2025 10:36 AM CDT Atrial fibrillation, unspecified type (HCC) PROTIME-INR Routine 12/24/2024 12:51 PM CDT Chronic anticoagulation PROTIME-INR Routine 11/19/2024 12:28 PM CDT Chronic anticoagulation from Last 3 Months Results * (ABNORMAL) Protime-INR (01/22/2025 9:40 AM CDT) INR 1.5(H) IgenicaNegrito Javier Comment: Reference Range 0.9-1.1 Moderate-intensity Warfarin Therapy 2.0-3.0 Higher-intensity Warfarin Therapy 3.0-4.0 PT 15.1(H) 9.0 - 11.5 sec FabbeoAaron Javier Comment: For additional information, please refer to http://education.Samba Ads/faq/UDE275 (This link is being provided for informational/ educational purposes only.) Blood 01/22/2025 9:40 AM CDT 01/22/2025 9:40 AM CDT Narrative [facility] - 01/22/2025 4:04 PM CDT FASTING:NO FASTING: NO us Alejandro Adler MD LAB BLOOD ORDERABLES Lana coleman Result [facility] [address] [place] [address] * (ABNORMAL) Protime-INR (01/02/2025 10:36 AM CDT) INR 2.5(H) [facility] Javier Comment: Reference Range 0.9-1.1 Moderate-intensity Warfarin Therapy 2.0-3.0 Higher-intensity Warfarin Therapy 3.0-4.0 PT 25.4(H) 9.0 - 11.5 sec [facility] Comment: For additional information, please refer to http://Angie's List.Samba Ads/faq/WVP563 (This link is being provided for informational/ educational purposes only.) Blood 01/02/2025 10:3 6 AM CDT 01/02/2025 10:37 AM CDT Narrative [facility] - 01/03/2025 1:34 AM CDT FASTING:YES FASTING: YES Alejandro Adler MD LAB BLOOD ORDERABLES Lana l Result Performing Organization Address [facility] de Phone Number [employer] [facility] [address] [place] [address] * (ABNORMAL) Protime-INR (12/24/2024 12:51 PM CDT) INR 4.4(H) [facility] Comment: Reference Range 0.9-1.1 Moderate-intensity Warfarin Therapy 2.0-3.0 Higher-intensity Warfarin Therapy 3.0-4.0 PT 42.4(H) 9.0 - 11.5 sec [facility] Comment: For additional information, please refer to http://Memopal/faq/GIJ640 (This link is being provided for informational/ educational purposes only.) Blood 12/24/2024 12:5 1 PM CDT 12/24/2024 12:51 PM CDT Alejandro Adler MD LAB BLOOD ORDERABLES Lana l Result Performing Organization Address [facility] Co de Phone Number [employer] [facility] [address] [place] [address] * (ABNORMAL) Protime-INR (11/19/2024 12:28 PM CDT) INR 3.3(H) Seymour HickiesMikelNegrito bradford Yaya Comment: Reference Range 0.9-1.1 Moderate-intensity Warfarin Therapy 2.0-3.0 Higher-intensity Warfarin Therapy 3.0-4.0 PT 32.9(H) 9.0 - 11.5 sec FabbeoMikelNegrito sanchez Javier Comment: For additional information, please refer to http://education.Samba Ads/faq/MQX383 (This link is being provided for informational/ educational purposes only.) Blood 11/19/2024 12:2 8 PM CDT 11/19/2024 12:28 PM CDT Narrative [facility] - 11/20/2024 12:07 AM CDT FASTING:NO FASTING: NO Alejandro Adler MD LAB BLOOD ORDERABLES Lana coleman Result Performing Organization Address City/State/[facility] Co de Phone Number [facility] [address] [place] [address] from Last 3 Months Insurance [facility] [place] [facility] MEDICARE [employer] [place] [employer] [place] [address] Care Teams Message Broker Developer Relationship Specialty Start Date End Date Castro Broderick MD PCP - General 07/11/13
--- OUTSIDE RECORDS SUMMARY | 2025-02-06 00:17 | XMS_ITS | Clinical Summary ---
Author Organization [facility] Address [address] [place] [address] Phone Care Team Providers Care Computer Publisher Name Role Phone Castro Broderick MD Primary Care Provider [phone] Medications furosemide (LASIX) 20 mg tablet Take 1 Tablet by mouth daily. 08/11/2017 Active diltiaZEM (CARDIZEM CD) 180 mg Controlled Delivery 24 hour capsule 180 mg daily. 1 05/12/2018 Active gabapentin (NEURONTIN) 600 mg tablet Take 1 Tablet by mouth daily. 08/24/2017 Active hydroCHLOROthiaz joaquina 25 mg tablet 25 mg daily. 05/03/2018 Active LORazepam (ATIVAN) 1 mg tablet 1 mg every 8 hours as needed. 07/07/2018 Active losartan (COZAAR) 50 mg tablet 50 mg daily. 02/07/2013 Active Methylcellulose, Laxative, (CITRUCEL SUGAR FREE) Powder Take 1 Tablet by mouth daily. Active sotalol (BETAPACE) 120 mg Tablet Take 120 mg by mouth every 12 hours. 07/18/2017 Active traMADol (ULTRAM) 50 mg tablet 50 mg every 4 hours as needed. 07/17/2014 Active warfarin (COUMADIN) 5 mg tablet 5 mg daily. 09/01/2016 Active Active Problems No known active problems Social History Tobacco Use Types Packs/Day Years Used Date Smoking Tobacco: Never Smokeless Tobacco: Never Comments No Sex and Gender Information Value Date Recorded Sex Assigned at Not on file Legal Sex Female 2:37 PM CDT Gender Identity Not on file Sexual Orientation Not on file Last Filed Vital Signs Vital Sign Reading Time Taken Comments Blood Pressure 126/79 07/19/2018 11:22 AM CDT Pulse 77 07/19/2018 11:22 AM CDT Temperature - - Respiratory Rate - - Oxygen Saturation - - Inhaled Oxygen Concentration - - Weight 113.4 kg (250 lb) 07/19/2018 11:22 AM CDT Height 157.5 cm (5' 2) 07/19/2018 11:22 AM CDT Body Mass Index 45.73 07/19/2018 11:22 AM CDT Plan of Treatment Health Maintenance Due Date Last Done Comments DTAP/TDAP/TD VACCINES (1 - Tdap) 1965 PNEUMOCOCCAL VACCINE 50+ YEA RS (1 of 1 - PCV) 1996 ZOSTER VACCINE (1 of 2) 1996 OSTEOPOROSIS SCREENING 12/11/2011 RSV VACCINE (60+ or ) (1 - 1-dose 75+ series) 2021 INFLUENZA VACCINE (#1) 2024 01/24/2017, 2009 Insurance MEDICARE PART A AND B [id number] Care Teams Computer Publisher Relationship Specialty Start Date End Date Castro Broderick MD PCP - General Family Practice 07/19/18
--- OUTSIDE RECORDS SUMMARY | 2025-02-06 00:17 | XMS_ITS | Clinical Summary ---
Author Organization [facility] Address [address] [place] [address] Care Team Providers Care Cyber Security Administrator Name Role Phone Castro Broderick MD Primary Care Provider + Samuel Rg MD Unavailable [phone] Alejandro Adler MD Unavailable [phone] Steven Fraire DO Unavailable Source Comments [facility],non-owned Affiliates and Associated Physician Practices is amultiple site organization consisting of ambulatory clinics and hospital sitesin [place], [place], [place] and [place]. This disclosure is being madepursuant to the Care Everywhere program and may not contain all information available regarding this patient. Last updated 17.[facility] Allergies Active Allergy Reactions Criticality Noted Date Comments Cefadroxil Rash Medium Bromfenac Rash Medium 01/11/2018 Metformin Unknown 08/24/2019 Propoxyphene N-Apap Other 10/25/2024 Medications * Be aware that medications may not be up to date on this document. Alwaysverify current medications with the patient. dilTIAZem coated beads 24hr (CARDIZEM CD) 180 MG capsule Take 1 (one) capsule by mouth DAILY 06/15/2016 Active losartan (COZAAR) 50 MG tabletIndicatio ns:Blepharospas m Take 1 (one) tablet by mouth once daily Active hydroCHLOROthia zide (HYDRODIURIL) 25 MG tabletIndicatio ns:Blepharospas m Take 1 (one) tablet by mouth once daily 06/29/2016 Active Acetaminophen (TYLENOL 8 HOUR PO) Take 1 tablet by mouth every 8 hours as needed Active pantoprazole EC (PROTONIX) 40 MG tablet Take 1 (one) tablet by mouth 2 times daily 05/24/2019 Active gabapentin (NEURONTIN) 300 MG capsule TK 1 C PO BID 11/29/2019 Acti ve polyethylene glycol (NULYTELY) 420 g solution peg-electroly te solution 420 gram oral solution TK UTD Active metoprolol tartrate (LOPRESSOR) 25 MG tablet 04/22/2021 Active potassium chloride ER (KLOR-CON) 10 MEQ tablet Take 1 (one) tablet by mouth once daily 08/20/2021 Active traMADol (ULTRAM) 50 MG tablet Take 1 (one) tablet by mouth 3 times daily as needed For pain. 08/25/2021 Active warfarin (Coumadin) 5 MG tablet 10/27/2021 Active furosemide (Lasix) 20 MG tablet 11/11/2021 Active D3-50 1.25 MG (52917 UT) Take 1 capsule by mouth every 7 days 08/01/2023 Active oxyBUTYnin CR 24hr (Ditropan XL) 15 MG tablet 12/07/2023 Active Dilt-XR 180 MG capsule 05/24/2024 Active estradiol (Estrace) 0.1 MG/GM vaginal cream INSERT 1 GRAM INTO VAGINA 2 NIGHTS PER WEEK 03/19/2024 Active LORazepam (Ativan) 1 MG tablet Take 1 (one) tablet by mouth 3 times daily 90 tablet 3 10/25/2024 Active Hospital, Clinic, or Other Facility Administered Medication Ordered Dose Route Frequency Start Date End Date Status onabotulinumtoxin A (BOTOX) injection 31 UnitsIndications:Benign essential blepharospasm 31 Units IM ONCE 01/24/2025 01/24/2025 E nded Active Problems Problem Noted Date Diagnosed Date Knee pain 02/12/2021 History of pulmonary embolus (PE) 10/04/2016 Morbid obesity with BMI of 50.0-59.9, adult 09/10 Unknown and unspecified causes of morbidity 03/11 Overview (08/13/2020): Morbid obesity with BMI of 50.0-59.9, adult Obstructive sleep apnea syndrome 01/29/2015 Overview (09/16/2017): Overview: MELA (obstructive sleep apnea) Pulmonary hypertension 01/29/2015 Overview (09/16/2017): Overview: Pulmonary hypertension Morbid obesity 01/29/2015 Overview (08/13/2020): Morbid obesity with body mass index of 50 or higher Ptosis of eyelid 01/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 (AF LURIA, FLUZONE TRIVALENT; 6MO+) (IIV3) 01/09/2010 Covid Stremor primary monoval ent 12+ yr 0.3mL Purple cap 07/01/2020,06/10/2020 INFLUENZA VACCINE 01/24/2019,01/13/2018 INFLUENZA VACCINE, ADJUVANTE D, TRIV. (FLUAD TRIVALENT; 65Y+) (AIIV3) 01/24/2017 Family History Medical History Relation Name Comments None Known Brother Status: Alive None Known Father Status: d None Known Mother Status: d Diabetes Sister 4 Sisters Hypertension Sister 4 Sisters Status: Alive Relation Name Status Comments Brother Father Mother Sister 4 Sisters Social History Tobacco Use Types Packs/Day Years Used Date Smoking Tobacco: Former Smokeless Tobacco: Never Alcohol Use Standard Drinks/Week Comments No 0 (1 standard drink = 0.6 oz pur e alcohol) Comments Unknown Sex and Gender Information Value Date Recorded Sex Assigned at Not on file Legal Sex Female 5:21 PM SOURCING COORDINATOR Gender Identity Not on file Sexual Orientation Not on file Last Filed Vital Signs Vital Sign Reading Time Taken Comments Blood Pressure 121/61 07/31/2012 10:21 AM CDT Pulse 95 07/31/2012 10:21 AM CDT Temperature 36.5 C (97.7 F) 07/31/2012 10:21 AM CDT Respiratory Rate 16 07/31/2012 10:21 AM CDT Oxygen Saturation 94% 07/31/2012 10:21 AM CDT Inhaled Oxygen Concentration - - Weight 124.7 kg (275 lb) 07/31/2012 7:15 AM CDT Height 154.9 cm (5' 1) 07/31/2012 7:15 AM CDT Body Mass Index 51.96 07/31/2012 7:15 AM CDT Plan of Treatment Upcoming Encounters Date Type Department Care Team (Late st Contact Info) Description 04/25/2025 2:30 PM SOURCING COORDINATOR Procedure visit [facility] - Ophthalmology [address] [place] [phone] Suzie Slater MD [address] [place] [address] DE[place] [phone] Health Maintenance Due Date Last Done Comments BONE DENSITY TESTING 1945 MEDICARE AWV 12 MONTHS 1945 HEPATITIS C SCREENING 12/05/1964 DTAP/TDAP/TD VACCINES (1 - Tdap) 1965 PNEUMOCOCCAL VACCINE 50+ (1 of 1 - PCV) 1996 ZOSTER VACCINE (1 of 2) 1996 Respiratory Syncytial Virus (RSV) Vaccine Pt: or over 60 yrs (1 - 1-dose 75+ series) 2021 DEPRESSION SCREENING 04/11/2024 COVID-19 VACCINE (3 - season) 2024 07/01/2020, 06/10/2020 INFLUENZA VACCINE (#1) 2024 3, 01/28/2022, 01/22/2021, Additional history exists HEPATITIS B VACCINE Aged Out No longe r eligible based on patient's age to complete this topic HIB VACCINE Aged Out No longer eligi ble based on patient's age to complete this topic HPV VACCINE Aged Out No longer eligi ble based on patient's age to complete this topic MENINGOCOCCAL (Group B) VACCINE SHARED DECISION-MAKING Aged Out No longer eligible based on patient's age to complete this topic MENINGOCOCCAL GROUPS A/C/Y/W VACCINE Aged Out No longer eligible based on patient's age to complete this topic Procedures Procedure Name Priority Date/Time Associated Diagnosis Comments DENERVATION FACE MUSCLE BILATERAL Routine 01/26/2025 10:16 PM CDT Benign essential blepharospasm from Last 3 Months Results * DENERVATION FACE MUSCLE BILATERAL (01/26/2025 10:16 PM CDT) Anatomical Region Laterality Modality Head Other Narrative 01/26/2025 10:16 PM CDT Table formatting from the original result was not included. Images from the original result were not included. Botulinum Toxin Operative Note Date of Procedure: 01/24/2025 Patient here for f/u Benign Essential Blepharospasm. The patient continues with botulinum toxin treatments which have worked well for her and she is resistant to other treatments such as xeomin. Alternative treatment options for hemifacial spasm and or blepharospasm were considered, including carbamazepine, clonazepam, phenytoin, gabapentin, and baclofen or cyclobenzaprine. However, due to side-effect burden and variable efficacy, botulinum toxin injection was elected as the safest and most effective treatment for this patient's facial spasm which results in functional impairment and or emotional distress. Clinical effectiveness of injections: effective Site injected: bilateral obicularis, bilateral drag car racer Last visit: 10/25/24 Units: 37 of xeomin Frequency of injections: every 3 months History/physical Adam Hemphill is a 79 year old female here for routine Botox injections. Last visit:10/25/2024 Units:37 The pt states her spasms have been back for a couple of weeks. She says every night at 9pm they were bothering her. She denies any new spasms. Pt denies pain/pressure/FOL/floaters. Pt mentions when her spasms happen in her left eye, it seems like her eye has a hard time opening after. Drops:AFT PRN Past Medical History: Diagnosis Date Atrial fibrillation Blepharospasm Colon cancer 11/2019 caught on colonoscopy Hypertension Pulmonary hypertension Past Surgical History: Procedure Laterality Date Breast Lumpectomy Right 02/07/2017 Bunionectomy right Cataract Removal Left 03/2020 Dr. Rg Cataract Removal Right 07/2020 Cholecystectomy COLECTOMY PARTIAL OR HEMICOLECTOMY 11/13/[address] Pruitt, no chemo/XRT indicated, caught on colonoscopy Hernia Repair umbilical HX PLASTICS SURGERY, OCULAR HX TUBAL LIGATION Hysterectomy Lithotripsy MO COLONOSCOPY,ABLATE LESION MO DESTROY NERVE FACE MUSCLE, UNILAT 11/09/2017 MO FIX LID PTOSIS,LEVATR RESEC,LOCKER ROOM CLERK 07/31/12 Dr. Slater RANDI bilateral ptosis through bleph incision Refractive Surgery bilat eyes Family History Problem Relation Name Age of Onset Hypertension Sister 4 Sisters Status: Alive Diabetes Sister 4 Sisters None Known Mother Status: None Known Father Status: None Known Brother Status: Alive Physical Exam: Base Eye Exam Visual Acuity (Snellen - Linear) Right Left Dist sc 20/25 20/50 Dist ph sc 20/30 -3 Additional Notes Jankovic Rating Scale Blepharospasm Severity: 3 - Moderate, very noticeable spasm of eyelids only, mildly incapacitation Blepharospasm Frequency: 2 - Eyelid fluttering lasting less than 1 second in duration Roggenkamper Blepharospasm Disability Index Items: Reading - 3 - severe impairment Driving a vehicle - 0 - no impairment Watching television - 2 - moderate impairment Shopping - 0 - no impairment Doing everyday activities - 2 - moderate impairment Getting about on foot (walking) - 0 - no impairment Procedure: Betacaine applied: yes Product Used: Botox Impression: Benign Essential Blepharospasm Surgeon: Suzie Slater M.D. Procedure: Botulinum toxin injection for chemical neurolysis, facial muscles After informed consent was obtained, a time out was performed. A total of 31 units of toxin was then administered subcutaneously via a 30-gauge needle to the muscles surrounding both eyes. 16 units to right orbicularis oculi and 15 units to left orbicularis oculi. At the conclusion, pressure was applied briefly with a gauze dressing. The patient was then given postoperative instructions and released. Amount wasted: 69 units Estimated blood loss: None. F/U 3 mo JAIME Ty 01/24/2025 3:12 PM Patient seen and examined. Nurse practitioner note reviewed and discussed. I confirm these findings other than where revisions were made. Botulinum toxin procedure performed by attending Suzie Slater MD Date of procedure: 01/24/2025 Mary Garcia APRN-BARRATTE OPERATOR OPHTHALMOLOGY SERVICES ORDERABLES Final Result from Last 3 Months Insurance MEDICARE [facility] MEDICARE MEDICARE Care Teams Cyber Security Administrator Relationship Specialty Start Date End Date Castro Broderick MD [address] [place] [address] PCP - General 03/05/08 Samuel Rg MD [address] [facility] [address] [place] [address] Physician Ophthalmology 05/29/20 Alejandro Adler MD [address] [place] [address] Cardiovascular Disease 08/13/20 Steven Fraire DO [address] [facility] [address] [place] [id number] Surgery 08/13/20
[2025-02-06 10:07] VITALS: BP 119/59; PULSE 70; RESP 18; TEMP 36.6; O2SAT 99; BMI 47.2
[2025-02-06] MEDS: LACTATED RINGERS 1,000 ML 150 ML IV CONT (10:11)
--- NOTE | 2025-02-06 10:33 | WPDANESEPPF ---
Anes - Initial Pre Proc Eval Procedure: Operation Date: 02/06/25 10:00 Proposed Procedures p Screening Colonoscopy - Rusty Stubbs MD Date/Time: 02/06/25 10:33 Surgeon: Rusty Stubbs MD Pre Op Diagnosis: Personal history of other malignant neoplasm of la Patient Data Age: 79 Gender: F Height: 1.55 m Weight: 113.4 kg Last Vital Signs Temp 36.6 C 02/06/25 10:07 Pulse 70 02/06/25 10:07 Resp 18 02/06/25 10:07 BP 119/59 L 02/06/25 10:07 Pulse Ox 99 02/06/25 10:07 O2 Del Method Room Air 02/06/25 10:07 Allergies Allergy/AdvReac Type Severity Reaction Status Date / Time cefadroxil Allergy Severe RASH AND Verified 02/06/25 09:56 ITCHING benazepril AdvReac Intermediate Cough Verified 02/06/25 09:56 metformin AdvReac Unknown SEVERE Verified 02/06/25 09:56 DIARRHEA Home Medications ?Medication ?Instructions ?Recorded ?Confirmed ?Type acetaminophen 650 mg 650 mg PO Q8H PRN Pain 06/13/19 02/06/25 History tablet,extended release lorazepam 1 mg tablet 1 mg PO BID PRN Twitch 08/13/21 02/06/25 History metoprolol tartrate 25 mg tablet 25 mg PO BID 08/13/21 02/06/25 History gabapentin 300 mg capsule 300 mg PO BID #180 caps 08/13/24 02/06/25 Rx hydrochlorothiazide 25 mg tablet 25 mg PO DAILY #90 tabs 09/13/24 02/06/25 Rx losartan 50 mg tablet (Cozaar) 50 mg PO DAILY #90 tabs 09/13/24 02/06/25 Rx diltiazem HCl 180 mg 240 mg PO DAILY 09/24/24 02/06/25 History capsule,extended release 24 hr warfarin 5 mg tablet 5 mg PO .COMPLEX #48 tabs 12/06/24 02/06/25 Rx pantoprazole 40 mg tablet,delayed See Rx Instructions .Route 12/12/24 02/06/25 Rx release .COMPLEX #180 tabs atorvastatin 10 mg tablet (Lipitor) 10 mg PO DAILY #90 tabs 01/07/25 02/06/25 Rx furosemide 20 mg tablet (Lasix) 20 mg PO DAILY #90 tabs 01/16/25 02/06/25 Rx tramadol 50 mg tablet 50 mg PO Q6H PRN pain #60 tabs 01/16/25 01/31/25 Rx potassium chloride 10 mEq 10 meq PO BID #180 tabs 01/28/25 02/06/25 Rx tablet,extended release solifenacin 10 mg tablet See Rx Instructions .Route 01/31/25 02/06/25 Rx .COMPLEX #90 tabs Patient hx anesthesia problems: none Family hx anesthesia problems: none Results Review: All pre-operative results and documents have been reviewed as part of the pre-operative evaluation. FOR[facility]LY [facility], [facility] Past Medical History Medical History Incarcerated incisional hernia (12/2022) Small bowel obstruction UTI (urinary tract infection) Atrial fibrillation Longstanding persistent atrial fibrillation History of colon cancer Status post right hemicolectomy in 2019 Paroxysmal atrial fibrillation Longstanding history of atrial fibrillation, history of JUAN JOSE cardioversion Colon cancer Former smoker Arthritis Anxiety Sleep apnea CHF (congestive heart failure) High cholesterol History of kidney stones History of colon polyps Osteoarthritis Diabetes type 2, controlled diet controlled Fibromyalgia Pulmonary embolism Hypertension DVT (deep venous thrombosis) Surgical History Surgical History History of incisional hernia repair Open 5cm incarcerated incisional hernia repair with mesh on 12/24/22 [facility] History of ventral hernia repair (12/2022) H/O colonoscopy with polypectomy S/P right hemicolectomy DEBO rt hemicolectomy 11/13/19 Mass of breast 2017, Lumpectomy, benign History of eyelid surgery H/O hernia repair x 2 Hx laparoscopic cholecystectomy 1996 History of hysterectomy Family History Family History Father Heart disease Mother CHF (congestive heart failure) Sibling Diabetes mellitus Sibling Diabetes mellitus Cerebrovascular accident Sibling Diabetes mellitus Breast cancer Afib Other Heart disease Grandparent Cerebrovascular accident Other Cancer Other Family history of malignant neoplasm Hypertension Social History Social History Social History: the patient has 2 daughters. In the 1 daughter is her durable power real estate associate attorney for healthcare. The patient is a full code. Patient stated she quit smoking 30 years ago. She lives home alone. She is . She worked for [employer]. she is retired now. She worked in [employer]. Smoking packs per day: 1.5 Smoking cigarettes per day: 30.0 Years smoked: 10 Smoking pack-years: 15.00 Smoking status: Never smoker Tobacco type: cigarettes Second hand tobacco smoke exposure: Yes Smoking end date: 04/11/81 Alcohol intake: never Substance use: never Substance use type: does not use Current Housing: Decline to Answer Concerned About Future Housing: Decline to Answer Difficulty Paying Gas/Electric Bills: Decline to Answer Difficulty Paying for Meds: Decline to Answer Currently Unemployed: Decline to Answer Education: Decline to Answer Difficulty w/ Childcare or Family Care: Decline to Answer Living arrangements: alone Occupation/Education: retired Additional occupation/education comments: [employer] Gender identity (if verbalized by the patient): Female Sexual Orientation (if Verbalized by the Patient): Straight or Heterosexual Spiritual care concerns: No Agree to blood products: Yes Anes - Eval Final PreProcedure Day of Procedure 02/06/25 10:33 Patient weight: morbidly obese Heart: irregular rhythm Lungs: decreased breath sounds Airway: Mallampati scale class II Neurological: alert and oriented Last oral intake: >/= 8 hours ASA classification: IV Emergent: no Anesthetic plan: proceed Anesthesia type and monitoring: general GIVS and standard monitoring Results Review: All pre-operative results and documents have been reviewed as part of the pre-operative evaluation. Informed Consent: The patient's anesthetic plan and its attendant risks and benefits were discussed with the patient/family/POA. Questions were solicited and answers provided to the satisfaction of the patient/family/POA.
--- NOTE | 2025-02-06 10:48 | PM.HPGS ---
History of Present Illness History of Present Illness Consent: Risks, benefits, and alternatives have been discussed and questions answered. Patient agrees to proceed with procedure. Chief complaint: Personal history of other malignant neoplasm of la Narrative: Fang Hemphill is a 79 year old female here for colonoscopy, h/o colon cancer status post hand-assisted laparoscopic right hemicolectomy in 2019 Review of Systems Review of Systems: All systems reviewed & are unremarkable except as noted in HPI and below PMFSH Past Medical History Medical History (Updated 02/06/25 @ 10:49 by Rusty Stubbs MD) Incarcerated incisional hernia (12/2022) Small bowel obstruction UTI (urinary tract infection) Atrial fibrillation Longstanding persistent atrial fibrillation History of colon cancer Status post right hemicolectomy in 2019 Paroxysmal atrial fibrillation Longstanding history of atrial fibrillation, history of JUAN JOSE cardioversion Colon cancer Former smoker Arthritis Anxiety Sleep apnea CHF (congestive heart failure) High cholesterol History of kidney stones History of colon polyps Osteoarthritis Diabetes type 2, controlled diet controlled Fibromyalgia Pulmonary embolism Hypertension DVT (deep venous thrombosis) Surgical History Surgical History History of incisional hernia repair Open 5cm incarcerated incisional hernia repair with mesh on 12/24/22 [facility] History of ventral hernia repair (12/2022) H/O colonoscopy with polypectomy S/P right hemicolectomy DEBO rt hemicolectomy 11/13/19 Mass of breast 2017, Lumpectomy, benign History of eyelid surgery H/O hernia repair x 2 Hx laparoscopic cholecystectomy 1996 History of hysterectomy Family History Family History Father Heart disease Mother CHF (congestive heart failure) Sibling Diabetes mellitus Sibling Diabetes mellitus Cerebrovascular accident Sibling Diabetes mellitus Breast cancer Afib Other Heart disease Grandparent Cerebrovascular accident Other Cancer Other Family history of malignant neoplasm Hypertension Social History Social History Social History: the patient has 2 daughters. In the 1 daughter is her durable power youth leader for healthcare. The patient is a full code. Patient stated she quit smoking 30 years ago. She lives home alone. She is . She worked for [employer] she is retired now. She worked in accounts payable. Smoking packs per day: 1.5 Smoking cigarettes per day: 30.0 Years smoked: 10 Smoking pack-years: 15.00 Smoking status: Never smoker Tobacco type: cigarettes Second hand tobacco smoke exposure: Yes Smoking end date: 04/11/81 Alcohol intake: never Substance use: never Substance use type: does not use Current Housing: Decline to Answer Concerned About Future Housing: Decline to Answer Difficulty Paying Gas/Electric Bills: Decline to Answer Difficulty Paying for Meds: Decline to Answer Currently Unemployed: Decline to Answer Education: Decline to Answer Difficulty w/ Childcare or Family Care: Decline to Answer Living arrangements: alone Occupation/Education: retired 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 Gender identity (if verbalized by the patient): Female Sexual Orientation (if Verbalized by the Patient): Straight or Heterosexual Spiritual care concerns: No Agree to blood products: Yes Meds Home Medications and Allergies Home Medications ?Medication ?Instructions ?Recorded ?Confirmed ?Type acetaminophen 650 mg 650 mg PO Q8H PRN Pain 06/13/19 02/06/25 History tablet,extended release lorazepam 1 mg tablet 1 mg PO BID PRN Twitch 08/13/21 02/06/25 History metoprolol tartrate 25 mg tablet 25 mg PO BID 08/13/21 02/06/25 History gabapentin 300 mg capsule 300 mg PO BID #180 caps 08/13/24 02/06/25 Rx hydrochlorothiazide 25 mg tablet 25 mg PO DAILY #90 tabs 09/13/24 02/06/25 Rx losartan 50 mg tablet (Cozaar) 50 mg PO DAILY #90 tabs 09/13/24 02/06/25 Rx diltiazem HCl 180 mg 240 mg PO DAILY 09/24/24 02/06/25 History capsule,extended release 24 hr warfarin 5 mg tablet 5 mg PO .COMPLEX #48 tabs 12/06/24 02/06/25 Rx pantoprazole 40 mg tablet,delayed See Rx Instructions .Route 12/12/24 02/06/25 Rx release .COMPLEX #180 tabs atorvastatin 10 mg tablet (Lipitor) 10 mg PO DAILY #90 tabs 01/07/25 02/06/25 Rx furosemide 20 mg tablet (Lasix) 20 mg PO DAILY #90 tabs 01/16/25 02/06/25 Rx tramadol 50 mg tablet 50 mg PO Q6H PRN pain #60 tabs 01/16/25 01/31/25 Rx potassium chloride 10 mEq 10 meq PO BID #180 tabs 01/28/25 02/06/25 Rx tablet,extended release solifenacin 10 mg tablet See Rx Instructions .Route 01/31/25 02/06/25 Rx .COMPLEX #90 tabs Allergies Allergy/AdvReac Type Severity Reaction Status Date / Time cefadroxil Allergy Severe RASH AND Verified 02/06/25 09:56 ITCHING benazepril AdvReac Intermediate Cough Verified 02/06/25 09:56 metformin AdvReac Unknown SEVERE Verified 02/06/25 09:56 DIARRHEA Vital Signs Vital Signs - 24 hr 02/06/25 10:07 Temperature 97.8 F Pulse Rate 70 Respiratory Rate 18 Blood Pressure 119/59 L Pulse Oximetry 99 Oxygen Delivery Room Air Exam Const: General: comfortable and no acute distress HENMT: Face/Nose/Sinus: Normal nares present Resp: Auscultation: clear to auscultation bilaterally Cardio: Rate: regular rate Rhythm: regular rhythm GI: Inspection: non-distended GI Palp: Yes Soft to palpation Skin: General skin exam: normal color Extrem: General: normal to inspection Psych: Mental Status: mental status grossly normal Assessment and Plan Assessment and plan (1) History of colon cancer: Code(s): Z85.038 - Personal history of other malignant neoplasm of large intestine Status: Acute Assessment and Plan: colonoscopy
--- NOTE | 2025-02-06 11:09 | S_PTH ---
PATIENT: Fang Hemphill LOC: [facility]#:[id number] AGE/SX: 79/F ROOM: RE02/06/[address]: Rusty Stubbs MD : 1945 BED: DIS: 02/06/2025 SPEC #: [id number] RECD: 02/06/25 13:19 STATUS: JOSEE REKellen #: [id number] RICHELLE: 02/06/25 11:[address]: Rusty Stubbs DEPT: [facility] Surgical RECD BY: Hetal Goddard ENTERED: 02/06/25 13:19 SP TYPE: Surgical OTHR DR: Castro Broderick MD Tissues: A - Colon Polypectomy B - Colon Polypectomy C - Colon Polypectomy Procedures: Hematoxylin and Eosin Stain Gross and Microscopic Level 4
[2025-02-06 11:10] VITALS: BP 93/48; PULSE 74; RESP 18; O2SAT 98
[2025-02-06 11:20] VITALS: BP 86/71; PULSE 62; RESP 18; O2SAT 99
[2025-02-06 11:29] VITALS: BP 102/77; PULSE 60; RESP 18; O2SAT 98
== END 2025-02-06 11:53 | disposition home or self-care (01) ==
PROVIDERS: PCP Family Medicine Adolescent Medicine; Visit Provider Internal Medicine Gastroenterology
PROC: 0DJD8ZZ Inspection of Lower Intestinal Tract, Via Natural or Artificial Opening Endoscopic (ICD-10-PCS; CPT 45378; principal; 2025-02-06 10:00)
DX: Z08 Encounter for follow-up examination after completed treatment for malignant neoplasm (principal); D12.2 Benign neoplasm of ascending colon; D12.3 Benign neoplasm of transverse colon; D12.5 Benign neoplasm of sigmoid colon; K57.30 Diverticulosis of large intestine without perforation or abscess without bleeding; K64.8 Other hemorrhoids; Z85.038 Personal history of other malignant neoplasm of large intestine; Z90.49 Acquired absence of other specified parts of digestive tract; Z98.0 Intestinal bypass and anastomosis status
CPT/HCPCS: 45385; 88305; J2003; J2704; J7120